=== PATIENT | male | born 1990 | race Caucasian/White ===

== ENCOUNTER 2020-05-31 04:55 | Emergency (ER) | payer MEDICAID, SELFPAY ==
[2020-05-31 04:57] VITALS: BP 171/95; PULSE 75; RESP 14; TEMP 36.2; O2SAT 98; BMI 30.5
--- NOTE | 2020-05-31 05:14 | RAD_ITS ---
STUDY: X-RAY - ABDOMEN/PELVIS REASON FOR EXAM: Male, 29 years old. PT STATES CONSTIPATION WITH ABD PAIN. HAS HAD TO USE LAXATIVES FOR ONE MONTH. LAST BM 3 DAYS AGO TECHNIQUE: Two AP supine views of the abdomen and pelvis. COMPARISON: None. FINDINGS: Normal visualized lung bases. There is mild amount of stool within the colon. There is no demonstrated free abdominal air. The visualized liver, spleen and kidneys are grossly normal in size and morphology. Normal soft tissue structures. Normal visualized osseous structures. RAD/Abdomen Single View IMPRESSION: Mild to moderate constipation. Electronically Signed: Felicia Burgess MD at 5:53 EDT Tel , Service support ,
--- NOTE | 2020-05-31 05:16 | ED.DCSUM_ITS ---
- ER Visit Summary Date of Service: 05/31/20 Chief Complaint: Constipation History of Present Illness: The patient is a 29 M presenting with constipation. Patient states this has been ongoing for the past month. He states he has not been able to have a bowel movement for the past 3 days. He states he has needed to take Dulcolax prior to having a bowel movement. He has not tried this in the past 2 days. He started having abdominal cramping last night. He denies nausea or vomiting. Denies blood in his stool. Denies fever or other complaints. History of previous appendectomy. Physical Examination: Vitals are stable. Patient is afebrile. Alert no acute distress. HEENT exam is unremarkable. Neck is supple. Lungs are clear and equal bilaterally. Heart is regular rate and rhythm. Abdomen is soft nontender nondistended. No guarding or rebound Rectal: Normal tone, no stool impaction Extremities are unremarkable. Skin is warm and dry. Remainder of exam is unremarkable. Emergency Department Course and Treatment: KUB shows mild to moderate constipation. He was given magnesium citrate for home. Advised to follow-up with his primary care physician. Advised return to ED for worsening complaints. Disposition: Discharge home Impression: Constipation This note was generated with [employer] dictation software. It may contain incorrect words, spelling, and punctuation that were not noted in review of the chart prior to signing ED Disposition - Plan for ED Patient: Instructions: ED Constipation Referrals: Easton Kang MD [Primary Care Provider] -
--- NOTE | 2020-05-31 06:16 | ED.DEP ---
ED Disposition - Plan for ED Patient: Instructions: ED Constipation Referrals: Easton Kang MD [Primary Care Provider] -
[2020-05-31] MEDS: Magnesium Citrate 300 ML PO (06:20)
[2020-05-31 06:25] VITALS: BP 164/78; PULSE 74; RESP 16
== END 2020-05-31 06:26 | disposition home or self-care (01) ==
LOC: ED 05:20
PROVIDERS: Emergency Provider Emergency Medicine; PCP Family Medicine
DX: K59.00 Constipation, unspecified (principal)
CPT/HCPCS: 74018; 99283

== ENCOUNTER → 2020-07-10 10:08 | Outpatient (CLI) | payer MEDICAID, SELFPAY | PROVIDERS: PCP Family Medicine; Referring Provider Family Medicine; Visit Provider Family Medicine | DX: Z20.828 Contact with and (suspected) exposure to other viral communicable diseases (principal) | CPT/HCPCS: 87635; C9803; U0003 ==

== ENCOUNTER 2020-12-18 16:56 | Emergency (ER) | payer MEDICAID, SELFPAY ==
[2020-12-18 16:57] VITALS: BP 145/86; PULSE 76; RESP 16; TEMP 35.8; O2SAT 97; BMI 30.1
--- NOTE | 2020-12-18 17:07 | ED.DCSUM_ITS ---
History of Present Illness Chief Complaint: Allergic Reaction Detail of Chief Complaint: Hives Informant: Patient Onset: Yesterday Context: Sudden Onset Timing: Continuous Quality: Hives Location: Generalized Current Severity: Moderate Maximum Severity: Moderate Worsened by: Unknown Relieved by: Took 75 mg of Benadryl today Associated Symptoms: States he feels his tongue is swollen Narrative: Is a 30-year-old male with no significant past medical history. He denies environmental allergies. Does have allergy to amoxicillin cefaclor. He denies lightheadedness. He denies chest pain. He denies shortness of breath. He denies wheezing. He denies nausea or vomiting. He denies abdominal pain. He states his tongue feels swollen. He is able to swallow without drooling. He had no change in voice. He has no other complaints. He did not have any berries, nuts or shellfish food yesterday. Prior similar symptoms: No Recent Illness/Hospitalization: No - Past Medical History (1) No significant past medical history Status: Acute Past Medical History - Allergies and Home Meds Allergies/Adverse Reactions: Allergies amoxicillin Adverse Reaction (Verified 05/31/20 04:56) PT UNSURE OF REACTION cefaclor [From Ceclor] Adverse Reaction (Verified 05/31/20 04:56) PT UNSURE OF REACTION Primary Care Physician: Easton Kang MD [Primary Care Provider] - 3-5 Days Prior records reviewed: Yes Past Medical History: None Surgical History: no surgical history Lives: With Family Smoking Status: Never smoker Alcohol: None Drugs: None Review of Systems General: Denies: Chills, Fever, Subjective Eyes: Denies: Visual changes - bilaterally, Blurred Vision - bilaterally ENT: Reports: - - Tongue feels swollen. Denies: Bilateral ear pain, Rhinorrhea, Sore throat Cardiovascular: Denies: Chest pain, Palpitations Respiratory: Denies: Dyspnea, Cough, Dyspnea on exertion Gastrointestinal: Denies: Abdominal pain, Nausea, Vomiting, Diarrhea, Melena, Hematochezia Genitourinary: Denies: Dysuria, Hematuria, Frequency Musculoskeletal: Denies: Myalgias, Arthralgias, Neck pain, Back pain, Swelling, Extremity Pain, -, - Skin: Reports: Rash. Denies: Wounds Neurological: Denies: Weakness, Parasthesia Psych: Denies: Anxiety Hematologic: Denies: Easy bruising, Easy bleeding Physical Exam Vital Signs/Narrative: Vital Signs Temp Pulse Resp BP Pulse Ox 12/18/20 16:57 96.4 F L 76 16 145/86 H 97 Inital Vital Signs reviewed: Yes General: Well nourished, Well developed, No Acute Distress Head: Normocephalic, Atraumatic Eyes: Perrl, EOMI. Negative for: Pale conjunctiva, Scleral icterus ENT: Moist mucous membranes, No rhinorrhea, - - He is midline. There is no inspiratory expiratory stridor. There is no obvious angioedema noted. Neck: Supple, Nontender Cardiovascular: Regular rate, Regular rhythm, No murmurs, Normal S1, Normal S2 Respiratory: No distress, CTA bilaterally, Chest nontender Abdomen: Soft, Nontender, Nondistended, Normal bowel sounds Back: Nontender, Normal Inspection Extremities: Nontender, No edema Skin: Normal color, No Trauma, Rash - Urticaria that is generalized. Negative for: Cyanosis, Diaphoresis, Jaundice Neurological: Alert, Oriented x3, Cranial nerves II-XII grossly intact, Normal Strength, Normal Sensation Psychological: Normal affect, Normal Mood Diagnostic/Tx/Re-eval - Medical Decision Making Patient with generalized allergic reaction with hives. He was treated with H1 and H2 bree and Solu-Medrol. Since he is not hemodynamically unstable and there is no objective findings other than the rash epinephrine was not given. Patient was reassessed at 10/04/2004. His hives have resolved. All of his symptoms have resolved. I do not appreciate any difference in his tongue. He subjectively feels his tongue is no longer swollen. Patient was discharged with a prescription for H1 bree, H2 bree and predni sone. He was instructed follow-up with his doctor for allergy testing. ED Disposition - Plan for ED Patient: Disposition: Home or Assisted Living Diagnosis: Urticaria Instructions: ED Hives (Adult) Prescriptions: Prednisone [Deltasone] 40 mg PO DAILY #10 tablet Prescription Printed Famotidine [Pepcid] 20 mg PO BID #10 tab Prescription Printed Referrals: Easton Kang MD [Primary Care Provider] - 3-5 Days
[2020-12-18] MEDS: MethylPREDNISolone 125 MG/2 ML Vial IV (17:45)
[2020-12-18] MEDS: DiphenhydrAMINE 50 MG/ML Syringe IV (17:45)
[2020-12-18] MEDS: Famotidine 200 MG/20 ML MDV 20 MG in 0.9% Normal Saline (Pres. free 8 ML 300 MG IV (17:46)
[2020-12-18 17:53] VITALS: BP 124/59; PULSE 70; RESP 16; O2SAT 100
[2020-12-18 18:43] VITALS: BP 149/70; PULSE 65; RESP 18; O2SAT 100
== END 2020-12-18 18:46 | disposition home or self-care (01) ==
PROVIDERS: Emergency Provider Emergency Medicine; PCP Family Medicine
DX: L50.0 Allergic urticaria (principal); Z88.1 Allergy status to other antibiotic agents; Z88.0 Allergy status to penicillin
CPT/HCPCS: 96365; 96375; 99282; A4216; J3490

== ENCOUNTER 2020-12-20 21:38 | Emergency (ER) | payer MEDICAID, SELFPAY ==
[2020-12-20 21:39] VITALS: BP 146/93; PULSE 84; RESP 16; TEMP 37.2; O2SAT 99; BMI 30.7
--- NOTE | 2020-12-20 22:03 | ED.DCSUM_ITS ---
- ER Visit Summary Date of Service: 12/20/20 Chief Complaint: [Hives] History of Present Illness: The patient is a 30 M [ presents to the emergency department with complaint of an allergic reaction. Patient states that he was seen in the emergency department 2 days ago for hives and was given IV with steroids as well as Benadryl and Pepcid and eventually symptoms resolved. Patient states that he could not tolerate the prednisone so he stopped taking it and that it made him very emotional and spacey and felt out of it. Patient states that this evening he started itching on his calf and developing a hive on his calf as well as his abdomen. Patient did take some Benadryl and some Pepcid this evening. Patient denies any new soaps or detergents or perfumes. He denies eating any unusual foods. He denies any new medications. Patient is using some sort of a fuel supplement for bodybuilding as well as creatine. Patient's been using the creatine for 2 weeks and he was told to discontinue his fuel supplement which she stopped taking yesterday. She denies lip or tongue swelling. He denies shortness of breath.] Physical Examination: [HEENT-PERRLA, EOMI. Cranial nerves II through XII grossly intact. TMs clear. Mucous membranes moist. No adenopathy. No angioedema. No stridor Cardiovascular-regular rate and rhythm without murmur or ectopy Lungs-clear to auscultation, chest wall stable without crepitus or subcu emphysema Abdomen-normoactive bowel sounds, soft, nontender, no rebound or rigidity, no peritoneal signs. Skin exam-patient does have urticaria involving the abdomen and right calf. The urticaria on the abdomen appears almost linear where he has been scratching. Extremities-intact ?4, normal range of motion, normal pulses, atraumatic] Test Results: [None indicated] Emergency Department Course and Treatment: [I offered to give patient IV steroids as well as Benadryl which she refused. Patient states that he has prednisone at home and he would prefer to go home and take that. Patient also understands that he may take Benadryl and Pepcid.] Treatment Plan: [We discussed discontinuing the creatine and the other supplement that he is currently taking. Patient advised to return if lip or tongue swelling or difficulty breathing or condition should worsen anyway.] Disposition: [Discharged home in stable condition] Impression: [Urticaria-etiology uncertain] This note was generated with [employer] dictation software. It may contain incorrect words, spelling, and punctuation that were not noted in review of the chart prior to signing ED Disposition - Plan for ED Patient: Referrals: Easton Kang MD [Primary Care Provider] -
--- NOTE | 2020-12-20 22:07 | ED.DEP ---
ED Disposition - Plan for ED Patient: Instructions: ED Hives (Adult) Referrals: Easton Kang MD [Primary Care Provider] - 3-5 Days
[2020-12-20 22:29] VITALS: RESP 18
== END 2020-12-20 22:32 | disposition home or self-care (01) ==
LOC: ED 22:22
PROVIDERS: Emergency Provider Emergency Medicine; PCP Family Medicine
DX: L50.9 Urticaria, unspecified (principal)
CPT/HCPCS: 99282

== ENCOUNTER → 2020-12-24 12:51 | Outpatient (CLI) | payer MEDICAID, SELFPAY ==
[2020-12-20 21:39] VITALS: BMI 30.7
[2020-12-27 16:08] LABS: Almond <0.10 kU/L (Class 0); Banana <0.10 kU/L (Class 0); Beef <0.10 kU/L (Class 0); Cashew <0.10 kU/L (Class 0); Chicken <0.10 kU/L (Class 0); Clam <0.10 kU/L (Class 0); Codfish <0.10 kU/L (Class 0); Corn <0.10 kU/L (Class 0); Crab <0.10 kU/L (Class 0); Egg, White <0.10 kU/L (Class 0); Egg, Whole <0.10 kU/L (Class 0); Egg, Yolk <0.10 kU/L (Class 0); Garlic <0.10 kU/L (Class 0); Gluten <0.10 kU/L (Class 0); Lobster <0.10 kU/L (Class 0); Milk (Cow) <0.10 kU/L (Class 0); Oat <0.10 kU/L (Class 0); Onion <0.10 kU/L (Class 0); Peanut <0.10 kU/L (Class 0); Potato, White <0.10 kU/L (Class 0); SCALLOP <0.10 kU/L (Class 0); SESAME SEED <0.10 kU/L (Class 0); Salmon <0.10 kU/L (Class 0); Shrimp <0.10 kU/L (Class 0); Soybean <0.10 kU/L (Class 0); Tomato <0.10 kU/L (Class 0); Tuna <0.10 kU/L (Class 0); Walnut, (Food) <0.10 kU/L (Class 0); Wheat <0.10 kU/L (Class 0); Yeast <0.10 kU/L (Class 0)
[2020-12-27 16:17] LABS: Turkey <0.10 kU/L (Class 0)
== END ==
PROVIDERS: PCP Family Medicine; Referring Provider Otolaryngology Otolaryngology/Facial Plastic Surgery; Visit Provider Otolaryngology Otolaryngology/Facial Plastic Surgery
DX: T78.40XA Allergy, unspecified, initial encounter (principal)
CPT/HCPCS: 36415; 86003

== ENCOUNTER 2023-03-27 20:38 | Emergency (ER) | payer MEDICAID, SELFPAY ==
[2023-03-27 20:41] VITALS: BP 151/84; PULSE 95; RESP 18; TEMP 36.4; O2SAT 99; BMI 29.5
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
[2023-03-27] MEDS: Ondansetron ODT 4 MG Tablet PO (21:10)
[2023-03-27] MEDS: Naproxen 500 MG Tablet PO (21:10)
--- NOTE | 2023-03-27 21:23 | RAD_ITS ---
INDICATION: rib injury EXAMINATION/TECHNIQUE: X-RAY - XR Ribs Unilateral W/ PA Chest Min 3 Views COMPARISON: None. FINDINGS: SOFT TISSUES: No soft tissue swelling or gas. BONES: No displaced fracture. No sclerotic or destructive changes observed. VISUALIZED LUNGS: Clear. No pneumothorax. RAD/Ribs Uni Min 3V w/PA Chest IMPRESSION: No visualized fracture. No evidence of acute cardiopulmonary process. Electronically Signed: Hector Acosta MD at 22:21 EDT ,
== END 2023-03-27 22:42 | disposition home or self-care (01) ==
PROVIDERS: Emergency Provider Emergency Medicine; PCP Family Medicine; Visit Provider Emergency Medicine
DX: S06.0X0A Concussion without loss of consciousness, initial encounter (principal); S20.219A Contusion of unspecified front wall of thorax, initial encounter; Y04.8XXA Assault by other bodily force, initial encounter; S09.8XXA Other specified injuries of head, initial encounter
CPT/HCPCS: 70450; 71101; 99282

== ENCOUNTER 2024-01-15 02:10 | Emergency (ER) | payer MEDICAID, SELFPAY ==
[2024-01-15 02:11] VITALS: BP 164/93; PULSE 85; RESP 20; TEMP 36.8; O2SAT 98; BMI 32.8
--- NOTE | 2024-01-15 02:23 | EX.ED.DYSGE1 ---
HPI History of Present Illness Chief Complaint: Sore Throat Informant: patient and spouse/S.O. Narrative Narrative: 4 to 5 days sore throat pain with swallowing. No fevers or cough. No sick contacts. No myalgias. Tonsillectomy and adenectomy in the past. Reports feels a lump in his neck on the right side. [facility] Medical History Bipolar disorder Tourette's Home Medications fluphenazine HCl 2.5 mg tablet 5 mg PO DAILY 05/31/20 [History Last Taken Unknown] fluoxetine 40 mg capsule 40 mg PO DAILY 01/15/24 [History Last Taken Unknown] Allergy/AdvReac Type Severity Reaction Status Date / Time amoxicillin AdvReac PT UNSURE Verified 03/27/23 20:41 OF REACTION cefaclor [From Ceclor] AdvReac PT UNSURE Verified 03/27/23 20:41 OF REACTION prednisone AdvReac Other Verified 03/27/23 20:41 Surgical History History of tonsillectomy and adenoidectomy Hx of appendectomy S/P hernia surgery Social History Smoking Status: Never smoker ROS ROS ED Constitutional Constitutional ED: Denies chills, fever(s) or sweats Eyes Eyes: Denies change in vision ENT ENT ED: Reports sore throat; Denies dysphagia Cardiovascular Cardiovascular: Denies chest pain, leg edema, palpitations or racing heartbeat Respiratory/Chest Respiratory/Chest: Denies cough, dyspnea or dyspnea on exertion Gastrointestinal Gastrointestinal: Denies abdominal pain, diarrhea, nausea or vomiting Genitourinary Genitourinary ED: Denies dysuria, hematuria or urinary frequency Musculoskeletal Musculoskeletal: Denies back pain, extremity pain or neck pain Integumentary Denies rash or wounds Neurologic Neurologic: Denies headache(s), paresthesias or weakness Hematologic/Lymphatic Hematologic/Lymphatic: Reports lymphadenopathy EXAM Physical Exam Const Vital Signs: 01/15/24 02:11 01/15/24 03:11 Temperature 98.2 F 98.0 F Temperature Source Oral Pulse Rate 85 80 Respiratory Rate 20 H 16 Blood Pressure 164/93 H 140/90 H Blood Pressure Mean 116 106 Pulse Ox 98 96 Oxygen Delivery Method Room Air Positive well nourished and well developed General Appearance ED: well developed and NAD HEENT Reports moist mucous membranes HEENT Narrative: Tonsils absent mild posterior pharyngeal erythema on the right side. No trismus. Airway patent. normocephalic and atraumatic Eyes PERRL, EOMs intact bilaterally and conjunctivae normal General Eye ED: Yes normal appearance of both eyes Neck supple Neck Narrative: Tender right anterior cervical lymphadenopathy. General: tenderness Chest Wall Chest: Negative for tenderness Resp normal respiratory effort and normal air movement Effort and Inspection: symmetric chest movement; Negative for respiratory distress Cardio regular rate, regular rhythm and no murmurs Peripheral Pulses: pulses 2+ throughout GI normal to inspection, nondistended, normoactive bowel sounds and non-tender Palpation: Negative for guarding or rebound tenderness present Back/Spine no CVA tenderness and no thoracic nor lumbar tenderness Extremity normal to inspection General Extremety ED: Negative for edema or tenderness General Extremity: Negative for edema Neuro oriented x3 and no sensory deficits noted Sensorium / Orientation: awake and alert Skin no rashes or lesions noted and no wounds MDM MDM MDM Narrative Medical decision making narrative: Interventions / MDM: Differential diagnosis: Pharyngitis, cervical lymphadenitis Diagnosis considered but do not suspect: No clinical retropharyngeal abscess. My EKG interpretation: N/A Imaging independently reviewed and interpreted by myself: N/A External documents reviewed: N/A Test considered but not ordered:N/A ED course: Pharyngitis symptoms. No clinical retropharyngeal abscess. Tonsils are absent. Rapid strep ordered. Noted allergy to prednisone causing likely psychosis. He would like to try different steroid. Order for dexamethasone p.o. Strep PCR negative. Reassured on findings. He will use Tylenol or Motrin as needed. Discussed reactive cervical adenitis. Outpatient follow-up. Re-evaluation: stable Disposition discussed with patient/family/significant other: Patient and significant other Case discussed with consulting clinician: N/A This note was generated with [employer] dictation software. It may contain incorrect words, spelling, and punctuation that were not noted in checking the note before signing. Discharge Plan Triage Chief Complaint: Sore Throat ED Provider: Morris Staples Dx/Rx/DC Orders Clinical Impression: Acute cervical lymphadenitis, Pharyngitis Instructions: ED Adenitis Cervical No Abx Tx, ED Pharyngitis, Viral Prescriptions: No Action fluphenazine HCl 2.5 MG tablet 5 mg PO DAILY fluoxetine 40 mg capsule 40 mg PO DAILY Primary Care Provider: Easton Kang Referrals: Easton Kang MD [Primary Care Provider] - 1 Week Activity Restrictions/Additional Instructions: Strep PCR negative. Reactive cervical lymphadenitis due to likely viral pharyngitis. Continue oral fluids Tylenol Motrin as needed. Status post dexamethasone. Follow-up with your doctor. Disposition Disposition: Home, Self Care Discharge Date/Time: 01/15/24 03:19
[2024-01-15] MEDS: dexAMETHasone 4 MG Tablet 12 MG PO (02:29)
[2024-01-15 03:11] VITALS: BP 140/90; PULSE 80; RESP 16; TEMP 36.7; O2SAT 96
== END 2024-01-15 03:19 | disposition home or self-care (01) ==
PROVIDERS: Emergency Provider Emergency Medicine; PCP Family Medicine; Visit Provider Emergency Medicine
DX: J02.9 Acute pharyngitis, unspecified (principal); F31.9 Bipolar disorder, unspecified; L04.0 Acute lymphadenitis of face, head and neck; Z79.899 Other long term (current) drug therapy
CPT/HCPCS: 87651; 99282

== ENCOUNTER 2024-05-07 01:38 | Emergency (ER) | payer MEDICAID, SELFPAY ==
[2024-05-07 01:38] VITALS: PULSE 87; RESP 20; TEMP 36.6; O2SAT 99; BMI 35.6
--- NOTE | 2024-05-07 01:47 | EDS_ITS ---
HPI History of Present Illness Chief Complaint: Abd Pain [facility] Medical History (Updated 05/07/24 @ 05:[address] Sincere Flores DO) Anxiety Bipolar disorder Tourette's Home Medications ?Medication ?Instructions ?Recorded ?Last Taken ?Type fluphenazine HCl 2.5 mg tablet 5 mg PO DAILY 05/31/20 Unknown History fluoxetine 40 mg capsule 60 mg PO DAILY 01/15/24 Unknown History lisinopril 5 mg tablet 5 mg PO DAILY 05/07/24 Unknown History omeprazole 40 mg capsule,delayed 40 mg PO DAILY #30 caps 05/07/24 Unknown Rx release Allergy/AdvReac Type Severity Reaction Status Date / Time amoxicillin AdvReac PT UNSURE Verified 05/07/24 01:41 OF REACTION cefaclor (From Ceclor) AdvReac PT UNSURE Verified 05/07/24 01:41 OF REACTION prednisone AdvReac Other Verified 05/07/24 01:41 Surgical History S/P hernia surgery Hx of appendectomy History of tonsillectomy and adenoidectomy Social History Smoking Status: Never smoker EXAM Physical Exam Const Vital Signs: 05/07/24 01:38 05/07/24 01:55 05/07/24 02:55 Temperature 98 F Temperature Source Oral Pulse Rate 87 89 84 Respiratory Rate 20 H 16 18 Blood Pressure 123/53 H 139/69 H Blood Pressure Mean 76 92 Pulse Ox 99 98 98 Oxygen Delivery Method Room Air Room Air Room Air MDM MDM MDM Narrative Medical decision making narrative: HISTORY OF PRESENT ILLNESS: 33-year-old male presents abdominal pain. Notes history of GERD. States been having this for 2017. Notes epigastric abdominal pain that is not worsened by food. Denies vomiting but notes general stomach discomfort. The pain does not radiate. Denies any recent alcohol abuse. Denies hematemesis melena or hematochezia. Endorses history of appendectomy. Last bowel movement was yesterday with no diarrhea noted. He also notes chest pain associate with abdominal pain today which prompted his visit. The patient denies recent surgery in the last 4 weeks or immobilization in the last 3 days, denies previous diagnosis of DVT or PE, hemoptysis, unilateral leg swelling or malignancy with treatment the last 6 months or palliative. No estrogen use not ed. Patient denies sudden onset of pain, no tearing sensation, no migratory symptoms, no new numbness, weakness or loss of sensation. Patient denies family history or personal history of Connective tissue disorders (Marfan's Syndrome, Brunilda Danlos etc) REVIEW OF SYSTEMS: Pertinent positives: Chest pain, abdominal pain Pertinent negatives: Fever, vomiting, leg swelling PHYSICAL EXAM: Nursing triage notes reviewed, Vital signs reviewed Constitutional: please see mdm HENT: MMM Eyes: Pupils equal round and reactive to light, Extraocular muscles intact Neck: No stridor, no JVD, full neck ROM Lungs: Clear to auscultation, No wheezing or rales. No increased work of breathing, no conversational dyspnea, no accessory muscle use, no nasal flaring. No respiratory distress noted Heart: Regular rate and rhythm, No murmurs, No rubs and No gallops, 2+ distal pulses (radial, femoral, posterior tibial) in all extremities Abdomen: Soft, there is no tenderness, rigidity, rebound or guarding, no obvious peritoneal signs, no palpable pulsatile abdominal masses, no auscultated abdominal bruit : No CVAT Extremities: No edema Neuro: No focal neurological deficits, cranial nerves II through XII intact, 5/5 strength in all extremities. Intact sensation to light touch in all extremities, 2+ reflexes bilateral patella tendons. Normal gait. No ataxia. Skin: No rash or lesions noted MEDICAL DECISION MAKING: Chief Complaint: Abdominal pain External records reviewed: Imaging reviewed: No recent advanced imaging of the abdomen Factors affecting care: Bipolar disorder, Tourette's syndrome, hypertension Social determinants of health: History of behavioral health disorder History obtained from others: the patient's fianc? Consults: none [facility] Narrative: Patient was initially hemodynamically stable, afebrile and nontoxic-appearing. Exam with a benign abdomen. No stigmata of aortic pathology including pulse deficits, focal neurologic deficits or severe vital sign abnormalities or clinical presentation to suggest aortic dissection. While considered aortic dissection I do not think a CT scan of chest abdomen pelvis indicated at this time. Also considered pulm embolism as a potential etiology of patient's chest pain. Patient lowers well score and as such have a low suspicion for PE at this time. I considered the following differential diagnosis: ACS, arrhythmia, anemia, PE, GERD, esophagitis, AAA, small bowel obstruction, abdominal perforation, appendicitis, pancreatitis, hepatobiliary pathology (acute cholecystitis), mesenteric ischemia, pathology (ie nephrolithiasis, pyelonephritis). I obtained a broad lab and imaging workup to further elucidate etiology of patient complaint. I treat the patient IV fluids, 15 mg of IV Toradol and 4 mg IV Zofran, 20 mg IV Pepcid for symptomatic control ALL IMAGES (IF OBTAINED) HAVE BEEN PERSONALLY REVIEWED AND INTERPRETED BY MYSELF. CBC without leukocytosis, severe anemia, no thrombocytopenia. BMP with mild hypokalemia otherwise unremarkable LFTs show no evidence of hepatobiliary pathology. High-sensitivity troponin is negative, no evidence of myocardial ischemia x 2 Lipase is wnl indicating no pancreatic inflammation. CT scan abdomen pelvis shows no evidence of acute surgical pathology I have personally reviewed the patient's chest x-ray. Chest x-ray is unremarkable for pulmonary edema, pneumothorax, pneumonia or focal cardiopulmonary abnormality. The synthesis of the patient's history, physical exam, labs images suggest no acute life rheumatoid etiology specifically no signs of ACS or surgical p athology of the abdomen. I recommended close GI follow-up for EGD. Prescribed omeprazole. The patient and/or family, caregivers express understanding. The patient and/or family, caregivers agrees with the plan. Shared decision making: I will have a discussion with the patient and or visitors regarding risk/benefits of further testing or admission. They will be made aware of of the risk/benefits inherent in this decision they will be given the opportunity to voice understanding. Total critical care time today provided was at least 0 minutes. This excludes separately billable procedures. Critical care time (if documented) is secondary to the patient having high probability of clinically significant/life threatening deterioration in the patient's condition which required my urgent intervention. Impression: 1. Chronic abdominal pain 2. History of GERD Dispo: Discharge home This note was generated with Zadego dictation software. It may contain incorrect words, spelling, and punctuation that were not noted in review of the chart prior to signing. Lab Data Labs: Laboratory Results - last 24 hr 05/07/24 05/07/24 01:49 03:50 WBC 8.7 RBC 5.10 Hgb 14.5 Hct 41.9 MCV 82.2 MCH 28.4 MCHC 34.6 RDW Std Deviation 36.7 RDW Coeff of Faiza 12.2 Plt Count 228 MPV 10.6 Immature Gran % (Auto) 0.100 Neut % (Auto) 56.1 Lymph % (Auto) 34.6 Chase % (Auto) 5.4 Eos % (Auto) 3.0 Baso % (Auto) 0.8 Absolute Neuts (auto) 4.9 Absolute Lymphs (auto) 3.00 Nucleated RBC % 0 Sodium 139 Potassium 3.4 L Chloride 106 Carbon Dioxide 27.0 Anion Gap 6 BUN 17 Creatinine 1.12 Estim Creat Clear Calc 123.79 Est GFR (MDRD) Af Amer 98 Est GFR (MDRD) Non-Af 81 BUN/Creatinine Ratio 15.2 Glucose 101 Calcium 9.0 Total Bilirubin 0.20 Direct Bilirubin 0.07 AST 21 ALT 38 Alkaline Phosphatase 106 Troponin I High Sens < 3 L 3 Total Protein 7.4 Albumin 3.9 Globulin 3.5 Lipase 39 Radiography Diagnostic Testing: Clinical Impression(s) from Imaging Studies Abdomen/Pelvis CT 05/07/24 02:07 IMPRESSION: Relative gastric distention. No other acute findings. Electronically Signed: Luna Garcia MD at 2:58 EDT , Chest X-Ray 05/07/24 02:38 IMPRESSION: No evidence of active intrathoracic disease. Electronically Signed: Luna Garcia MD at 3:03 EDT , Discharge Plan Triage Chief Complaint: Abd Pain ED Provider: Sincere Flores Dx/Rx/DC Orders Clinical Impression: Abdominal pain, acute, epigastric Instructions: ED Epigastric Pain Uncertain Cause Prescriptions: New omeprazole 40 mg capsule,delayed release(DR/EC) 40 mg PO DAILY Qty: 30 3RF No Action fluphenazine HCl 2.5 MG tablet 5 mg PO DAILY fluoxetine 40 mg capsule 60 mg PO DAILY lisinopril 5 mg tablet 5 mg PO DAILY Primary Care Provider: Easton Kang Referrals: Easton Kang MD [Primary Care Provider] - FriendLeland DO [Med Staff - Active Staff] - Activity Restrictions/Additional Instructions: Thank you for trusting us with your care today! Your labs and images did not suggest any life or limb threatening etiology of the chest or abdomen. Please take Tylenol (2 pills, 650 mg) every 6 hours as needed for pain and fever control. Please take omeprazole as been prescribed. Please return to the emergency department if your symptoms change or worsen. Please follow with your primary care physician and Gastroenterology (Dr. Mccall) for further outpatient evaluation and management. Print Language: Zambian Disposition Disposition: Home, Self Care
[2024-05-07] MEDS: 0.9% Normal Saline (1000mL) 1,000 ML 999 ML IV (01:53)
[2024-05-07] MEDS: Ketorolac 15 MG/ML Vial IV (01:53)
[2024-05-07 01:54] LABS: Absolute Neutrophil Count 4.9 X10^3/uL (2.0-7.7); Basophil# 0.07 X10^3/uL; Basophil% 0.8 % (0-1); Eosinophil# 0.26 X10^3/uL; Hematocrit 41.9 % (40-54); Hemoglobin 14.5 g/dL (13.0-16.5); Lymphocyte % 34.6 % (19-41); Mean Corp Hgb Conc 34.6 g/dL (32-36); Mean Corpuscular Hgb 28.4 pg (27.0-32.0); Mean Corpuscular Volume 82.2 fL (80-94); Mean Platelet Vol. 10.6 fl (6.2-12.0); Monocyte# 0.47 X10^3/uL; Monocyte% 5.4 % (0-10); NRBC Flagged by Analyzer 0 % (0-5); Neutrophil # 4.87 X10^3/uL (2.7-7.7); Neutrophil % 56.1 % (47-70); Platelet Count 228 K/mm3 (150-450); RBC Distribution Width CV 12.2 % (11.6-14.6); RBC Distribution Width SD 36.7 fl (35.1-43.9); White Blood Count 8.7 K/mm3 (4.4-11.0)
[2024-05-07] MEDS: Ondansetron 4 MG/2 ML Vial IV (01:54)
[2024-05-07 01:55] VITALS: BP 123/53; PULSE 89; RESP 16; O2SAT 98
[2024-05-07] MEDS: Famotidine 200 MG/20 ML MDV 20 MG in 0.9% Normal Saline (Pres. free 8 ML 300 MG IV (01:57)
--- NOTE | 2024-05-07 02:07 | CT_ITS ---
EXAM: CT Abdomen And Pelvis W/ Contrast Injection HISTORY: epigastric abdominal pain TECHNIQUE: Routine protocol CT abdomen pelvis. IV Contrast: IV 100mL Isovue-300 . Oral Contrast: without. Sagittal and coronal images were reconstructed. RADIATION DOSAGE (If Supplied By Facility): CTDIvol = ( 14.49 ) mGy, DLP = ( 1263.43 ) mGycm Individualized dose optimization techniques were used for this CT. COMPARISON: None. LIMITATIONS: None. FINDINGS: LOWER CHEST: Lung bases are clear. LIVER: Unremarkable. GALLBLADDER/BILE DUCTS: Unremarkable. PANCREAS: Unremarkable. SPLEEN: Unremarkable. ADRENAL GLANDS: Unremarkable. KIDNEYS / URETERS: Unremarkable. BOWEL / MESENTERY: The stomach is moderately distended with large amount of fluid and material. No bowel obstruction. APPENDIX: Surgically absent. PERITONEUM: No free air. No free fluid. VESSELS: Abdominal aorta is normal caliber. RETROPERITONEUM: Unremarkable. REPRODUCTIVE ORGANS: Unremarkable. BLADDER: Unremarkable. ABDOMINAL WALL: Unremarkable. BONES: No acute abnormality. OTHER: None. CT/Abdomen/Pelvis W IV Cont ONLY IMPRESSION: Relative gastric distention. No other acute findings. Electronically Signed: Luna Garcia MD at 2:58 EDT ,
--- NOTE | 2024-05-07 02:07 | EKG12_ITS ---
Test Reason : ABD PAIN Blood Pressure : / mmHG Vent. Rate : 072 BPM Atrial Rate : 072 BPM P-R Int : 178 ms QRS Dur : 104 ms QT Int : 398 ms P-R-T Axes : 052 048 036 degrees QTc Int : 435 ms Normal sinus rhythm Normal ECG Confirmed by SEAN LAWSON MD ([id number]), associate editor MICHAELA DUCKWORTH ([id number]) on 05/08/2024 9:45:34 AM Referred By: Confirmed By:SEAN LAWSON MD
[2024-05-07 02:11] LABS: AST(SGOT) 21 U/L (15-37); Alanine Aminotransfer ALT/SGPT 38 U/L (16-61); Albumin, Serum 3.9 g/dL (3.2-5.0); Alkaline Phosphatase 106 U/L (45-117); Anion Gap 6 (5-15); BUN 17 mg/dL (7-18); BUN/Creat Ratio 15.2 RATIO (10-20); Bilirubin, Direct 0.07 mg/dL (0.00-0.30); Chloride 106 mmol/L (98-107); Creatinine, Serum 1.12 mg/dL (0.70-1.30); EST Glomerular Filtration Rate 81 mL/min (>60); Est Glom Filt Rate - Afr Amer 98 mL/min (>60); Estimated Creatinine Clearance 123.79 ml/min; Globulin 3.5 g/dL (2.2-4.2); Glucose 101 mg/dL (74-106); Lipase 39 U/L (13-75); Potassium 3.4 mmol/L (3.5-5.1); Protein, Total 7.4 g/dL (6.4-8.2); Sodium Level 139 mmol/L (136-145)
[2024-05-07 02:27] LABS: Troponin-I HS < 3 pg/mL (3.0-78.0)
--- NOTE | 2024-05-07 02:38 | RAD_ITS ---
INDICATION: chest pain EXAMINATION/TECHNIQUE: X-RAY - XR Chest 1 View AP portable. 2:26 AM COMPARISON: 03/27/2023 FINDINGS: LINES/DEVICES: None. LUNGS: No consolidation. No pneumothorax. MEDIASTINUM: Unremarkable. CARDIAC SILHOUETTE: Not enlarged. BONES AND SOFT TISSUES: No acute abnormalities. RAD/Chest 1 View (Portable) IMPRESSION: No evidence of active intrathoracic disease. Electronically Signed: Luna Garcia MD at 3:03 EDT ,
[2024-05-07 02:55] VITALS: BP 139/69; PULSE 84; RESP 18; O2SAT 98
[2024-05-07 04:00] VITALS: BP 138/62; PULSE 80; RESP 18; O2SAT 100
[2024-05-07 04:20] LABS: Troponin-I HS 3 pg/mL (3.0-78.0)
[2024-05-07 05:22] VITALS: BP 143/76; PULSE 85; RESP 16; TEMP 36.8; O2SAT 97
== END 2024-05-07 05:24 | disposition home or self-care (01) ==
PROVIDERS: Emergency Provider Emergency Medicine; PCP Family Medicine; Visit Provider Emergency Medicine
DX: R10.13 Epigastric pain (principal); F31.9 Bipolar disorder, unspecified; F95.2 Tourette's disorder; I10 Essential (primary) hypertension; E87.6 Hypokalemia; G89.29 Other chronic pain; K21.9 Gastro-esophageal reflux disease without esophagitis; Z79.899 Other long term (current) drug therapy; R07.9 Chest pain, unspecified
CPT/HCPCS: 71045; 74177; 80048; 80076; 83690; 84484; 85025; 93005; 96361; 96374; 96375; 99283; J7030; Q9967; A4216; J2405; J3490

== ENCOUNTER 2024-07-18 22:55 | Emergency (ER) | payer MEDICAID, SELFPAY ==
[2024-07-18 22:58] VITALS: BP 147/99; PULSE 82; RESP 16; TEMP 37.1; O2SAT 98; BMI 34.5
--- OUTSIDE RECORDS SUMMARY | 2024-07-18 23:11 | XMS RPT_ITS | CCD ---
Author Organization [facility] Care Team Providers Care Neck Cutter Name Role Phone Brendan Haywood MD Primary Care Provider [phone] KIA COLLINS Referring Unavailable BRENDAN HAYWOOD Primary Care Unavailable KIA COLLINS Attending Unavailable BRENDAN HAYWOOD Primary Care Unavailable RACHEL HIGGINS Attending Unavailable BRENDAN HAYWOOD Primary Care Unavailable JEANETTE MONGE Referring Unavailable AUBREY MURPHY Attending Unavailable BRENDAN HAYWOOD Primary Care Unavailable JEANETTE MONGE Attending Unavailable BRENDAN HAYWOOD Primary Care Unavailable BRENDAN HAYWOOD Attending Unavailable BRENDAN HAYWOOD Primary Care Unavailable BRENDAN HAYWOOD Attending Unavailable BRENDAN HAYWOOD Primary Care Unavailable BRENDAN HAYWOOD Primary Care Unavailable BRENDAN HAYWOOD Attending Unavailable BRENDAN HAYWOOD Primary Care Unavailable BRENDAN HAYWOOD Primary Care Unavailable BRENDAN HAYWOOD Primary Care Unavailable Allergies Allergy Classification Reported Allergen(s) Allergy Type Date of Onset Reaction(s) Facility Cephalosporins (antibiotic) (1 source) Cefaclor Drug Allergy 11-12-2005 [facility] Penicillins (antibiotic) (1 source) Amoxicillin Drug Allergy 11-12-2005 [facility] (20 sources) Amoxicillin; Translations: [AMOXICILLIN] Drug Allergy 11-12-2005 [facility] (20 sources) Cefaclor; Translations: [CEFACLOR] Drug Allergy 11-12-2005 [facility] Medications Current Medications Medication Drug Class(es) Dates Sig (Normalized) Sig (Original) [id number] 200 actuat albuterol 0.09 mg/actuat metered dose inhaler (20 sources) beta2-Adrenergic Agonist Start: 11-11-2022 End: 12-11-2022 take 2 puff(s) by inhalation every four hours as needed for wheezing albuterol HFA (VENTOLIN HFA) 90 mcg/actuation inhaler Indications: Bronchitis Inhale 2 Puffs as instructed every 4 hours as needed for wheezing/shortness of breath. 1 Each 11/11/2022 Active Comment on above: Inhale 2 Puffs as in structed every 4 hours as needed for wheezing/shortness of breath. azithromycin 250 mg oral tablet (2 sources) Macrolide Antimicrobial Start: 01-28-2024 End: 02-02-2024 azithromycin (ZITHROMAX Z-ELVIE) 250 mg tablet Indications: Bronchitis Take 2 tablets day one, then, 1 tablet daily until gone. 6 tablet 0 01/28/2024 02/02/2024 Active Start: 11-11-2022 End: 11-16-2022 azithromycin (ZITHROMAX Z-PA K) 250 mg tablet Indications: Bronchitis Take 2 tablets day one, then, 1 tablet daily until gone. 6 tablet 0 11/11/2022 11/16/2022 Active Comment on above: Take 2 tablets day o ne, then, 1 tablet daily until gone. benzonatate 100 mg oral capsule (6 sources) Non-narcotic Antitussive Start: 4 take 1 capsule by mouth every eight hours as needed benzonatate (TESSALON PERLE) 100 mg capsule Take 1 capsule by mouth three times a day as needed. 21 capsule 06/26/2024 Active Start: 08-11-2023 take 1 capsule by mo uth every eight hours as needed benzonatate (TESSALON PERLES) 100 mg capsule Take 1 capsule by mouth three times a day as needed for cough. 14 capsule 0 08/11/2023 Active Start: 11-11-2022 End: 12-11-2022 take 1 capsule by mouth three times daily as needed benzonatate (TESSALON PERLES) 100 mg capsule Indications: Bronchitis Take 1 capsule by mouth three times daily as needed. 30 capsule 0 11/11/2022 12/11/2022 Active Comment on above: Take 1 capsule by mo uth three times daily as needed. Take 1 capsule by mo uth three times a day as needed for cough. busPIRone hydrochloride 10 mg oral tablet (3 sources) Start: 4 busPIRone (BUSPAR) 10 mg tablet Indications: [place] Tourette syndrome , Anxiety Take 1/2 tablet 3 times daily x 3 days, then inc as instructed to take 1 tablet 3 times daily 90 tablet 5 02/14/2024 Active clotrimazole 10 mg/ml topical cream (1 source) Azole Antifungal Start: End: clotrimazole (LOTRIMIN) 1 % cream Apply to affected area two times a day for 7 days. 12 g 07/12/2024 07/19/2024 Active doxycycline hyclate 100 mg oral tablet (2 sources) Tetracycline-class Drug Start: End: take 1 tablet by mouth twice daily doxycycline (VIBRA-TABS) 100 mg tablet Take 1 tablet by mouth two times a day for 7 days. 14 tablet 06/26/2024 07/03/2024 Active Start: 08-11-2023 End: 08-18-2023 take 1 tablet by mouth twice daily doxycycline monohydrate 100 mg tablet Take 1 tablet by mouth two times a day for 7 days. 14 tablet 0 08/11/2023 08/18/2023 Active Comment on above: [facility]. FLUoxetine 40 mg oral capsule (20 sources) Serotonin Reuptake Inhibitor Start: 02-07-2024 take 1 capsule by mouth once daily FLUoxetine (PROZAC) 20 mg capsule Indications: Generalized anxiety disorder Take 1 capsule by mouth once daily. Take along with 40 mg capsule 30 capsule 11 02/07/2024 Active Start: 02-25-2023 End: 02-13-2025 take 1 capsule by mouth once daily FLUoxetine (PROZAC) 40 mg capsule Indications: [place] Tourette syndrome , Anxiety Take 1 capsule by mouth once daily. 90 capsule 3 02/14/2024 02/13/2025 Active Start: 11-27-2022 take 1 capsule by mo [facility] once daily FLUoxetine (PROZAC) 40 mg capsule Take 1 capsule by mouth once daily. 30 capsule 2 11/27/2022 Active Start: 04-30-2022 End: 11-19-2022 take 1 capsule by mouth once daily FLUoxetine (PROZAC) 40 mg capsule Take 1 capsule by mouth once daily. 30 capsule 2 10/07/2022 11/19/2022 Discontinued Start: 09-15-2021 End: 11-19-2022 take 1 capsule by mouth once daily FLUoxetine (PROZAC) 20 mg capsule Indications: Generalized anxiety disorder , Bipolar affective disorder, remission status unspecified (HCC) Take 1 capsule by mouth once daily. Take along with 40 mg pill 30 capsule 5 09/02/2022 11/19/2022 Discontinued Comment on above: Take 1 capsule by mo uth once daily. Take 1 capsule by mo uth once daily. Take along with 40 mg pill fluPHENAZine hydrochloride 5 mg oral tablet (20 sources) Phenothiazine Start: 02-21-20 End: 02-14-20 take 1 tablet by mouth once daily fluPHENAZine (PROLIXIN) 5 mg tablet Indications: [place] Tourette syndrome Take 1 tablet by mouth once daily. 90 tablet 3 02/14/2024 02/13/2025 Active Start: 01-01-2022 End: 04-01-2022 take 1 tablet by mouth twice daily fluPHENAZine (PROLIXIN) 5 mg tablet Take 1 tablet by mouth twice daily. 180 tablet 0 01/01/2022 02/20/2022 Discontinued Comment on above: Take 1 tablet by tomeka th twice daily. Take 1 tablet by tomeka th once daily. hydrOXYzine pamoate 25 mg oral capsule (11 sources) Antihistamine Start : 03-01 End: 03-02 take 1 capsule by mouth every eight hours as needed hydrOXYzine pamoate (VISTARIL) 25 mg capsule Take 1 capsule by mouth three times a day as needed for anxiety. 90 capsule 2 03/02/2024 Active lisinopril 5 mg oral tablet (5 sources) Angiotensin Converting Enzyme Inhibitor Start : 05-02 End: 10-29 take 1 tablet by mouth once daily lisinopril (ZESTRIL) 5 mg tablet Indications: Hypertension, essential Take 1 tablet by mouth once daily. 30 tablet 5 05/02/2024 10/29/2024 Active meloxicam 15 mg oral tablet (1 source) Nonsteroidal Anti-inflammatory Drug Start : 04-21 End: 05-21 take 1 tablet by mouth once daily at mealtime meloxicam (MOBIC) 15 mg tablet Indications: Rib pain on right side , Contusion of rib on right side, subsequent encounter Take 1 tablet by mouth once daily. With food. 30 tablet 0 04/21/2023 05/21/2023 Active Comment on above: Take 1 tablet by tomeka th once daily. With food. methylPREDNISolone (1 source) Corticosteroid Start : 11-11 End: 11-17 methylPREDNISolone (MEDROL, ELVIE,) 4 mg Dose-Pack Indications: Bronchitis Follow dosing instructions, take with food. 21 tablet 0 11/11/2022 11/17/2022 Active Comment on above: Follow dosing instru ctions, take with food. Completed/Discontinued Medications Medication Drug Class(es) Dates Sig (Normalized) Sig (Original) ARIPiprazole 2 mg oral tablet (1 source) Atypical Antipsychotic Start: 04-06-2024 End: 04-11-2024 ARIPiprazole (ABILIFY) 2 mg tablet Indications: Anxiety Please take 0.5 tablet in the morning and 0.5 tablets in the evening. 30 tablet 2 04/06/2024 04/11/2024 Discontinued (Side Effects) brompheniramine maleate 0.4 mg/ml / dextromethorphan hydrobromide 2 mg/ml / pseudoephedrine hydrochloride 6 mg/ml oral solution (3 sources) alpha-Adrenergic Agonist, Uncompetitive D-asgbev-O-aspartat e Receptor Antagonist, Sigma-1 Agonist Start: 05-05-2021 End: 02-20-2022 take 5-10 mL by mouth every six hours as needed Brompheniramine-Pse udoeph-DM (BROMFED DM) 2-30-10 mg/5 mL syrup Take 5-10 ml po q6h prn 120 mL 0 05/05/2021 02/20/2022 Discontinued Comment on above: Take 5-10 ml po q6h prn 24 hr buPROPion hydrochloride 150 mg extended release oral tablet (1 source) Aminoketone Start: 12-23-2023 End: 01-04-2024 take 1 tablet by mouth once daily buPROPion XL (WELLBUTRIN XL) 150 mg 24 hr tablet Take 1 tablet by mouth once daily. 30 tablet 5 12/23/2023 01/04/2024 Discontinued Comment on above: Take 1 tablet by tomeka th once daily. cyclobenzaprine hydrochloride 10 mg oral tablet (5 sources) Muscle Relaxant Start: 06-28-2023 End: 12-23-2023 take 1 tablet by mouth twice daily as needed for pain cyclobenzaprine (FLEXERIL) 10 mg tablet Indications: Strain of neck muscle, initial encounter , Upper back pain Take 1 tablet by mouth two times a day as needed for muscle spasm or pain. 30 tablet 06/28/2023 12/23/2023 Discontinued Comment on above: Take 1 tablet by tomeka th two times a day as needed for muscle spasm or pain. DULoxetine 60 mg delayed release oral capsule (2 sources) Serotonin and Norepinephrine Reuptake Inhibitor Start: 11-19-2022 End: 11-27-2022 take 1 capsule by mouth once daily DULoxetine (CYMBALTA) 60 mg capsule Take 1 capsule by mouth once daily. 30 capsule 5 11/19/2022 11/27/2022 Discontinued Comment on above: Take 1 capsule by mo uth once daily. naproxen 500 mg oral tablet (4 sources) Nonsteroidal Anti-inflammatory Drug Start: 06-28-2023 End: 07-28-2023 take 1 tablet by mouth twice daily as needed naproxen (NAPROSYN) 500 mg tablet Indications: Strain of neck muscle, initial encounter , Upper back pain Take 1 tablet by mouth two times a day as needed. Take with food. 60 tablet 06/28/2023 07/28/2023 Comment on above: Take 1 tablet by tomeka th two times a day as needed. Take with food. omeprazole 20 mg delayed release oral capsule (13 sources) Proton Pump Inhibitor Start: 02-25-2023 End: 12-23-2023 take 1 capsule by mouth once daily before breakfast omeprazole (PRILOSEC) 20 mg capsule Take 1 capsule by mouth daily before breakfast. 1/2 hr before meal. 30 capsule 5 02/25/2023 12/23/2023 Discontinued Start: 09-02-2022 take 1 capsule by mo uth once daily before breakfast omeprazole (PRILOSEC) 20 mg capsule Take 1 capsule by mouth daily before breakfast. 1/2 hr before meal. 30 capsule 2 09/02/2022 Active Comment on above: Take 1 capsule by mo uth daily before breakfast. 1/2 hr before meal. QUEtiapine 25 mg oral tablet (2 sources) Atypical Antipsychotic Start: 04-11-20 End: 05-11-20 take 0.5 tablet by mouth twice daily QUEtiapine (SEROQUEL) 25 mg tablet Take 0.5 tablets by mouth two times a day. 30 tablet 0 04/11/2024 05/02/2024 Discontinued tadalafil 10 mg oral tablet (15 sources) Phosphodiesterase 5 Inhibitor Start: 07-19-20 End: 05-02-20 take 1 tablet by mouth once daily as needed Tadalafil (CIALIS) 10 mg tablet Indications: Decreased sexual desire , ED (erectile dysfunction) of organic origin Take 1 tablet by mouth once daily as needed (Take 30-60 minutes prior to sexual activity). Take 1-2 hours before sexual activity. 12 tablet 5 07/19/2023 05/02/2024 Discontinued Comment on above: Take 1 tablet by tomeka once daily as needed (Take 30-60 minutes prior to sexual activity). Take 1-2 hours before sexual activity. 24 hr venlafaxine 75 mg extended release oral capsule (2 sources) Serotonin and Norepinephrine Reuptake Inhibitor Start: 07-19-20 End: 07-26-20 take 1 capsule by mouth once daily venlafaxine ER (EFFEXOR XR) 75 mg 24 hr capsule Indications: Generalized anxiety disorder , Bipolar affective disorder, remission status unspecified (HCC) Take 1 capsule by mouth once daily. 30 capsule 5 07/19/2023 07/26/2023 Discontinued (Side Effects) Comment on above: Take 1 capsule by mo [facility] once daily. Problems Active Problems Problem Classification Problem Date Documented Da te Episodic/Chronic Abdominal pain (1 source) Epigastric pain; Translations: [Epigastric pain] Episodic Anxiety disorders (20 sources) Generalized anxiety disorder; Translations: [Generalized anxiety disorder] Onset: 11-12-2005 11-12-2005 Chronic Chronic obstructive pulmonary disease and bronchiectasis (2 sources) Bronchitis; Translations: [Bronchitis, not specified as acute or chronic] Episodic Disorders usually diagnosed in infancy, childhood, or adolescence (20 sources) [place] Tourette's syndrome; Translations: [Tourette's disorder] Onset: 11-12-2005 11-12-2020 Chronic Essential hypertension (2 sources) Essential hypertension; Translations: [Essential (primary) hypertension] Onset: 05-02-2024 05-02-2024 Chronic Malaise and fatigue (3 sources) Fatigue; Translations: [Other fatigue] Onset: 05-02-2024 05-01-2024 Episodic Miscellaneous mental health disorders (1 source) Lack or loss of sexual desire; Translations: [Hypoactive sexual desire disorder] 07-19-2023 Chronic Mood disorders (20 sources) Bipolar disorder; Translations: [Bipolar disorder, unspecified] 09-16-2021 Chronic Mycoses (1 source) Tinea cruris; Translations: [Tinea cruris] 07-12-2024 Episodic Other lower respiratory disease (1 source) Rib pain; Translations: [Pleurodynia] 04-21-2023 Episodic Other male genital disorders (1 source) Secondary erectile dysfunction; Translations: [Male erectile dysfunction, unspecified] 07-19-2023 Chronic Other upper respiratory infections (1 source) Chronic sinusitis; Translations: [Chronic sinusitis, unspecified] 06-26-2024 Chronic Otitis media and related conditions (1 source) Acute left otitis media; Translations: [Otitis media, unspecified, left ear] 08-11-2023 Episodic Residual codes; unclassified (2 sources) Difficulty sleeping ; Translations: [Sleep disorder, unspecified] 02-14-2024 Episodic Spondylosis; intervertebral disc disorders; other back problems (1 source) Backache; Translations: [Dorsalgia, unspecified] 06-28-2023 Episodic Sprains and strains (1 source) Strain of neck muscle; Translations: [Strain of muscle, fascia and tendon at neck level, initial encounter] 06-28-2023 Episodic Superficial injury; contusion (1 source) Contusion of right front wall of thorax, subsequent encounter; Translations: [Other specified aftercare] 04-21-2023 Episodic Unclassified (1 source) APPOINTMENT CANCELLED 04-06-2024 Past or Other Problems Problem Classification Problem Date Documented Da te Episodic/Chronic Other upper respiratory infections (20 sources) Acute upper respiratory infection; Translations: [Acute upper respiratory infection, unspecified] Onset: 07-09-2020 07-09-2020 Episodic Residual codes; unclassified (1 source) Sleep disorder, unspecified; Translations: [Sleep difficulties] Onset: 02-17-2024 Episodic Results Test Name Value Interpretation Reference Range Facility [facility] 07-12-2024 CNOV Office Visit (UCWSTR ) LEXUS HANDY ([id number]) 1990 M Date Time Provider Department 07/12/24 11:45 AM JENN [facility] During your visit today, we recorded the following information about you: Temperature Pulse Respiration Blood pressure 97 degrees 79/minute 16/minute 128/84 Weight 109.5 kg Jenn Clemens PA 07/12/2024 11:49 AM Signed This note was created using The [employer]. Subjective Lexus Handy is a 33 year old male. HPI 32-year-old male presents for rash on upper leg. Rash started about 2 weeks ago. Patient states that this happens every year with the weather change. The rash is very itchy. It is not painful. No drainage. No new lotions, detergents, body washes, medications. He has not put anything on it [id number]. No fevers. No other complaint. PAST MEDICAL HISTORY Diagnosis Date Bipolar disorder (HCC) Current moderate episode of major depressive disorder without prior episode (HCC) Generalized anxiety disorder Tourette syndrome PAST SURGICAL HISTORY Procedure Laterality Date APPENDECTOMY REPAIR ING HERNIA,5+Y/O,REDUCIBL TONSILLECTOMY AND ADENOIDECTOMY ALLERGIES Amoxil [Amoxicillin] and Ceclor [Cefaclor] MEDICATIONS lisinopril (ZESTRIL) 5 mg tablet Take 1 tablet by mouth once daily. FLUoxetine (PROZAC) 40 mg capsule Take 1 capsule by mouth once daily. fluPHENAZine (PROLIXIN) 5 mg tablet Take 1 tablet by mouth once daily. FLUoxetine (PROZAC) 20 mg capsule Take 1 capsule by mouth once daily. Take along with 40 mg capsule clotrimazole (LOTRIMIN) 1 % cream Apply to affected area two times a day for 7 days. benzonatate (TESSALON PERLE) 100 mg capsule Take 1 capsule by mouth three times a day as needed. (Patient not taking: Reported on 07/12/2024) hydrOXYzine pamoate (VISTARIL) 25 mg capsule Take 1 capsule by mouth three times a day as needed for anxiety. albuterol HFA (VENTOLIN HFA) 90 mcg/actuation inhaler Inhale 2 Puffs as instructed every 4 hours as needed for wheezing/shortness of breath. FAMILY HISTORY Problem Relation Age of Onset Tourette syndrome Brother Social History Tobacco Use Smoking status: Never Smokeless tobacco: Never Vaping Use Vaping status: Never Used Substance Use Topics Alcohol use: Not Currently Drug use: Never Review of Systems Constitutional: Negative for chills and fever. HENT: Negative for congestion and sore throat. Respiratory: Negative for cough and shortness of breath. Gastrointestinal: Negative for diarrhea and vomiting. Skin: Positive for rash. Objective BP 128/84 Pulse 79 Temp 36.1 ?C (97 ?F) (Tympanic) Resp 16 Wt 109.5 kg (241 lb 6.5 oz) SpO2 98% BMI 33.67 kg/m? Physical Exam Vitals and nursing note reviewed. Constitutional: General: He is not in acute distress. Appearance: Normal appearance. He is not toxic-appearing. Skin: General: Skin is warm and dry. Findings: Rash present. Comments: Rash noted to right inner thigh. Central clearing with erythematous border. Appears consistent with tinea cruris Neurological: Mental Status: He is alert. Assessment and Plan ASSESSMENT/PLAN: 1. Tinea cruris - ICD9: 110.3, ICD10: B35.6 - Treat with clotrimazole twice a day until rash resolves and then another week - Keep area of concern very dry. - Follow up with PCP if symptoms persist or do not improved after 4-6 weeks of treatment. Diagnosis and treatment plan were discussed and questions were answered to the patient's satisfaction. Pt acknowledged understanding of concepts and follow up plan. Specific signs and symptoms that would indicate the need for higher level of care were discussed in detail warranting prompt ER evaluation. [facility] Cross Allergies As of Date: 07/12/2024 Noted Allergy Reaction AMOXIL (AMOXICILLIN) 11/12/2005 2 - Rash CECLOR (CEFACLOR) 11/12/2005 4 - Hives Date Reviewed: 07/12/2024 Reviewed by: Delmy Rodriguez LPN - Fully Assessed Reason for Visit: Rash [1087] Cmt: Rash on upper right leg and stomach x 2 weeks Primary Visit Diagnosis:Tinea cruris [B35.6] Order(s):clotrimazole (LOTRIMIN) 1 % creamApply to affected area two times a day for 7 days.Disp: 12 gRfl: 0 Prescriptions as of 07/12/2024 - clotrimazole (LOTRIMIN) 1 % cream Apply to affected area two times a day for 7 days. - benzonatate (TESSALON PERLE) 100 mg capsule Take 1 capsule by mouth three times a day as needed. - lisinopril (ZESTRIL) 5 mg tablet Take 1 tablet by mouth once daily. - hydrOXYzine pamoate (VISTARIL) 25 mg capsule Take 1 capsule by mouth three times a day as needed for anxiety. - FLUoxetine (PROZAC) 40 mg capsule Take 1 capsule by mouth once daily. - fluPHENAZine (PROLIXIN) 5 mg tablet Take 1 tablet by mouth once daily. - FLUoxetine (PROZAC) 20 mg capsule Take 1 capsule by mouth once daily. Take along with 40 mg capsule - albuterol H (more content not included)... Normal [facility] CNOVon 06-26-2024 CNOV Office Visit (UCWSTR ) LEXUS HANDY ([id number]) 1990 M Date Time Provider Department 06/26/24 2:15 PM [facility] During your visit today, we recorded the following information about you: Temperature Pulse Respiration Blood pressure 98.1 degrees 90/minute 16/minute 128/78 Weight 109.1 kg Jenn Clemens PA 06/26/2024 2:14 PM Signed This note was created using The [employer]. Subjective Lexus Handy is a 33 year old male. HPI 33-year-old male presents for sinus congestion, cough. Patient states he has had sinus congestion for about a week and a half. He now has a cough. He is coughing up some phlegm. He has not had any fevers. He initially had sore throat, but that resolved. No sick contacts. He has been taking Mucinex, DayQuil, NyQuil without improvement. No other complaint. PAST MEDICAL HISTORY Diagnosis Date Bipolar disorder (HCC) Current moderate episode of major depressive disorder without prior episode (HCC) Generalized anxiety disorder Tourette syndrome PAST SURGICAL HISTORY Procedure Laterality Date APPENDECTOMY REPAIR ING HERNIA,5+Y/O,REDUCIBL TONSILLECTOMY AND ADENOIDECTOMY ALLERGIES Amoxil [Amoxicillin] and Ceclor [Cefaclor] MEDICATIONS lisinopril (ZESTRIL) 5 mg tablet Take 1 tablet by mouth once daily. FLUoxetine (PROZAC) 40 mg capsule Take 1 capsule by mouth once daily. fluPHENAZine (PROLIXIN) 5 mg tablet Take 1 tablet by mouth once daily. FLUoxetine (PROZAC) 20 mg capsule Take 1 capsule by mouth once daily. Take along with 40 mg capsule hydrOXYzine pamoate (VISTARIL) 25 mg capsule Take 1 capsule by mouth three times a day as needed for anxiety. albuterol HFA (VENTOLIN HFA) 90 mcg/actuation inhaler Inhale 2 Puffs as instructed every 4 hours as needed for wheezing/shortness of breath. FAMILY HISTORY Problem Relation Age of Onset Tourette syndrome Brother Social History Tobacco Use Smoking status: Never Smokeless tobacco: Never Vaping Use Vaping status: Never Used Substance Use Topics Alcohol use: Not Currently Drug use: Never Review of Systems Constitutional: Negative for chills and fever. HENT: Positive for congestion, sinus pressure and sinus pain. Negative for sore throat. Respiratory: Positive for cough. Negative for shortness of breath. Gastrointestinal: Negative for diarrhea and vomiting. Objective BP 128/78 Pulse 90 Temp 36.7 ?C (98.1 ?F) (Tympanic) Resp 16 Wt 109.1 kg (240 lb 8.4 oz) SpO2 97% BMI 33.55 kg/m? Physical Exam Vitals and nursing note reviewed. Constitutional: General: He is not in acute distress. Appearance: Normal appearance. He is not toxic-appearing. HENT: Right Ear: Tympanic membrane and ear canal normal. Left Ear: Tympanic membrane and ear canal normal. Nose: Mucosal edema and congestion present. Right Sinus: Maxillary sinus tenderness present. Left Sinus: Maxillary sinus tenderness present. Mouth/Throat: Mouth: Mucous membranes are moist. Eyes: Conjunctiva/sclera: Conjunctivae normal. Cardiovascular: Rate and Rhythm: Normal rate and regular rhythm. Pulmonary: Effort: Pulmonary effort is normal. Breath sounds: Normal breath sounds. Skin: General: Skin is warm and dry. Neurological: Mental Status: He is alert. Assessment and Plan ASSESSMENT/PLAN: 1. Sinobronchitis - ICD9: 473.9, 490, ICD10: J32.9, J40 - Will begin treatment with Doxycycline - The patient should also be given OTC decongestants prn for the first 5-7 days of treatment. - Supportive care with plenty of fluids, rest, and analgesia prn. Diagnosis and treatment plan were discussed and questions were answered to the patient's satisfaction. Pt acknowledged understanding of concepts and follow up plan. Specific signs and symptoms that would indicate the need for higher level of care were discussed in detail warranting prompt ER evaluation. [facility] Cross Allergies As of Date: 06/26/2024 Noted Allergy Reaction AMOXIL (AMOXICILLIN) 11/12/2005 2 - Rash CECLOR (CEFACLOR) 11/12/2005 4 - Hives Date Reviewed: 06/26/2024 Reviewed by: Delmy Rodriguez LPN - Fully Assessed Reason for Visit: Cough [28] Cmt: Cough, congestion and sinus x 1.5 weeks Primary Visit Diagnosis:Sinobronchit is [J32.9, J40] Order(s):doxycycline (VIBRA-TABS) 100 mg tabletTake 1 tablet by mouth two times a day for 7 days.Disp: 14 tabletRfl: 0 benzonatate (TESSALON PERLE) 100 mg capsuleTake 1 capsule by mouth three times a day as needed.Disp: 21 capsuleRfl: 0 Prescriptions as of 06/26/2024 - doxycycline (VIBRA-TABS) 100 mg tablet Take 1 tablet by mouth two times a day for 7 days. - benzonatate (TESSALON PERLE) 100 mg capsule Take 1 capsule by mouth three times a day as needed. - lisinopril (ZESTRIL) 5 mg tablet Take 1 tablet by mouth once daily. - hydrOXYzine pamoate (VISTARIL) 25 mg capsule Take 1 capsule (more content not included)... [facility] LEX[facility] HAND[facility] ([id number]) 1990 M Date Time Provider Department 05/03/24 [facility] CO[facility]INS [facility] During your visit today, we recorded the following information about you: Kia Collins APRN.CNP 05/03/2024 6:45 AM Signed Can you please call the patient and let him know that his labs were all normal. I would recommend considering a sleep study to further evaluate causes of his fatigue. If he is agreeable please let me know and I will place the order. Thank you. KAIS[facility] Morgan Laurie Lynn, LPN 05/03/2024 8:33 AM Signed Left a message for pt to call the office and ask to speak to a nurse. JUAQUIN Christianson Jillian, LPN 05/03/2024 1:30 PM Signed Patient notified and is agreeable to the sleep study. Please call patient to schedule once order is placed. Kia Collins APRN.CNP 05/03/2024 3:07 PM Signed Order has been placed for at home sleep study. He can call in to have device mailed to him. Office will be in touch with him once I review test results. Thank you. KAISER Morgan Laurie Lynn, LPN 05/03/2024 3:13 PM Signed Spoke with pt and information listed below given. Pt verbalizes understanding. 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 Fidencio Abraham LPN Allergies As of Date: 05/03/2024 Noted Allergy Reaction AMOXIL (AMOXICILLIN) 11/12/2005 2 - Rash CECLOR (CEFACLOR) 11/12/2005 4 - Hives Date Reviewed: 05/02/2024 Reviewed by: Stacy Moncada LPN - Fully Assessed Reason for Visit: Results [95] Cmt: Labs Orders [681] Primary Visit Diagnosis:Fatigue, unspecified type [R53.83] Order(s):HOME SLEEP APNEA TEST (HSAT) [0415536] Order #: [id number] FUTURE Prescriptions as of 05/03/2024 - lisinopril (ZESTRIL) 5 mg tablet Take 1 tablet by mouth once daily. - hydrOXYzine pamoate (VISTARIL) 25 mg capsule Take 1 capsule by mouth three times a day as needed for anxiety. - FLUoxetine (PROZAC) 40 mg capsule Take 1 capsule by mouth once daily. - fluPHENAZine (PROLIXIN) 5 mg tablet Take 1 tablet by mouth once daily. - FLUoxetine (PROZAC) 20 mg capsule Take 1 capsule by mouth once daily. Take along with 40 mg capsule - albuterol HFA (VENTOLIN HFA) 90 mcg/actuation inhaler Inhale 2 Puffs as instructed every 4 hours as needed for wheezing/shortness of breath. Problem List As Of Date 05/03/2024 Noted Resolved GENERALIZED ANXIETY DIS [F41.1] 11/12/2005 [place] Tourette syndrome [F95.2] 11/12/2005 URI, acute [J06.9] 07/09/2020 Bipolar disorder (HCC) [F31.9] Encounter Status:Closed by FIDENCIO ABRAHAM on 05/03/24 Normal [facility] 25(OH)D3 [facility] 2023 25-hydroxyvitamin D3 [Mass/Vol] 49.9 ng/mL Normal 31.0-80.0 [facility] Comment on above: Order Comment: Speci men Type: BLOOD SPECIMENOrdering Facility: [facility] Address: [facility] [place] [address] Result Comment: Clas sification of 25 [place] Vitamin D status: Deficiency/Insufficiency: < or = 30 ng/ml. Sufficiency/Optimal Levels: 31-80 ng/mL Toxicity: > 100 ng/mL. Test performed by chemiluminescent immunoassay. Performed By: #### 1 989-3 ####[facility] LABCLIA [id number] [place] [address] [place] CBC W Auto Differential pane l (Bld)on 05-02-2024 Basophils (Bld) [#/Vol] 0.07 10*3/uL [facility] Basophils/100 WBC (Bld) 1.2 % [facility] Differential cell count method Nom (Bld) Auto [facility] Eosinophils (Bld) [#/Vol] 0.13 10*3/uL [facility] Eosinophils/100 WBC (Bld) 2.2 % [facility] Erythrocyte distribution width (RBC) [Ratio] 12.3 % 11.5 - 15.0 % [facility] Hematocrit (Bld) [Volume fraction] 45.9 % 39.0 - 51.0 % [facility] Hemoglobin (Bld) [Mass/Vol] 15.7 g/dL 13.0 - 17.0 g/dL [facility] Immature granulocytes (Bld) [#/Vol] [facility] Immature granulocytes/100 WBC (Bld) 0.2 % [facility] Lymphocytes (Bld) [#/Vol] 2.06 10*3/uL [facility] Lymphocytes/100 WBC (Bld) 35.2 % [facility] MCH (RBC) [Entitic mass] 29.1 pg 26.0 - 34.0 pg [facility] MCHC (RBC) [Mass/Vol] 34.2 g/dL 30.5 - 36.0 g/dL [facility] MCV (RBC) [Entitic vol] 85.2 fL 80.0 - 100.0 fL [facility] Monocytes (Bld) [#/Vol] 0.31 10*3/uL [facility] Monocytes/100 WBC (Bld) 5.3 % [facility] Neutrophils (Bld) [#/Vol] 3.27 10*3/uL [facility] Neutrophils/100 WBC (Bld) 55.9 % [facility] Nucleated RBC (Bld) [#/Vol] [facility] Nucleated RBC/100 WBC (Bld) [Ratio] 0.0 % /100 WBC [facility] Platelet mean volume (Bld) [Entitic vol] 11.2 fL 9.0 - 12.7 fL [facility] Platelets (Bld) [#/Vol] 206 10*3/uL [facility] RBC (Bld) [#/Vol] 5.39 10*6/uL 4.20 - 6.0 0 m/uL [facility] WBC (Bld) [#/Vol] 5.85 10*3/uL [facility] Basophils (Bld) [#/Vol] 0.07 10*3/uL Normal <0.11 [facility] Comment on above: Order Comment: Speci men Type: BLOOD SPECIMENOrdering Facility: [facility] Address: [address] [place] [address] Performed By: #### 5 7021-8 ####[facility] LABCLIA [id number] [place] [address] [place] Basophils/100 WBC (Bld) 1.2 % Normal [facility] Comment on above: Order Comment: Speci men Type: BLOOD SPECIMENOrdering Facility: [facility] Address: [address] [place] [address] Performed By: #### 5 7021-8 ####[facility] LABCLIA [id number] [place] [address] [place] Differential cell count method Nom (Bld) Auto Normal [facility] Comment on above: Order Comment: Speci men Type: BLOOD SPECIMENOrdering Facility: [facility] Address: [address] [place] [address] Performed By: #### 5 7021-8 ####[facility] LABCLIA [id number] [place] [address] [place] Eosinophils (Bld) [#/Vol] 0.13 10*3/uL Normal <0.46 [facility] Comment on above: Order Comment: Speci men Type: BLOOD SPECIMENOrdering Facility: [facility] Address: [address] [place] [address] Performed By: #### 5 7021-8 ####[facility] LABCLIA [id number] [place] [address] [place] Eosinophils/100 WBC (Bld) 2.2 % Normal [facility] Comment on above: Order Comment: Speci men Type: BLOOD SPECIMENOrdering Facility: [facility] Address: [address] [place] [address] Performed By: #### 5 7021-8 ####[facility] LABCLIA [id number] [place] [address] [place] Erythrocyte distribution width (RBC) [Ratio] 12.3 % Normal 11.5-15.0 [facility] Comment on above: Order Comment: Speci men Type: BLOOD SPECIMENOrdering Facility: [facility] Address: [address] [place] [address] Performed By: #### 5 7021-8 ####[facility] LABCLIA [id number] [place] [address] [place] Hematocrit (Bld) [Volume fraction] 45.9 % Normal 39.0-51.0 [facility] Comment on above: Order Comment: Speci men Type: BLOOD SPECIMENOrdering Facility: [facility] Address: [address] [place] [address] Performed By: #### 5 7021-8 ####[facility] LABCLIA [id number] [place] [address] [place] Hemoglobin (Bld) [Mass/Vol] 15.7 g/dL Normal 13.0-17.0 [facility] Comment on above: Order Comment: Speci men Type: BLOOD SPECIMENOrdering Facility: [facility] Address: [address] [place] [address] Performed By: #### 5 7021-8 ####[facility] LABCLIA [id number] [place] [address] [place] Immature granulocytes (Bld) [#/Vol] 10*3/uL Normal <0.10 [facility] Comment on above: Order Comment: Speci men Type: BLOOD SPECIMENOrdering Facility: [facility] Address: [address] [place] [address] Performed By: #### 5 7021-8 ####[facility] LABCLIA [id number] [place] [address] [place] Immature granulocytes/100 WBC (Bld) 0.2 % Normal [facility] Comment on above: Order Comment: Speci men Type: BLOOD SPECIMENOrdering Facility: [facility] Address: [address] [place] [address] Performed By: #### 5 7021-8 ####[facility] LABCLIA [id number] [place] [address] [place] Lymphocytes (Bld) [#/Vol] 2.06 10*3/uL Normal 1.00-4.00 [facility] Comment on above: Order Comment: Speci men Type: BLOOD SPECIMENOrdering Facility: [facility] Address: [address] [place] [address] Performed By: #### 5 7021-8 ####[facility] LABCLIA [id number] [place] [address] [place] Lymphocytes/100 WBC (Bld) 35.2 % Normal [facility] Comment on above: Order Comment: Speci men Type: BLOOD SPECIMENOrdering Facility: [facility] Address: [address] [place] [address] Performed By: #### 5 7021-8 ####[facility] LABCLIA [id number] [place] [address] [place] MCH (RBC) [Entitic mass] 29.1 pg Normal 26.0-34.0 [facility] Comment on above: Order Comment: Speci men Type: BLOOD SPECIMENOrdering Facility: [facility] Address: [address] [place] [address] Performed By: #### 5 7021-8 ####[facility] LABCLIA [id number] [place] [address] [place] MCHC (RBC) [Mass/Vol] 34.2 g/dL Normal 30.5-36.0 [facility] Comment on above: Order Comment: Speci men Type: BLOOD SPECIMENOrdering Facility: [facility] Address: [address] [place] [address] Performed By: #### 5 7021-8 ####[facility] LABCLIA [id number] [place] [address] [place] MCV (RBC) [Entitic vol] 85.2 fL Normal 80.0-100.0 [facility] Comment on above: Order Comment: Speci men Type: BLOOD SPECIMENOrdering Facility: [facility] Address: [address] [place] [address] Performed By: #### 5 7021-8 ####[facility] LABCLIA [id number] [place] [address] [place] Monocytes (Bld) [#/Vol] 0.31 10*3/uL Normal <0.87 [facility] Comment on above: Order Comment: Speci men Type: BLOOD SPECIMENOrdering Facility: [facility] Address: [address] [place] [address] Performed By: #### 5 7021-8 ####[facility] LABCLIA [id number] [place] [address] [place] Monocytes/100 WBC (Bld) 5.3 % Normal [facility] Comment on above: Order Comment: Speci men Type: BLOOD SPECIMENOrdering Facility: [facility] Address: [address] [place] [address] Performed By: #### 5 7021-8 ####[facility] LABCLIA [id number] [place] [address] [place] Neutrophils (Bld) [#/Vol] 3.27 10*3/uL Normal 1.45-7.50 [facility] Comment on above: Order Comment: Speci men Type: BLOOD SPECIMENOrdering Facility: [facility] Address: [address] [place] [address] Performed By: #### 5 7021-8 ####[facility] LABCLIA [id number] [place] [address] [place] Neutrophils/100 WBC (Bld) 55.9 % Normal [facility] Comment on above: Order Comment: Speci men Type: BLOOD SPECIMENOrdering Facility: [facility] Address: [address] [place] [address] Performed By: #### 5 7021-8 ####[facility] LABCLIA [id number] [place] [address] [place] Nucleated RBC (Bld) [#/Vol] 10*3/uL Normal <0.01 [facility] Comment on above: Order Comment: Speci men Type: BLOOD SPECIMENOrdering Facility: [facility] Address: [address] [place] [address] Performed By: #### 5 7021-8 ####[facility] LABCLIA [id number] [place] [address] [place] Nucleated RBC/100 WBC (Bld) [Ratio] 0.0 /100 WBC Normal [facility] Comment on above: Order Comment: Speci men Type: BLOOD SPECIMENOrdering Facility: [facility] Address: [address] [place] [address] Performed By: #### 5 7021-8 ####[facility] LABCLIA [id number] [place] [address] [place] Platelet mean volume (Bld) [Entitic vol] 11.2 fL Normal 9.0-12.7 [facility] Comment on above: Order Comment: Speci men Type: BLOOD SPECIMENOrdering Facility: [facility] Address: [address] [place] [address] Performed By: #### 5 7021-8 ####[facility] LABCLIA [id number] [place] [address] [place] Platelets (Bld) [#/Vol] 206 10*3/uL Normal 150-400 [facility] Comment on above: Order Comment: Speci men Type: BLOOD SPECIMENOrdering Facility: [facility] Address: [address] [place] [address] Performed By: #### 5 7021-8 ####[facility] [id number] [place] [address] [place] RBC (Bld) [#/Vol] 5.39 10*6/uL Normal 4.20-6.00 [facility] Comment on above: Order Comment: Speci men Type: BLOOD SPECIMENOrdering Facility: [facility] Address: [address] [place] [address] Performed By: #### 5 7021-8 ####[facility] [id number] [place] [address] [place] WBC (Bld) [#/Vol] 5.85 10*3/uL Normal 3.70-11.00 [facility] Comment on above: Order Comment: Speci men Type: BLOOD SPECIMENOrdering Facility: [facility] Address: [address] [place] [address] Performed By: #### 5 7021-8 ####[facility] [id number] [place] [address] [place] CNOVon 05-02-2024 CNOV Office Visit (FAMPWS ) LEXUS HANDY ([id number]) 1990 Date Time Provider Department 05/02/24 1:20 PM KIA COLLINS During your visit today, we recorded the following information about you: Pulse Respiration Blood pressure Weight 82/minute 16/minute 130/100 107 kg Kia Collins APRN.CNP 05/02/2024 1:16 PM Signed Get labs completed Start Lisinopril 5 mg daily Monitor blood pressure at home, goal 130/80 or less Watch processed foods and salt in the diet. Get some form of exercise. Follow up in 1 month or sooner pending test results Kia Collins APRN.CNP 05/02/2024 1:23 PM Signed This is a 33 year old male who presents today with: Patient presents with: Acute Visit: fatigues x 1 month HISTORY OF PRESENT ILLNESS: Lexus Handy is a 33 year old male. Patient presents with: Acute Visit: fatigues x 1 month Here in the office for fatigue. Has been on going for the past month. Waking up feeling tired. No snoring that he is aware of. Refes that he feels like he has no energy. Difficulty going to work. No changes with diet, eating a well balanced diet. Denies difficulty swallowing, palpitations, or cold/heat intolerances. History of anxiety and bipolar disorder, Lanettebhargav Menon Tourette syndrome. Following with psychiatry.Stopped Seroquel about a month ago. Increased anger but denies increased sadness. Elevated blood pressure today, refers that it seems be getter higher at each visit. Increase in headaches. Blurry vision at times. Denies chest pain, dizziness, or edema. PAST MEDICAL HISTORY: PAST MEDICAL HISTORY No date: Bipolar disorder (HCC) No date: Current moderate episode of major depressive disorder without prior episode (HCC) No date: Generalized anxiety disorder No date: Tourette syndrome PAST SURGICAL HISTORY No date: APPENDECTOMY No date: REPAIR ING HERNIA,5+Y/O,REDUCIBL No date: TONSILLECTOMY AND ADENOIDECTOMY ALLERGIES Amoxil [Amoxicillin] and Ceclor [Cefaclor] MEDICATIONS Current Outpatient Medications Medication Sig QUEtiapine (SEROQUEL) 25 mg tablet Take 0.5 tablets by mouth two times a day. hydrOXYzine pamoate (VISTARIL) 25 mg capsule Take 1 capsule by mouth three times a day as needed for anxiety. FLUoxetine (PROZAC) 40 mg capsule Take 1 capsule by mouth once daily. fluPHENAZine (PROLIXIN) 5 mg tablet Take 1 tablet by mouth once daily. FLUoxetine (PROZAC) 20 mg capsule Take 1 capsule by mouth once daily. Take along with 40 mg capsule Tadalafil (CIALIS) 10 mg tablet Take 1 tablet by mouth once daily as needed (Take 30-60 minutes prior to sexual activity). Take 1-2 hours before sexual activity. albuterol HFA (VENTOLIN HFA) 90 mcg/actuation inhaler Inhale 2 Puffs as instructed every 4 hours as needed for wheezing/shortness of breath. No current facility-administered medications for this visit. FAMILY HISTORY Problem Relation Age of Onset Tourette syndrome Brother Social History Tobacco Use Smoking status: Never Smokeless tobacco: Never Vaping Use Vaping Use: Never used Substance Use Topics Alcohol use: Not Currently Drug use: Never REVIEW OF SYSTEMS GENERAL: No weight loss, malaise or fevers/chills HEENT: Negative for frequent or significant headaches, No changes in hearing or vision. NECK: Negative for lumps, goiter, pain and significant neck swelling RESPIRATORY: Negative for cough, hemoptysis, wheezing, dyspnea or shortness of breath CARDIOVASCULAR: Negative for chest pain, leg swelling, orthopnea, or palpitations GI: No nausea, vomiting, or diarrhea/constipation. No hematochezia/melena. No heartburn or reflux symptoms. : No history of dysuria, frequency or incontinence MUSCULOSKELETAL: Negative for joint pain or swelling. SKIN: Negative for lesions, rash, and itching ENDOCRINE: Negative for cold or heat intolerance, polyuria, polydipsia and goiter NEURO: No history of headaches, syncope, paralysis, seizures or tremors MOOD: Negative for depression, anxiety, or suicidal ideation. EXAM: BP 130/100 Pulse 82 Resp 16 Wt 107 kg (235 lb 14.3 oz) SpO2 98% BMI 32.90 kg/m? PHYSICAL EXAM: General Appearance: Well appearing, alert, in no acute distress, well-hydrated, well nourished. Skin: Skin color, texture, turgor normal, no suspicious rashes or lesions. Head: Normocephalic, no masses, lesions, tenderness or abnormalities. Eyes: Anicteric sclera. Pupils are equally round and reactive to light. Extraocular movements are intact. Neck: Supple, no adenopathy; thyroid symmetric, normal size, no bruits. Lungs: Lungs clear to auscultation. No wheezing, rhonchi, rales. Heart: RRR without murmur, gallop, or rubs. No ectopy. Extremities: No deformities, edema, skin discoloration, clubbing or cyanosis. Good capillary refill. Peripheral Pulses: Normal, Capillary refill <2secs, strong peripheral pulses, Pulses (more content not included)... Normal [facility] Comprehensive metabolic 2000 panelon 05-02-2024 Albumin [Mass/Vol] 4.7 g/dL Normal 3.9-4.9 [facility] Comment on above: Order Comment: Speci men Type: BLOOD SPECIMENOrdering Facility: [facility] Address: [address] [place] [address] Performed By: #### 2 132-9, 31493-7, 3016-3, 3024-7 ####[facility] LABCLIA [id number] [place] [address] [place] ALP [Catalytic activity/Vol] 78 U/L Normal 38-113 [facility] Comment on above: Order Comment: Speci men Type: BLOOD SPECIMENOrdering Facility: [facility] Address: [address] [place] [address] Performed By: #### 2 132-9, 91352-3, 3016-3, 3024-7 ####[facility] LABCLIA [id number] [place] [address] [place] ALT [Catalytic activity/Vol] 34 U/L Normal 10-54 [facility] Comment on above: Order Comment: Speci men Type: BLOOD SPECIMENOrdering Facility: [facility] Address: [address] [place] [address] Performed By: #### 2 132-9, 38918-8, 3016-3, 3024-7 ####[facility] LABCLIA [id number] [address] [address] [place] Anion gap [Moles/Vol] 14 mmol/L Normal 8-15 [facility] Comment on above: Order Comment: Speci men Type: BLOOD SPECIMENOrdering Facility: [facility] Address: [address] [place] [address] Performed By: #### 2 132-9, 40336-1, 6-3, 3023-7 ####[facility] LABCLIA [id number] [place] [id number] [place] AST [Catalytic activity/Vol] 26 U/L Normal 14-40 [facility] Comment on above: Order Comment: Speci men Type: BLOOD SPECIMENOrdering Facility: [facility] Address: [address] [place] [address] Performed By: #### 2 132-9, 70229-6, 3015-3, 7 ####[facility] LABCLIA [id number] [place] [address] [place] Bilirubin [Mass/Vol] 0.4 mg/dL Normal 0.2-1.3 [facility] Comment on above: Order Comment: Speci men Type: BLOOD SPECIMENOrdering Facility: [facility] Address: [address] [place] [address] Performed By: #### 2 132-9, 34871-8, 3015-3, 7 ####[facility] LABCLIA [id number] [place] [id number] [place] Calcium [Mass/Vol] 9.8 mg/dL Normal 8.5-10.2 [facility] Comment on above: Order Comment: Speci men Type: BLOOD SPECIMENOrdering Facility: [facility] Address: [address] [place] [address] Performed By: #### 2 132-9, 16215-9, 3015-3, 3023-7 ####[facility] LABCLIA [id number] [place] [id number] [place] Chloride [Moles/Vol] 103 mmol/L Normal 98-107 [facility] Comment on above: Order Comment: Speci men Type: BLOOD SPECIMENOrdering Facility: [facility] Address: [address] [place], [place] [address] Performed By: #### 2 132-9, 67065-3, 3016-3, 3024-7 ####[facility] LABCLIA [id number] [address] [address] [place] CO2 [Moles/Vol] 22 mmol/L Normal 22-30 [facility] Comment on above: Order Comment: Speci men Type: BLOOD SPECIMENOrdering Facility: [facility] Address: [address] [place], [place] [address] Performed By: #### 2 132-9, 22742-2, 6-3, 3024-7 ####[facility] LABCLIA [id number] [place] [id number] [place] Creatinine [Mass/Vol] 1.01 mg/dL Normal 0.73-1.22 [facility] Comment on above: Order Comment: Speci men Type: BLOOD SPECIMENOrdering Facility: [facility] Address: [address] [place] [address] Performed By: #### 2 132-9, 74224-8, 6-3, 3024-7 ####[facility] LABIA [id number] [place] [id number] [place] Creatinine and Glomerular filtration rate.predicted panel (S/P/Bld) 102 mL/min/1.73m??? Normal >=60 [facility] Comment on above: Order Comment: Speci men Type: BLOOD SPECIMENOrdering Facility: [facility] Address: [address] [place] [address] Result Comment: Shelley mated Glomerular Filtration Rate (eGFR) is calculated using the 2020 CKD-EPI creatinine equation. This equation utilizes serum creatinine, sex, and age as parameters. The creatinine assay has traceable calibration to isotope dilution-mass spectrometry. Refer to KDIGO guidelines for clinical interpretation. In patients with unstable renal function, e.g. those with acute kidney injury, the eGFR may not accurately reflect actual GFR. Performed By: #### 2 132-9, 41153-7, 6-3, 7 ####[facility] LABCLIA [id number] [address] [address] [place] Glucose [Mass/Vol] 104 mg/dL High 74-99 [facility] Comment on above: Order Comment: Suzanne bautista Type: BLOOD SPECIMENOrdering Facility: [facility] Address: [address] [place] [address] Result Comment: The [place] [employer] (ADA) provides guidance for cutoff values for fasting glucose and random glucose. The ADA defines fasting as no caloric intake for at least 8 hours. Fasting plasma glucose results between 100 to 125 mg/dL indicate increased risk for diabetes (prediabetes). Fasting plasma glucose results greater than or equal to 126 mg/dL meet the criteria for diagnosis of diabetes. In the absence of unequivocal hyperglycemia, results should be confirmed by repeat testing. In a patient with classic symptoms of hyperglycemia or hyperglycemic crisis, random plasma glucose results greater than or equal to 200 mg/dL meet the criteria for diagnosis of diabetes. Reference: Standards of Medical Care in Diabetes 2016, [place] [employer]. Diabetes Care. 2016.39(Suppl 1). Performed By: #### 2 132-9, 84724-0, 3015-3, 3024-03 ####[facility] LABCLIA [id number] [address] [address] [place] Potassium [Moles/Vol] 4.4 mmol/L Normal 3.7-5.1 [facility] Comment on above: Order Comment: Suzanne bautista Type: BLOOD SPECIMENOrdering Facility: [facility] Address: [address] [place] [address] Performed By: #### 2 132-9, 43637-2, 3015-3, 3024-03 ####[facility] LABCLIA [id number] [address] [address] [place] Protein [Mass/Vol] 7.6 g/dL Normal 6.3-8.0 [facility] Comment on above: Order Comment: Speci men Type: BLOOD SPECIMENOrdering Facility: [facility] Address: [address] [place], [place] [id number] Performed By: #### 2 132-9, 75169-1, 3015-3, 7 ####[facility] LABCLIA [id number] [place] [id number] [place] Sodium [Moles/Vol] 139 mmol/L Normal 136-144 [facility] Comment on above: Order Comment: Speci men Type: BLOOD SPECIMENOrdering Facility: [facility] Address: [address] [place] [address] Performed By: #### 2 132-9, 86246-9, 3, 3024-03 ####[facility] LABCLIA [id number] [place] [address] [place] Urea nitrogen [Mass/Vol] 14 mg/dL Normal 9-24 [facility] Comment on above: Order Comment: Speci men Type: BLOOD SPECIMENOrdering Facility: [facility] Address: [address] [place] [address] Performed By: #### 2 132-9, 17397-0, 3, 3024-03 ####[facility] LABCLIA [id number] [place] [id number] [place] T4 Free SerPl-mCncon 024 Free T4 [Mass/Vol] 1.2 ng/dL Normal 0.9-1.7 [facility] Comment on above: Order Comment: Speci men Type: BLOOD SPECIMENOrdering Facility: [facility] Address: [address] [place] [address] Performed By: #### 2 132-9, 20116-2, 3, 3024-03 ####[facility] LABCLIA [id number] [place] [id number] [place] TSH SerPl-aCncon 05-02-2024 TSH Qn 1.530 m[IU]/L Normal 0.270-4.200 [facility] Comment on above: Order Comment: Speci men Type: BLOOD SPECIMENOrdering Facility: [facility] Address: [address] [place] [address] Performed By: #### 2 132-9, 56337-4, 3016-3, 3024-7 ####[facility] LABCLIA [id number] [place] [address] [place] Vit B12 SerPl-mCncon 024 Cobalamin (Vitamin B12) [Mass/Vol] 648 pg/mL Normal 232-1245 [facility] Comment on above: Order Comment: Speci men Type: BLOOD SPECIMENOrdering Facility: [facility] Address: [address] [place] [address] Performed By: #### 2 132-9, 32068-9, 3016-3, 3024-7 ####[facility] LABCLIA [id number] [place] [address] [place] CNCOon 04-28-2024 CNCO Letter Text Normal [facility] CNOVon 01-28-2024 CNOV Office Visit (FAMPWS ) OLELEXUS ([id number]) 1990 M Date Time Provider Department 01/28/24 10:20 AM BRENDAN HAYWOOD FAMPWS During your visit today, we recorded the following information about you: Temperature Pulse Respiration Blood pressure 96.8 degrees 94/minute 16/minute 130/82 Weight 104.5 kg Brendan Haywood MD 01/28/2024 10:29 AM Signed Chief Complaint Patient presents with: Sinus Problem HPI Lexus Handy is a 33 year old male who presents here today for sinus infection. Pt c/o sinus infection; sx of head congestion, chest congestions, coughing,wheezing, headache. No ear pain, fever, sore throat. He was seen in ER a few weeks ago for Pharyngitis, sinus sx started shortly after ER visit. Was treated with oral medication while in ER but not sent home with any tx. The Pharyngitis is better. He has been using dayquil and nyquil for his sx and ibuprofen prn. He feels he is getting worse. Has not been treated with any antibiotics for this recently. Has had sinus infections in the past and states this feels like a typical sinus infection to him. Depression/COOPER/bipolar : He feels he is doing ok on the Prozac 40 mg daily. No side effects or problems with it. Did not do well on the Wellbutrin, seemed to cause agitation and make his moods worse. Past medical history, appointments, medications, allergies reviewed. Previous Medical History PAST MEDICAL HISTORY Diagnosis Date Bipolar disorder (HCC) Current moderate episode of major depressive disorder without prior episode (HCC) Generalized anxiety disorder Tourette syndrome Previous Surgical History PAST SURGICAL HISTORY Procedure Laterality Date APPENDECTOMY REPAIR ING HERNIA,5+Y/O,REDUCIBL TONSILLECTOMY AND ADENOIDECTOMY Family History FAMILY HISTORY Problem Relation Age of Onset Tourette syndrome Brother Patient Allergies ALLERGIES Allergen Reactions Amoxil [Amoxicillin] Rash Ceclor [Cefaclor] Hives Current Medications Current Outpatient Medications on File Prior to Visit Medication Sig FLUoxetine (PROZAC) 40 mg capsule Take 1 capsule by mouth once daily. Tadalafil (CIALIS) 10 mg tablet Take 1 tablet by mouth once daily as needed (Take 30-60 minutes prior to sexual activity). Take 1-2 hours before sexual activity. fluPHENAZine (PROLIXIN) 5 mg tablet Take 1 tablet by mouth once daily. albuterol HFA (VENTOLIN HFA) 90 mcg/actuation inhaler Inhale 2 Puffs as instructed every 4 hours as needed for wheezing/shortness of breath. No current facility-administered medications on file prior to visit. Social History Social History Tobacco Use Smoking status: Never Smokeless tobacco: Never Vaping Use Vaping Use: Never used Substance Use Topics Alcohol use: Not Currently Drug use: Never EXAM: BP 130/82 Pulse 94 Temp 36 ?C (96.8 ?F) (Tympanic) Resp 16 Wt 104.5 kg (230 lb 6.4 oz) BMI 32.13 kg/m? General Appearance: Well appearing, alert, in no acute distress, well-hydrated, well nourished.. Head: Normocephalic, no masses, lesions, tenderness or abnormalities. Ears: External ears normal, canals clear. Oropharynx: Lips, mucosa, and tongue normal, teeth and gums normal, oropharynx normal. Neck: Supple, no adenopathy; thyroid symmetric, normal size, no bruits. Lungs: Lungs clear to auscultation. No wheezing, rhonchi, rales.. Heart: RRR without murmur, gallop, or rubs. No ectopy. Health Maintenance List Hepatitis C Screening Never done HIV Screening Never done Hepatitis B Vaccine(1 of 3 - 19+ 3-dose series) Never done DTaP,Tdap,Td Vaccine(2 - Td or Tdap) due on 04/21/2023 Covid-19 Vaccine( - 2022- season) due on 05/28/2023 Influenza Vaccine(Season Ended) due on 05/28/2024 Behavioral Health Screening Completed HPV Vaccine Aged Out Data reviewed None ASSESSMENT/PLAN: 1. Acute non-recurrent sinusitis, unspecified location - ICD9: 461.9, ICD10: J01.90 (primary diagnosis) - Will begin treatment with Zithromax pack as directed - Supportive care with plenty of fluids, rest, and analgesia prn. - Follow up if symptoms persist or worsen. 2. Generalized anxiety disorder - ICD9: 300.02, ICD10: F41.1 Stable Continue current medications. 3. Bipolar affective disorder, remission status unspecified (HCC) - ICD9: 296.80, ICD10: F31.9 Stable Continue current medications. Follow up in 3 months. I agree with the Chief Complaint, ROS, and Past Histories independently gathered by the clinical forestry support specialist and the remaining scribed note accurately describes my personal service to the patient. Medical Decision Making: Problems: Low: Acute, uncomplicated illness or injury and Stable chronic illness Risk: Moderate: Drug management Medical Decision Making Level: 3 - Low Brendan Haywood MD The documentation for this note was completed by Fina Casanova MA acting as (more content not included)... [facility] LEXUS HANDY ([id number]) 1990 M Date Time Provider Department 01/04/24 [facility] During your visit today, we recorded the following information about you: Yolanda Jhaveri RN 01/04/2024 12:50 PM Signed Patient calls and states that he would like to go back on Prozac. Patient reports that he has been on Wellbutrin and it is causing him to rage and be suicidal. Please review and advise, JENY Mulligan Mark D, MD 01/04/2024 2:18 PM Signed Done in Gimado message Brendan Haywood MD Allergies As of Date: 01/04/2024 Noted Allergy Reaction AMOXIL (AMOXICILLIN) 11/12/2005 2 - Rash CECLOR (CEFACLOR) 11/12/2005 4 - Hives Date Reviewed: 12/23/2023 Reviewed by: Fina Casanova MA - Fully Assessed Reason for Visit: Patient Update [1234] Prescriptions as of 01/04/2024 - FLUoxetine (PROZAC) 40 mg capsule Take 1 capsule by mouth once daily. - Tadalafil (CIALIS) 10 mg tablet Take 1 tablet by mouth once daily as needed (Take 30-60 minutes prior to sexual activity). Take 1-2 hours before sexual activity. - fluPHENAZine (PROLIXIN) 5 mg tablet Take 1 tablet by mouth once daily. - albuterol HFA (VENTOLIN HFA) 90 mcg/actuation inhaler Inhale 2 Puffs as instructed every 4 hours as needed for wheezing/shortness of breath. Problem List As Of Date 01/04/2024 Noted Resolved GENERALIZED ANXIETY DIS [F41.1] 11/12/2005 [place] Tourette syndrome [F95.2] 11/12/2005 URI, acute [J06.9] 07/09/2020 Bipolar disorder (HCC) [F31.9] Encounter Status:Closed by BRENDAN HAWYOOD on 01/04/[address] [facility] CNOVon 12-23-2023 CNOV Office Visit (FAMPWS ) LEXUS HANDY ([id number]) 1990 M Date Time Provider Department 12/23/23 3:00 PM [facility] During your visit today, we recorded the following information about you: Pulse Respiration Blood pressure Weight 74/minute 16/minute 124/74 104.4 kg Brendan Haywood MD 12/23/2023 3:18 PM Signed Chief Complaint Patient presents with: Follow Up: Depression and anxiety HPI Lexus Handy is a 33 year old male who presents here today for a follow up. Pt scheduled today to discuss anxiety and depression. Pt on current regimen of Prozac 40 mg once daily but it is not helping. At previous visit in June, pt was changed to Effexor but due to Prozac causing issues with ED. Pt then wrote into the office with issues with Effexor making mood swing worse, feeling agitated and wanted to go onto the Prozac. Pt was restarted on Prozac 40 mg once daily. He is going to [facility] for counseling, Will be seeing Psychiatrist Dr. Fiore at [facility]. He is interested in trying Wellbutrin, has done some research with this. He states that he has little motivation and with weight loss. He has been having issues with sleeping due to racing thoughts. Pt advised to monitor his Tourette's sx with the addition of Wellbutrin. He would like to try Adipex again but pt and I both agree to try the Wellbutrin first and see he does. Want to get the Anxiety and Depression under better control first. Past medical history, appointments, medications, allergies reviewed. Previous Medical History PAST MEDICAL HISTORY Diagnosis Date Bipolar disorder (HCC) Current moderate episode of major depressive disorder without prior episode (HCC) Generalized anxiety disorder Tourette syndrome Previous Surgical History PAST SURGICAL HISTORY Procedure Laterality Date APPENDECTOMY REPAIR ING HERNIA,5+Y/O,REDUCIBL TONSILLECTOMY AND ADENOIDECTOMY Family History FAMILY HISTORY Problem Relation Age of Onset Tourette syndrome Brother Patient Allergies ALLERGIES Allergen Reactions Amoxil [Amoxicillin] Rash Ceclor [Cefaclor] Hives Current Medications Current Outpatient Medications on File Prior to Visit Medication Sig benzonatate (TESSALON PERLES) 100 mg capsule Take 1 capsule by mouth three times a day as needed for cough. FLUoxetine (PROZAC) 40 mg capsule Take 1 capsule by mouth once daily. Tadalafil (CIALIS) 10 mg tablet Take 1 tablet by mouth once daily as needed (Take 30-60 minutes prior to sexual activity). Take 1-2 hours before sexual activity. cyclobenzaprine (FLEXERIL) 10 mg tablet Take 1 tablet by mouth two times a day as needed for muscle spasm or pain. fluPHENAZine (PROLIXIN) 5 mg tablet Take 1 tablet by mouth once daily. omeprazole (PRILOSEC) 20 mg capsule Take 1 capsule by mouth daily before breakfast. 1/2 hr before meal. albuterol HFA (VENTOLIN HFA) 90 mcg/actuation inhaler Inhale 2 Puffs as instructed every 4 hours as needed for wheezing/shortness of breath. No current facility-administered medications on file prior to visit. Social History Social History Tobacco Use Smoking status: Never Smokeless tobacco: Never Vaping Use Vaping Use: Never used Substance Use Topics Alcohol use: Not Currently Drug use: Never EXAM: BP 124/74 Pulse 74 Resp 16 Wt 104.4 kg (230 lb 3.2 oz) BMI 32.11 kg/m? General Appearance: Well appearing, alert, in no acute distress, well-hydrated, well nourished.. Lungs: Lungs clear to auscultation. No wheezing, rhonchi, rales.. Heart: RRR without murmur, gallop, or rubs. No ectopy. Health Maintenance List Hepatitis C Screening Never done HIV Screening Never done Hepatitis B Vaccine(1 of 3 - 19+ 3-dose series) Never done DTaP,Tdap,Td Vaccine(2 - Td or Tdap) due on 04/21/2023 Influenza Vaccine(1) due on 05/28/2023 Covid-19 Vaccine(2 - 2022- season) due on 05/28/2023 Depression Assessment due on 09/27/2023 HPV Vaccine Aged Out Data reviewed None ASSESSMENT/PLAN: 1. Generalized anxiety disorder - ICD9: 300.02, ICD10: F41.1 (primary diagnosis) Start taper of Prozac 40 mg every other day for a week then every 3rd day for a week, then stop. Start Wellbutrin 150 mg daily Continue with counseling/Psychiatry 2. [place] Tourette syndrome - ICD9: 307.23, ICD10: F95.2 Continue current medications. Monitor sx while weaning off the Prozac and while on the Wellbutrin 3. Bipolar affective disorder, remission status unspecified (HCC) - ICD9: 296.80, ICD10: F31.9 Start taper of Prozac 40 mg every other day for a week then every 3rd day for a week, then stop. Start Wellbutrin 150 mg daily Continue with counseling/Psychiatry Follow up in 1 month. I agree with the Chief Complaint, ROS, and Past Histories independently gathered by the clinical forestry support specialist and the remaining scribed note accurately describes (more content not included)... Normal [facility] CNOVon 08-11-2023 CNOV Office Visit (WSTR ) LEXUS HANDY ([id number]) 1990 M Date Time Provider Department 08/11/23 1:15 PM JENN CLEMENS [facility] During your visit today, we recorded the following information about you: Temperature Pulse Respiration Blood pressure 98.6 degrees 108/minute 16/minute 122/70 Weight 99.5 kg Jenn Clemens PA 08/11/2023 1:09 PM Signed This note was created using The [employer]. Subjective Lexus Handy is a 32 year old male. HPI 32-year-old male presents for congestion, cough. Patient states he has had nasal congestion since yesterday. He has had a cough for about 3 days. States he had a temperature of 99.6 this morning. He denies any sick contacts. No sore throat. He does report that his ears feel full and clogged. He has history of ear infections. No vomiting or diarrhea. No other complaint. PAST MEDICAL HISTORY Diagnosis Date Bipolar disorder (HCC) Current moderate episode of major depressive disorder without prior episode (HCC) Generalized anxiety disorder Tourette syndrome PAST SURGICAL HISTORY Procedure Laterality Date APPENDECTOMY REPAIR ING HERNIA,5+Y/O,REDUCIBL TONSILLECTOMY AND ADENOIDECTOMY ALLERGIES Amoxil [Amoxicillin] and Ceclor [Cefaclor] MEDICATIONS FLUoxetine (PROZAC) 40 mg capsule Take 1 capsule by mouth once daily. Tadalafil (CIALIS) 10 mg tablet Take 1 tablet by mouth once daily as needed (Take 30-60 minutes prior to sexual activity). Take 1-2 hours before sexual activity. cyclobenzaprine (FLEXERIL) 10 mg tablet Take 1 tablet by mouth two times a day as needed for muscle spasm or pain. fluPHENAZine (PROLIXIN) 5 mg tablet Take 1 tablet by mouth once daily. omeprazole (PRILOSEC) 20 mg capsule Take 1 capsule by mouth daily before breakfast. 1/2 hr before meal. albuterol HFA (VENTOLIN HFA) 90 mcg/actuation inhaler Inhale 2 Puffs as instructed every 4 hours as needed for wheezing/shortness of breath. FAMILY HISTORY Problem Relation Age of Onset Tourette syndrome Brother Social History Tobacco Use Smoking status: Never Smokeless tobacco: Never Vaping Use Vaping Use: Never used Substance Use Topics Alcohol use: Not Currently Drug use: Never Review of Systems Constitutional: Positive for fever. Negative for chills. HENT: Positive for congestion and ear pain. Negative for sore throat. Respiratory: Positive for cough. Negative for shortness of breath. Gastrointestinal: Negative for diarrhea and vomiting. Objective BP 122/70 Pulse 108 Temp 37 ?C (98.6 ?F) Resp 16 Wt 99.5 kg (219 lb 6.4 oz) SpO2 98% BMI 30.60 kg/m? Physical Exam Vitals and nursing note reviewed. Constitutional: General: He is not in acute distress. Appearance: Normal appearance. He is not toxic-appearing. HENT: Right Ear: Tympanic membrane and ear canal normal. Left Ear: A middle ear effusion is present. Tympanic membrane is erythematous. Nose: Congestion present. Mouth/Throat: Mouth: Mucous membranes are moist. Eyes: Conjunctiva/sclera: Conjunctivae normal. Cardiovascular: Rate and Rhythm: Normal rate and regular rhythm. Pulmonary: Effort: Pulmonary effort is normal. Breath sounds: Normal breath sounds. Skin: General: Skin is warm and dry. Neurological: Mental Status: He is alert. Assessment and Plan ASSESSMENT/PLAN: 1. URI, acute - ICD9: 465.9, ICD10: J06.9 (primary diagnosis) - Discussed viral etiology and rationale for treatment. - Symptomatic treatment with prn analgesia - Supportive care with fluids and rest -Declines COVID/flu/RSV swab 2. Acute otitis media, left - ICD9: 382.9, ICD10: H66.92 - Will begin treatment with Doxycycline. Allergy to cephalosporins and amoxicillin. - Supportive care with plenty of fluids, rest, and analgesia prn. Diagnosis and treatment plan were discussed and questions were answered to the patient's satisfaction. Pt acknowledged understanding of concepts and follow up plan. Specific signs and symptoms that would indicate the need for higher level of care were discussed in detail warranting prompt ER evaluation. [place] Cross Allergies As of Date: 08/11/2023 Noted Allergy Reaction AMOXIL (AMOXICILLIN) 11/12/2005 2 - Rash CECLOR (CEFACLOR) 11/12/2005 4 - Hives Date Reviewed: 08/11/2023 Reviewed by: Aracelis Gaviria - Fully Assessed Reason for Visit: Cough [28] Cmt: Congestion x3 days. Primary Visit Diagnosis:URI, acute [J06.9] Other Visit Diagnosis:Acute otitis media, left [H66.92] Order(s):doxycycline monohydrate 100 mg tabletTake 1 tablet by mouth two times a day for 7 days.Disp: 14 tabletRfl: 0 benzonatate (TESSALON PERLES) 100 mg capsuleTake 1 capsule by mouth three times a day as needed for cough.Disp: 14 capsuleRfl: 0 Prescriptions as of 08/11/2023 - doxycycline monohydrate 100 mg tablet Take 1 tablet by mouth two times a day for 7 days. - benzonatate (more content not included)... Normal [facility] CNOVon 07-19-2023 CNOV Office Visit (FAMPWS ) LEXUS HANDY ([id number]) 1990 M Date Time Provider Department 07/19/23 6:00 PM [facility] During your visit today, we recorded the following information about you: Pulse Respiration Blood pressure Weight 74/minute 16/minute 120/74 99.8 kg Brendan Haywood MD 07/19/2023 6:21 PM Signed Chief Complaint Patient presents with: Medication Problem: Prozac side effects HPI Lexus Handy is a 32 year old male who presents here today for medication side effects. Planning on getting Jul 07, 2024. Pt here today to discuss sexual side effects of Prozac. He does feel that the Prozac 40 mg daily is helping with the anxiety and depression but it is causing issues with ED. He has decreased desire to have sex, trouble getting and keeping an erection. Pt states that he has been having issues for the past 6 months. Pt state she is ok with stopping the Prozac and going onto something else. He used Wellbutrin in the past but it caused anger and agitation. Pt has been on Buspar, Cymbalta, Zoloft in the past as well. HM: depression screening: denies feeling depressed or hopeless. Is on medication currently to treat these issues. Past medical history, appointments, medications, allergies reviewed. Previous Medical History PAST MEDICAL HISTORY Diagnosis Date Bipolar disorder (HCC) Current moderate episode of major depressive disorder without prior episode (HCC) Generalized anxiety disorder Tourette syndrome Previous Surgical History PAST SURGICAL HISTORY Procedure Laterality Date APPENDECTOMY REPAIR ING HERNIA,5+Y/O,REDUCIBL TONSILLECTOMY AND ADENOIDECTOMY Family History FAMILY HISTORY Problem Relation Age of Onset Tourette syndrome Brother Patient Allergies ALLERGIES Allergen Reactions Amoxil [Amoxicillin] Rash Ceclor [Cefaclor] Hives Current Medications Current Outpatient Medications on File Prior to Visit Medication Sig naproxen (NAPROSYN) 500 mg tablet Take 1 tablet by mouth two times a day as needed. Take with food. cyclobenzaprine (FLEXERIL) 10 mg tablet Take 1 tablet by mouth two times a day as needed for muscle spasm or pain. fluPHENAZine (PROLIXIN) 5 mg tablet Take 1 tablet by mouth once daily. FLUoxetine (PROZAC) 40 mg capsule Take 1 capsule by mouth once daily. omeprazole (PRILOSEC) 20 mg capsule Take 1 capsule by mouth daily before breakfast. 1/2 hr before meal. albuterol HFA (VENTOLIN HFA) 90 mcg/actuation inhaler Inhale 2 Puffs as instructed every 4 hours as needed for wheezing/shortness of breath. No current facility-administered medications on file prior to visit. Social History Social History Tobacco Use Smoking status: Never Smokeless tobacco: Never Vaping Use Vaping Use: Never used Substance Use Topics Alcohol use: Not Currently Drug use: Never EXAM: BP 120/74 Pulse 74 Resp 16 Wt 99.8 kg (220 lb) BMI 30.68 kg/m? General Appearance: Well appearing, alert, in no acute distress, well-hydrated, well nourished.. Lungs: Lungs clear to auscultation. No wheezing, rhonchi, rales.. Heart: RRR without murmur, gallop, or rubs. No ectopy. Health Maintenance List Hepatitis B Vaccine(1 of 3 - 3-dose series) Never done Hepatitis C Screening Never done HIV Screening Never done Depression Assessment due on 09/27/2022 DTaP,Tdap,Td Vaccine(2 - Td or Tdap) due on 04/21/2023 Influenza Vaccine(1) due on 05/28/2023 Covid-19 Vaccine(2 - 2022-24 season) due on 05/28/2023 HPV Vaccine Aged Out Data reviewed None ASSESSMENT/PLAN: 1. Generalized anxiety disorder - ICD9: 300.02, ICD10: F41.1 (primary diagnosis) Stop Prozac Start Effexor xr 75 mg daily 2. Bipolar affective disorder, remission status unspecified (HCC) - ICD9: 296.80, ICD10: F31.9 Stop Prozac Start Effexor xr 75 mg daily 3. Decreased sexual desire - ICD9: 799.81, ICD10: F52.0 Stop Prozac, see if issues resolve Rx for Cialis 10 mg given 4. ED (erectile dysfunction) of organic origin - ICD9: 607.84, ICD10: N52.9 Stop Prozac, see if issue resolves Rx for Cialis 10 mg given Follow up in 3 months. I agree with the Chief Complaint, ROS, and Past Histories independently gathered by the clinical forestry support specialist and the remaining scribed note accurately describes my personal service to the patient. Medical Decision Making: Problems: Moderate: 1+ chronic illnesses with change Risk: Moderate: Drug management Medical Decision Making Level: 4 - Moderate Brendan Hayowod MD The documentation for this note was completed by Fina Casanova Ma acting as scribe for Brendan Haywood MD. July 19, 2023 5:39 PM. Fina Casanova Ma Allergies As of Date: 07/19/2023 Noted Allergy Reaction AMOXIL (AMOXICILLIN) 11/12/2005 2 - Rash CECLOR (CEFACLOR) 11/12/2005 4 - Hives Date Reviewed: 07/19/2023 Reviewed by: Li Casanova Ma (more content not included)... Normal [facility] XR Cervical spine AP and Lat eral and obliqueon 06-28-2023 IMPRESSION: Negative cervical spine X-ray. Deputy Sheriff K9 Handler: P[facility] Transcribe Date/Time: Jun 28 2023 5:36P Dictated by : SARAH CROUCH MD This examination was interpreted and the report reviewed and electronically signed by: SARAH CROUCH MD on Jun 28 2023 5:37PM [facility] DIVISION OF RADIOLOGY * * *Final Report* * * DATE OF EXAM: Jun 28 2023 4:37PM WOX [id number] - XR CERVICAL 4V AP/LAT/OBL / PROCEDURE REASON: multiple diagnoses * * * * Physician Interpretation * * * * EXAM TITLE: XR CERVICAL 4V AP/LAT/OBL EXAM DATE/TIME: 06/28/2023 4:37 PM COMPARISON: None. CLINICAL INDICATION/HISTORY: Strain. TECHNIQUE: AP, lateral and oblique views of the cervical spine are presented. FINDINGS: No fractures or subluxations are noted. The disc spaces are well preserved. There is no significant osteophyte formation. The neural foramina are patent. The prevertebral soft tissues are normal. DIVISION OF RADIOLOGY Provider, Tanika Tammie alvarez [place] - 06/28/2023 * * *Final Report* * * DATE OF EXAM: Jun 28 2023 4:37PM WOX [id number] - XR CERVICAL 4V AP/LAT/OBL / PROCEDURE REASON: multiple diagnoses * * * * Physician Interpretation * * * * EXAM TITLE: XR CERVICAL 4V AP/LAT/OBL EXAM DATE/TIME: 06/28/2023 4:37 PM COMPARISON: None. CLINICAL INDICATION/HISTORY: Strain. TECHNIQUE: AP, lateral and oblique views of the cervical spine are presented. FINDINGS: No fractures or subluxations are noted. The disc spaces are well preserved. There is no significant osteophyte formation. The neural foramina are patent. The prevertebral soft tissues are normal. IMPRESSION IMPRESSION: Negative cervical spine X-ray. Deputy Sheriff K9 Handler: [facility] Transcribe Date/Time: Jun 28 2023 5:36P Dictated by : SARAH CROUCH MD This examination was interpreted and the report reviewed and electronically signed by: SARAH CROUCH MD on Jun 28 2023 5:37PM [facility] Radiology Study observation (narrative) [facility] XR Cervical spine AP and Lat eral and obliqueOrdered By: [facility]cf Provider on 06-28-2023 [facility] XR Ribs - right Views and est PAon 04-21-2023 IMPRESSION: No evidence of acute right rib fracture. Deputy Sheriff K9 Handler: [facility] Transcribe Date/Time: Apr 21 2023 5:20P Dictated by : SARAH CROUCH MD This examination was interpreted and the report reviewed and electronically signed by: SARAH CROUCH MD on Apr 21 2023 5:22PM [facility] DIVISION OF RADIOLOGY * * *Final Report* * * DATE OF EXAM: Apr 21 2023 5:15PM WOX [id number] - XR RIB/CHST 3V AP RIB/OBL/CHST R / PROCEDURE REASON: multiple diagnoses * * * * Physician Interpretation * * * * XR RIB/CHST 3V AP RIB/OBL/CHST R EXAM DATE/TIME: 04/21/2023 5:15 PM COMPARISON: None. CLINICAL INDICATION/HISTORY: Rib pain TECHNIQUE: AP views centered high and low and oblique view of right ribs are presented for interpretation. PA view of the chest is also present. FINDINGS: There is no evidence of acute right rib fracture. There is no pneumothorax or pleural effusion. The underlying visualized lungs appear normal. DIVISION OF RADIOLOGY Provider, Cyn Cho [facility] - 04/21/2023 * * *Final Report* * * DATE OF EXAM: Apr 21 2023 5:15PM WOX [id number] - XR RIB/CHST 3V AP RIB/OBL/CHST R / PROCEDURE REASON: multiple diagnoses * * * * Physician Interpretation * * * * XR RIB/CHST 3V AP RIB/OBL/CHST R EXAM DATE/TIME: 04/21/2023 5:15 PM COMPARISON: None. CLINICAL INDICATION/HISTORY: Rib pain TECHNIQUE: AP views centered high and low and oblique view of right ribs are presented for interpretation. PA view of the chest is also present. FINDINGS: There is no evidence of acute right rib fracture. There is no pneumothorax or pleural effusion. The underlying visualized lungs appear normal. IMPRESSION IMPRESSION: No evidence of acute right rib fracture. Deputy Sheriff K9 Handler: [facility] Transcribe Date/Time: Apr 21 2023 5:20P Dictated by : SARAH CROUCH MD This examination was interpreted and the report reviewed and electronically signed by: SARAH CROUCH MD on Apr 21 2023 5:22PM EST [facility] Radiology Study observation (narrative) [facility] XR Ribs - right Views and Ch est PAOrdered By: [facility] Provider on 04-21-2023 [facility] Vital Signs Date Time Vital Sign Value Performing Clinician Nancy goodman 07-12-2024 11:39-0400 Body mass index (BMI) [Ratio] 33.67 kg/m2 Jenn Clemens PA Work Phone: [facility] 07-12-2024 11:39-0400 Body temperature 97 [degF] Jenn Clemens PA Work Phone: [facility] 07-12-2024 11:39-0400 Body weight 109.5 kg Jenn Clemens PA Work Phone: [facility] 07-12-2024 11:39-0400 Diastolic blood pressure 84 mm[Hg] Krislyn Aberegg PA Work Phone: [facility] 07-12-2024 11:39-0400 Heart rate 79 /min Krislyn Aberegg PA Work Phone: [facility] 07-12-2024 11:39-0400 Respiratory rate 16 /min Krislyn Aberegg PA Work Phone: [facility] 07-12-2024 11:39-0400 SaO2% (BldA) [Mass fraction] 98 % Krislyn Aberegg PA Work Phone: [facility] 07-12-2024 11:39-0400 Systolic blood pressure 128 mm[Hg] Krislyn Aberegg PA Work Phone: [facility] 06-26-2024 14:07-0400 Body mass index (BMI) [Ratio] 33.55 kg/m2 Krislyn Aberegg PA Work Phone: [facility] 06-26-2024 14:07-0400 Body temperature 98.1 [degF] Krislyn Aberegg PA Work Phone: [facility] 06-26-2024 14:07-0400 Body weight 109.1 kg Krislyn Aberegg PA Work Phone: [facility] 06-26-2024 14:07-0400 Diastolic blood pressure 78 mm[Hg] Krislyn Aberegg PA Work Phone: [facility] 06-26-2024 14:07-0400 Heart rate 90 /min Krislyn Aberegg PA Work Phone: [facility] 06-26-2024 14:07-0400 Respiratory rate 16 /min Krislyn Aberegg PA Work Phone: [facility] 06-26-2024 14:07-0400 SaO2% (BldA) [Mass fraction] 97 % Krislyn Aberegg PA Work Phone: [facility] 06-26-2024 14:07-0400 Systolic blood pressure 128 mm[Hg] Jenn SANTOYO Work Phone: [facility] 05-02-2024 13:04-0400 Body mass index (BMI) [Ratio] 32.9 kg/m2 Kia Salcedohofrankie GANG MOWER OPERATOR.MOBILITY DEVELOPER Work Phone: [facility] 05-02-2024 13:04-0400 Body weight 107 kg Kia Salcedohof GANG MOWER OPERATOR.MOBILITY DEVELOPER Work Phone: [facility] 05-02-2024 13:04-0400 Diastolic blood pressure 100 mm[Hg] Kia Salcedohof GANG MOWER OPERATOR.MOBILITY DEVELOPER Work Phone: [facility] 05-02-2024 13:04-0400 Heart rate 82 /min Kia Salcedohof GANG MOWER OPERATOR.MOBILITY DEVELOPER Work Phone: [facility] 05-02-2024 13:04-0400 Respiratory rate 16 /min Kia Salcedohof GANG MOWER OPERATOR.MOBILITY DEVELOPER Work Phone: [facility] 05-02-2024 13:04-0400 SaO2% (BldA) [Mass fraction] 98 % Kia Salcedohof GANG MOWER OPERATOR.MOBILITY DEVELOPER Work Phone: [facility] 05-02-2024 13:04-0400 Systolic blood pressure 130 mm[Hg] Kia Salcedohof GANG MOWER OPERATOR.MOBILITY DEVELOPER Work Phone: [facility] 01-28-2024 10:12-0400 Body mass index (BMI) [Ratio] 32.13 kg/m2 Brendan Haywood MD Work Phone: [facility] 01-28-2024 10:12-0400 Body temperature 96.8 [degF] Brendan Haywood MD Work Phone: [facility] 01-28-2024 10:12-0400 Body weight 104.51 kg Brendan Haywood MD Work Phone: [facility] 01-28-2024 10:12-0400 Diastolic blood pressure 82 mm[Hg] Brendan Haywood MD Work Phone: [facility] 01-28-2024 10:12-0400 Heart rate 94 /min Brendan Haywood MD Work Phone: [facility] 01-28-2024 10:12-0400 Respiratory rate 16 /min Brendan Haywood MD Work Phone: [facility] 01-28-2024 10:12-0400 Systolic blood pressure 130 mm[Hg] Brendan Haywood MD Work Phone: [facility] 08-11-2023 13:00-0500 Body temperature 98.6 [degF] Krislyn Aberegg PA Work Phone: [facility] 08-11-2023 13:00-0500 Body weight 99.52 kg Krislyn Aberegg PA Work Phone: [facility] 08-11-2023 13:00-0500 Diastolic blood pressure 70 mm[Hg] Krislyn Aberegg PA Work Phone: [facility] 08-11-2023 13:00-0500 Heart rate 108 /min Krislyn Aberegg PA Work Phone: [facility] 08-11-2023 13:00-0500 Respiratory rate 16 /min Krislyn Aberegg PA Work Phone: [facility] 08-11-2023 13:00-0500 SaO2% (BldA) [Mass fraction] 98 % Krislyn Aberegg PA Work Phone: [facility] 08-11-2023 13:00-0500 Systolic blood pressure 122 mm[Hg] Krislyn Aberegg PA Work Phone: [facility] 07-19-2023 17:49-0400 Body weight 99.79 kg Brendan Haywood MD Work Phone: [facility] 07-19-2023 17:49-0400 Diastolic blood pressure 74 mm[Hg] Brendan Haywood MD Work Phone: [facility] 07-19-2023 17:49-0400 Heart rate 74 /min Brendan Haywood MD Work Phone: [facility] 07-19-2023 17:49-0400 Respiratory rate 16 /min Brendan Haywood MD Work Phone: [facility] 07-19-2023 17:49-0400 Systolic blood pressure 120 mm[Hg] Brendan Haywood MD Work Phone: [facility] 11-11-2022 18:54-0500 Body temperature 99.81 [degF] Juliet Oliva GANG MOWER OPERATOR.MOBILITY DEVELOPER Work Phone: [facility] 11-11-2022 18:54-0500 Body weight 92.08 kg Juliet Oliva GANG MOWER OPERATOR.MOBILITY DEVELOPER Work Phone: [facility] 11-11-2022 18:54-0500 Diastolic blood pressure 80 mm[Hg] Juliet Oliva GANG MOWER OPERATOR.MOBILITY DEVELOPER Work Phone: [facility] 11-11-2022 18:54-0500 Heart rate 83 /min Juliet Oliva GANG MOWER OPERATOR.MOBILITY DEVELOPER Work Phone: [facility] 11-11-2022 18:54-0500 SaO2% (BldA) [Mass fraction] 99 % Juliet Oliva GANG MOWER OPERATOR.MOBILITY DEVELOPER Work Phone: [facility] 11-11-2022 18:54-0500 Systolic blood pressure 115 mm[Hg] Juliet Oliva GANG MOWER OPERATOR.MOBILITY DEVELOPER Work Phone: [facility] 09-02-2022 19:04-0500 Body weight 92.44 kg Brendan Haywood MD Work Phone: [facility] 09-02-2022 19:04-0500 Diastolic blood pressure 88 mm[Hg] Brendan Haywood MD Work Phone: [facility] 09-02-2022 19:04-0500 Heart rate 80 /min Brendan Haywood MD Work Phone: [facility] 09-02-2022 19:04-0500 Respiratory rate 16 /min Brendan Haywood MD Work Phone: [facility] 09-02-2022 19:04-0500 Systolic blood pressure 140 mm[Hg] Brendan Haywood MD Work Phone: [facility] Encounters Encounter Date Encounter Type Care Provider Facility Start: 07-12-2024 End: 07-12-2024 ambulatory [facility] Facility:[facility] Start: 07-12-2024 End: 07-12-2024 Patient encounter procedure Jenn SANTOYO Work Phone: [facility] Comment on above: Tinea cruris (Primar y Dx) Start: 06-26-2024 End: 06-26-2024 ambulatory [facility] Facility:[facility] Start: 06-26-2024 End: 06-26-2024 Patient encounter procedure Jenn SANTOYO Work Phone: [facility] Comment on above: Sinobronchitis (Prim jessica Dx) Start: 06-05-2024 End: 06-05-2024 ambulatory No Pcp GANG MOWER OPERATOR Appointment Center Start: 06-05-2024 End: 06-05-2024 Patient encounter procedure No Pcp GANG MOWER OPERATOR Appointment Center Start: 05-03-2024 Telephone encounter Kia whitaker GANG MOWER OPERATOR.MOBILITY DEVELOPER Work Phone: [facility] Comment on above: Results (Labs ); Ord ers Start: 05-02-2024 End: 05-02-2024 Patient encounter procedure Kia Collins GANG MOWER OPERATOR.MOBILITY DEVELOPER Work Phone: [facility] Comment on above: Fatigue, unspecified type (Primary Dx); Hypertension, essential Start: 05-02-2024 End: 05-02-2024 ambulatory KIA COLLINS Facility:[facility] Start: 04-09-2024 ambulatory [facility] Comment on above: Medication problems Start: 04-06-2024 End: 04-06-2024 ambulatory Rachel Higgins PA-C Work Phone: [facility] Comment on above: Anxiety (Primary Dx) ; [place] Tourette syndrome Start: 04-06-2024 End: 04-06-2024 Patient encounter procedure Aubrey Murphy MD Work Phone: [facility] Comment on above: APPOINTMENT CANCELLE D (Primary Dx) Start: 04-06-2024 End: 04-06-2024 Telemedicine consultation with patient Rachel Zayda JUSTICE Work Phone: [facility] Start: 03-02-2024 ambulatory [facility] Comment on above: Medication still isn t in Start: 02-26-2024 ambulatory [facility] Comment on above: Medication question Start: 02-17-2024 End: 02-17-2024 ambulatory Aubrey Murphy MD Work Phone: [facility] Comment on above: [place] Tourett e syndrome; Anxiety; Sleep difficulties Start: 02-17-2024 End: 02-17-2024 Telemedicine consultation with patient Aubrey Murphy MD Work Phone: [facility] Start: 02-14-2024 End: 02-14-2024 ambulatory Jeanette Monge PA-C Work Phone: [facility] Comment on above: Sleep difficulties ( Primary Dx); [place] Tourette syndrome; Anxiety Start: 02-14-2024 End: 02-14-2024 Telemedicine consultation with patient Jeanette Monge PA-C Work Phone: [facility] Start: 02-06-2024 ambulatory Brendan ellsworth MD Work Phone: [facility] Comment on above: Upping the Prozac Start: 01-28-2024 End: 01-28-2024 ambulatory BRENDAN HAYWOOD Facility:[facility] Start: 01-28-2024 End: 01-28-2024 Patient encounter procedure Brendan Haywood MD Work Phone: [facility] Comment on above: Acute non-recurrent sinusitis, unspecified location (Primary Dx); Generalized anxiety disorder; Bipolar affective disorder, remission status unspecified (HCC); Bronchitis Start: 01-04-2024 Telephone encounter Brendan buck MD Work Phone: [facility] Comment on above: Patient Update Start: 01-03-2024 ambulatory Brendan ellsworth MD Work Phone: [facility] Comment on above: Wellbutrin problems Start: 12-23-2023 End: 12-23-2023 ambulatory [facility] Facility:[facility] Start: 08-11-2023 End: 08-11-2023 Patient encounter procedure Jenn SANTOYO Work Phone: [facility] Comment on above: URI, acute (Primary Dx); Acute otitis media, left Start: 08-11-2023 End: 08-11-2023 ambulatory [facility] Facility:[facility] Start: 07-25-2023 ambulatory Brendan ellsworth MD Work Phone: [facility] Comment on above: Effexor issues Start: 07-19-2023 End: 07-19-2023 ambulatory [facility] Facility:[facility] Start: 07-19-2023 End: 07-19-2023 Patient encounter procedure Brendan Haywood MD Work Phone: [facility] Comment on above: Generalized anxiety disorder (Primary Dx); Bipolar affective disorder, remission status unspecified (HCC); Decreased sexual desire; ED (erectile dysfunction) of organic origin Start: 07-04-2023 ambulatory Brendan ellsworth MD Work Phone: [facility] Comment on above: Weight gain again. Start: 06-28-2023 End: 06-28-2023 Subsequent hospital visit by physician Ariana [facility] Work Phone: Radiology Comment on above: Strain of neck muscl e, initial encounter [S16.1XXA] Start: 04-22-2023 Telephone encounter Carlito Jasmine MD Work Phone: [facility] Comment on above: Results Start: 04-21-2023 End: 04-21-2023 Subsequent hospital visit by physician Ariana [facility] Work Phone: Radiology Comment on above: Rib pain on right si de [R07.81] Start: 02-26-2023 End: 02-26-2023 Office outpatient visit 10 minutes Lacy Woodard GANG MOWER OPERATOR.MOBILITY DEVELOPER Work Phone: [facility] Comment on above: [place] Tourett e syndrome (Primary Dx); Anxiety Start: 02-25-2023 Refill Radha felix MD Work Phone: Neurology Comment on above: Refill Request Start: 11-27-2022 ambulatory Brendan ellsworth MD Work Phone: [facility] Comment on above: Medication question Start: 11-17-2022 ambulatory Brendan ellsworth MD Work Phone: [facility] Comment on above: Prozac Start: 11-11-2022 End: 11-11-2022 Patient encounter procedure Juliet Oliva GANG MOWER OPERATOR.MOBILITY DEVELOPER Work Phone: [facility] Comment on above: Bronchitis (Primary Dx) Start: 10-06-2022 Refill Delvin LOPEZ RN.MOBILITY DEVELOPER Work Phone: [facility] Comment on above: Refill Request Start: 09-02-2022 End: 09-02-2022 Patient encounter procedure Brendan Haywood MD Work Phone: [facility] Comment on above: Epigastric pain (Yas michael Dx); Generalized anxiety disorder; Bipolar affective disorder, remission status unspecified (HCC) Start: 06-29-2022 Refill Brendan ellsworth MD Work Phone: [facility] Comment on above: Refill Request Start: 04-29-2022 ambulatory Brendan ellsworth MD Work Phone: [facility] Comment on above: Prozac Start: 02-20-2022 End: 02-20-2022 [facility] Radha Mace MD Work Phone: Neurology Comment on above: [place] Tourett e syndrome (Primary Dx); Anxiety; Obsessive-compulsive disorder, unspecified type Start: 02-07-2022 ambulatory Brendan ellsworth MD Work Phone: [facility] Comment on above: SANDRA Start: 12-31-2021 [facility] Get Medical Advice Brendan lopez MD Work Phone: [facility] Comment on above: Medication refill Procedures Date Procedure Procedure Detail Performing Clinician Start: 06-28-2023 Radex spine cervical 4 or 5 views Beck Jasmine MD Work Phone: Start: 04-21-2023 Radex ribs uni w/posteroant ch minimum 3 views Beck Jasmine MD Work Phone: Start: 02-18-2022 Adult depression screening assessment Radha Mace MD Work Phone: Start: 04-22-2021 Adult depression screening assessment Brendan Haywood MD Work Phone: Plan of Treatment Date Care Activity Detail Author Start: 03-08-2034 Urine microalbumin profile DTaP,Tdap,Td Vaccine (3 - Td or Tdap) [facility] Start: 09-13-2024 End: 09-13-2024 ambulatory 09/13/2024 3:30 PM EST [facility] [address] [place] [address] Aubrey Murphy MD [address] [place], [place] [id number] med check [facility] Comment on above: med check Start: 06-02-2024 End: 06-02-2024 Patient encounter procedure 06/02/2024 1:40 PM EDT Office Visit [facility] [address] [place], [place] [id number] Kia Collins, KATHERINE.MOBILITY DEVELOPER [address] [place] [address] 1 month BP check [facility] Comment on above: 1 month BP check Start: 05-28-2024 Covid-19 Vaccine () Covid-19 Vaccine ( season) [facility] Start: 05-28-2024 Covid-19 Vaccine () Covid-19 Vaccine ( season) [facility] Start: 05-28-2024 Influenza vaccination C [facility] Start: 05-18-2024 End: 05-18-2024 Patient encounter procedure 05/18/2024 10:00 AM EDT Office Visit Neurology [address] [place] [address] Fatigue, unspecified type [R53.83] Neurology Comment on above: Fatigue, unspecified type [R53.83] Start: 05-02-2024 End: 08-01-2024 25-hydroxyvitamin D3 [Mass/volume] in Serum or Plasma [facility] Comment on above: Expected: 05/02/2024 , Expires: 08/01/2024 Start: 05-02-2024 End: 08-01-2024 Cobalamin (Vitamin B12) [Mass/volume] in Serum or Plasma [facility] Comment on above: Expected: 05/02/2024 , Expires: 08/01/2024 Start: 05-02-2024 End: 08-01-2024 Comprehensive metabolic 2000 panel - Serum or Plasma [facility] Work Phone: Comment on above: Expected: 05/02/2024 , Expires: 08/01/2024 Start: 05-02-2024 End: 08-01-2024 Thyrotropin [Units/volume] in Serum or Plasma [facility] Comment on above: Expected: 05/02/2024 , Expires: 08/01/2024 Start: 05-02-2024 End: 08-01-2024 Thyroxine (T4) free [Mass/volume] in Serum or Plasma [facility] Comment on above: Expected: 05/02/2024 , Expires: 08/01/2024 Start: 04-28-2024 End: 04-28-2024 Patient encounter procedure 04/28/2024 4:40 PM EDT Office Visit [facility] [address] [place] [place] [address] Brendan Haywood MD [address] [place] [id number] 3 month follow up [facility]/Bipolar [facility] Comment on above: 3 month follow up GA D/Bipolar Start: 04-06-2024 End: 04-06-2024 ambulatory 04/06/2024 10:00 AM EDT [facility] [address] [place] [address] Aubrey Murphy MD [address] [place] [address] [facility] Start: 02-17-2024 End: 02-17-2024 ambulatory 02/17/2024 11:00 AM EDT [facility] [address] [place] [address] Aubrey Murphy MD [address] [place] [address] [facility] Start: 05-28-2023 Covid-19 Vaccine ( season) Covid-19 Vaccine () [facility] Start: 05-28-2023 Influenza vaccination C [facility] Start: 04-21-2023 Urine microalbumin profile DTaP,Tdap,Td Vaccine (2 - Td or Tdap) [facility] Start: 02-18-2023 Adult depression screening assessment DEPRESSION SCREENING [facility] Start: 09-27-2022 [facility] Start: 05-28-2022 Influenza vaccination C [facility] Start: 04-22-2022 Adult depression screening assessment DEPRESSION SCREENING [facility] Start: 03-16-2022 COVID-19 VACCINE (2 - Booster for Moderna series) COVID-19 VACCINE (2 - Booster for Moderna series) [facility] Start: 03-16-2022 COVID-19 VACCINE (2 - Moderna series) COVID-19 VACCINE (2 - Moderna series) [facility] Start: 02-16-2022 COVID-19 VACCINE (2 - Moderna series) COVID-19 VACCINE (2 - Moderna series) [facility] Start: 09-27-2021 DEPRESSION ASSESSMENT DEPRESSION ASS ESSMENT [facility] Start: 2011 Hepatitis B Vaccine (1 of 3 - 19+ 3-dose series) Hepatitis B Vaccine (1 of 3 - 19+ 3-dose series) [facility] Start: 2011 Urine microalbumin profile [facility] Start: 2010 Depression Screening Depression Scre ening [facility] Start: 2010 HEPATITIS C SCREENING HEPATITIS C [facility] Start: 2010 Hepatitis C screening Hepatitis C [facility] Start: 2010 HIV SCREENING HIV SCREENING [facility] Start: 2010 HIV screening HIV Screening [facility] Start: 1997 COVID-19 VACCINE (#1) COVID-19 VACCI NE (#1) [facility] Start: 1997 COVID-19 VACCINE (1) COVID-19 VACCIN E (1) [facility] Start: 1992 HEPATITIS B (1 of 3 - 3-dose series) HEPATITIS B (1 of 3 - 3-dose series) [facility] Start: 1992 Hepatitis B Vaccine (1 of 3 - 3-dose series) Hepatitis B Vaccine (1 of 3 - 3-dose series) [facility] End: 05-03-2025 HOME SLEEP APNEA TEST (HSAT) HOME SLEEP APNEA TEST (HSAT) Procedures Routine Fatigue, unspecified type 1 Occurrences starting 05/03/2024 until 05/03/2025 [facility] Work Phone: Comment on above: 1 Occurrences starti ng 05/03/2024 until 05/03/2025 [facility] Immunizations Immunization Date Immunization Notes Care Provider Jerry blackwell 05-09-2018 influenza virus vaccine, unspecified formulation Brendan Haywood MD Work Phone: [facility] Payers Date Payer Category Payer Medicaid [id number] 2019 Medicaid [facility] MEDICAID [facility] COMM[employer] MEDICAID [id number] 2019-Present [phone] [address] [place] [address] Medicaid [id number] 2019 Medicaid [id number] Social History Date Type Detail Facility Start: 05-05-2011 End: 09-02-2022 Tobacco smoking status NHIS Never smoked tobacco [facility] Start: 05-05-2011 End: 09-02-2022 Tobacco use and exposure Smokeless tobacco non-user [facility] Start: 05-05-2021 End: 07-12-2024 Alcohol intake Ex-drinker (finding) [facility] Start: 07-09-2020 End: 11-11-2022 History SDOH Alcohol Frequency 2 [facility] Start: 07-09-2020 End: 11-11-2022 History SDOH Alcohol Std Drinks 1 [facility] Start: 07-09-2020 End: 11-11-2022 History SDOH Social Connections Adventism 3 [facility] Start: 07-09-2020 End: 11-11-2022 History SDOH Social Connections Living 7 [facility] Start: 07-09-2020 End: 11-11-2022 History SDOH Physical Activity MPS 4 [facility] Start: 07-09-2020 End: 11-11-2022 History SDOH Financial 5 [facility] Start: 07-09-2020 Education 12 [facility] Start: 1990 Sex Assigned At Not on file [facility] Start: 02-10-2022 End: 11-11-2022 History SDOH Physical Activity MPS 6 [facility] Start: 11-11-2022 End: 02-17-2024 History of Social function [facility] Start: 11-11-2022 End: 02-17-2024 Social connection and isolation panel [facility] Do you belong to any clubs or organizations such as jain groups, unions, fraternal or athletic groups, or school groups? No [facility] Are you now , , , , never or living with a partner? Never [facility] How often to you hav e a drink containing alcohol? 2-4 times a month [facility] How many standard dr inks containing alcohol do you have on a typical day? 1 or 2 [facility] How often do you hav e 6 or more drinks on 1 occasion? Never [facility] How hard is it for y ou to pay for the very basics like food, housing, medical care, and heating Not hard at all [facility] Do you feel stress - tense, restless, nervous, or anxious, or unable to sleep at night because your mind is troubled all the time - these days [OSQ] Only a little [facility] (I/We) worried wheandrea er (my/our) food would run out before (I/we) got money to buy more. Never true [facility] Are you now , , , , never or living with a partner? Living with partner [facility] How often to you hav e a drink containing alcohol? Monthly or less [facility] Do you feel stress - tense, restless, nervous, or anxious, or unable to sleep at night because your mind is troubled all the time - these days [OSQ] Very much [facility] Clinical Notes 01-01-2022 to 07-12-2024 Jenn Clemens PA - 07/12/2024 11:46 AM Jenn Munoz PA - 06/26/2024 2:13 PM EDMarie Chamberlain - 06/05/2024 3:05 PM Kia Rutherford APRN.VAHID - 05/02/2024 1:20 PM EDT Note Date & Type Note Facility 07-12-2024 Note HNO ID: [id number] Author: JENN CLEMENS PA Service: ? Author Type: Physician Nurses' Registry Director Type: Progress Notes Filed: 07/12/2024 11:49 Note Text: This note was created using [employer]. Subjective Lexus Handy is a 33 year old male. HPI 32-year-old male presents for rash on upper leg. Rash started about 2 weeks ago. Patient states that this happens every year with the weather change. The rash is very itchy. It is not painful. No drainage. No new lotions, detergents, body washes, medications. He has not put anything on it [id number]. No fevers. No other complaint. PAST MEDICAL HISTORY Diagnosis Date Bipolar disorder (HCC) Current moderate episode of major depressive disorder without prior episode (HCC) Generalized anxiety disorder Tourette syndrome PAST SURGICAL HISTORY Procedure Laterality Date APPENDECTOMY REPAIR ING HERNIA,5+Y/O,REDUCIBL TONSILLECTOMY AND ADENOIDECTOMY ALLERGIES Amoxil [Amoxicillin] and Ceclor [Cefaclor] MEDICATIONS lisinopril (ZESTRIL) 5 mg tablet Take 1 tablet by mouth once daily. FLUoxetine (PROZAC) 40 mg capsule Take 1 capsule by mouth once daily. fluPHENAZine (PROLIXIN) 5 mg tablet Take 1 tablet by mouth once daily. FLUoxetine (PROZAC) 20 mg capsule Take 1 capsule by mouth once daily. Take along with 40 mg capsule clotrimazole (LOTRIMIN) 1 % cream Apply to affected area two times a day for 7 days. benzonatate (TESSALON PERLE) 100 mg capsule Take 1 capsule by mouth three times a day as needed. (Patient not taking: Reported on 07/12/2024) hydrOXYzine pamoate (VISTARIL) 25 mg capsule Take 1 capsule by mouth three times a day as needed for anxiety. albuterol HFA (VENTOLIN HFA) 90 mcg/actuation inhaler Inhale 2 Puffs as instructed every 4 hours as needed for wheezing/shortness of breath. FAMILY HISTORY Problem Relation Age of Onset Tourette syndrome Brother Social History Tobacco Use Smoking status: Never Smokeless tobacco: Never Vaping Use Vaping status: Never Used Substance Use Topics Alcohol use: Not Currently Drug use: Never Review of Systems Constitutional: Negative for chills and fever. HENT: Negative for congestion and sore throat. Respiratory: Negative for cough and shortness of breath. Gastrointestinal: Negative for diarrhea and vomiting. Skin: Positive for rash. Objective BP 128/84 Pulse 79 Temp 36.1 ?C (97 ?F) (Tympanic) Resp 16 Wt 109.5 kg (241 lb 6.5 oz) SpO2 98% BMI 33.67 kg/m? Physical Exam Vitals and nursing note reviewed. Constitutional: General: He is not in acute distress. Appearance: Normal appearance. He is not toxic-appearing. Skin: General: Skin is warm and dry. Findings: Rash present. Comments: Rash noted to right inner thigh. Central clearing with erythematous border. Appears consistent with tinea cruris Neurological: Mental Status: He is alert. Assessment and Plan ASSESSMENT/PLAN: 1. Tinea cruris - ICD9: 110.3, ICD10: B35.6 - Treat with clotrimazole twice a day until rash resolves and then another week - Keep area of concern very dry. - Follow up with PCP if symptoms persist or do not improved after 4-6 weeks of treatment. Diagnosis and treatment plan were discussed and questions were answered to the patient's satisfaction. Pt acknowledged understanding of concepts and follow up plan. Specific signs and symptoms that would indicate the need for higher level of care were discussed in detail warranting prompt ER evaluation. NATANAEL Cross [facility] 07-12-2024 History of Present illness Narrative Images from the original note were not included. This note was created using [employer] acquired by [employer]. Subjective Lexus Handy is a 33 year old male. HPI 32-year-old male presents for rash on upper leg. Rash started about 2 weeks ago. Patient states that this happens every year with the weather change. The rash is very itchy. It is not painful. No drainage. No new lotions, detergents, body washes, medications. He has not put anything on it [id number]. No fevers. No other complaint. PAST MEDICAL HISTORY Diagnosis Date Bipolar disorder (HCC) Current moderate episode of major depressive disorder without prior episode (HCC) Generalized anxiety disorder Tourette syndrome PAST SURGICAL HISTORY Procedure Laterality Date APPENDECTOMY REPAIR ING HERNIA,5+Y/O,REDUCIBL TONSILLECTOMY & ADENOIDECTOMY <AGE 12 ALLERGIES Amoxil [Amoxicillin] and Ceclor [Cefaclor] MEDICATIONS lisinopril (ZESTRIL) 5 mg tablet Take 1 tablet by mouth once daily. FLUoxetine (PROZAC) 40 mg capsule Take 1 capsule by mouth once daily. fluPHENAZine (PROLIXIN) 5 mg tablet Take 1 tablet by mouth once daily. FLUoxetine (PROZAC) 20 mg capsule Take 1 capsule by mouth once daily. Take along with 40 mg capsule clotrimazole (LOTRIMIN) 1 % cream Apply to affected area two times a day for 7 days. benzonatate (TESSALON PERLE) 100 mg capsule Take 1 capsule by mouth three times a day as needed. (Patient not taking: Reported on 07/12/2024) hydrOXYzine pamoate (VISTARIL) 25 mg capsule Take 1 capsule by mouth three times a day as needed for anxiety. albuterol HFA (VENTOLIN HFA) 90 mcg/actuation inhaler Inhale 2 Puffs as instructed every 4 hours as needed for wheezing/shortness of breath. FAMILY HISTORY Problem Relation Age of Onset Tourette syndrome Brother Social History Tobacco Use Smoking status: Never Smokeless tobacco: Never Vaping Use Vaping status: Never Used Substance Use Topics Alcohol use: Not Currently Drug use: Never Review of Systems Constitutional: Negative for chills and fever. HENT: Negative for congestion and sore throat. Respiratory: Negative for cough and shortness of breath. Gastrointestinal: Negative for diarrhea and vomiting. Skin: Positive for rash. Objective BP 128/84 Pulse 79 Temp 36.1 C (97 F) (Tympanic) Resp 16 Wt 109.5 kg (241 lb 6.5 oz) SpO2 98% BMI 33.67 kg/m Physical Exam Vitals and nursing note reviewed. Constitutional: General: He is not in acute distress. Appearance: Normal appearance. He is not toxic-appearing. Skin: General: Skin is warm and dry. Findings: Rash present. Comments: Rash noted to right inner thigh. Central clearing with erythematous border. Appears consistent with tinea cruris Neurological: Mental Status: He is alert. Assessment and Plan ASSESSMENT/PLAN: 1. Tinea cruris - ICD9: 110.3, ICD10: B35.6 - Treat with clotrimazole twice a day until rash resolves and then another week - Keep area of concern very dry. - Follow up with PCP if symptoms persist or do not improved after 4-6 weeks of treatment. Diagnosis and treatment plan were discussed and questions were answered to the patient's satisfaction. Pt acknowledged understanding of concepts and follow up plan. Specific signs and symptoms that would indicate the need for higher level of care were discussed in detail warranting prompt ER evaluation. NATANAEL Cross documented in this encounter [facility] 06-26-2024 Note HNO ID: [id number] Author: JENN CLEMENS PA Service: ? Author Type: Physician Nurses' Registry Director Type: Progress Notes Filed: 06/26/2024 14:14 Note Text: This note was created using [employer]. Brant Handy is a 33 year old male. HPI 33-year-old male presents for sinus congestion, cough. Patient states he has had sinus congestion for about a week and a half. He now has a cough. He is coughing up some phlegm. He has not had any fevers. He initially had sore throat, but that resolved. No sick contacts. He has been taking Mucinex, DayQuil, NyQuil without improvement. No other complaint. PAST MEDICAL HISTORY Diagnosis Date Bipolar disorder (HCC) Current moderate episode of major depressive disorder without prior episode (HCC) Generalized anxiety disorder Tourette syndrome PAST SURGICAL HISTORY Procedure Laterality Date APPENDECTOMY REPAIR ING HERNIA,5+Y/O,REDUCIBL TONSILLECTOMY AND ADENOIDECTOMY ALLERGIES Amoxil [Amoxicillin] and Ceclor [Cefaclor] MEDICATIONS lisinopril (ZESTRIL) 5 mg tablet Take 1 tablet by mouth once daily. FLUoxetine (PROZAC) 40 mg capsule Take 1 capsule by mouth once daily. fluPHENAZine (PROLIXIN) 5 mg tablet Take 1 tablet by mouth once daily. FLUoxetine (PROZAC) 20 mg capsule Take 1 capsule by mouth once daily. Take along with 40 mg capsule hydrOXYzine pamoate (VISTARIL) 25 mg capsule Take 1 capsule by mouth three times a day as needed for anxiety. albuterol HFA (VENTOLIN HFA) 90 mcg/actuation inhaler Inhale 2 Puffs as instructed every 4 hours as needed for wheezing/shortness of breath. FAMILY HISTORY Problem Relation Age of Onset Tourette syndrome Brother Social History Tobacco Use Smoking status: Never Smokeless tobacco: Never Vaping Use Vaping status: Never Used Substance Use Topics Alcohol use: Not Currently Drug use: Never Review of Systems Constitutional: Negative for chills and fever. HENT: Positive for congestion, sinus pressure and sinus pain. Negative for sore throat. Respiratory: Positive for cough. Negative for shortness of breath. Gastrointestinal: Negative for diarrhea and vomiting. Objective BP 128/78 Pulse 90 Temp 36.7 ?C (98.1 ?F) (Tympanic) Resp 16 Wt 109.1 kg (240 lb 8.4 oz) SpO2 97% BMI 33.55 kg/m? Physical Exam Vitals and nursing note reviewed. Constitutional: General: He is not in acute distress. Appearance: Normal appearance. He is not toxic-appearing. HENT: Right Ear: Tympanic membrane and ear canal normal. Left Ear: Tympanic membrane and ear canal normal. Nose: Mucosal edema and congestion present. Right Sinus: Maxillary sinus tenderness present. Left Sinus: Maxillary sinus tenderness present. Mouth/Throat: Mouth: Mucous membranes are moist. Eyes: Conjunctiva/sclera: Conjunctivae normal. Cardiovascular: Rate and Rhythm: Normal rate and regular rhythm. Pulmonary: Effort: Pulmonary effort is normal. Breath sounds: Normal breath sounds. Skin: General: Skin is warm and dry. Neurological: Mental Status: He is alert. Assessment and Plan ASSESSMENT/PLAN: 1. Sinobronchitis - ICD9: 473.9, 490, ICD10: J32.9, J40 - Will begin treatment with Doxycycline - The patient should also be given OTC decongestants prn for the first 5-7 days of treatment. - Supportive care with plenty of fluids, rest, and analgesia prn. Diagnosis and treatment plan were discussed and questions were answered to the patient's satisfaction. Pt acknowledged understanding of concepts and follow up plan. Specific signs and symptoms that would indicate the need for higher level of care were discussed in detail warranting prompt ER evaluation. NATANAEL Cross [facility] 06-26-2024 History of Present illness Narrative This note was created using [employer] acquired by [employer]. Subjective Lexus Handy is a 33 year old male. HPI 33-year-old male presents for sinus congestion, cough. Patient states he has had sinus congestion for about a week and a half. He now has a cough. He is coughing up some phlegm. He has not had any fevers. He initially had sore throat, but that resolved. No sick contacts. He has been taking Mucinex, DayQuil, NyQuil without improvement. No other complaint. PAST MEDICAL HISTORY Diagnosis Date Bipolar disorder (HCC) Current moderate episode of major depressive disorder without prior episode (HCC) Generalized anxiety disorder Tourette syndrome PAST SURGICAL HISTORY Procedure Laterality Date APPENDECTOMY REPAIR ING HERNIA,5+Y/O,REDUCIBL TONSILLECTOMY & ADENOIDECTOMY <AGE 12 ALLERGIES Amoxil [Amoxicillin] and Ceclor [Cefaclor] MEDICATIONS lisinopril (ZESTRIL) 5 mg tablet Take 1 tablet by mouth once daily. FLUoxetine (PROZAC) 40 mg capsule Take 1 capsule by mouth once daily. fluPHENAZine (PROLIXIN) 5 mg tablet Take 1 tablet by mouth once daily. FLUoxetine (PROZAC) 20 mg capsule Take 1 capsule by mouth once daily. Take along with 40 mg capsule hydrOXYzine pamoate (VISTARIL) 25 mg capsule Take 1 capsule by mouth three times a day as needed for anxiety. albuterol HFA (VENTOLIN HFA) 90 mcg/actuation inhaler Inhale 2 Puffs as instructed every 4 hours as needed for wheezing/shortness of breath. FAMILY HISTORY Problem Relation Age of Onset Tourette syndrome Brother Social History Tobacco Use Smoking status: Never Smokeless tobacco: Never Vaping Use Vaping status: Never Used Substance Use Topics Alcohol use: Not Currently Drug use: Never Review of Systems Constitutional: Negative for chills and fever. HENT: Positive for congestion, sinus pressure and sinus pain. Negative for sore throat. Respiratory: Positive for cough. Negative for shortness of breath. Gastrointestinal: Negative for diarrhea and vomiting. Objective BP 128/78 Pulse 90 Temp 36.7 C (98.1 F) (Tympanic) Resp 16 Wt 109.1 kg (240 lb 8.4 oz) SpO2 97% BMI 33.55 kg/m Physical Exam Vitals and nursing note reviewed. Constitutional: General: He is not in acute distress. Appearance: Normal appearance. He is not toxic-appearing. HENT: Right Ear: Tympanic membrane and ear canal normal. Left Ear: Tympanic membrane and ear canal normal. Nose: Mucosal edema and congestion present. Right Sinus: Maxillary sinus tenderness present. Left Sinus: Maxillary sinus tenderness present. Mouth/Throat: Mouth: Mucous membranes are moist. Eyes: Conjunctiva/sclera: Conjunctivae normal. Cardiovascular: Rate and Rhythm: Normal rate and regular rhythm. Pulmonary: Effort: Pulmonary effort is normal. Breath sounds: Normal breath sounds. Skin: General: Skin is warm and dry. Neurological: Mental Status: He is alert. Assessment and Plan ASSESSMENT/PLAN: 1. Sinobronchitis - ICD9: 473.9, 490, ICD10: J32.9, J40 - Will begin treatment with Doxycycline - The patient should also be given OTC decongestants prn for the first 5-7 days of treatment. - Supportive care with plenty of fluids, rest, and analgesia prn. Diagnosis and treatment plan were discussed and questions were answered to the patient's satisfaction. Pt acknowledged understanding of concepts and follow up plan. Specific signs and symptoms that would indicate the need for higher level of care were discussed in detail warranting prompt ER evaluation. NATANAEL Cross documented in this encounter [facility] 06-05-2024 Note HNO ID: [id number] Author: ?, ?, ? Service: ? Author Type: ? Type: Progress Notes Filed: 06/05/2024 15:05 Note Text: POPULATION HEALTH NAVIGATION OUTREACH Action/FYI RP Patient Outreach - Left voicemail for patient to call back to schedule Provider ordered Follow up in Behavioral Health. (Please see [employer] order dated for (02/17/2024). Any agent can assist with scheduling. Reason for Outreach Care Gap/HCC or Scheduling Wellness Visits Care Gaps due: Follow-up Appointment Patient Contacted: Unable or unnecessary to reach patient: Left message Navigation Signature: Marie Piedra [facility] June 05, 2024 3:05 PM [facility] 06-05-2024 History of Present illness Narrative POPULATION HEALTH NAVIGATION OUTREACH Action/FYI RP Patient Outreach - Left voicemail for patient to call back to schedule Provider ordered Follow up in Behavioral Health. (Please see [employer] order dated for (02/17/2024). Any agent can assist with scheduling. Reason for Outreach Care Gap/HCC or Scheduling Wellness Visits Care Gaps due: Follow-up Appointment Patient Contacted: Unable or unnecessary to reach patient: Left message Navigation Signature: Marie Piedra [facility] June 05, 2024 3:05 PM documented in this encounter [facility] 06-05-2024 Note Patient Outreach (AC CC) LEXUS HANDY ([id number]) 1990 M Date Time Provider Department 06/05/24 NO PCP [facility] During your visit today, we recorded the following information about you: Marie Cheng 06/05/2024 3:05 PM Signed POPULATION HEALTH NAVIGATION OUTREACH Action/FYI RP Patient Outreach - Left voicemail for patient to call back to schedule Provider ordered Follow up in Behavioral Health. (Please see [employer] order dated for (02/17/2024). Any agent can assist with scheduling. Reason for Outreach Care Gap/HCC or Scheduling Wellness Visits Care Gaps due: Follow-up Appointment Patient Contacted: Unable or unnecessary to reach patient: Left message Navigation Signature: Marie Piedra [place] June 05, 2024 3:05 PM Allergies As of Date: 06/05/2024 Noted Allergy Reaction AMOXIL (AMOXICILLIN) 11/12/2005 2 - Rash CECLOR (CEFACLOR) 11/12/2005 4 - Hives Date Reviewed: 05/02/2024 Reviewed by: Stacy Moncada LPN - Fully Assessed Prescriptions as of 06/05/2024 - lisinopril (ZESTRIL) 5 mg tablet Take 1 tablet by mouth once daily. - hydrOXYzine pamoate (VISTARIL) 25 mg capsule Take 1 capsule by mouth three times a day as needed for anxiety. - FLUoxetine (PROZAC) 40 mg capsule Take 1 capsule by mouth once daily. - fluPHENAZine (PROLIXIN) 5 mg tablet Take 1 tablet by mouth once daily. - FLUoxetine (PROZAC) 20 mg capsule Take 1 capsule by mouth once daily. Take along with 40 mg capsule - albuterol HFA (VENTOLIN HFA) 90 mcg/actuation inhaler Inhale 2 Puffs as instructed every 4 hours as needed for wheezing/shortness of breath. Problem List As Of Date 06/05/2024 Noted Resolved GENERALIZED ANXIETY DIS [F41.1] 11/12/2005 [place] Tourette syndrome [F95.2] 11/12/2005 URI, acute [J06.9] 07/09/2020 Bipolar disorder (HCC) [F31.9] Encounter Status:Closed by MARIE CHENG on 06/05/24 [facility] 05-03-2024 Telephone encounter Note Spoke with pt and information listed below given. Pt verbalizes understanding. 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 Fidencio Abraham LPN [facility] 05-03-2024 Miscellaneous Notes Spoke with pt and information listed below given. Pt verbalizes understanding. 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 Fidencio Abraham LPN Order has been placed for at home sleep study. He can call in to have device mailed to him. Office will be in touch with him once I review test results. Thank you. Kia Collins APRN.VAHID Patient notified and is agreeable to the sleep study. Please call patient to schedule once order is placed. Left a message for pt to call the office and ask to speak to a nurse. Fidencio Abraham LPN Can you please call the patient and let him know that his labs were all normal. I would recommend considering a sleep study to further evaluate causes of his fatigue. If he is agreeable please let me know and I will place the order. Thank you. Kia Collins APRN.MOBILITY DEVELOPER documented in this encounter [facility] 05-03-2024 Telephone encounter Note Order has been placed for at home sleep study. He can call in to have device mailed to him. Office will be in touch with him once I review test results. Thank you. Kia Collins APRN.VAHID [facility] 05-03-2024 Telephone encounter Note Patient notified and is agreeable to the sleep study. Please call patient to schedule once order is placed. [facility] 05-03-2024 Telephone encounter Note Left a message for pt to call the office and ask to speak to a nurse. Fidencio Abraham LPN [facility] 05-03-2024 Telephone encounter Note Can you please call the patient and let him know that his labs were all normal. I would recommend considering a sleep study to further evaluate causes of his fatigue. If he is agreeable please let me know and I will place the order. Thank you. Kia Collins APRN.MOBILITY DEVELOPER [facility] 05-02-2024 History of Present illness Narrative This is a 33 year old male who presents today with: Patient presents with: Acute Visit: fatigues x 1 month HISTORY OF PRESENT ILLNESS: Lexus Handy is a 33 year old male. Patient presents with: Acute Visit: fatigues x 1 month Here in the office for fatigue. Has been on going for the past month. Waking up feeling tired. No snoring that he is aware of. Refes that he feels like he has no energy. Difficulty going to work. No changes with diet, eating a well balanced diet. Denies difficulty swallowing, palpitations, or cold/heat intolerances. History of anxiety and bipolar disorder, Lanette Dula Tourette syndrome. Following with psychiatry.Stopped Seroquel about a month ago. Increased anger but denies increased sadness. Elevated blood pressure today, refers that it seems be getter higher at each visit. Increase in headaches. Blurry vision at times. Denies chest pain, dizziness, or edema. PAST MEDICAL HISTORY: PAST MEDICAL HISTORY No date: Bipolar disorder (HCC) No date: Current moderate episode of major depressive disorder without prior episode (HCC) No date: Generalized anxiety disorder No date: Tourette syndrome PAST SURGICAL HISTORY No date: APPENDECTOMY No date: REPAIR ING HERNIA,5+Y/O,REDUCIBL No date: TONSILLECTOMY & ADENOIDECTOMY <AGE 12 ALLERGIES Amoxil [Amoxicillin] and Ceclor [Cefaclor] MEDICATIONS Current Outpatient Medications Medication Sig QUEtiapine (SEROQUEL) 25 mg tablet Take 0.5 tablets by mouth two times a day. hydrOXYzine pamoate (VISTARIL) 25 mg capsule Take 1 capsule by mouth three times a day as needed for anxiety. FLUoxetine (PROZAC) 40 mg capsule Take 1 capsule by mouth once daily. fluPHENAZine (PROLIXIN) 5 mg tablet Take 1 tablet by mouth once daily. FLUoxetine (PROZAC) 20 mg capsule Take 1 capsule by mouth once daily. Take along with 40 mg capsule Tadalafil (CIALIS) 10 mg tablet Take 1 tablet by mouth once daily as needed (Take 30-60 minutes prior to sexual activity). Take 1-2 hours before sexual activity. albuterol HFA (VENTOLIN HFA) 90 mcg/actuation inhaler Inhale 2 Puffs as instructed every 4 hours as needed for wheezing/shortness of breath. No current facility-administered medications for this visit. FAMILY HISTORY Problem Relation Age of Onset Tourette syndrome Brother Social History Tobacco Use Smoking status: Never Smokeless tobacco: Never Vaping Use Vaping Use: Never used Substance Use Topics Alcohol use: Not Currently Drug use: Never REVIEW OF SYSTEMS GENERAL: No weight loss, malaise or fevers/chills HEENT: Negative for frequent or significant headaches, No changes in hearing or vision. NECK: Negative for lumps, goiter, pain and significant neck swelling RESPIRATORY: Negative for cough, hemoptysis, wheezing, dyspnea or shortness of breath CARDIOVASCULAR: Negative for chest pain, leg swelling, orthopnea, or palpitations GI: No nausea, vomiting, or diarrhea/constipation. No hematochezia/melena. No heartburn or reflux symptoms. : No history of dysuria, frequency or incontinence MUSCULOSKELETAL: Negative for joint pain or swelling. SKIN: Negative for lesions, rash, and itching ENDOCRINE: Negative for cold or heat intolerance, polyuria, polydipsia and goiter NEURO: No history of headaches, syncope, paralysis, seizures or tremors MOOD: Negative for depression, anxiety, or suicidal ideation. EXAM: BP 130/100 Pulse 82 Resp 16 Wt 107 kg (235 lb 14.3 oz) SpO2 98% BMI 32.90 kg/m PHYSICAL EXAM: General Appearance: Well appearing, alert, in no acute distress, well-hydrated, well nourished. Skin: Skin color, texture, turgor normal, no suspicious rashes or lesions. Head: Normocephalic, no masses, lesions, tenderness or abnormalities. Eyes: Anicteric sclera. Pupils are equally round and reactive to light. Extraocular movements are intact. Neck: Supple, no adenopathy; thyroid symmetric, normal size, no bruits. Lungs: Lungs clear to auscultation. No wheezing, rhonchi, rales. Heart: RRR without murmur, gallop, or rubs. No ectopy. Extremities: No deformities, edema, skin discoloration, clubbing or cyanosis. Good capillary refill. Peripheral Pulses: Normal, Capillary refill <2secs, strong peripheral pulses, Pulses palpable. Neurologic: Gait normal. Sensation grossly intact. ASSESSMENT/PLAN: 1. Fatigue, unspecified type - ICD9: 780.79, ICD10: R53.83 (primary diagnosis) - Get labs completed - Pending lab results, discussed completing sleep study in the future if needed. - COMPLETE BLOOD COUNT AND DIFFERENTIAL - COMPREHENSIVE METABOLIC PANEL - VITAMIN D 25 HYDROXY - VITAMIN B12 - THYROID STIMULATING HORMONE - T4 FREE/FREE THYROXINE 2. Hypertension, essential - ICD9: 401.9, ICD10: I10 - New diagnosis - Start lisinopril - Recommend home blood pressure monitoring, to bring results to next visit - Encouraged sodium restriction, DASH or Mediterranean diet - Recommend regular aerobic exercise - Follow up in 1 month. - LISINOPRIL 5 MG TABLET Follow up in 1 month or sooner pending test results. Discussed treatment plan and patient voices understanding. Patient's questions answered appropriately. Medications and potential side effects were discussed and patient voices understanding. Kia Collins APRN.MOBILITY DEVELOPER This note was partially generated using Percello voice recognition system. Note was reviewed for accuracy. There may be minor misspellings or grammar miscues with [employer]ello voice recognition. documented in this encounter [facility] 05-02-2024 Note HNO ID: [id number] Author: KIA COLLINS APRN.CNP Service: ? Author Type: Nurse Practitioner Type: Progress Notes Filed: 05/02/2024 13:23 Note Text: This is a 33 year old male who presents today with: Patient presents with: Acute Visit: fatigues x 1 month HISTORY OF PRESENT ILLNESS: Lexus Handy is a 33 year old male. Patient presents with: Acute Visit: fatigues x 1 month Here in the office for fatigue. Has been on going for the past month. Waking up feeling tired. No snoring that he is aware of. Refes that he feels like he has no energy. Difficulty going to work. No changes with diet, eating a well balanced diet. Denies difficulty swallowing, palpitations, or cold/heat intolerances. History of anxiety and bipolar disorder, Lanette Sinan Tourette syndrome. Following with psychiatry.Stopped Seroquel about a month ago. Increased anger but denies increased sadness. Elevated blood pressure today, refers that it seems be getter higher at each visit. Increase in headaches. Blurry vision at times. Denies chest pain, dizziness, or edema. PAST MEDICAL HISTORY: PAST MEDICAL HISTORY No date: Bipolar disorder (HCC) No date: Current moderate episode of major depressive disorder without prior episode (HCC) No date: Generalized anxiety disorder No date: Tourette syndrome PAST SURGICAL HISTORY No date: APPENDECTOMY No date: REPAIR ING HERNIA,5+Y/O,REDUCIBL No date: TONSILLECTOMY AND ADENOIDECTOMY ALLERGIES Amoxil [Amoxicillin] and Ceclor [Cefaclor] MEDICATIONS Current Outpatient Medications Medication Sig QUEtiapine (SEROQUEL) 25 mg tablet Take 0.5 tablets by mouth two times a day. hydrOXYzine pamoate (VISTARIL) 25 mg capsule Take 1 capsule by mouth three times a day as needed for anxiety. FLUoxetine (PROZAC) 40 mg capsule Take 1 capsule by mouth once daily. fluPHENAZine (PROLIXIN) 5 mg tablet Take 1 tablet by mouth once daily. FLUoxetine (PROZAC) 20 mg capsule Take 1 capsule by mouth once daily. Take along with 40 mg capsule Tadalafil (CIALIS) 10 mg tablet Take 1 tablet by mouth once daily as needed (Take 30-60 minutes prior to sexual activity). Take 1-2 hours before sexual activity. albuterol HFA (VENTOLIN HFA) 90 mcg/actuation inhaler Inhale 2 Puffs as instructed every 4 hours as needed for wheezing/shortness of breath. No current facility-administered medications for this visit. FAMILY HISTORY Problem Relation Age of Onset Tourette syndrome Brother Social History Tobacco Use Smoking status: Never Smokeless tobacco: Never Vaping Use Vaping Use: Never used Substance Use Topics Alcohol use: Not Currently Drug use: Never REVIEW OF SYSTEMS GENERAL: No weight loss, malaise or fevers/chills HEENT: Negative for frequent or significant headaches, No changes in hearing or vision. NECK: Negative for lumps, goiter, pain and significant neck swelling RESPIRATORY: Negative for cough, hemoptysis, wheezing, dyspnea or shortness of breath CARDIOVASCULAR: Negative for chest pain, leg swelling, orthopnea, or palpitations GI: No nausea, vomiting, or diarrhea/constipation. No hematochezia/melena. No heartburn or reflux symptoms. : No history of dysuria, frequency or incontinence MUSCULOSKELETAL: Negative for joint pain or swelling. SKIN: Negative for lesions, rash, and itching ENDOCRINE: Negative for cold or heat intolerance, polyuria, polydipsia and goiter NEURO: No history of headaches, syncope, paralysis, seizures or tremors MOOD: Negative for depression, anxiety, or suicidal ideation. EXAM: BP 130/100 Pulse 82 Resp 16 Wt 107 kg (235 lb 14.3 oz) SpO2 98% BMI 32.90 kg/m? PHYSICAL EXAM: General Appearance: Well appearing, alert, in no acute distress, well-hydrated, well nourished. Skin: Skin color, texture, turgor normal, no suspicious rashes or lesions. Head: Normocephalic, no masses, lesions, tenderness or abnormalities. Eyes: Anicteric sclera. Pupils are equally round and reactive to light. Extraocular movements are intact. Neck: Supple, no adenopathy; thyroid symmetric, normal size, no bruits. Lungs: Lungs clear to auscultation. No wheezing, rhonchi, rales. Heart: RRR without murmur, gallop, or rubs. No ectopy. Extremities: No deformities, edema, skin discoloration, clubbing or cyanosis. Good capillary refill. Peripheral Pulses: Normal, Capillary refill <2secs, strong peripheral pulses, Pulses palpable. Neurologic: Gait normal. Sensation grossly intact. ASSESSMENT/PLAN: 1. Fatigue, unspecified type - ICD9: 780.79, ICD10: R53.83 (primary diagnosis) - Get labs completed - Pending lab results, discussed completing sleep study in the future if needed. - COMPLETE BLOOD COUNT AND DIFFERENTIAL - COMPREHENSIVE METABOLIC PANEL - VITAMIN D 25 HYDROXY - VITAMIN B12 - THYROID STIMULATING HORMONE - T4 FREE/FREE THYROXINE 2. Hypertension, essential - ICD9: 401.9, ICD10: I10 - New diagnosis - Start lisinopril (more content not included)... [facility] 05-02-2024 Instructions Kia Collins APRN.CNP - 05/02/2024 1:16 PM EDT Get labs completed Start Lisinopril 5 mg daily Monitor blood pressure at home, goal 130/80 or less Watch processed foods and salt in the diet. Get some form of exercise. Follow up in 1 month or sooner pending test results documented in this encounter [facility] 04-11-2024 Telephone encounter Note Patient did not tolerate Abilify. Spoke with Dr. Murphy, agreed to trial Seroquel 12.5mg BID. Requested Prescriptions Pending Prescriptions Disp Refills QUEtiapine (SEROQUEL) 25 mg tablet 30 tablet 0 Sig: Take 0.5 tablets by mouth two times a day. Rachel Rodríguez PA-C [facility], Psychiatry [facility] 04-11-2024 Miscellaneous Notes Patient did not tolerate Abilify. Spoke with Dr. Murphy, agreed to trial Seroquel 12.5mg BID. Requested Prescriptions Pending Prescriptions Disp Refills QUEtiapine (SEROQUEL) 25 mg tablet 30 tablet 0 Sig: Take 0.5 tablets by mouth two times a day. Rachel Rodríguez PA-C [facility], Psychiatry documented in this encounter [facility] 04-06-2024 History of Present illness Narrative FOLLOW UP - PSYCHIATRIC PROGRESS NOTE Visit Type:Virtual Visit utilizing two-way audio and video for at least a portion of the visit. Consent for virtual visit obtained verbally. Confidentiality limitations with virtual visits reviewed with the patient and guardian, if present, who have accepted the risk verbally prior to proceeding with encounter. I have communicated my name and active licensure. The patient's identity and physical location were verified at the time of this visit. Either the patient or their legal service representative has been informed of the risks and benefits of -- and alternatives to -- treatment through a remote evaluation and consents to proceed with the evaluation remotely. Reason for Visit: Outpatient follow-up and safety monitoring of previously prescribed psychiatric medication, psychotherapy or other treatment CC: Follow up, worsened depression HPI: Follow up from Dr. Murphy, last seen 02/17/2024 at which time Buspar 5mg 3x daily was started for COOPER. This was switched to Vistaril 25mg TID PRN. German states that the Vistaril is making him extremely tired, now sleeping all day long, and he feels that his depression has worsened. We will stop this medication. He also notes he has stopped his melatonin as he is sleeping all the time and feels this knocks him out. He states he is more depressed, noting little interest in doing things, feels very down. Feels he cannot get with it. States anxiety hasn't gotten better but hasn't gotten worse, had a breakdown the other night, no identifiable trigger, feels that it came out of nowhere. Patient denies active SI, but when worked up has PDWs. He continues to see his counselor weekly, encouraged patient to reach out to them during this difficult time. Per Dr. Murphy's last note, we will begin a low dose of an antipsychotic to augment his prozac. Patient agreeable to new medication. Risks and benefits of the medication, including any black box warnings, were discussed with the patient. Interval Progress: Slightly worse PATIENT DATA: Generalized Anxiety Disorder Scale (COOPER-7) 02/16/2024 04/05/2024 04/05/2024 COOPER - 7 SCORES Score 18 21 21 (0-4) minimal anxiety, (5-9) mild anxiety, (10-14) moderate anxiety, (15-21) severe anxiety Patient Health Questionnaire (PHQ-9) 02/16/2024 04/05/2024 04/05/2024 PHQ-9 Score 14 20 23 (0-4) minimal depression, (5-9) mild depression, (10-14) moderate depression, (15-19) moderately severe depression, (20-27) severe depression PROMIS Global Health 06/06/2023 12/06/2023 04/05/2024 PROMIS Global Health - (T-Scores - the mean of general population = 50. Five points is a clinically meaningful difference.) Physical T-Score 37.4 37.4 39.8 Mental T-Score 48.3 36.3 28.4 PAST MEDICAL HISTORY Diagnosis Date Bipolar disorder (HCC) Current moderate episode of major depressive disorder without prior episode (HCC) Generalized anxiety disorder Tourette syndrome PAST SURGICAL HISTORY Procedure Laterality Date APPENDECTOMY REPAIR ING HERNIA,5+Y/O,REDUCIBL TONSILLECTOMY & ADENOIDECTOMY <AGE 12 Current Outpatient Medications Medication Sig Dispense Refill hydrOXYzine pamoate (VISTARIL) 25 mg capsule Take 1 capsule by mouth three times a day as needed for anxiety. 90 capsule 2 FLUoxetine (PROZAC) 40 mg capsule Take 1 capsule by mouth once daily. 90 capsule 3 fluPHENAZine (PROLIXIN) 5 mg tablet Take 1 tablet by mouth once daily. 90 tablet 3 FLUoxetine (PROZAC) 20 mg capsule Take 1 capsule by mouth once daily. Take along with 40 mg capsule 30 capsule 11 Tadalafil (CIALIS) 10 mg tablet Take 1 tablet by mouth once daily as needed (Take 30-60 minutes prior to sexual activity). Take 1-2 hours before sexual activity. 12 tablet 5 albuterol HFA (VENTOLIN HFA) 90 mcg/actuation inhaler Inhale 2 Puffs as instructed every 4 hours as needed for wheezing/shortness of breath. 1 Each 0 No current facility-administered medications for this visit. ROS: GENERAL: Negative for malaise, significant weight loss and fever. HEENT: No changes in hearing or vision, no nose bleeds or other nasal problems. RESPIRATORY: Negative for cough, wheezing and shortness of breath. CARDIOVASCULAR: Negative for chest pain, leg swelling and palpitations. GI: Negative for abdominal discomfort, blood in stools or black stools. : Negative for dysuria, frequency and incontinence. MUSCULOSKELETAL: Negative for joint pain or swelling, back pain, and muscle pain. SKIN: Negative for lesions, rash, and itching. HEMATOLOGY/LYMPHOLOGY Negative for prolonged bleeding, bruising easily, and swollen nodes. ENDOCRINE: Negative for cold or heat intolerance, polyuria, polydipsia and goiter. NEURO: Negative for headaches, syncope, seizures and paralysis. PFSH: unchanged, see Dr. Murphy's note from 02/17/2024. VITAL SIGNS: There were no vitals filed for this visit. MENTAL STATUS EXAM: CONSTITUTIONAL: Well groomed, Appropriately dressed ORIENTATION: Person, Place, Time and Situation MEMORY: Recent intact, Remote intact CONCENTRATION: Normal MOOD: euthymic AFFECT: Full and appropriate to topic SPEECH : Clear & distinct LANGUAGE : Normal ASSOCIATIONS: Intact THOUGHT PROCESS : Logical, Coherent, and Rational PROGRESSION : There was no evidence of disturbance in thought perception or progression. FUND OF KNOWLEDGE : Appropriate and Adequate SUICIDE: See HPI; Passive wish to be HOMICIDE: None DATA REVIEWED: Electronic medical record DIAGNOSIS: PRIMARY: Anxiety Disorder Generalized Anxiety Disorder Secondary : Mood Disorder Bipolar II Disorder Other : Tourettes GAF: 60-51 Moderate symptoms or moderate difficulty in social, occupational or school functioning. TREATMENT PLAN: 1. Will start seroquel vs. Abilify at low dose after discussion with Dr. Murphy 2. Follow up with Dr. Murphy in 1-2 months. If you have issues doing so on MyChart, please call [phone]. 3. Continue seeing counselor, suggest increase in visits during this difficult time. MEDICATION CHANGES: Will send MyCXTRMt message after discussion with Dr. Murphy Follow Up: 1-2 months I spent a total of 45 minutes on the date of the service which included preparing to see the patient, [id number] patient care, completing clinical documentation, obtaining and/or reviewing separately obtained history, and ordering medications, tests, or procedures. ADD ON PSYCHOTHERAPY CODE : No SIGNATURE: Rachel Higgins PA-C PATIENT NAME: Lexus Handy DATE: April 06, 2024 TIME: 8:25 AM documented in this encounter [facility] 04-06-2024 Note HNO ID: [id number] Author: RACHEL HIGGINS PA-C Service: ? Author Type: Physician Nurses' Registry Director Type: Progress Notes Filed: 04/18/2024 16:16 Note Text: FOLLOW UP - PSYCHIATRIC PROGRESS NOTE Visit Type:Virtual Visit utilizing two-way audio and video for at least a portion of the visit. Consent for virtual visit obtained verbally. Confidentiality limitations with virtual visits reviewed with the patient and guardian, if present, who have accepted the risk verbally prior to proceeding with encounter. I have communicated my name and active licensure. The patient's identity and physical location were verified at the time of this visit. Either the patient or their legal service representative has been informed of the risks and benefits of -- and alternatives to -- treatment through a remote evaluation and consents to proceed with the evaluation remotely. Reason for Visit: Outpatient follow-up and safety monitoring of previously prescribed psychiatric medication, psychotherapy or other treatment CC: Follow up, worsened depression HPI: Follow up from Dr. Murphy, last seen 02/17/2024 at which time Buspar 5mg 3x daily was started for COOPER. This was switched to Vistaril 25mg TID PRN. German states that the Vistaril is making him extremely tired, now sleeping all day long, and he feels that his depression has worsened. We will stop this medication. He also notes he has stopped his melatonin as he is sleeping all the time and feels this knocks him out. He states he is more depressed, noting little interest in doing things, feels very down. Feels he cannot get with it. States anxiety hasn't gotten better but hasn't gotten worse, had a breakdown the other night, no identifiable trigger, feels that it came out of nowhere. Patient denies active SI, but when worked up has PDWs. He continues to see his counselor weekly, encouraged patient to reach out to them during this difficult time. Per Dr. Murphy's last note, we will begin a low dose of an antipsychotic to augment his prozac. Patient agreeable to new medication. Risks and benefits of the medication, including any black box warnings, were discussed with the patient. Interval Progress: Slightly worse PATIENT DATA: Generalized Anxiety Disorder Scale (COOPER-7) 02/16/2024 04/05/2024 04/05/2024 COOPER - 7 SCORES Score 18 21 21 (0-4) minimal anxiety, (5-9) mild anxiety, (10-14) moderate anxiety, (15-21) severe anxiety Patient Health Questionnaire (PHQ-9) 02/16/2024 04/05/2024 04/05/2024 PHQ-9 Score 14 20 23 (0-4) minimal depression, (5-9) mild depression, (10-14) moderate depression, (15-19) moderately severe depression, (20-27) severe depression PROMIS Global Health 06/06/2023 12/06/2023 04/05/2024 PROMIS Global Health - (T-Scores - the mean of general population = 50. Five points is a clinically meaningful difference.) Physical T-Score 37.4 37.4 39.8 Mental T-Score 48.3 36.3 28.4 PAST MEDICAL HISTORY Diagnosis Date Bipolar disorder (HCC) Current moderate episode of major depressive disorder without prior episode (HCC) Generalized anxiety disorder Tourette syndrome PAST SURGICAL HISTORY Procedure Laterality Date APPENDECTOMY REPAIR ING HERNIA,5+Y/O,REDUCIBL TONSILLECTOMY AND ADENOIDECTOMY Current Outpatient Medications Medication Sig Dispense Refill hydrOXYzine pamoate (VISTARIL) 25 mg capsule Take 1 capsule by mouth three times a day as needed for anxiety. 90 capsule 2 FLUoxetine (PROZAC) 40 mg capsule Take 1 capsule by mouth once daily. 90 capsule 3 fluPHENAZine (PROLIXIN) 5 mg tablet Take 1 tablet by mouth once daily. 90 tablet 3 FLUoxetine (PROZAC) 20 mg capsule Take 1 capsule by mouth once daily. Take along with 40 mg capsule 30 capsule 11 Tadalafil (CIALIS) 10 mg tablet Take 1 tablet by mouth once daily as needed (Take 30-60 minutes prior to sexual activity). Take 1-2 hours before sexual activity. 12 tablet 5 albuterol HFA (VENTOLIN HFA) 90 mcg/actuation inhaler Inhale 2 Puffs as instructed every 4 hours as needed for wheezing/shortness of breath. 1 Each 0 No current facility-administered medications for this visit. ROS: GENERAL: Negative for malaise, significant weight loss and fever. HEENT: No changes in hearing or vision, no nose bleeds or other nasal problems. RESPIRATORY: Negative for cough, wheezing and shortness of breath. CARDIOVASCULAR: Negative for chest pain, leg swelling and palpitations. GI: Negative for abdominal discomfort, blood in stools or black stools. : Negative for dysuria, frequency and incontinence. MUSCULOSKELETAL: Negative for joint pain or swelling, back pain, and muscle pain. SKIN: Negative for lesions, rash, and itching. HEMATOLOGY/LYMPHOLOGY Negative for prolonged bleeding, bruising easily, and swollen nodes. ENDOCRINE: Negative for cold or heat intolerance, polyuria, polydipsia and goiter. NEURO: Negative for headaches, syncope, seizures and paralysis. PFSH: (more content not included)... [facility] 02-17-2024 History of Present illness Narrative Images from the original note were not included. PSYC NEW - PSYCHIATRIC ASSESSMENT Patient was seen for an initial evaluation. I have communicated my name and active licensure. The patient's identity and physical location were verified at the time of this visit. Either the patient or their legal service representative has been informed of the risks and benefits of -- and alternatives to -- treatment through a remote evaluation and consents to proceed with the evaluation remotely. All information is from Patient report except when noted. This evaluation is NOT intended for forensic, disability or child custody purposes. AGE: [age] year old RACE: White MARITAL STATUS: Single (never ) OCCUPATION: Unemployed REFERRAL SOURCE: [facility] Physician - Maksim Monge CHIEF COMPLAINT: Anxiety . HPI: 33M with Tourette, COOPER, bipolar d/o. Has been dealing with anxiety and has bipolar d/o. Feels his bipolar is under control. Has a hx of jasmeet. Never admitted to the hospital for it. Would be in a very good mood for 4 d - 2 weeks and then would dip into MDD. Woke up 52h straight, slept for 36h straight when he came down. German lives with kevin, is unemployed currently 2/2 anxiety. Anxiety is chronic since he was in school. 6 year ago is when he was diagnosed with it. Overthinks, worries about things. Sometimes gets sick, hyperventilating, almost like a panic attack. Tries to breathe through it but that doesn't always help. Significant heart pounding, tries to take depp breath but its hard to breath. Mood has been pretty stable. One mo ago, it was rollercoaster ride and was down/irritable. And this is affecting his relationship with his kevin. Meds were being managed by PCP. Has seen psych in past deni first dx with bipolar disorder. Sleep is good, no complaints. Fluoxetine was recently increased to 60mg. Anxiety is there throughout the day. When it comes its really bad. That's been happening everyday. No clear triggers. Rated as 6-7/10 wirh 10 being worst. Tourette was really bad that he has to be homeschooled because he couldn't sit straight. Freshman-senior went back to school. Sleep: is described as normal Interest: good Guilt: none Energy: stable Concentration: fair Appetite: good Psychomotor Activity: psychomotor activity was WNL. Suicide: None Phobias: no irrational fears Memory: Good Anxiety: high Obsessions: none Compulsions: none Jasmeet: by history PTSD: The patient denies being expose to or witnessing traumatic events. denies Self Mutilation: Denies PAST MEDICAL HISTORY Diagnosis Date Bipolar disorder (HCC) Current moderate episode of major depressive disorder without prior episode (HCC) Generalized anxiety disorder Tourette syndrome PAST SURGICAL HISTORY Procedure Laterality Date APPENDECTOMY REPAIR ING HERNIA,5+Y/O,REDUCIBL TONSILLECTOMY & ADENOIDECTOMY <AGE 14 Current Outpatient Medications Medication Sig Dispense Refill FLUoxetine (PROZAC) 40 mg capsule Take 1 capsule by mouth once daily. 90 capsule 3 fluPHENAZine (PROLIXIN) 5 mg tablet Take 1 tablet by mouth once daily. 90 tablet 3 busPIRone (BUSPAR) 10 mg tablet Take 1/2 tablet 3 times daily x 3 days, then inc as instructed to take 1 tablet 3 times daily 90 tablet 5 FLUoxetine (PROZAC) 20 mg capsule Take 1 capsule by mouth once daily. Take along with 40 mg capsule 30 capsule 11 Tadalafil (CIALIS) 10 mg tablet Take 1 tablet by mouth once daily as needed (Take 30-60 minutes prior to sexual activity). Take 1-2 hours before sexual activity. 12 tablet 5 albuterol HFA (VENTOLIN HFA) 90 mcg/actuation inhaler Inhale 2 Puffs as instructed every 4 hours as needed for wheezing/shortness of breath. 1 Each 0 No current facility-administered medications for this visit. VITAL SIGNS: There were no vitals filed for this visit. ROS: All other systems negative. PSYCHIATRIC HISTORY: Prior Diagnosis: Bipolar Affective Disorder, Generalized Anxiety Disorder, and Tourette's Prior Provider: Yes, but cannot recall Therapist: No prior therapist Current Workers Compensation Specialist: no Last Hospitalization: Denies hospitalization. ECT: no Previous Discontinued Psychiatric Med Trials: Clonazepam All tried while a child: risperidone, clonidine (decreased BP), Adderall (increased tics), Seroquel, Orap, Abilify, Geodon (behavior changes) Duloxetine, Zoloft, Fluovoxamine, Wellbutrin (made anxiety/agitation worse) SUBSTANCE USE HISTORY: Nicotine: None Caffeine: Coffee, 1 cups/day up to 2 cups/day Alcohol: Rarely Marijuana: No history of use or dependence Cocaine: No history of use or dependence Opiods: No history of use or dependence SPIRITUALITY: NA PFSH: Lexus Handy is the has twin brother and oldest sister. The patient was born and raised in [place]. He completed High school. He described his childhood as wnl. [facility] Service: None Legal: Pt. denied any past legal history FAMILY PSYCHIATRIC HISTORY: Anxiety is common on mom's side of family. No family psychiatric or substance abuse history PATIENT DATA: Generalized Anxiety Disorder Scale (COOPER-7) 06/06/2023 12/06/2023 02/14/2024 COOPER - 7 SCORES Score 15 19 18 (0-4) minimal anxiety, (5-9) mild anxiety, (10-14) moderate anxiety, (15-21) severe anxiety Patient Health Questionnaire (PHQ-9) 06/06/2023 12/06/2023 02/14/2024 PHQ-9 Score 18 21 13 (0-4) minimal depression, (5-9) mild depression, (10-14) moderate depression, (15-19) moderately severe depression, (20-27) severe depression PROMIS Global Health 02/25/2023 06/06/2023 12/06/2023 PROMIS Global Health - (T-Scores - the mean of general population = 50. Five points is a clinically meaningful difference.) Physical T-Score 44.9 37.4 37.4 Mental T-Score 56 48.3 36.3 MENTAL STATUS EXAMINATION: Appearance: Well dressed, well groomed Behavior: Behaves appropriately during the encounter Social relatedness: Euthymic Speech/Language: The patient demonstrates appropriate tone, prosody, isak, phonetics, and syntax Mood: euthymic Affect: Full and appropriate to topic Orientation: Person, Place, Time and Situation Associations: Intact and linear Hallucinations: None Delusions: None Suicidal Ideation: No suicidal ideation, intent or plan. Homicidal Ideation: No homicidal ideation, intent or plan. Insight: Appropriate Judgment: Appropriate IMPRESSION: 33M with Tourette, bipolar do, and COOPER presenting with anxiety sx. Mood is well controlled on current med regimen. DIAGNOSIS: PRIMARY: Anxiety Disorder Generalized Anxiety Disorder SECONDARY: Mood Disorder Bipolar II Disorder Other : none GAF: 60-51 Moderate symptoms or moderate difficulty in social, occupational or school functioning. PLAN: 1. Buspar as recommended by Maksim Monge 2. If no response in 10 days, consider Vistaril or Seroquel. 3. RTC 2 mo Medication Current medication regimen unchanged. DISPOSITION: Home I spent a total of 60 minutes on the date of the service which included preparing to see the patient, [id number] patient care, completing clinical documentation, performing a medically appropriate examination, counseling and educating the patient/family/caregiver, and ordering medications, tests, or procedures. ADD ON PSYCHOTHERAPY CODE : No SIGNATURE: Aubrey Murphy MD PATIENT NAME: Lexus Handy DATE: February 16, 2024 TIME: 11:10 AM PAGER : directory documented in this encounter [facility] 02-17-2024 Note HNO ID: [id number] Author: AUBREY MURPHY MD Service: ? Author Type: Physician Type: Progress Notes Filed: 02/18/2024 09:39 Note Text: PSYC NEW - PSYCHIATRIC ASSESSMENT Patient was seen for an initial evaluation. I have communicated my name and active licensure. The patient's identity and physical location were verified at the time of this visit. Either the patient or their legal service representative has been informed of the risks and benefits of -- and alternatives to -- treatment through a remote evaluation and consents to proceed with the evaluation remotely. All information is from Patient report except when noted. This evaluation is NOT intended for forensic, disability or child custody purposes. AGE: [age] year old RACE: White MARITAL STATUS: Single (never ) OCCUPATION: Unemployed REFERRAL SOURCE: [facility] Physician - Maksim Monge CHIEF COMPLAINT: Anxiety . HPI: 33M with Tourette, COOPER, bipolar d/o. Has been dealing with anxiety and has bipolar d/o. Feels his bipolar is under control. Has a hx of jasmeet. Never admitted to the hospital for it. Would be in a very good mood for 4 d - 2 weeks and then would dip into MDD. Woke up 52h straight, slept for 36h straight when he came down. German lives with kevin, is unemployed currently 2/2 anxiety. Anxiety is chronic since he was in school. 6 year ago is when he was diagnosed with it. Overthinks, worries about things. Sometimes gets sick, hyperventilating, almost like a panic attack. Tries to breathe through it but that doesn't always help. Significant heart pounding, tries to take depp breath but its hard to breath. Mood has been pretty stable. One mo ago, it was rollercoaster ride and was down/irritable. And this is affecting his relationship with his kevin. Meds were being managed by PCP. Has seen psych in past whjen first dx with bipolar disorder. Sleep is good, no complaints. Fluoxetine was recently increased to 60mg. Anxiety is there throughout the day. When it comes its really bad. That's been happening everyday. No clear triggers. Rated as 6-7/10 wirh 10 being worst. Tourette was really bad that he has to be homeschooled because he couldn't sit straight. Freshman-senior went back to school. Sleep: is described as normal Interest: good Guilt: none Energy: stable Concentration: fair Appetite: good Psychomotor Activity: psychomotor activity was WNL. Suicide: None Phobias: no irrational fears Memory: Good Anxiety: high Obsessions: none Compulsions: none Jasmeet: by history PTSD: The patient denies being expose to or witnessing traumatic events. denies Self Mutilation: Denies PAST MEDICAL HISTORY Diagnosis Date Bipolar disorder (HCC) Current moderate episode of major depressive disorder without prior episode (HCC) Generalized anxiety disorder Tourette syndrome PAST SURGICAL HISTORY Procedure Laterality Date APPENDECTOMY REPAIR ING HERNIA,5+Y/O,REDUCIBL TONSILLECTOMY AND ADENOIDECTOMY Current Outpatient Medications Medication Sig Dispense Refill FLUoxetine (PROZAC) 40 mg capsule Take 1 capsule by mouth once daily. 90 capsule 3 fluPHENAZine (PROLIXIN) 5 mg tablet Take 1 tablet by mouth once daily. 90 tablet 3 busPIRone (BUSPAR) 10 mg tablet Take 1/2 tablet 3 times daily x 3 days, then inc as instructed to take 1 tablet 3 times daily 90 tablet 5 FLUoxetine (PROZAC) 20 mg capsule Take 1 capsule by mouth once daily. Take along with 40 mg capsule 30 capsule 11 Tadalafil (CIALIS) 10 mg tablet Take 1 tablet by mouth once daily as needed (Take 30-60 minutes prior to sexual activity). Take 1-2 hours before sexual activity. 12 tablet 5 albuterol HFA (VENTOLIN HFA) 90 mcg/actuation inhaler Inhale 2 Puffs as instructed every 4 hours as needed for wheezing/shortness of breath. 1 Each 0 No current facility-administered medications for this visit. VITAL SIGNS: There were no vitals filed for this visit. ROS: All other systems negative. PSYCHIATRIC HISTORY: Prior Diagnosis: Bipolar Affective Disorder, Generalized Anxiety Disorder, and Tourette's Prior Provider: Yes, but cannot recall Therapist: No prior therapist Current Workers Compensation Specialist: no Last Hospitalization: Denies hospitalization. ECT: no Previous Discontinued Psychiatric Med Trials: Clonazepam All tried while a child: risperidone, clonidine (decreased BP), Adderall (increased tics), Seroquel, Orap, Abilify, Geodon (behavior changes) Duloxetine, Zoloft, Fluovoxamine, Wellbutrin (made anxiety/agitation worse) SUBSTANCE USE HISTORY: Nicotine: None Caffeine: Coffee, 1 cups/day up to 2 cups/day Alcohol: Rarely Marijuana: No history of use or dependence Cocaine: No history of use or dependence Opiods: No history of use or dependence SPIRITUALITY: NA PFSH: Lexus Handy is the has twin brother and oldest sister. The patient was born and raised in [place]. He completed High school. He described his (more content not included)... [facility] 02-14-2024 Note HNO ID: [id number] Author: JEANETTE MONGE PA-C Service: ? Author Type: Physician Nurses' Registry Director Type: Progress Notes Filed: 02/16/2024 07:51 Note Text: [facility] - FOLLOW UP EVALUATION - VIRTUAL VISIT Brendan Haywood MD [id number] [facility] [id number] Dear Brendan Haywood MD: I had the pleasure of seeing Mr. Handy for follow-up today. As you know he is a 33 year old male with a history of Tourette syndrome since 1997. We had a visit using: simplifyMD I have communicated my name and active licensure. The patient's identity and physical location were verified at the time of this visit. Either the patient or their legal service representative has been informed of the risks and benefits of -- and alternatives to -- treatment through a remote evaluation and consents to proceed with the evaluation remotely. Subjective During his previous visit the following plan was made: Previous plan-02/26/2023 Visit: Refilled medications today Follow up as needed in 6 months to 1 year. Interval History German is seen alone this evening. States tics are mainly eye blinking and side to side mouth movements. States tic symptoms have remained stable over the past year. [facility] general medical health has remained stable over the past year. [facility] PCP recently increased Prozac to 60 mg/day and states has helped his bipolar disorder but states anxiety has worsened. States it negtively impacts his sleep thus making him sleepy during the daytime. He states PCP has referred him to a local psychiatrist but he has been waiting for a prolonged time for a call from the office to schedule an appointment. Sleep: Rough d/t anxiety; states eventually he does fall asleep despite taking 5 mg melatonin/night. States mind won't shut off; will develop shakiness/heart palpitations. Movement Disorders Medications Schedule - as of the start of the visit: Medications bedtime fluphenazine 5 mg 1 fluoxetine 40 mg 1 fluoxetine 20 mg 1 Other Movement Disorder Prior Therapies Clonazepam All tried while a child: risperidone, clonidine (decreased BP), Adderall (increased tics), Seroquel, Orap, Abilify, Geodon (behavior changes) ALLERGIES Allergen Reactions Amoxil [Amoxicillin] Rash Ceclor [Cefaclor] Hives Current Outpatient Medications Medication Sig FLUoxetine (PROZAC) 40 mg capsule Take 1 capsule by mouth once daily. fluPHENAZine (PROLIXIN) 5 mg tablet Take 1 tablet by mouth once daily. busPIRone (BUSPAR) 10 mg tablet Take 1/2 tablet 3 times daily x 3 days, then inc as instructed to take 1 tablet 3 times daily FLUoxetine (PROZAC) 20 mg capsule Take 1 capsule by mouth once daily. Take along with 40 mg capsule Tadalafil (CIALIS) 10 mg tablet Take 1 tablet by mouth once daily as needed (Take 30-60 minutes prior to sexual activity). Take 1-2 hours before sexual activity. albuterol HFA (VENTOLIN HFA) 90 mcg/actuation inhaler Inhale 2 Puffs as instructed every 4 hours as needed for wheezing/shortness of breath. No current facility-administered medications for this visit. Questionnaires: In addition, the following symptoms that may be associated with Tourette?s syndrome or tic disorder were evaluated on how much they bothered the patent in the past week: Irritable: (P) No Motor tics: (P) Yes, a little Being argumentative: (P) Yes, moderately Sudden mood changes: (P) Yes, moderately Demanding attention: (P) o Being hot tempered: (P) Yes moderately Vocal tics: (P) No Obsessiveness: (P) No Inattentiveness: (P) Yes (extremely) Being talkative: (P) No Feeling restless: (P) Yes (extremely) Compulsions: (P) Yes a little Tense, anxious, nervous: (P) Yes (extremely) Depressed, uninterested: (P) Yes, moderately Impulsive: (P) Yes (extremely) Number of falls in the Last Month: 0 Mood/Behavior Depression: PHQ-9 Score: 13 usually representing moderate (10-14) depression. Anxiety: COOPER-7 Total Score: 18 usually representing severe (>15) anxiety. Finally, the following table shows the patient's overall global physical and mental health using the PROMIS scale: PROMIS-10 Flowsheet Row Appointment from 12/07/2023 in [facility] Appointment from 06/08/2023 in Neurology Global Physical Health T Score 37.4 37.4 Global Mental Health T Score 36.3 48.3 0-10 Standard Pain Scale 3 3 *PROMIS-10 scoring scale: mean = 50, over 50 is above average, under 50 is below average Objective General: Awake, alert, interactive, no acute distress, good nutritional status, normal development, well-kept. Excessive eye blinking movements during encounter. Assessment and Plan: Assessment Mr. Handy is a 33 year old male with Tourrettes Syndome, anxiety/depression. The following are the current problems noted and addressed during this visit: [place] tourette syndrome Anxiety Sleep difficulties (primary encounter diagnosis) Plan 02/14/2024 Visit: Tourette's/tics: Stable o (more content not included)... [facility] 02-14-2024 History of Present illness Narrative [facility] - FOLLOW UP EVALUATION - VIRTUAL VISIT Brendan Haywood MD [address] [facility] [id number] Dear Brendan Haywood MD: I had the pleasure of seeing Mr. Handy for follow-up today. As you know he is a 33 year old male with a history of Tourette syndrome since 1997. We had a visit using: simplifyMD I have communicated my name and active licensure. The patient's identity and physical location were verified at the time of this visit. Either the patient or their legal service representative has been informed of the risks and benefits of -- and alternatives to -- treatment through a remote evaluation and consents to proceed with the evaluation remotely. Subjective During his previous visit the following plan was made: Previous plan-02/26/2023 Visit: Refilled medications today Follow up as needed in 6 months to 1 year. Interval History German is seen alone this evening. States tics are mainly eye blinking and side to side mouth movements. States tic symptoms have remained stable over the past year. States general medical health has remained stable over the past year. States PCP recently increased Prozac to 60 mg/day and states has helped his bipolar disorder but states anxiety has worsened. States it negtively impacts his sleep thus making him sleepy during the daytime. He states PCP has referred him to a local psychiatrist but he has been waiting for a prolonged time for a call from the office to schedule an appointment. Sleep: Rough d/t anxiety; states eventually he does fall asleep despite taking 5 mg melatonin/night. States mind won't shut off; will develop shakiness/heart palpitations. Movement Disorders Medications Schedule - as of the start of the visit: Medications bedtime fluphenazine 5 mg 1 fluoxetine 40 mg 1 fluoxetine 20 mg 1 Other Movement Disorder Prior Therapies Clonazepam All tried while a child: risperidone, clonidine (decreased BP), Adderall (increased tics), Seroquel, Orap, Abilify, Geodon (behavior changes) ALLERGIES Allergen Reactions Amoxil [Amoxicillin] Rash Ceclor [Cefaclor] Hives Current Outpatient Medications Medication Sig FLUoxetine (PROZAC) 40 mg capsule Take 1 capsule by mouth once daily. fluPHENAZine (PROLIXIN) 5 mg tablet Take 1 tablet by mouth once daily. busPIRone (BUSPAR) 10 mg tablet Take 1/2 tablet 3 times daily x 3 days, then inc as instructed to take 1 tablet 3 times daily FLUoxetine (PROZAC) 20 mg capsule Take 1 capsule by mouth once daily. Take along with 40 mg capsule Tadalafil (CIALIS) 10 mg tablet Take 1 tablet by mouth once daily as needed (Take 30-60 minutes prior to sexual activity). Take 1-2 hours before sexual activity. albuterol HFA (VENTOLIN HFA) 90 mcg/actuation inhaler Inhale 2 Puffs as instructed every 4 hours as needed for wheezing/shortness of breath. No current facility-administered medications for this visit. Questionnaires: In addition, the following symptoms that may be associated with Tourette s syndrome or tic disorder were evaluated on how much they bothered the patent in the past week: Irritable: (P) No Motor tics: (P) Yes, a little Being argumentative: (P) Yes, moderately Sudden mood changes: (P) Yes, moderately Demanding attention: (P) o Being hot tempered: (P) Yes moderately Vocal tics: (P) No Obsessiveness: (P) No Inattentiveness: (P) Yes (extremely) Being talkative: (P) No Feeling restless: (P) Yes (extremely) Compulsions: (P) Yes a little Tense, anxious, nervous: (P) Yes (extremely) Depressed, uninterested: (P) Yes, moderately Impulsive: (P) Yes (extremely) Number of falls in the Last Month: 0 Mood/Behavior Depression: PHQ-9 Score: 13 usually representing moderate (10-14) depression. Anxiety: COOPER-7 Total Score: 18 usually representing severe (>15) anxiety. Finally, the following table shows the patient's overall global physical and mental health using the PROMIS scale: PROMIS-10 Flowsheet Row Appointment from 12/07/2023 in [facility] Appointment from 06/08/2023 in Neurology Global Physical Health T Score 37.4 37.4 Global Mental Health T Score 36.3 48.3 0-10 Standard Pain Scale 3 3 *PROMIS-10 scoring scale: mean = 50, over 50 is above average, under 50 is below average Objective General: Awake, alert, interactive, no acute distress, good nutritional status, normal development, well-kept. Excessive eye blinking movements during encounter. Assessment and Plan: Assessment Mr. Handy is a 33 year old male with Tourrettes Syndome, anxiety/depression. The following are the current problems noted and addressed during this visit: [place] tourette syndrome Anxiety Sleep difficulties (primary encounter diagnosis) Plan 02/14/2024 Visit: Tourette's/tics: Stable on current regimen - continue same dose of fluphenazine Mood: German states with recent Prozac dose increase per Dr. Haywood - Bipolar/depression symptoms have improved but he is now more anxious/agitated. Could consider dose reduction in Prozac but general mood is improved. Plan: Will script Buspar in attempt to improve his anxiety levels a bit. He is awaiting call from local psychiatry office to establish care but states he has not yet received a call. Will place consult for Dr. Murphy in [facility] psychiatry to establish care (UPDATE: Found appt with Dr. Murphy for 02/16; advised German to hold off in picking up the buspirone for now and see what plan Dr. Murphy has for him). Sleep: He is taking melatonin 5 mg with still fragmented sleep. Advised that after starting the Buspar - he can increase melatonin to 10 mg/night. Interested in clinical research? Not currently Updated Movement Disorder Medication Schedule: Medications bedtime fluphenazine 5 mg 1 fluoxetine 40 mg Level of service: 12144 (30-39 min). Time spent 30 min on the day of service, which included [id number] patient care, completing clinical documentation, obtaining and/or reviewing separately obtained history, performing a medically appropriate examination, counseling and educating the patient/family/caregiver, and ordering medications, tests, or procedures. Thank you for allowing me to be part of the clinical care of this patient! I look forward to continued participation in the patient s care with you. Please do not hesitate to call with any questions. Sincerely, Jeanette Monge PA-C Physician Nurses' Registry Director [facility] documented in this encounter [facility] 02-07-2024 Telephone encounter Note See Overdogt message. Fina Casanova MA [facility] 02-07-2024 Miscellaneous Notes See [email or web address] message. Fina Casanova MA documented in this encounter [facility] 01-28-2024 History of Present illness Narrative Chief Complaint Patient presents with: Sinus Problem HPI Lexus Handy is a 33 year old male who presents here today for sinus infection. Pt c/o sinus infection; sx of head congestion, chest congestions, coughing,wheezing, headache. No ear pain, fever, sore throat. He was seen in ER a few weeks ago for Pharyngitis, sinus sx started shortly after ER visit. Was treated with oral medication while in ER but not sent home with any tx. The Pharyngitis is better. He has been using dayquil and nyquil for his sx and ibuprofen prn. He feels he is getting worse. Has not been treated with any antibiotics for this recently. Has had sinus infections in the past and states this feels like a typical sinus infection to him. Depression/COOPER/bipolar: He feels he is doing ok on the Prozac 40 mg daily. No side effects or problems with it. Did not do well on the Wellbutrin, seemed to cause agitation and make his moods worse. Past medical history, appointments, medications, allergies reviewed. Previous Medical History PAST MEDICAL HISTORY Diagnosis Date Bipolar disorder (HCC) Current moderate episode of major depressive disorder without prior episode (HCC) Generalized anxiety disorder Tourette syndrome Previous Surgical History PAST SURGICAL HISTORY Procedure Laterality Date APPENDECTOMY REPAIR ING HERNIA,5+Y/O,REDUCIBL TONSILLECTOMY & ADENOIDECTOMY <AGE 12 Family History FAMILY HISTORY Problem Relation Age of Onset Tourette syndrome Brother Patient Allergies ALLERGIES Allergen Reactions Amoxil [Amoxicillin] Rash Ceclor [Cefaclor] Hives Current Medications Current Outpatient Medications on File Prior to Visit Medication Sig FLUoxetine (PROZAC) 40 mg capsule Take 1 capsule by mouth once daily. Tadalafil (CIALIS) 10 mg tablet Take 1 tablet by mouth once daily as needed (Take 30-60 minutes prior to sexual activity). Take 1-2 hours before sexual activity. fluPHENAZine (PROLIXIN) 5 mg tablet Take 1 tablet by mouth once daily. albuterol HFA (VENTOLIN HFA) 90 mcg/actuation inhaler Inhale 2 Puffs as instructed every 4 hours as needed for wheezing/shortness of breath. No current facility-administered medications on file prior to visit. Social History Social History Tobacco Use Smoking status: Never Smokeless tobacco: Never Vaping Use Vaping Use: Never used Substance Use Topics Alcohol use: Not Currently Drug use: Never EXAM: BP 130/82 Pulse 94 Temp 36 C (96.8 F) (Tympanic) Resp 16 Wt 104.5 kg (230 lb 6.4 oz) BMI 32.13 kg/m General Appearance: Well appearing, alert, in no acute distress, well-hydrated, well nourished.. Head: Normocephalic, no masses, lesions, tenderness or abnormalities. Ears: External ears normal, canals clear. Oropharynx: Lips, mucosa, and tongue normal, teeth and gums normal, oropharynx normal. Neck: Supple, no adenopathy; thyroid symmetric, normal size, no bruits. Lungs: Lungs clear to auscultation. No wheezing, rhonchi, rales.. Heart: RRR without murmur, gallop, or rubs. No ectopy. Health Maintenance List Hepatitis C Screening Never done HIV Screening Never done Hepatitis B Vaccine(1 of 3 - 19+ 3-dose series) Never done DTaP,Tdap,Td Vaccine(2 - Td or Tdap) due on 04/21/2023 Covid-19 Vaccine(2 - 2022- season) due on 05/28/2023 Influenza Vaccine(Season Ended) due on 05/28/2024 Behavioral Health Screening Completed HPV Vaccine Aged Out Data reviewed None ASSESSMENT/PLAN: 1. Acute non-recurrent sinusitis, unspecified location - ICD9: 461.9, ICD10: J01.90 (primary diagnosis) - Will begin treatment with Zithromax pack as directed - Supportive care with plenty of fluids, rest, and analgesia prn. - Follow up if symptoms persist or worsen. 2. Generalized anxiety disorder - ICD9: 300.02, ICD10: F41.1 Stable Continue current medications. 3. Bipolar affective disorder, remission status unspecified (HCC) - ICD9: 296.80, ICD10: F31.9 Stable Continue current medications. Follow up in 3 months. I agree with the Chief Complaint, ROS, and Past Histories independently gathered by the clinical forestry support specialist and the remaining scribed note accurately describes my personal service to the patient. Medical Decision Making: Problems: Low: Acute, uncomplicated illness or injury and Stable chronic illness Risk: Moderate: Drug management Medical Decision Making Level: 3 - Low Brendan Haywood MD The documentation for this note was completed by Fina Casanova MA acting as scribe for Brendan Haywood MD. January 28, 2024 10:07 AM. Fina Casanova MA documented in this encounter [facility] 01-28-2024 Note HNO ID: [id number] Author: BRENDAN HAYWOOD MD Service: ? Author Type: Physician Type: Progress Notes Filed: 01/28/2024 10:29 Note Text: Chief Complaint Patient presents with: Sinus Problem SAMINA Handy is a 33 year old male who presents here today for sinus infection. Pt c/o sinus infection; sx of head congestion, chest congestions, coughing,wheezing, headache. No ear pain, fever, sore throat. He was seen in ER a few weeks ago for Pharyngitis, sinus sx started shortly after ER visit. Was treated with oral medication while in ER but not sent home with any tx. The Pharyngitis is better. He has been using dayquil and nyquil for his sx and ibuprofen prn. He feels he is getting worse. Has not been treated with any antibiotics for this recently. Has had sinus infections in the past and states this feels like a typical sinus infection to him. Depression/COOPER/bipolar: He feels he is doing ok on the Prozac 40 mg daily. No side effects or problems with it. Did not do well on the Wellbutrin, seemed to cause agitation and make his moods worse. Past medical history, appointments, medications, allergies reviewed. Previous Medical History PAST MEDICAL HISTORY Diagnosis Date Bipolar disorder (HCC) Current moderate episode of major depressive disorder without prior episode (HCC) Generalized anxiety disorder Tourette syndrome Previous Surgical History PAST SURGICAL HISTORY Procedure Laterality Date APPENDECTOMY REPAIR ING HERNIA,5+Y/O,REDUCIBL TONSILLECTOMY AND ADENOIDECTOMY Family History FAMILY HISTORY Problem Relation Age of Onset Tourette syndrome Brother Patient Allergies ALLERGIES Allergen Reactions Amoxil [Amoxicillin] Rash Ceclor [Cefaclor] Hives Current Medications Current Outpatient Medications on File Prior to Visit Medication Sig FLUoxetine (PROZAC) 40 mg capsule Take 1 capsule by mouth once daily. Tadalafil (CIALIS) 10 mg tablet Take 1 tablet by mouth once daily as needed (Take 30-60 minutes prior to sexual activity). Take 1-2 hours before sexual activity. fluPHENAZine (PROLIXIN) 5 mg tablet Take 1 tablet by mouth once daily. albuterol HFA (VENTOLIN HFA) 90 mcg/actuation inhaler Inhale 2 Puffs as instructed every 4 hours as needed for wheezing/shortness of breath. No current facility-administered medications on file prior to visit. Social History Social History Tobacco Use Smoking status: Never Smokeless tobacco: Never Vaping Use Vaping Use: Never used Substance Use Topics Alcohol use: Not Currently Drug use: Never EXAM: BP 130/82 Pulse 94 Temp 36 ?C (96.8 ?F) (Tympanic) Resp 16 Wt 104.5 kg (230 lb 6.4 oz) BMI 32.13 kg/m? General Appearance: Well appearing, alert, in no acute distress, well-hydrated, well nourished.. Head: Normocephalic, no masses, lesions, tenderness or abnormalities. Ears: External ears normal, canals clear. Oropharynx: Lips, mucosa, and tongue normal, teeth and gums normal, oropharynx normal. Neck: Supple, no adenopathy; thyroid symmetric, normal size, no bruits. Lungs: Lungs clear to auscultation. No wheezing, rhonchi, rales.. Heart: RRR without murmur, gallop, or rubs. No ectopy. Health Maintenance List Hepatitis C Screening Never done HIV Screening Never done Hepatitis B Vaccine(1 of 3 - 19+ 3-dose series) Never done DTaP,Tdap,Td Vaccine(2 - Td or Tdap) due on 04/21/2023 Covid-19 Vaccine( - 2022- season) due on 05/28/2023 Influenza Vaccine(Season Ended) due on 05/28/2024 Behavioral Health Screening Completed HPV Vaccine Aged Out Data reviewed None ASSESSMENT/PLAN: 1. Acute non-recurrent sinusitis, unspecified location - ICD9: 461.9, ICD10: J01.90 (primary diagnosis) - Will begin treatment with Zithromax pack as directed - Supportive care with plenty of fluids, rest, and analgesia prn. - Follow up if symptoms persist or worsen. 2. Generalized anxiety disorder - ICD9: 300.02, ICD10: F41.1 Stable Continue current medications. 3. Bipolar affective disorder, remission status unspecified (HCC) - ICD9: 296.80, ICD10: F31.9 Stable Continue current medications. Follow up in 3 months. I agree with the Chief Complaint, ROS, and Past Histories independently gathered by the clinical forestry support specialist and the remaining scribed note accurately describes my personal service to the patient. Medical Decision Making: Problems: Low: Acute, uncomplicated illness or injury and Stable chronic illness Risk: Moderate: Drug management Medical Decision Making Level: 3 - Low Brendan Haywood MD The documentation for this note was completed by Fina Casanova MA acting as scribe for Brendan Haywood MD. January 28, 2024 10:07 AM. Fina Casanova MA [facility] 01-04-2024 Miscellaneous Notes Done in MyChart message Brendan Haywood MD Patient calls and states that he would like to go back on Prozac. Patient reports that he has been on Wellbutrin and it is causing him to rage and be suicidal. Please review and advise, Yolanda Jhaveri RN documented in this encounter [facility] 01-04-2024 Miscellaneous Notes See pt message. Pt wrote two messages. Val Mobley MA documented in this encounter [facility] 12-23-2023 Note HNO ID: [id number] Author: BRENDAN HAYWOOD MD Service: ? Author Type: Physician Type: Progress Notes Filed: 12/23/2023 15:18 Note Text: Chief Complaint Patient presents with: Follow Up: Depression and anxiety HPI Lexus Handy is a 33 year old male who presents here today for a follow up. Pt scheduled today to discuss anxiety and depression. Pt on current regimen of Prozac 40 mg once daily but it is not helping. At previous visit in June, pt was changed to Effexor but due to Prozac causing issues with ED. Pt then wrote into the office with issues with Effexor making mood swing worse, feeling agitated and wanted to go onto the Prozac. Pt was restarted on Prozac 40 mg once daily. He is going to [facility] for counseling, Will be seeing Psychiatrist Dr. Fiore at [facility]. He is interested in trying Wellbutrin, has done some research with this. He states that he has little motivation and with weight loss. He has been having issues with sleeping due to racing thoughts. Pt advised to monitor his Tourette's sx with the addition of Wellbutrin. He would like to try Adipex again but pt and I both agree to try the Wellbutrin first and see he does. Want to get the Anxiety and Depression under better control first. Past medical history, appointments, medications, allergies reviewed. Previous Medical History PAST MEDICAL HISTORY Diagnosis Date Bipolar disorder (HCC) Current moderate episode of major depressive disorder without prior episode (HCC) Generalized anxiety disorder Tourette syndrome Previous Surgical History PAST SURGICAL HISTORY Procedure Laterality Date APPENDECTOMY REPAIR ING HERNIA,5+Y/O,REDUCIBL TONSILLECTOMY AND ADENOIDECTOMY Family History FAMILY HISTORY Problem Relation Age of Onset Tourette syndrome Brother Patient Allergies ALLERGIES Allergen Reactions Amoxil [Amoxicillin] Rash Ceclor [Cefaclor] Hives Current Medications Current Outpatient Medications on File Prior to Visit Medication Sig benzonatate (TESSALON PERLES) 100 mg capsule Take 1 capsule by mouth three times a day as needed for cough. FLUoxetine (PROZAC) 40 mg capsule Take 1 capsule by mouth once daily. Tadalafil (CIALIS) 10 mg tablet Take 1 tablet by mouth once daily as needed (Take 30-60 minutes prior to sexual activity). Take 1-2 hours before sexual activity. cyclobenzaprine (FLEXERIL) 10 mg tablet Take 1 tablet by mouth two times a day as needed for muscle spasm or pain. fluPHENAZine (PROLIXIN) 5 mg tablet Take 1 tablet by mouth once daily. omeprazole (PRILOSEC) 20 mg capsule Take 1 capsule by mouth daily before breakfast. 1/2 hr before meal. albuterol HFA (VENTOLIN HFA) 90 mcg/actuation inhaler Inhale 2 Puffs as instructed every 4 hours as needed for wheezing/shortness of breath. No current facility-administered medications on file prior to visit. Social History Social History Tobacco Use Smoking status: Never Smokeless tobacco: Never Vaping Use Vaping Use: Never used Substance Use Topics Alcohol use: Not Currently Drug use: Never EXAM: BP 124/74 Pulse 74 Resp 16 Wt 104.4 kg (230 lb 3.2 oz) BMI 32.11 kg/m? General Appearance: Well appearing, alert, in no acute distress, well-hydrated, well nourished.. Lungs: Lungs clear to auscultation. No wheezing, rhonchi, rales.. Heart: RRR without murmur, gallop, or rubs. No ectopy. Health Maintenance List Hepatitis C Screening Never done HIV Screening Never done Hepatitis B Vaccine(1 of 3 - 19+ 3-dose series) Never done DTaP,Tdap,Td Vaccine(2 - Td or Tdap) due on 04/21/2023 Influenza Vaccine(1) due on 05/28/2023 Covid-19 Vaccine(2 - 2022- season) due on 05/28/2023 Depression Assessment due on 09/27/2023 HPV Vaccine Aged Out Data reviewed None ASSESSMENT/PLAN: 1. Generalized anxiety disorder - ICD9: 300.02, ICD10: F41.1 (primary diagnosis) Start taper of Prozac 40 mg every other day for a week then every 3rd day for a week, then stop. Start Wellbutrin 150 mg daily Continue with counseling/Psychiatry 2. [place] Tourette syndrome - ICD9: 307.23, ICD10: F95.2 Continue current medications. Monitor sx while weaning off the Prozac and while on the Wellbutrin 3. Bipolar affective disorder, remission status unspecified (HCC) - ICD9: 296.80, ICD10: F31.9 Start taper of Prozac 40 mg every other day for a week then every 3rd day for a week, then stop. Start Wellbutrin 150 mg daily Continue with counseling/Psychiatry Follow up in 1 month. I agree with the Chief Complaint, ROS, and Past Histories independently gathered by the clinical forestry support specialist and the remaining scribed note accurately describes my personal service to the patient. Medical Decision Making: Problems: Moderate: 1+ chronic illnesses with change Risk: Moderate: Drug management Medical Decision Making Level: 4 - Moderate Brendan Haywood MD The documentation for this note was completed by (more content not included)... [facility] 08-11-2023 Note HNO ID: [id number] Author: Jenn Clemens PA Service: ? Author Type: Physician Nurses' Registry Director Type: Progress Notes Filed: 08/11/2023 1:09 PM Note Text: This note was created using [employer]. Subjective Lexus Handy is a 32 year old male. HPI 32-year-old male presents for congestion, cough. Patient states he has had nasal congestion since yesterday. He has had a cough for about 3 days. States he had a temperature of 99.6 this morning. He denies any sick contacts. No sore throat. He does report that his ears feel full and clogged. He has history of ear infections. No vomiting or diarrhea. No other complaint. PAST MEDICAL HISTORY Diagnosis Date Bipolar disorder (HCC) Current moderate episode of major depressive disorder without prior episode (HCC) Generalized anxiety disorder Tourette syndrome PAST SURGICAL HISTORY Procedure Laterality Date APPENDECTOMY REPAIR ING HERNIA,5+Y/O,REDUCIBL TONSILLECTOMY AND ADENOIDECTOMY ALLERGIES Amoxil [Amoxicillin] and Ceclor [Cefaclor] MEDICATIONS FLUoxetine (PROZAC) 40 mg capsule Take 1 capsule by mouth once daily. Tadalafil (CIALIS) 10 mg tablet Take 1 tablet by mouth once daily as needed (Take 30-60 minutes prior to sexual activity). Take 1-2 hours before sexual activity. cyclobenzaprine (FLEXERIL) 10 mg tablet Take 1 tablet by mouth two times a day as needed for muscle spasm or pain. fluPHENAZine (PROLIXIN) 5 mg tablet Take 1 tablet by mouth once daily. omeprazole (PRILOSEC) 20 mg capsule Take 1 capsule by mouth daily before breakfast. 1/2 hr before meal. albuterol HFA (VENTOLIN HFA) 90 mcg/actuation inhaler Inhale 2 Puffs as instructed every 4 hours as needed for wheezing/shortness of breath. FAMILY HISTORY Problem Relation Age of Onset Tourette syndrome Brother Social History Tobacco Use Smoking status: Never Smokeless tobacco: Never Vaping Use Vaping Use: Never used Substance Use Topics Alcohol use: Not Currently Drug use: Never Review of Systems Constitutional: Positive for fever. Negative for chills. HENT: Positive for congestion and ear pain. Negative for sore throat. Respiratory: Positive for cough. Negative for shortness of breath. Gastrointestinal: Negative for diarrhea and vomiting. Objective BP 122/70 Pulse 108 Temp 37 ?C (98.6 ?F) Resp 16 Wt 99.5 kg (219 lb 6.4 oz) SpO2 98% BMI 30.60 kg/m? Physical Exam Vitals and nursing note reviewed. Constitutional: General: He is not in acute distress. Appearance: Normal appearance. He is not toxic-appearing. HENT: Right Ear: Tympanic membrane and ear canal normal. Left Ear: A middle ear effusion is present. Tympanic membrane is erythematous. Nose: Congestion present. Mouth/Throat: Mouth: Mucous membranes are moist. Eyes: Conjunctiva/sclera: Conjunctivae normal. Cardiovascular: Rate and Rhythm: Normal rate and regular rhythm. Pulmonary: Effort: Pulmonary effort is normal. Breath sounds: Normal breath sounds. Skin: General: Skin is warm and dry. Neurological: Mental Status: He is alert. Assessment and Plan ASSESSMENT/PLAN: 1. URI, acute - ICD9: 465.9, ICD10: J06.9 (primary diagnosis) - Discussed viral etiology and rationale for treatment. - Symptomatic treatment with prn analgesia - Supportive care with fluids and rest -Declines COVID/flu/RSV swab 2. Acute otitis media, left - ICD9: 382.9, ICD10: H66.92 - Will begin treatment with Doxycycline. Allergy to cephalosporins and amoxicillin. - Supportive care with plenty of fluids, rest, and analgesia prn. Diagnosis and treatment plan were discussed and questions were answered to the patient's satisfaction. Pt acknowledged understanding of concepts and follow up plan. Specific signs and symptoms that would indicate the need for higher level of care were discussed in detail warranting prompt ER evaluation. NATANAEL Cross [facility] 08-11-2023 History of Present illness Narrative This note was created using [employer] acquired by [employer]. Subjective Lexus Handy is a 32 year old male. HPI 32-year-old male presents for congestion, cough. Patient states he has had nasal congestion since yesterday. He has had a cough for about 3 days. States he had a temperature of 99.6 this morning. He denies any sick contacts. No sore throat. He does report that his ears feel full and clogged. He has history of ear infections. No vomiting or diarrhea. No other complaint. PAST MEDICAL HISTORY Diagnosis Date Bipolar disorder (HCC) Current moderate episode of major depressive disorder without prior episode (HCC) Generalized anxiety disorder Tourette syndrome PAST SURGICAL HISTORY Procedure Laterality Date APPENDECTOMY REPAIR ING HERNIA,5+Y/O,REDUCIBL TONSILLECTOMY & ADENOIDECTOMY <AGE 12 ALLERGIES Amoxil [Amoxicillin] and Ceclor [Cefaclor] MEDICATIONS FLUoxetine (PROZAC) 40 mg capsule Take 1 capsule by mouth once daily. Tadalafil (CIALIS) 10 mg tablet Take 1 tablet by mouth once daily as needed (Take 30-60 minutes prior to sexual activity). Take 1-2 hours before sexual activity. cyclobenzaprine (FLEXERIL) 10 mg tablet Take 1 tablet by mouth two times a day as needed for muscle spasm or pain. fluPHENAZine (PROLIXIN) 5 mg tablet Take 1 tablet by mouth once daily. omeprazole (PRILOSEC) 20 mg capsule Take 1 capsule by mouth daily before breakfast. 1/2 hr before meal. albuterol HFA (VENTOLIN HFA) 90 mcg/actuation inhaler Inhale 2 Puffs as instructed every 4 hours as needed for wheezing/shortness of breath. FAMILY HISTORY Problem Relation Age of Onset Tourette syndrome Brother Social History Tobacco Use Smoking status: Never Smokeless tobacco: Never Vaping Use Vaping Use: Never used Substance Use Topics Alcohol use: Not Currently Drug use: Never Review of Systems Constitutional: Positive for fever. Negative for chills. HENT: Positive for congestion and ear pain. Negative for sore throat. Respiratory: Positive for cough. Negative for shortness of breath. Gastrointestinal: Negative for diarrhea and vomiting. Objective BP 122/70 Pulse 108 Temp 37 C (98.6 F) Resp 16 Wt 99.5 kg (219 lb 6.4 oz) SpO2 98% BMI 30.60 kg/m Physical Exam Vitals and nursing note reviewed. Constitutional: General: He is not in acute distress. Appearance: Normal appearance. He is not toxic-appearing. HENT: Right Ear: Tympanic membrane and ear canal normal. Left Ear: A middle ear effusion is present. Tympanic membrane is erythematous. Nose: Congestion present. Mouth/Throat: Mouth: Mucous membranes are moist. Eyes: Conjunctiva/sclera: Conjunctivae normal. Cardiovascular: Rate and Rhythm: Normal rate and regular rhythm. Pulmonary: Effort: Pulmonary effort is normal. Breath sounds: Normal breath sounds. Skin: General: Skin is warm and dry. Neurological: Mental Status: He is alert. Assessment and Plan ASSESSMENT/PLAN: 1. URI, acute - ICD9: 465.9, ICD10: J06.9 (primary diagnosis) - Discussed viral etiology and rationale for treatment. - Symptomatic treatment with prn analgesia - Supportive care with fluids and rest -Declines COVID/flu/RSV swab 2. Acute otitis media, left - ICD9: 382.9, ICD10: H66.92 - Will begin treatment with Doxycycline. Allergy to cephalosporins and amoxicillin. - Supportive care with plenty of fluids, rest, and analgesia prn. Diagnosis and treatment plan were discussed and questions were answered to the patient's satisfaction. Pt acknowledged understanding of concepts and follow up plan. Specific signs and symptoms that would indicate the need for higher level of care were discussed in detail warranting prompt ER evaluation. NATANAEL Cross documented in this encounter [facility] 07-26-2023 Miscellaneous Notes The following approved medication requests have been transmitted electronically. Requested Prescriptions Signed Prescriptions Disp Refills FLUoxetine (PROZAC) 40 mg capsule 90 capsule 3 Sig: Take 1 capsule by mouth once daily. Delvin Hickman APRN.VAHID See pt message and advise. Pt just seen in office on 07/19/23. Update pt via [employer]. PCP out of office until 07/29/23. Val Mobley Ma documented in this encounter [facility] 07-19-2023 History of Present illness Narrative Chief Complaint Patient presents with: Medication Problem: Prozac side effects SAMINA Handy is a 32 year old male who presents here today for medication side effects. Planning on getting Jul 07, 2024. Pt here today to discuss sexual side effects of Prozac. He does feel that the Prozac 40 mg daily is helping with the anxiety and depression but it is causing issues with ED. He has decreased desire to have sex, trouble getting and keeping an erection. Pt states that he has been having issues for the past 6 months. Pt state she is ok with stopping the Prozac and going onto something else. He used Wellbutrin in the past but it caused anger and agitation. Pt has been on Buspar, Cymbalta, Zoloft in the past as well. HM: depression screening: denies feeling depressed or hopeless. Is on medication currently to treat these issues. Past medical history, appointments, medications, allergies reviewed. Previous Medical History PAST MEDICAL HISTORY Diagnosis Date Bipolar disorder (HCC) Current moderate episode of major depressive disorder without prior episode (HCC) Generalized anxiety disorder Tourette syndrome Previous Surgical History PAST SURGICAL HISTORY Procedure Laterality Date APPENDECTOMY REPAIR ING HERNIA,5+Y/O,REDUCIBL TONSILLECTOMY & ADENOIDECTOMY <AGE 12 Family History FAMILY HISTORY Problem Relation Age of Onset Tourette syndrome Brother Patient Allergies ALLERGIES Allergen Reactions Amoxil [Amoxicillin] Rash Ceclor [Cefaclor] Hives Current Medications Current Outpatient Medications on File Prior to Visit Medication Sig naproxen (NAPROSYN) 500 mg tablet Take 1 tablet by mouth two times a day as needed. Take with food. cyclobenzaprine (FLEXERIL) 10 mg tablet Take 1 tablet by mouth two times a day as needed for muscle spasm or pain. fluPHENAZine (PROLIXIN) 5 mg tablet Take 1 tablet by mouth once daily. FLUoxetine (PROZAC) 40 mg capsule Take 1 capsule by mouth once daily. omeprazole (PRILOSEC) 20 mg capsule Take 1 capsule by mouth daily before breakfast. 1/2 hr before meal. albuterol HFA (VENTOLIN HFA) 90 mcg/actuation inhaler Inhale 2 Puffs as instructed every 4 hours as needed for wheezing/shortness of breath. No current facility-administered medications on file prior to visit. Social History Social History Tobacco Use Smoking status: Never Smokeless tobacco: Never Vaping Use Vaping Use: Never used Substance Use Topics Alcohol use: Not Currently Drug use: Never EXAM: BP 120/74 Pulse 74 Resp 16 Wt 99.8 kg (220 lb) BMI 30.68 kg/m General Appearance: Well appearing, alert, in no acute distress, well-hydrated, well nourished.. Lungs: Lungs clear to auscultation. No wheezing, rhonchi, rales.. Heart: RRR without murmur, gallop, or rubs. No ectopy. Health Maintenance List Hepatitis B Vaccine(1 of 3 - 3-dose series) Never done Hepatitis C Screening Never done HIV Screening Never done Depression Assessment due on 09/27/2022 DTaP,Tdap,Td Vaccine(2 - Td or Tdap) due on 04/21/2023 Influenza Vaccine(1) due on 05/28/2023 Covid-19 Vaccine( season) due on 05/28/2023 HPV Vaccine Aged Out Data reviewed None ASSESSMENT/PLAN: 1. Generalized anxiety disorder - ICD9: 300.02, ICD10: F41.1 (primary diagnosis) Stop Prozac Start Effexor xr 75 mg daily 2. Bipolar affective disorder, remission status unspecified (HCC) - ICD9: 296.80, ICD10: F31.9 Stop Prozac Start Effexor xr 75 mg daily 3. Decreased sexual desire - ICD9: 799.81, ICD10: F52.0 Stop Prozac, see if issues resolve Rx for Cialis 10 mg given 4. ED (erectile dysfunction) of organic origin - ICD9: 607.84, ICD10: N52.9 Stop Prozac, see if issue resolves Rx for Cialis 10 mg given Follow up in 3 months. I agree with the Chief Complaint, ROS, and Past Histories independently gathered by the clinical forestry support specialist and the remaining scribed note accurately describes my personal service to the patient. Medical Decision Making: Problems: Moderate: 1+ chronic illnesses with change Risk: Moderate: Drug management Medical Decision Making Level: 4 - Moderate Brendan Haywood MD The documentation for this note was completed by Fina Casanova Ma acting as scribe for Brendan Haywood MD. July 19, 2023 5:39 PM. Fina Casanova Ma documented in this encounter [facility] 07-19-2023 Note HNO ID: [id number] Author: Brendan Haywood MD Service: ? Author Type: Physician Type: Progress Notes Filed: 07/19/2023 6:21 PM Note Text: Chief Complaint Patient presents with: Medication Problem: Prozac side effects HPI Lexus Handy is a 32 year old male who presents here today for medication side effects. Planning on getting Jul 07, 2024. Pt here today to discuss sexual side effects of Prozac. He does feel that the Prozac 40 mg daily is helping with the anxiety and depression but it is causing issues with ED. He has decreased desire to have sex, trouble getting and keeping an erection. Pt states that he has been having issues for the past 6 months. Pt state she is ok with stopping the Prozac and going onto something else. He used Wellbutrin in the past but it caused anger and agitation. Pt has been on Buspar, Cymbalta, Zoloft in the past as well. HM: depression screening: denies feeling depressed or hopeless. Is on medication currently to treat these issues. Past medical history, appointments, medications, allergies reviewed. Previous Medical History PAST MEDICAL HISTORY Diagnosis Date Bipolar disorder (HCC) Current moderate episode of major depressive disorder without prior episode (HCC) Generalized anxiety disorder Tourette syndrome Previous Surgical History PAST SURGICAL HISTORY Procedure Laterality Date APPENDECTOMY REPAIR ING HERNIA,5+Y/O,REDUCIBL TONSILLECTOMY AND ADENOIDECTOMY Family History FAMILY HISTORY Problem Relation Age of Onset Tourette syndrome Brother Patient Allergies ALLERGIES Allergen Reactions Amoxil [Amoxicillin] Rash Ceclor [Cefaclor] Hives Current Medications Current Outpatient Medications on File Prior to Visit Medication Sig naproxen (NAPROSYN) 500 mg tablet Take 1 tablet by mouth two times a day as needed. Take with food. cyclobenzaprine (FLEXERIL) 10 mg tablet Take 1 tablet by mouth two times a day as needed for muscle spasm or pain. fluPHENAZine (PROLIXIN) 5 mg tablet Take 1 tablet by mouth once daily. FLUoxetine (PROZAC) 40 mg capsule Take 1 capsule by mouth once daily. omeprazole (PRILOSEC) 20 mg capsule Take 1 capsule by mouth daily before breakfast. 1/2 hr before meal. albuterol HFA (VENTOLIN HFA) 90 mcg/actuation inhaler Inhale 2 Puffs as instructed every 4 hours as needed for wheezing/shortness of breath. No current facility-administered medications on file prior to visit. Social History Social History Tobacco Use Smoking status: Never Smokeless tobacco: Never Vaping Use Vaping Use: Never used Substance Use Topics Alcohol use: Not Currently Drug use: Never EXAM: BP 120/74 Pulse 74 Resp 16 Wt 99.8 kg (220 lb) BMI 30.68 kg/m? General Appearance: Well appearing, alert, in no acute distress, well-hydrated, well nourished.. Lungs: Lungs clear to auscultation. No wheezing, rhonchi, rales.. Heart: RRR without murmur, gallop, or rubs. No ectopy. Health Maintenance List Hepatitis B Vaccine(1 of 3 - 3-dose series) Never done Hepatitis C Screening Never done HIV Screening Never done Depression Assessment due on 09/27/2022 DTaP,Tdap,Td Vaccine(2 - Td or Tdap) due on 04/21/2023 Influenza Vaccine(1) due on 05/28/2023 Covid-19 Vaccine(2 - season) due on 05/28/2023 HPV Vaccine Aged Out Data reviewed None ASSESSMENT/PLAN: 1. Generalized anxiety disorder - ICD9: 300.02, ICD10: F41.1 (primary diagnosis) Stop Prozac Start Effexor xr 75 mg daily 2. Bipolar affective disorder, remission status unspecified (HCC) - ICD9: 296.80, ICD10: F31.9 Stop Prozac Start Effexor xr 75 mg daily 3. Decreased sexual desire - ICD9: 799.81, ICD10: F52.0 Stop Prozac, see if issues resolve Rx for Cialis 10 mg given 4. ED (erectile dysfunction) of organic origin - ICD9: 607.84, ICD10: N52.9 Stop Prozac, see if issue resolves Rx for Cialis 10 mg given Follow up in 3 months. I agree with the Chief Complaint, ROS, and Past Histories independently gathered by the clinical forestry support specialist and the remaining scribed note accurately describes my personal service to the patient. Medical Decision Making: Problems: Moderate: 1+ chronic illnesses with change Risk: Moderate: Drug management Medical Decision Making Level: 4 - Moderate Brendan Haywood MD The documentation for this note was completed by Fina Casanova Ma acting as scribe for Brendan Haywood MD. July 19, 2023 5:39 PM. Fina Casanova Ma [facility] 07-05-2023 Miscellaneous Notes Notified pt that appt time could not longer be held. Made aware he would have to make an appt to discuss. Val Mobley Ma Offered pt appt at 3:40 pm for weight loss. Wait pt response. Spot held. Wait pt response. Val Mobley Ma documented in this encounter [facility] 06-28-2023 History of Present illness Narrative Radiology Service Progress Note PATIENT NAME: Lexus Handy DATE OF SERVICE: June 28, 2023 TIME: 4:29 PM PATIENT IDENTITY VERIFICATION COMPLETED USING TWO (2) IDENTIFIERS: Name and Date of confirmed by patient verbally. FALL SCREENING: Has the patient had 2 falls in the last year or 1 fall with injury or currently using an Ambulatory Assistive Device (Walker, Cane, Wheelchair, Crutches, etc.)? No PATIENT GENDER DATA: Male PATIENT RELEVANT IMPLANT DATA REVIEWED: Not Applicable RADIOLOGY DEPARTMENT: General X-ray: Exam(s) Completed: Spine X-Ray(s): Cervical AP / LAT / OBL PERIPHERAL IV DATA: Not applicable SIGNED BY: RT Luis E(R) June 28, 2023 4:29 PM documented in this encounter [facility] 04-22-2023 Miscellaneous Notes [place] message sent to pt notifying him of results and recommendation below from Provider. Val Mobley Ma ----- Message from Beck Jasmine MD sent at 04/22/2023 8:00 AM EDT ----- Rib xray negative for fractures or dislocation. No punctured lung. Continue treatment as discussed in office. documented in this encounter [facility] 02-26-2023 History of Present illness Narrative [facility] - FOLLOW UP EVALUATION - VIRTUAL VISIT Brendan Haywood MD [address] [facility] [id number] Dear Brendan Haywood MD: I had the pleasure of seeing Mr. Handy for follow-up today. As you know he is a 32 year old male with a history of Tourette syndrome since 1997. He is seen alone. We had a visit using: [employer] simplifyMD I have communicated my name and active licensure. The patient's identity and physical location were verified at the time of this visit. Either the patient or their legal service representative has been informed of the risks and benefits of -- and alternatives to -- treatment through a remote evaluation and consents to proceed with the evaluation remotely. Subjective During his previous visit the following plan was made: Previous plan-02/20/2022 Visit: Continue fluphenazine for tics - Psychiatry consult for anxiety - Interval History He is very happy with his tic control. Very few issues. His mood is much more stable on Prozac at 40 mg. Movement Disorders Medications Schedule - as of the start of the visit: Medications bedtime fluphenazine 5 mg 1 fluoxetine 20 mg Other Movement Disorder Prior Therapies Clonazepam All tried while a child: risperidone, clonidine (decreased BP), Adderall (increased tics), Seroquel, Orap, Abilify, Geodon (behavior changes) ALLERGIES Allergen Reactions Amoxil [Amoxicillin] Rash Ceclor [Cefaclor] Hives Current Outpatient Medications Medication Sig fluPHENAZine (PROLIXIN) 5 mg tablet Take 1 tablet by mouth once daily. FLUoxetine (PROZAC) 40 mg capsule Take 1 capsule by mouth once daily. omeprazole (PRILOSEC) 20 mg capsule Take 1 capsule by mouth daily before breakfast. 1/2 hr before meal. albuterol HFA (VENTOLIN HFA) 90 mcg/actuation inhaler Inhale 2 Puffs as instructed every 4 hours as needed for wheezing/shortness of breath. No current facility-administered medications for this visit. Questionnaires: In addition, the following symptoms that may be associated with Tourette s syndrome or tic disorder were evaluated on how much they bothered the patent in the past week: Irritable: (P) Yes (a little) Motor tics: (P) No Being argumentative: (P) No Sudden mood changes: (P) o Demanding attention: (P) o Being hot tempered: (P) No Vocal tics: (P) No Obsessiveness: (P) No Inattentiveness: (P) No Being talkative: (P) No Feeling restless: (P) No Compulsions: (P) No Tense, anxious, nervous: (P) Yes, a little Depressed, uninterested: (P) No Impulsive: (P) No Number of falls in the Last Month: 0 Mood/Behavior Depression: PHQ-9 Score: 6 usually representing mild (5-9) depression. Anxiety: COOPER-7 Total Score: 0 usually representing no significant (0-4) anxiety. Finally, the following table shows the patient's overall global physical and mental health using the PROMIS scale: PROMIS-10 Flowsheet Row Distance Health from 02/26/2023 in [facility] Visit from 11/11/2022 in [facility] Global Physical Health T Score 44.9 47.7 Global Mental Health T Score 56 48.3 0-10 Standard Pain Scale 4 4 *PROMIS-10 scoring scale: mean = 50, over 50 is above average, under 50 is below average Objective He is alone. General: Awake, alert, interactive, no acute distress, good nutritional status, normal development, well-kept Some intermittent excessive blinking noted. Assessment and Plan: Assessment Mr. Handy is a 32 year old male with Tourrettes Syndome, anxiety/depression. He is very happy with the control of his Tourette's at this time. The only tics he notices are excessive blinking at times. He was also increased on his Prozac which has helped a lot with his anxiety. He has no issues with current treatment and requires a refill today. He will continue on the same medication regimen and will follow-up in 6 months to 1 year. The following are the current problems noted and addressed during this visit: [place] tourette syndrome (primary encounter diagnosis) Anxiety Plan 02/26/2023 Visit: Refilled medications today Follow up as needed in 6 months to 1 year. Patient's perception of importance for healthcare provider to let them know of research trials for which they may be eligible? Very Important Interested in clinical research? Not currently Updated Movement Disorder Medication Schedule: Medications bedtime fluphenazine 5 mg 1 fluoxetine 40 mg Thank you for allowing me to be part of the clinical care of this patient! I look forward to continued participation in the patient s care with you. Please do not hesitate to call with any questions. Sincerely, Lacy Woodard APRN.MOBILITY DEVELOPER documented in this encounter [facility] 02-25-2023 Miscellaneous Notes The following approved medication requests have been transmitted electronically. Requested Prescriptions Signed Prescriptions Disp Refills fluPHENAZine (PROLIXIN) 5 mg tablet 30 tablet 0 Sig: Take 1 tablet by mouth once daily. Authorizing Provider: RADHA MACE MD Last FUV January 2022 with [facility]. No FUV scheduled - pt informed this will be needed for further refills. 30-day pending with no refills. documented in this encounter [facility] 11-27-2022 Miscellaneous Notes Patient calls to make sure provider received [facility] message in regards to Cymbalta. Patient is drowsy during the day and feels his depression is worsening. Denies any suicidal ideation or plans. Patient felt the best when he was taking Prozac 40 mg and is asking to go back on that dose and discontinue the cymbalta. Pended medication. Please review and advise, Mirian Renee RN documented in this encounter [facility] 11-11-2022 History of Present illness Narrative Chief Complaint Patient presents with: Cough: For past 3 and a half weeks. Had runny nose first two days . Worse at night and in morning. Wakes in coughing fits and wheezing and chest tighness HPI Lexus Handy is a 32 year old male who presents here today for Above Complaints.. Lexus is an established patient of Dr. Pearl MD. He is a new patient to me today. Concerns today... Cough --- Non-productive, ddry cough x 3.5 weeks. Coughing attacks in the middle of the night. Cough and nasal congestion worse at night and in the morning. Also reports sinus pressure, congestion, and intermittent audible wheezing. Hx of sports induced asthma. Taking inhaler slightly more these past few weeks. Needs refill. Low grade fever today. Has not taken temperature at home. Has tried OTC mucinex with some relief -- caused nausea and vomiting so stopped taking this. No other concerns or complaints. Past medical history, appointments, medications, allergies reviewed. Previous Medical History PAST MEDICAL HISTORY Diagnosis Date Bipolar disorder (HCC) Current moderate episode of major depressive disorder without prior episode (HCC) Generalized anxiety disorder Tourette syndrome Previous Surgical History PAST SURGICAL HISTORY Procedure Laterality Date APPENDECTOMY REPAIR ING HERNIA,5+Y/O,REDUCIBL TONSILLECTOMY & ADENOIDECTOMY <AGE 12 Family History FAMILY HISTORY Problem Relation Age of Onset Tourette syndrome Brother Patient Allergies ALLERGIES Allergen Reactions Amoxil [Amoxicillin] Rash Ceclor [Cefaclor] Hives Current Medications Current Outpatient Medications on File Prior to Visit Medication Sig FLUoxetine (PROZAC) 40 mg capsule Take 1 capsule by mouth once daily. FLUoxetine (PROZAC) 20 mg capsule Take 1 capsule by mouth once daily. Take along with 40 mg pill omeprazole (PRILOSEC) 20 mg capsule Take 1 capsule by mouth daily before breakfast. 1/2 hr before meal. fluPHENAZine (PROLIXIN) 5 mg tablet Take 1 tablet by mouth once daily. No current facility-administered medications on file prior to visit. Social History Social History Tobacco Use Smoking status: Never Smokeless tobacco: Never Vaping Use Vaping Use: Never used Substance Use Topics Alcohol use: Not Currently Drug use: Never REVIEW OF SYSTEMS: as above Reviewed relevant PMHx, PSHx, Social Hx, current medications and allergies. Review of Symptoms REVIEW OF SYSTEMS See HPI. EXAM: BP 115/80 (BP Site: Left Arm, BP Position: Sitting, BP Cuff Size: Large Adult) Pulse 83 Temp 37.7 C (99.8 F) Wt 92.1 kg (203 lb) SpO2 99% BMI 28.31 kg/m General Appearance: Well appearing, alert, in no acute distress, well-hydrated, well nourished.. Skin: Skin color, texture, turgor normal, no suspicious rashes or lesions. Head: Normocephalic, no masses, lesions, tenderness or abnormalities. Eyes: Anicteric sclera. Pupils are equally round and reactive to light. Extraocular movements are intact. . Ears: External ears normal, canals clear. Nose/Sinuses: Nares normal, septum midline, mucosa normal, no drainage or sinus tenderness. Oropharynx: Lips, mucosa, and tongue normal, teeth and gums normal, oropharynx normal. Neck: Supple, no adenopathy; thyroid symmetric, normal size, no bruits. Back:no pain to palpation of vertebrae, good flexion and extension, good range of motion, no muscle tenderness, reflexes are 2+ and symmetric, motor and sensory appear to be normal, negative SLR test, no evidence of scoliosis Lungs: Lungs clear to auscultation. No wheezing, rhonchi, rales.. Heart: RRR without murmur, gallop, or rubs. No ectopy. Health Maintenance List HEPATITIS B(1 of 3 - 3-dose series) Never done HEPATITIS C SCREENING Never done HIV SCREENING Never done DTAP,TDAP,TD(1 - Tdap) Never done COVID-19 VACCINE(2 - Moderna series) due on 02/16/2022 INFLUENZA(1) due on 05/28/2022 DEPRESSION ASSESSMENT due on 09/27/2022 ASSESSMENT/PLAN: 1. Bronchitis - ICD9: 490, ICD10: J40 Z-elvie and medrol dose elvie as ordered. Tessalone perles TID as needed for cough -- especially before bed. Refilled albuterol inhaler. If no improvement in 5 days, RTO. - AZITHROMYCIN 250 MG TABLET - METHYLPREDNISOLONE 4 MG TABLETS IN A DOSE PACK - BENZONATATE 100 MG CAPSULE - ALBUTEROL SULFATE HFA 90 MCG/ACTUATION AEROSOL INHALER RTO as needed. Prescription instructions reviewed with patient as applicable. Potential red flag symptoms discussed with the patient. Reviewed appropriate action plan to take if red flag symptoms occur. Patient agreeable to treatment plan. Juliet John APRN.VAHID [address] [place] [address] documented in this encounter [facility] 10-07-2022 Miscellaneous Notes The following approved medication requests have been transmitted electronically. Requested Prescriptions Pending Prescriptions Disp Refills FLUoxetine (PROZAC) 40 mg capsule 30 capsule 2 Sig: Take 1 capsule by mouth once daily. Delvin Hickman APRN.VAHID Patient phones requesting refills as follows: Requested Prescriptions Pending Prescriptions Disp Refills FLUoxetine (PROZAC) 40 mg capsule 30 capsule 2 Sig: Take 1 capsule by mouth once daily. RANI-09/02/22 Labs-09/10/20 NOV-10/12/22 med filled 06/30/22 Please review and advise. Stacy Moncada LPN documented in this encounter [facility] 09-02-2022 History of Present illness Narrative Chief Complaint Patient presents with: Abdominal Pain: Off and on HPI Lexus Handy is a 32 year old male who presents here today for abdominal pain. Pt c/o abdominal pain off and on, states it has been occurring 1-2 x per month, occurs randomly. Unsure of what triggers the pain to start. He denies eating anything different, no medications changes, no activities trigger it. . He denies any pain at this time, but when he has pain it is a burning pain that will go up and down the chest, gets some chest pains. No pain or burning in the throat. He states this has been on going since 2017 and when he has an episode it lasts up to 6-8 hours at a time. He stated when this originally started in 2017 he was doing a lot of weight lifting, taking anything and everything for weight lifting, he states has not been taking supplements for the last 2 years. He states it seems to come on at night wakes up at night due to pain. He will get it occ during the day but not as severe. Appetite is ok. He tried taking Tums and Pepto Bismol but that would make pain instantly worse. He did some home remedies to treat indigestion, apple cider vinegar and water. Only uses that mixture about 4 hours into having pain and it does seem to make the pain tolerable, is able to go back to sleep. States if he drinks it before 4 hours of having pain it will make the pain worse. The pain will be completely resolved by morning. He went to ER, had testing done, was told he did not have any ulcers or bowel obstructions. Did say he had some stool build up in the upper intestines, was given laxatives and it didn't help. No bowel issues, no diarrhea, no constipations, no bloating or gas. Denies any n/v. Hospital gave him Pepcid to take for a week but didn't help. He has tried taking it again later with no relief. COOPER: Taking Prozac 40 mg daily. He states that the last year he has been waking up in the middle of the night gasping for air, he thought it was night terrors. He states this happening up to 3 x per week. Denies having one for the past week. He states when this happens he wakes up feeling panicked, gasping for air, heart racing. He states normally it only last a few minutes and is able to go back to sleep but most recent episodes lasted up to 30 minutes, caused him to be really scared, had a hard time calming down. He was shaking really bad this most episode, denies ever having that before. Does not recall being afraid of scared of anything. His grandmother about 1-2 weeks ago. He states that he doesn't feel depressed but the anxiety is not controlled. He does not do any counseling. He feels very uptight, feels his life has been going down hill since his grandma passed, he feels like his BP has been running high. He feels his anxiety is just through the roof. He denies feeling suicidal. Mother and father both have hypertension. Past medical history, appointments, medications, allergies reviewed. Previous Medical History PAST MEDICAL HISTORY Diagnosis Date Bipolar disorder (HCC) Current moderate episode of major depressive disorder without prior episode (HCC) Generalized anxiety disorder Tourette syndrome Previous Surgical History PAST SURGICAL HISTORY Procedure Laterality Date APPENDECTOMY REPAIR ING HERNIA,5+Y/O,REDUCIBL TONSILLECTOMY & ADENOIDECTOMY <AGE 12 Family History FAMILY HISTORY Problem Relation Age of Onset Tourette syndrome Brother Patient Allergies ALLERGIES Allergen Reactions Amoxil [Amoxicillin] Rash Ceclor [Cefaclor] Hives Current Medications Current Outpatient Medications on File Prior to Visit Medication Sig FLUoxetine (PROZAC) 40 mg capsule Take 1 capsule by mouth once daily. fluPHENAZine (PROLIXIN) 5 mg tablet Take 1 tablet by mouth once daily. FLUoxetine (PROZAC) 20 mg capsule Take 1 capsule by mouth once daily. No current facility-administered medications on file prior to visit. Social History Social History Tobacco Use Smoking status: Never Smokeless tobacco: Never Vaping Use Vaping Use: Never used Substance Use Topics Alcohol use: Not Currently Drug use: Never EXAM: BP 140/88 Pulse 80 Resp 16 Wt 92.4 kg (203 lb 12.8 oz) BMI 28.42 kg/m General Appearance: Well appearing, alert, in no acute distress, well-hydrated, well nourished.. Lungs: Lungs clear to auscultation. No wheezing, rhonchi, rales.. Heart: RRR without murmur, gallop, or rubs. No ectopy. Abdomen: Normal abdominal exam, Abdomen soft, non-tender. Bowel sounds normal. No masses, organomegaly. Health Maintenance List HEPATITIS B(1 of 3 - 3-dose series) Never done HEPATITIS C SCREENING Never done HIV SCREENING Never done DTAP,TDAP,TD(1 - Tdap) Never done DEPRESSION ASSESSMENT Never done COVID-19 VACCINE(2 - Moderna series) due on 02/16/2022 INFLUENZA(1) due on 05/28/2022 Data reviewed none ASSESSMENT/PLAN: 1. Epigastric pain - ICD9: 789.06, ICD10: R10.13 (primary diagnosis) Sounds like increased acid causing midepigastric and lower esophageal pain Prilosec for 4 weeks 2. Generalized anxiety disorder - ICD9: 300.02, ICD10: F41.1 Increase prozac to 60 mg daily - FLUOXETINE 20 MG CAPSULE 3. Bipolar affective disorder, remission status unspecified (HCC) - ICD9: 296.80, ICD10: F31.9 - FLUOXETINE 20 MG CAPSULE Follow up in 1 month I agree with the Chief Complaint, ROS, and Past Histories independently gathered by the clinical forestry support specialist and the remaining scribed note accurately describes my personal service to the patient. Medical Decision Making: Problems: Moderate: New problem with uncertain prognosis and 1+ chronic illnesses with change Risk: Moderate: Drug management Medical Decision Making Level: 4 - Moderate Brendan Haywood MD The documentation for this note was completed by Fina Casanova Ma acting as scribe for Brendan Haywood MD. September 02, 2022 7:06 PM. Fina Casanova Ma documented in this encounter [facility] 06-30-2022 Miscellaneous Notes The following approved medication requests have been transmitted electronically. Requested Prescriptions Pending Prescriptions Disp Refills FLUoxetine (PROZAC) 40 mg capsule 30 capsule 2 Sig: Take 1 capsule by mouth once daily. Delvin Hickman APRN.CNP Last office visit: 09/15/21 F/u scheduled: none Fina Casanova Ma documented in this encounter [facility] 05-01-2022 Miscellaneous Notes Med adjustment made, pt to schedule 1-2 month follow up. Val Mobley Ma Pt has appt tomorrow. Ok to wait till appt to discuss med change? Fina Casanova Ma documented in this encounter [facility] 02-20-2022 History of Present illness Narrative [facility] - FOLLOW UP EVALUATION Brendan Haywood MD [address] [facility] [id number] I had the pleasure of seeing Mr. Handy for follow up today. He is a 31 year old male with a history of Tourette syndrome since 1997. He is seen alone. We had a visit using: simplifyMD I received consent from the patient to perform the visit using this platform. Subjective Previous Plan-11/12/2020 Visit: TS - continue fluphenazine and fluoxetine at current doses Interval History Anxiety. PCP reduced Prozac from 40 to 20 mg every other day. Was perhaps making him tired. Hasn't been able to work due to anxiety and fatigue. Hard to get up in the morning. Wants to go back bed soon after getting up. Tics have been controlled. In addition, the following symptoms that may be associated with Tourette s syndrome or tic disorder were evaluated on how much they bothered the patent in the past week: Motor tics: (P) No Being argumentative: (P) No Sudden mood changes: (P) o Demanding attention: (P) o Being hot tempered: (P) Yes, moderately Vocal tics: (P) No Obsessiveness: (P) No Inattentiveness: (P) No Being talkative: (P) Yes, markedly Depression: PQH-9 = 12 usually representing moderate (10-14) depression. Anxiety: COOPER-7 = 9 usually representing mild (5-9) anxiety. Finally, the following table shows the patient's overall global physical and mental health using the PROMIS scale: PROMIS-10 Appointment from 02/11/2022 in [facility] Office Visit from 04/25/2021 in [facility] Global Physical Health T Score 42.3 44.9 Global Mental Health T Score 33.8 31.3 0-10 Standard Pain Scale 4 4 *PROMIS-10 scoring scale: mean = 50, over 50 is above average, under 50 is below average Movement Disorders Medications Schedule - as of the start of the visit: bedtime fluphenazine 5 mg 1 fluoxetine 20 mg Other Movement Disorder Prior Therapies Clonazepam All tried while a child: risperidone, clonidine (decreased BP), Adderall (increased tics), Seroquel, Orap, Abilify, Geodon (behavior changes) ALLERGIES Allergen Reactions Amoxil [Amoxicillin] Rash Ceclor [Cefaclor] Hives Current Outpatient Medications Medication Sig fluPHENAZine (PROLIXIN) 5 mg tablet Take 1 tablet by mouth once daily. FLUoxetine (PROZAC) 20 mg capsule Take 1 capsule by mouth once daily. Pkvqevjvqxawnpj-Lcxbdxhuo-ZP (BROMFED DM) 2-30-10 mg/5 mL syrup Take 5-10 ml po q6h prn No current facility-administered medications for this visit. Objective Vital Signs: There were no vitals taken for this visit. General Physical Examination: General: Awake, alert, interactive, no acute distress, good nutritional status, normal development, well-kept General Neurological Examination: Neurological Exam Mental Status Awake and alert. Speech is normal. Language is fluent with no aphasia. Fund of knowledge is appropriate for level of education. Motor Frequent tics: eyes blinking, forehead, mouth movement.. Assessment and Plan: Assessment Mr. Handy is a 31 year old male with Tourette syndrome. He is currently happy with management of his tics. Main complaint today is anxiety. He has not wanted to see psychiatry to avoid overmedication but is willing to have a consult now to work on the anxiety. The following are the current problems noted and addressed during this visit: [place]o de [place] tourette syndrome (primary encounter diagnosis) Anxiety Obsessive-compulsive disorder, unspecified type Plan 02/20/2022 Visit: Continue fluphenazine for tics - Psychiatry consult for anxiety - Updated Movement Disorders Medication Schedule: bedtime fluphenazine 5 mg 1 fluoxetine 20 mg Return at or around: 02/20/23 Medical Decision Making: Problems: Low: Stable chronic illness Moderate: 1+ chronic illnesses with change Risk: Moderate: Drug management Medical Decision Making Level: 4 - Moderate Thank you for allowing me to be part of the clinical care of this patient! I look forward to continued participation in the patient s care with you. Please do not hesitate to call with any questions. Sincerely, Radha Mace MD documented in this encounter [facility] 02-09-2022 Miscellaneous Notes Pt notified in other [employer] message that an appt should be setup to discuss. This is message part 2. Val Mobley Ma documented in this encounter [facility] 01-01-2022 Miscellaneous Notes Pt advised to contact Dr. Mace's office for refill. Fina Casanova Ma documented in this encounter [facility] Evaluation note Diagnosis [place] Tourette syndrome- Primary Tourette's disorder Anxiety Anxiety state, unspecified Obsessive-compulsive disorder, unspecified type [facility] Diagnosis Epigastric pain- Primary Abdominal pain, epigastric Generalized anxiety disorder Bipolar affective disorder, remission status unspecified ([facility]) [facility] Diagnosis Bronchitis- Primary Bronchitis, not specified as acute or chronic [facility] Diagnosis [place] Tourette syndrome- Primary Tourette's disorder Anxiety Anxiety state, unspecified [facility] Diagnosis Generalized anxiety disorder- Primary Bipolar affective disorder, remission status unspecified (HCC) Decreased sexual desire Decreased libido ED (erectile dysfunction) of organic origin Impotence of organic origin [facility] Diagnosis [place] Tourette syndrome Tourette's disorder Anxiety Anxiety state, unspecified [facility] Diagnosis URI, acute- Primary Acute upper respiratory infections of unspecified site Acute otitis media, left Unspecified otitis media [facility] Diagnosis [place] Tourette syndrome Tourette's disorder Anxiety Anxiety state, unspecified [facility] Diagnosis Acute non-recurrent sinusitis, unspecified location- Primary Generalized anxiety disorder Bipolar affective disorder, remission status unspecified ([facility]) Bronchitis Bronchitis, not specified as acute or chronic [facility] Diagnosis Generalized anxiety disorder- Primary [facility] Diagnosis Sleep difficulties- Primary Sleep disturbance, unspecified [place] Tourette syndrome Tourette's disorder Anxiety Anxiety state, unspecified [facility] Diagnosis [place] Tourette syndrome Tourette's disorder Anxiety Anxiety state, unspecified Sleep difficulties Sleep disturbance, unspecified [facility] Diagnosis Anxiety- Primary Anxiety state, unspecified [place] Tourette syndrome Tourette's disorder [facility] Diagnosis APPOINTMENT CANCELLED- Primary [facility] Diagnosis Fatigue, unspecified type- Primary Hypertension, essential Unspecified essential hypertension [facility]* Diagnosis Fatigue, unspecified type- Primary documented in this encounter [facility] note* Diagnosis Strain of neck muscle, initial encounter Upper back pain documented in this encounter [facility] note* Diagnosis Rib pain on right side Chest pain, unspecified Contusion of rib on right side, subsequent encounter documented in this encounter [facility] note* Diagnosis Sinobronchitis- Primary Unspecified sinusitis (chronic) documented in this encounter [facility] note* Diagnosis Tinea cruris- Primary Dermatophytosis of groin and perianal area documented in this encounter [facility] for referral (narrative)* Diagnostic Procedure Only (Routine) - Authorized Specialty Diagnoses / Procedures Referred By Cady campuzano Referred To Contact [facility] Diagnoses Fatigue, unspecified type Procedures HOME SLEEP APNEA TEST (HSAT) SLEEP STD AIRFLOW HRT RATE&O2 SAT EFFORT UNATT Kia Collins APRN.CNP [address] [place] [address] [facility] [place] [address] [place] [address] Referral ID Status Reason Start Date Expiration Date Visits Requested Visits Authorized [id number] Authorized Auto-Generat ed Referral 05/03/2024 05/03/2025 1 1 [facility] for referral (narrative)* Diagnostic Procedure Only (Routine) - Closed Specialty Diagnoses / Procedures Referred By aCdy campuzano Referred To Contact XR IMAGING Diagnoses Strain of neck muscle, initial encounter Upper back pain Procedures XR CERV OTHER 4V AP/LAT/OBL RADEX SPINE CERVICAL 4 OR 5 VIEWS Beck Jasmine MD [address] [place] [address] Xr Imaging [facility] Referral ID Status Reason Start Date Expiration Date V isits Requested Visits Authorized [id number] Closed Auto-Generate d Referral 06/28/2023 07/27/2024 1 1 [facility] for referral (narrative)* Diagnostic Procedure Only (Routine) - Closed Specialty Diagnoses / Procedures Referred By Contac t Referred To Contact XR IMAGING Diagnoses Rib pain on right side Contusion of rib on right side, subsequent encounter Procedures XR RIBS/CHEST 3V AP RIB/OBLS/CXR RIGHT RADEX RIBS UNI W/POSTEROANT CH MINIMUM 3 VIEWS Beck Jasmine MD [facility] [place] [address] [place] [address] Referral ID Status Reason Start Date Expiration Date V isits Requested Visits Authorized [id number] Closed Auto-Generate d Referral 04/21/2023 05/20/2024 1 1 [facility] for visit Narrative* Diagnostic Procedure Only (Routine) - Closed Specialty Diagnoses / Procedures Referred By Contac t Referred To Contact XR IMAGING Diagnoses Strain of neck muscle, initial encounter Upper back pain Procedures XR CERV OTHER 4V AP/LAT/OBL RADEX SPINE CERVICAL 4 OR 5 VIEWS Beck Jasmine MD [address] [place] [address] [place] [address] Referral ID Status Reason Start Date Expiration Date V isits Requested Visits Authorized [id number] Closed Auto-Generate d Referral 06/28/2023 07/27/2024 1 1 [facility] for visit Narrative* Diagnostic Procedure Only (Routine) - Closed Specialty Diagnoses / Procedures Referred By Contac t Referred To Contact XR IMAGING Diagnoses Rib pain on right side Contusion of rib on right side, subsequent encounter Procedures XR RIBS/CHEST 3V AP RIB/OBLS/CXR RIGHT RADEX RIBS UNI W/POSTEROANT CH MINIMUM 3 VIEWS Beck Jasmine MD [facility] [place] [address] [place] [address] Referral ID Status Reason Start Date Expiration Date V isits Requested Visits Authorized [id number] Closed Auto-Generate d Referral 04/21/2023 05/20/2024 1 1 [facility] Reason for Referral Specialty Diagnoses / Procedures Referred By Contac t Referred To Contact Diagnoses [place] Tourette syndrome Procedures PROVIDER ORDERED FOLLOW UP OFFICE/OUTPATIENT NEW [facility] 60-74 MINUTES Radha Mace MD [address] [address] Referral ID Status Reason Start Date Expiration Date Visits Requested Visits Authorized [id number] Authorized PCP Requested Referral 02/20/2022 05/21/2022 1 1 Specialty Diagnoses / Procedures Referred By Contac t Referred To Contact Diagnoses [place] Tourette syndrome Anxiety Obsessive-compulsive disorder, unspecified type Procedures CONSULT TO PSYCHIATRY OFFICE/OUTPATIENT NEW [facility] MDM 60-74 MINUTES Radha Mace MD [address] [address] Referral ID Status Reason Start Date Expiration Date Visits Requested Visits Authorized [id number] Pending Review PCP Requested Referral 02/20/2022 02/20/2023 1 1 Specialty Diagnoses / Procedures Referred By Contac t Referred To Contact [facility] Diagnoses [place] Tourette syndrome Anxiety Sleep difficulties Procedures CONSULT TO PSYCHIATRY OFFICE/OUTPATIENT NEW [facility] MDM 60 MINUTES Jeanette Monge PA-C [address] [place] [address] [facility] [address] [place] [address] Referral ID Status Reason Start Date Expiration Date Visits Requested Visits Authorized [id number] Authorized PCP Requested Referral Patient Cleared - INN Insurance Found 02/14/2024 02/13/2025 1 1 Specialty Diagnoses / Procedures Referred By Contac t Referred To Contact Diagnoses Anxiety Procedures PROVIDER ORDERED FOLLOW UP OFFICE/OUTPATIENT [facility] MDM 60 MINUTES Aubrey Murphy MD [address] [place] [id number] Referral ID Status Reason Start Date Expiration Date Visits Requested Visits Authorized [id number] Authorized PCP Requested Referral 05/19/2024 02/16/2025 1 1 Specialty Diagnoses / Procedures Referred By Contac t Referred To Contact Diagnoses Anxiety [place] Tourette syndrome Procedures PROVIDER ORDERED FOLLOW UP Rachel Higgins PA-C [address] [place] [phone] Aubrey Murphy MD [address] [place] [phone] Referral ID Status Reason Start Date Expiration Date Visits Requested Visits Authorized [id number] Ref Not Required PCP Requested Referral 05/07/2024 04/06/2025 1 1 Summary Purpose Family History No Family History Records Found Advance Directives No Advanced Directives Records Found Additional Source Comments Source Comments (unrecognize d section and content) In the event this informatio n is protected by the Federal Confidentiality of Alcohol and Drug Abuse Patient Records regulations: The Federal rules restrict any use of the information to criminally investigate or prosecute any alcohol or drug abuse patient.[facility] the event this information is protected by the Federal Confidentiality of Alcohol and Drug Abuse Patient Records regulations: The Federal rules restrict any use of the information to criminally investigate or prosecute any alcohol or drug abuse patient.[facility] System[facility] the event this information is protected by the Federal Confidentiality of Alcohol and Drug Abuse Patient Records regulations: The Federal rules restrict any use of the information to criminally investigate or prosecute any alcohol or drug abuse patient.[facility] the event this information is protected by the Federal Confidentiality of Alcohol and Drug Abuse Patient Records regulations: The Federal rules restrict any use of the information to criminally investigate or prosecute any alcohol or drug abuse patient.[facility] the event this information is protected by the Federal Confidentiality of Alcohol and Drug Abuse Patient Records regulations: The Federal rules restrict any use of the information to criminally investigate or prosecute any alcohol or drug abuse patient.[facility] the event this information is protected by the Federal Confidentiality of Alcohol and Drug Abuse Patient Records regulations: The Federal rules restrict any use of the information to criminally investigate or prosecute any alcohol or drug abuse patient.[facility] System[facility] the event this information is protected by the Federal Confidentiality of Alcohol and Drug Abuse Patient Records regulations: The Federal rules restrict any use of the information to criminally investigate or prosecute any alcohol or drug abuse patient.[facility] System[facility] the event this information is protected by the Federal Confidentiality of Alcohol and Drug Abuse Patient Records regulations: The Federal rules restrict any use of the information to criminally investigate or prosecute any alcohol or drug abuse patient.[facility] the event this information is protected by the Federal Confidentiality of Alcohol and Drug Abuse Patient Records regulations: The Federal rules restrict any use of the information to criminally investigate or prosecute any alcohol or drug abuse patient.[facility] the event this information is protected by the Federal Confidentiality of Alcohol and Drug Abuse Patient Records regulations: The Federal rules restrict any use of the information to criminally investigate or prosecute any alcohol or drug abuse patient.[facility] System[facility] the event this information is protected by the Federal Confidentiality of Alcohol and Drug Abuse Patient Records regulations: The Federal rules restrict any use of the information to criminally investigate or prosecute any alcohol or drug abuse patient.[facility] System[facility] the event this information is protected by the Federal Confidentiality of Alcohol and Drug Abuse Patient Records regulations: The Federal rules restrict any use of the information to criminally investigate or prosecute any alcohol or drug abuse patient.[facility] System[facility] the event this information is protected by the Federal Confidentiality of Alcohol and Drug Abuse Patient Records regulations: The Federal rules restrict any use of the information to criminally investigate or prosecute any alcohol or drug abuse patient.[facility] System[facility] the event this information is protected by the Federal Confidentiality of Alcohol and Drug Abuse Patient Records regulations: The Federal rules restrict any use of the information to criminally investigate or prosecute any alcohol or drug abuse patient.[facility] System[facility] the event this information is protected by the Federal Confidentiality of Alcohol and Drug Abuse Patient Records regulations: The Federal rules restrict any use of the information to criminally investigate or prosecute any alcohol or drug abuse patient.[facility] System[facility] the event this information is protected by the Federal Confidentiality of Alcohol and Drug Abuse Patient Records regulations: The Federal rules restrict any use of the information to criminally investigate or prosecute any alcohol or drug abuse patient.[facility] System[facility] the event this information is protected by the Federal Confidentiality of Alcohol and Drug Abuse Patient Records regulations: The Federal rules restrict any use of the information to criminally investigate or prosecute any alcohol or drug abuse patient.[facility] System[facility] the event this information is protected by the Federal Confidentiality of Alcohol and Drug Abuse Patient Records regulations: The Federal rules restrict any use of the information to criminally investigate or prosecute any alcohol or drug abuse patient.[facility] System[facility] the event this information is protected by the Federal Confidentiality of Alcohol and Drug Abuse Patient Records regulations: The Federal rules restrict any use of the information to criminally investigate or prosecute any alcohol or drug abuse patient.[facility] System[facility] the event this information is protected by the Federal Confidentiality of Alcohol and Drug Abuse Patient Records regulations: The Federal rules restrict any use of the information to criminally investigate or prosecute any alcohol or drug abuse patient.[facility] System[facility] the event this information is protected by the Federal Confidentiality of Alcohol and Drug Abuse Patient Records regulations: The Federal rules restrict any use of the information to criminally investigate or prosecute any alcohol or drug abuse patient.[facility] System[facility] the event this information is protected by the Federal Confidentiality of Alcohol and Drug Abuse Patient Records regulations: The Federal rules restrict any use of the information to criminally investigate or prosecute any alcohol or drug abuse patient.[facility] System[facility] the event this information is protected by the Federal Confidentiality of Alcohol and Drug Abuse Patient Records regulations: The Federal rules restrict any use of the information to criminally investigate or prosecute any alcohol or drug abuse patient.[facility] System[facility] the event this information is protected by the Federal Confidentiality of Alcohol and Drug Abuse Patient Records regulations: The Federal rules restrict any use of the information to criminally investigate or prosecute any alcohol or drug abuse patient.[facility] System[facility] the event this information is protected by the Federal Confidentiality of Alcohol and Drug Abuse Patient Records regulations: The Federal rules restrict any use of the information to criminally investigate or prosecute any alcohol or drug abuse patient.[facility] System[facility] the event this information is protected by the Federal Confidentiality of Alcohol and Drug Abuse Patient Records regulations: The Federal rules restrict any use of the information to criminally investigate or prosecute any alcohol or drug abuse patient.[facility] System[facility] the event this information is protected by the Federal Confidentiality of Alcohol and Drug Abuse Patient Records regulations: The Federal rules restrict any use of the information to criminally investigate or prosecute any alcohol or drug abuse patient.[facility] System[facility] the event this information is protected by the Federal Confidentiality of Alcohol and Drug Abuse Patient Records regulations: The Federal rules restrict any use of the information to criminally investigate or prosecute any alcohol or drug abuse patient.[facility] SystemIn the event this information is protected by the Federal Confidentiality of Alcohol and Drug Abuse Patient Records regulations: The Federal rules restrict any use of the information to criminally investigate or prosecute any alcohol or drug abuse patient.[facility] SystemIn the event this information is protected by the Federal Confidentiality of Alcohol and Drug Abuse Patient Records regulations: The Federal rules restrict any use of the information to criminally investigate or prosecute any alcohol or drug abuse patient.[facility] SystemIn the event this information is protected by the Federal Confidentiality of Alcohol and Drug Abuse Patient Records regulations: The Federal rules restrict any use of the information to criminally investigate or prosecute any alcohol or drug abuse patient.[facility] SystemIn the event this information is protected by the Federal Confidentiality of Alcohol and Drug Abuse Patient Records regulations: The Federal rules restrict any use of the information to criminally investigate or prosecute any alcohol or drug abuse patient.[facility] SystemIn the event this information is protected by the Federal Confidentiality of Alcohol and Drug Abuse Patient Records regulations: The Federal rules restrict any use of the information to criminally investigate or prosecute any alcohol or drug abuse patient.[facility] SystemIn the event this information is protected by the Federal Confidentiality of Alcohol and Drug Abuse Patient Records regulations: The Federal rules restrict any use of the information to criminally investigate or prosecute any alcohol or drug abuse patient.[facility] SystemIn the event this information is protected by the Federal Confidentiality of Alcohol and Drug Abuse Patient Records regulations: The Federal rules restrict any use of the information to criminally investigate or prosecute any alcohol or drug abuse patient.[facility] Care Teams (unrecognized sec tion and content) Neck Cutter Relationship Specialty Start Date End Date Brendan Haywood MD [address] [place] [address] PCP - General Family Practice 11/12/20 Neck Cutter Relationship Specialty Start Date End Date Brendan Haywood MD [address] [place] [address] PCP - General Family Practice 11/12/20 Neck Cutter Relationship Specialty Start Date End Date Brendan Haywood MD [address] [place] [address] PCP - General Family Practice 11/12/20 Neck Cutter Relationship Specialty Start Date End Date Brendan Haywood MD [address] [place] [address] PCP - General Family Medicine 11/12/20 Neck Cutter Relationship Specialty Start Date End Date Brendan Haywood MD [address] [place] [address] PCP - General Family Medicine 11/12/20 Neck Cutter Relationship Specialty Start Date End Date Brendan Haywood MD [address] [place] [address] PCP - General Family Medicine 11/12/20 Neck Cutter Relationship Specialty Start Date End Date Brendan Haywood MD [address] [place] [address] PCP - General Family Medicine 11/12/20 Neck Cutter Relationship Specialty Start Date End Date Brendan Haywood MD [address] [place] [address] PCP - General Family Medicine 11/12/20 Neck Cutter Relationship Specialty Start Date End Date Brendan Haywood MD [address] [place] [address] PCP - General Family Medicine 11/12/20 Neck Cutter Relationship Specialty Start Date End Date Brendan Haywood MD [address] [place] [address] PCP - General Family Medicine 11/12/20 Neck Cutter Relationship Specialty Start Date End Date Brendan Haywood MD [address] [place] [address] PCP - General Family Medicine 11/12/20 Neck Cutter Relationship Specialty Start Date End Date Brendan Haywood MD [address] [place] [address] PCP - General Family Medicine 11/12/20 Neck Cutter Relationship Specialty Start Date End Date Brendan Haywood MD [address] [place] [address] PCP - General Family Medicine 11/12/20 Neck Cutter Relationship Specialty Start Date End Date Brendan Haywood MD [address] [place] [address] PCP - General Family Medicine 11/12/20 Neck Cutter Relationship Specialty Start Date End Date Brendan Haywood MD [address] [place] [address] PCP - General Family Medicine 11/12/20 Neck Cutter Relationship Specialty Start Date End Date Brendan Haywood MD [address] [place] [address] PCP - General Family Medicine 11/12/20 Neck Cutter Relationship Specialty Start Date End Date Brendan Haywood MD [address] [place] [address] PCP - General Family Medicine 11/12/20 Neck Cutter Relationship Specialty Start Date End Date Brendan Haywood MD [address] [place] [address] PCP - General Family Medicine 11/12/20 Neck Cutter Relationship Specialty Start Date End Date Brendan Haywood MD [address] [place] [address] PCP - General Family Medicine 11/12/20 Neck Cutter Relationship Specialty Start Date End Date Brendan Haywood MD [address] [place] [address] PCP - General Family Medicine 11/12/20 Neck Cutter Relationship Specialty Start Date End Date Brendan Haywood MD [address] [place] [address] PCP - General Family Medicine 11/12/20 Neck Cutter Relationship Specialty Start Date End Date Brendan Haywood MD [address] [place] [address] PCP - General Family Medicine 11/12/20 Neck Cutter Relationship Specialty Start Date End Date Brendan Haywood MD [address] [place] [address] PCP - General Family Medicine 11/12/20 Neck Cutter Relationship Specialty Start Date End Date Brendan Haywood MD [address] [place], [place] [id number] PCP - General Family Medicine 11/12/20 Neck Cutter Relationship Specialty Start Date End Date Brendan Haywood MD [address] [place], [place] [id number] PCP - General Family Medicine 11/12/20 Reason for Visit (unrecogniz ed section and content) Reason Comments Telemedicine Follow Up Reason Onset Date Comments Refill Request 06/29/2022 Reason Comments Abdominal Pain Off and on Reason Onset Date Comments Refill Request 10/06/2022 Reason Comments Cough For past 3 and a wilberto f weeks. Had runny nose first two days . Worse at night and in morning. Wakes in coughing fits and wheezing and chest tighness Reason Onset Date Comments Refill Request 02/25/2023 Reason Comments Follow Up Reason Comments Results Reason Comments Medication Problem Prozac side effects Reason Comments Cough Congestion x3 days. Reason Comments Patient Update Reason Comments Sinus Problem Reason Comments Established Patient Reason Comments Anxiety Specialty Diagnoses / Procedures Referred By Cady t Referred To Contact [facility] Diagnoses [place] Tourette syndrome Anxiety Sleep difficulties Procedures CONSULT TO PSYCHIATRY OFFICE/OUTPATIENT [facility] 60 MINUTES Jeanette Monge PA-C [address] [facility] [place] [address] [address] [place] [id number] Referral ID Status Reason Start Date Expiration Date V isits Requested Visits Authorized [id number] Closed PCP Requested Referral Patient Cleared - INN Insurance Found 02/14/2024 02/13/2025 1 1 Reason Comments Anxiety Follow Up Reason Comments Appointment Rescheduled Specialty Diagnoses / Procedures Referred By Cady campuzano Referred To Contact Diagnoses Anxiety Procedures PROVIDER ORDERED FOLLOW UP OFFICE/OUTPATIENT NEW HIGH MDM 60 MINUTES Aubrey Murphy MD [address] [place] [address] Referral ID Status Reason Start Date Expiration Date Visits Requested Visits Authorized [id number] Authorized PCP Requested Referral 05/19/2024 02/16/2025 1 1 Reason Comments Acute Visit fatigues x 1 month Reason Comments Results Labs Orders Reason Comments Cough Cough, congestion an d sinus x 1.5 weeks Reason Comments Rash Rash on upper right leg and stomach x 2 weeks (unrecognized sect ion and content) No Status Records Found INFORMATION SOURCE (unrecogn ized section and content) DATE CREATED AUTHOR 07/14/2024 [facility] FOR RECORDS PERTAINING TO PATIENTS WHO ARE OR HAVE BEEN ENROLLED IN A CHEMICAL DEPENDENCY/SUBSTANCEABUSE PROGRAM, SOME INFORMATION MAY BE OMITTED. This clinical summary was aggregated from multiple sources. Caution should be exercised in using it in the provision of clinical care. This summary normalizes information from multiple sources, and as a consequence, information in this document may materially change the coding, format and clinical context of patient data. In addition, data may be omitted in some cases. CLINICAL DECISIONS SHOULD BE BASED ON THE PRIMARY CLINICAL RECORDS. [facility]. provides no warranty or guarantee of the accuracy or completeness of information in this document.
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
--- NOTE | 2024-07-19 00:20 | RAD_ITS ---
EXAM: XR Ribs Unilateral W/ PA Chest Min 3 Views INDICATION: Male, 33 years old. Left chest wall pain TECHNIQUE: AP and lateral views COMPARISON: None FINDINGS: BONES: No cortical defect to suggest acute rib fracture. No lytic or blastic lesion. LUNGS: No confluent airspace opacity. No pleural effusion or pneumothorax. Cardiac and mediastinal silhouettes are within normal limits.: Joints are in normal alignment. No periarticular degenerative or inflammatory change. SOFT TISSUES: No soft tissue abnormality. RAD/Ribs Uni Min 3V w/PA Chest IMPRESSION: 1. No acute abnormality of the left ribs 2. No acute cardiac pulmonary disease Electronically Signed: Luis Valenzuela MD at 1:33 EDT ,
[2024-07-19] MEDS: Ondansetron ODT 4 MG Tablet PO (00:27)
[2024-07-19] MEDS: oxyCODONE 5 MG Tablet 10 MG PO (00:28)
[2024-07-19 00:55] VITALS: BP 132/80; PULSE 74; RESP 17; O2SAT 98
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
[2024-07-19 02:27] VITALS: BP 141/90; PULSE 75; RESP 18; TEMP 36.6; O2SAT 99
== END 2024-07-19 02:29 | disposition home or self-care (01) ==
PROVIDERS: Emergency Provider Emergency Medicine; PCP Family Medicine; Visit Provider Emergency Medicine
DX: S06.0X0A Concussion without loss of consciousness, initial encounter (principal); F41.9 Anxiety disorder, unspecified; S16.1XXA Strain of muscle, fascia and tendon at neck level, initial encounter; S20.219A Contusion of unspecified front wall of thorax, initial encounter; V40.5XXA Car driver injured in collision with pedestrian or animal in traffic accident, initial encounter; Z90.49 Acquired absence of other specified parts of digestive tract
CPT/HCPCS: 70450; 71101; 72072; 72110; 72125; 99285

== ENCOUNTER 2024-11-04 20:53 | Emergency (ER) | payer MEDICAID, SELFPAY ==
[2024-11-04 20:55] VITALS: BP 163/98; PULSE 95; RESP 16; TEMP 36.6; O2SAT 98; BMI 35.9
--- NOTE | 2024-11-04 21:00 | EKG12_ITS ---
Test Reason : DYSRHYTHMIA Blood Pressure : */* mmHG Vent. Rate : 94 BPM Atrial Rate : 94 BPM P-R Int : 158 ms QRS Dur : 82 ms QT Int : 344 ms P-R-T Axes : 38 49 34 degrees QTcB Int : 430 ms Normal sinus rhythm Normal ECG Confirmed by LULU VERDUGO, SEAN ([id number]), publishing editor ANÍBAL AGGARWAL ([id number]) on 11/06/2024 10:20:32 AM Referred By: Confirmed By: SEAN LAWSON MD
--- NOTE | 2024-11-04 21:14 | EX.ED.DYSGE1 ---
HPI History of Present Illness Chief Complaint: Chest Pain Detail of Chief Complaint: Left-sided chest pain with pleuritic component Informant: patient and spouse/S.O. Onset/Context/Timing Onset: Days (Illness started 2 days ago) Context: Sudden Onset Timing: Continuous and Waxes and wanes Quality: Upper respiratory tract infectious systems with cough and congestion Location: Upper respiratory Current Severity: Mild Maximum Severity: Moderate Worsened by: Hurts to breathe Relieved by: Not breathing Associated Symptoms Associated Symptoms: Upper respiratory symptoms Narrative Narrative: Patient 34-year-old male. Is a non-smoker. He does have a history of hypertension. He states his prescription for lisinopril . He has cough that is nonproductive. He endorses rhinorrhea, congestion postnasal drainage sore throat. He complains of left-sided chest pain. Was concerned as the pain now migrated to the central portion. It is worse with breathing. There is no history of VTE. He has no other complaints. Prior similar symptoms: No Recent Illness/Hospitalization: No PFSH PFSH Medical History Anxiety Bipolar disorder Tourette's Home Medications ?Medication ?Instructions ?Recorded ?Last Taken ?Type fluphenazine HCl 2.5 mg tablet 5 mg PO DAILY 05/31/20 Unknown History fluoxetine 40 mg capsule 60 mg PO DAILY 01/15/24 Unknown History lisinopril 5 mg tablet 5 mg PO DAILY 05/07/24 Unknown History omeprazole 40 mg capsule,delayed 40 mg PO DAILY #30 caps 05/07/24 Unknown Rx release lisinopril 5 mg tablet 5 mg PO DAILY #30 tabs 11/04/24 Unknown Rx Allergy/AdvReac Type Severity Reaction Status Date / Time amoxicillin AdvReac PT UNSURE Verified 11/04/24 20:54 OF REACTION cefaclor (From Ceclor) AdvReac PT UNSURE Verified 11/04/24 20:54 OF REACTION prednisone AdvReac Other Verified 11/04/24 20:54 Surgical History S/P hernia surgery Hx of appendectomy History of tonsillectomy and adenoidectomy Social History (Updated 11/04/24 @ 21:[address] Petr Venegas MD) household members: spouse Smoking Status: Never smoker ROS ROS ED Constitutional Constitutional ED: Reports chills and fever(s); Denies sweats or weight loss Eyes Eyes: Denies blurry vision or change in vision ENT ENT ED: Reports rhinorrhea and sore throat; Denies ear pain Cardiovascular Cardiovascular: Reports chest pain; Denies orthopnea, palpitations, paroxysmal nocturnal dyspnea or racing heartbeat Respiratory/Chest Respiratory/Chest: Reports cough; Denies dyspnea, dyspnea on exertion, orthopnea, paroxysmal nocturnal dyspnea or sputum Gastrointestinal Gastrointestinal: Denies abdominal pain, diarrhea, nausea or vomiting Musculoskeletal Musculoskeletal: Denies arthralgias or myalgias Integumentary Denies rash Neurologic Neurologic: Denies headache(s) Endocrine Endocrinology: Denies cold intolerance or heat intolerance Hematologic/Lymphatic Hematologic/Lymphatic: Reports systems reviewed and no addt'l complaints, except as documented EXAM Physical Exam Const Vital Signs: 11/04/24 20:55 11/04/24 21:01 Temperature 98 F Temperature Source Temporal Pulse Rate 95 Respiratory Rate 16 Respiratory Effort Normal Non-Labored Blood Pressure 163/98 H Blood Pressure Mean 119 Pulse Ox 98 Oxygen Delivery Method Room Air Positive well nourished and well developed Constitutional Narrative: BMI is 36.0. Vital signs are marked for an elevated blood pressure. General Appearance ED: well developed; Negative for pallor HEENT Reports moist mucous membranes HEENT Narrative: Head is atraumatic normocephalic. Ears normal. Nares patent. Eyes PERRL and EOMs intact bilaterally General Eye ED: Negative for pale conjunctiva or scleral icterus Neck no lymphadenopathy, supple and no JVD Chest Wall inspection of chest normal and palpation of chest normal Resp normal respiratory effort and clear to auscultation bilaterally Cardio regular rate, regular rhythm, S1 normal heart sound, S2 normal heart sound and no murmurs Extremity normal to inspection Extremity Narrative: There is no clubbing or cyanosis. Neuro oriented x3 and CN's II-XII intact bilaterally Sensorium / Orientation: alert Psych mental status grossly normal Skin no rashes or lesions noted, no wounds and skin turgor normal General Skin Exam: Negative for jaundice or pallor MDM MDM MDM Narrative Medical decision making narrative: Patient's symptoms consistent with upper respiratory infection with pleurisy. There is no concern for PE since he is PERC negative and Wells score history physical not consistent with pneumothorax or pneumonia either. Since patient has normal vital signs other than the elevated blood pressure with normal lung exam we will treat for upper respiratory infection. He also was given a prescription for lisinopril. History & Record Review Additional record(s) reviewed:: Prior outpatient record (Urgent care visit for physical and not on Department of Transportation drug screen.) and Prior ED visit (Seen for anxiety June 2024. Seen for epigastric pain April 2024 and cervical lymphadenopathy December 2023.) Discharge Plan Triage Chief Complaint: Chest Pain ED Provider: Petr Venegas Dx/Rx/DC Orders Clinical Impression: Acute upper respiratory infection, Pleurisy, Elevated blood pressure reading with diagnosis of hypertension Instructions: ED Pleurisy, ED URI, Viral, No Abx (Adult) Prescriptions: New lisinopril 5 mg tablet 5 mg PO DAILY Qty: 30 0RF No Action fluphenazine HCl 2.5 MG tablet 5 mg PO DAILY fluoxetine 40 mg capsule 60 mg PO DAILY lisinopril 5 mg tablet 5 mg PO DAILY omeprazole 40 mg capsule,delayed release(DR/EC) 40 mg PO DAILY Qty: 30 3RF Primary Care Provider: Easton Kang Referrals: Easton Kang MD [Primary Care Provider] - 1-2 Weeks Activity Restrictions/Additional Instructions: Take 4 ibuprofen tablets every 8 hours or 2 Aleve tablets every 12 hours for the next 5 days. Print Language: Beninese Disposition Disposition: Home, Self Care
[2024-11-04 21:16] VITALS: BP 165/90; PULSE 87; RESP 13; O2SAT 97
== END 2024-11-04 21:41 | disposition home or self-care (01) ==
LOC: ED 21:37
PROVIDERS: Emergency Provider Emergency Medicine; PCP Family Medicine; Visit Provider Emergency Medicine
DX: J06.9 Acute upper respiratory infection, unspecified (principal); F31.9 Bipolar disorder, unspecified; F41.9 Anxiety disorder, unspecified; R09.1 Pleurisy; R03.0 Elevated blood-pressure reading, without diagnosis of hypertension; F95.2 Tourette's disorder
CPT/HCPCS: 93005; 99282

== ENCOUNTER 2025-05-28 01:10 | Emergency (ER) | payer MEDICAID, SELFPAY ==
[2025-05-28 01:10] VITALS: BP 163/94; PULSE 81; RESP 19; TEMP 36.8; O2SAT 100; BMI 34.3
--- NOTE | 2025-05-28 01:47 | EDS_ITS ---
HPI History of Present Illness Chief Complaint: Rash Informant: patient Narrative Narrative: Patient is a 34-year-old male with history of anxiety, bipolar disorder, Tourette's and hypertension presenting with rash to his bilateral thighs. He states it started about a week ago on his left thigh. There is no erythema that grew to be at the size of about half of his anterior thigh. He states it is itchy but then after he scratches it it becomes burning. He tried putting some lotion on it with no relief. Then developed on the right thigh as well about a day later. He notes that he has been having some night sweats the past few nights and has been having a mild headache, myalgias and just feeling very tired. Denies any sores in his mouth. Denies any fevers. Denies any painful urination or defecation. Denies any recent medication changes. Came in for further evaluation. He denies any new close, exposures, travel. Is not aware of any known tick bites. [facility] Medical History Anxiety Bipolar disorder Tourette's Home Medications ?Medication ?Instructions ?Recorded ?Last Taken ?Type fluphenazine HCl 2.5 mg tablet 5 mg PO DAILY 05/31/20 Unknown History fluoxetine 40 mg capsule 40 mg PO DAILY 01/15/24 Unkn own History cetirizine 10 mg tablet (Zyrtec) 10 mg PO DAILY #14 ta bs 05/28/25 Unknown Rx hydrocortisone 2.5 % lotion 1 applic topical TID PRN s kin 05/28/25 Unknown Rx irritation #59 mL lisinopril 5 mg tablet 10 mg PO DAILY 05/28/25 Unkn own History Allergy/AdvReac Type Severity Reaction Status Date / Time amoxicillin AdvReac PT UNSURE Verified 05/28/25 01:10 OF REACTION cefaclor (From Ceclor) AdvReac PT UNSURE Verified 05/28/25 01:10 OF REACTION prednisone AdvReac Other Verified 05/28/25 01:10 Surgical History S/P hernia surgery Hx of appendectomy History of tonsillectomy and adenoidectomy Social History household members: spouse Smoking Status: Never smoker ROS ROS ED Constitutional Constitutional ED: Reports other Details: Fatigue ; Denies chills or fever(s) Eyes Eyes: Denies change in vision ENT ENT ED: Denies rhinorrhea or sore throat Cardiovascular Cardiovascular: Denies chest pain Respiratory/Chest Respiratory/Chest: Denies cough or dyspnea Gastrointestinal Gastrointestinal: Denies abdominal pain, nausea or vomiting Genitourinary Genitourinary ED: Denies dysuria Musculoskeletal Musculoskeletal: Reports arthralgias and myalgias Integumentary Reports rash Neurologic Neurologic: Reports headache(s) and weakness; Denies paresthesias Psychiatric Psychiatric: Denies anxiety or depression Hematologic/Lymphatic Hematologic/Lymphatic: Denies easy bleeding or easy bruising Allergic/Immunologic Allergic/Immunologic ED: Denies mouth swelling, tongue swelling or urticaria EXAM Physical Exam Const Vital Signs: 05/28/25 01:10 Temperature 98.2 F Temperature Source Oral Pulse Rate 81 Respiratory Rate 19 H Blood Pressure 163/94 H Blood Pressure Mean 117 Pulse Ox 100 Oxygen Delivery Method Room Air Positive well nourished and well developed General Appearance ED: well developed and NAD HEENT Reports moist mucous membranes HEENT Narrative: No sores noted in the mouth or oropharynx Negative for trauma Eyes PERRL and EOMs intact bilaterally Neck supple Neck Narrative: Normal range of motion of the neck, no meningeal signs Chest Wall inspection of chest normal and palpation of chest normal Resp normal respiratory effort and clear to auscultation bilaterally Cardio regular rate, regular rhythm and no murmurs GI normal to inspection, nondistended, normoactive bowel sounds and non-tender Extremity normal to inspection General Extremety ED: Negative for edema or tenderness General Extremity: Negative for edema Neuro oriented x3 Sensorium / Orientation: alert Motor Exam: Negative for general weakness Psych mental status grossly normal Skin Skin Narrative: Large area of raised, blanching erythema and warmth of the bilateral anterior thighs. In the central area on the left thigh there is some mild peeling of the skin and some central clearing but is not real demarcated. On the right anterior thigh there is some central excoriation but no central clearing. There is another small area of more regular erythema of the right groin. Negative Nikolsky sign. No petechial lesions. MDM MDM MDM Narrative Medical decision making narrative: Patient valuated for pruritic rash to bilateral thighs. Differential includes localized contact dermatitis/allergic reaction, erythema multiforme minor, erythema migrans/Lyme disease urticaria. Given has been in the same spot for a week lower suspicion for urticaria. He has no systemic signs of anaphylaxis or more severe allergic reaction. He does have some mild viral/infectious symptoms. He overall is well-appearing. Negative Nikolsky sign and no mucosal membrane involvement concerning for more severe process such as Arellano-Yomi syndrome/TENS. Lab work including CBC, CMP, CRP and Lyme titer sent. Workup negative however Lyme titer still pending. Will treat with antihistamine (Zyrtec) and topical steroids as patient has a history of what sounds like jasmeet with oral steroids. Counseled that if his Lyme titer comes up positive he will require antibiotics and we will contact him. He is agreeable this plan of care. Discharged home in stable condition. Lab Data Attestation: I reviewed the patient's lab results. Labs: Laboratory Results - last 24 hr 05/28/25 05/28/25 02:10 02:10 WBC 8.1 RBC 4.96 Hgb 14.3 Hct 41.0 MCV 82.7 MCH 28.8 MCHC 34.9 RDW Std Deviation 37.7 RDW Coeff of Faiza 12.7 Plt Count 202 MPV 11.0 Immature Gran % (Auto) 0.100 Neut % (Auto) 52.1 Lymph % (Auto) 35.6 Gilliam % (Auto) 6.5 Eos % (Auto) 5.0 Baso % (Auto) 0.7 Absolute Neuts (auto) 4.2 Absolute Lymphs (auto) 2.87 Nucleated RBC % 0 Sodium 138 Potassium 3.9 Chloride 105 Carbon Dioxide 21.3 Anion Gap 11 BUN 20 H Creatinine 0.98 Estim Creat Clear Calc 137.48 Est GFR (MDRD) Non-Af 105 BUN/Creatinine Ratio 20.5 H Glucose 96 Calcium 9.0 Total Bilirubin 0.28 AST 22 ALT 20 Alkaline Phosphatase 81 C-React Prot Ext Range Cancelled 1.87 Total Protein 6.6 Albumin 4.2 Globulin 2.4 Albumin/Globulin Ratio 1.8 Discharge Plan Triage Chief Complaint: Rash ED Provider: Freda Whitehead Dx/Rx/DC Orders Clinical Impression: Dermatitis Instructions: ED Erythema Prescriptions: New cetirizine [Zyrtec] 10 mg tablet 10 mg PO DAILY Qty: 14 0RF hydrocortisone 2.5 % lotion 1 applic topical TID PRN (Reason: skin irritation) Qty: 59 0RF No Action fluphenazine HCl 2.5 MG tablet 5 mg PO DAILY fluoxetine 40 mg capsule 40 mg PO DAILY lisinopril 5 mg tablet 10 mg PO DAILY Primary Care Provider: Easton Kang Referrals: Easton Kang MD [Primary Care Provider] - Activity Restrictions/Additional Instructions: Your lab work today was largely normal. The exact cause of the rash is not clear. Possible it could be skin irritants, localized allergic reaction, from a viral illness or possibly Lyme disease. You do have Lyme titers that are pending. Will contact you if they are positive and you require antibiotics. In the meantime you been given prescriptions for an antihistamine and topical steroids to help with the symptoms. Print Language: French Disposition Disposition: Home, Self Care
--- OUTSIDE RECORDS SUMMARY | 2025-05-28 02:16 | XMS RPT_ITS | CCD ---
Author Organization [facility] Care Team Providers Care Caddy Master Name Role Phone Brendan Kang MD Primary Care Provider Brendan Kang MD Primary Care Provider Tannhof [employer]IM[employer] MECHANIC.Kia REDDING Unavailable Vick EXPERIMENTAL ROCKET SLED MECHANIC.Delvin REDDING Unavailable Morris Staples Attending Unavailable Elderbrock, Brendan Primary Care Unavailable Sincere Flores Attending Unavailable Elderbrock, Brendan Primary Care Unavailable Elderbrock, Brendan Primary Care Unavailable Isiah Olivo Attending Unavailable Petr Venegsa Attending Unavailable EldercarlosckBrendan Primary Care Unavailable Tannhof EXPERIMENT[employer]OCK[employer]ED MECHANIC.Kia REDDING Unavailable Unavail able Tannhof EXPERIMENT[employer] ROCKET [employer]ED MECHANIC.Kia REDDING Unavailable BRENDAN KANG Primary Care Unavailable ELDERBRENDAN TRUJILLO Attending Unavailable BRENDAN KANG Primary Care Unavailable CHARMOIRA, RAGHID Referring Unavailable RACHEL HIGGINS Attending Unavailable ELDERBRENDAN TRUJILLO Primary Care Unavailable BOBO JASMINE Attending Unavailab BRENDAN Barajas Primary Care Unavailable CHARARA, RAGHID Referring Unavailable CHARARA, RAGHID Attending Unavailable ELDERCARLOSCK BRENDAN Birgit Primary Care Unavailable CHARARA, RAGHID Referring Unavailable CHARARA, RAGHID Attending Unavailable ELDERCARLOSCK BRENDAN Birgit Primary Care Unavailable ELDERCARLOSCKBRENDAN Primary Care Unavailable SELF Referring Unavailable CHARARA, RAGHID Attending Unavailable ELDERCARLOSCK BRENDAN Birgit Primary Care Unavailable SELF Referring Unavailable CHARARA, RAGHID Attending Unavailable PEARL BRENDAN Birgit Primary Care Unavailable KIA COLLINS Attending UnavailSAIMA Figueredo Attending Unavailable ELDERBRENDAN TRUJILLO Primary Care Unavailable ELDERCARLOSCK BRENDAN Birgit Primary Care Unavailable RONALDO, RACHEL Attending Unavailable BRENDAN KANG Primary Care Unavailable BRENDAN KANG Primary Care Unavailable KIA COLLINS Referring Unavailabl BRENDAN Anaya Primary Care Unavailable BRENDAN KANG Primary Care Unavailable BRENDAN KANG Attending Unavailable BRENDAN KANG Primary Care Unavailable BRENDAN KANG Referring Unavailable BRENDAN KANG Primary Care Unavailable BRENDAN KANG Attending Unavailable BRENDAN KANG Primary Care Unavailable SAIMA DYSON Referring Unavailable BRENDAN KANG Primary Care Unavailable BRENDAN KANG Attending Unavailable BRENDAN KANG Primary Care Unavailable BRENDAN KANG Referring Unavailable BRENDAN KANG Primary Care Unavailable Allergies Allergy Classification Reported Allergen(s) Allergy Type Date of Onset Reaction(s) Facility Cephalosporins (antibiotic) (1 source) Cefaclor Drug Allergy 11-12-2005 [facility] Penicillins (antibiotic) (1 source) Amoxicillin Drug Allergy 11-12-2005 [facility] (20 sources) Amoxicillin; Translations: [AMOXICILLIN] Drug Allergy 11-12-2005 [facility] (20 sources) Cefaclor; Translations: [CEFACLOR] Drug Allergy 11-12-2005 [facility] (2 sources) predniSONE Drug Allergy 03-27-2023 Other [facility] (1 source) Amoxicillin Drug Allergy 11-04-2024 [facility] (1 source) Cefaclor Drug Allergy 11-04-2024 [facility] (1 source) predniSONE Drug Allergy 11-04-2024 [facility] Medications Current Medications Medication Drug Class(es) Dates Sig (Normalized) Sig (Original) [id number] 200 actuat albuterol 0.09 mg/actuat metered dose inhaler (20 sources) beta2-Adrenergic Agonist Start: 09-21-2024 take 2 puff(s) by inhalation every four hours as needed for wheezing albuterol HFA (VENTOLIN HFA) 90 mcg/actuation inhaler Indications: URI with cough and congestion Inhale 2 Puffs as instructed every 4 hours as needed for wheezing/shortnes s of breath. 18 g 09/21/2024 Active Start: 11-11-2022 End: 09-21-2024 take 2 puff(s) by inhalation every four hours as needed for wheezing albuterol HFA (VENTOLIN HFA) 90 mcg/actuation inhaler Indications: Bronchitis Inhale 2 Puffs as instructed every 4 hours as needed for wheezing/shortness of breath. 1 Each 11/11/2022 09/21/2024 Discontinued (Course of therapy completed) Comment on above: Inhale 2 Puffs as [...] until gone. benzonatate 100 mg oral capsule (13 sources) Non-narcotic Antitussive Start: End: take 1 capsule by mouth three times daily as needed for cough benzonatate (TESSALON PERLE) 100 mg capsule Indications: Viral illness Take 1 capsule by mouth three times a day as needed for cough for up to 7 days. 21 capsule 01/08/2025 01/15/2025 Active Start: 09-21-2024 End: 11-08-2024 take 2 capsules by mouth three times daily as needed benzonatate (TESSALON PERLE) 100 mg capsule Indications: URI with cough and congestion Take 2 capsules by mouth three times a day as needed. 30 capsule 09/21/2024 11/08/2024 Discontinued Start: 06-26-2024 End: 07-27-2024 take 1 capsule by mouth every eight hours as needed benzonatate (TESSALON PERLE) 100 mg capsule Take 1 capsule by mouth three times a day as needed. 21 capsule 06/26/2024 07/27/2024 Discontinued (Course of therapy completed) Start: 08-11-2023 take 1 capsule by mo [...] 10 mg oral tablet (3 sources) Start: 02-14-20 busPIRone (BUSPAR) 10 mg tablet Indications: [place] Tourette syndrome , Anxiety Take 1/2 tablet 3 times daily x 3 days, then inc as instructed to take 1 tablet 3 times daily 90 tablet 5 02/14/2024 Active clonazePAM 0.5 mg oral tablet (6 sources) Benzodiazepine Start: 10-23-19 End: 12-09-19 take 0.25 mg by mouth every twelve hours as needed for anxiety and anxiety clonazePAM (KLONOPIN) 0.5 mg tablet Indications: Anxiety Take 0.5 tablets by mouth two times a day as needed for anxiety for up to 30 days. 15 tablet 1 11/08/2024 Active clotrimazole 10 mg/ml topical cream (1 source) Azole Antifungal Start: 07-12-20 End: 07-19-20 clotrimazole (LOTRIMIN) 1 % cream Apply to affected area two times a day for 7 days. 12 g 07/12/2024 07/19/2024 Active doxycycline hyclate 100 mg oral tablet (2 sources) Tetracycline-class Drug Start: 06-26-20 End: 07-03-20 take 1 tablet by mouth twice daily [...] on above: Take 1 tablet by tomeka two times a day for 7 days. FLUoxetine 40 mg oral capsule (20 sources) Serotonin Reuptake Inhibitor Start: 03-13-2025 take 1 capsule by mouth once daily FLUoxetine (PROZAC) 40 mg capsule Take 1 capsule by mouth once daily. 03/13/2025 Active Start: 02-05-2025 End: 08-04-2025 FLUoxetine (PROZAC) 20 mg ca psule Take 3 capsules by mouth once daily. Patient should start on February 05, 2025. 270 capsule 1 02/05/2025 03/13/2025 Discontinued Start: 02-01-2025 End: 03-13-2025 take 1 capsule by mouth once daily FLUoxetine (PROZAC) 10 mg capsule take 1 capsule by mouth once daily take with 2 OF THE 20 milligram capsules for 1 week UNTIL January) 7 capsule 02/01/2025 03/13/2025 Discontinued Start: 01-29-2025 take 1 capsule by [facility] once daily FLUoxetine (PROZAC) 10 mg capsule Take 1 capsule by mouth once daily. Take with two of the 20mg capsules for one week (until February 05) 7 capsule 01/29/2025 Active Start: 11-08-2024 End: 12-08-2024 take 1 capsule by mouth once daily, then take 2 capsules by mouth once daily FLUoxetine (PROZAC) 20 mg capsule Take 1 capsule by mouth once daily for 7 days, THEN 2 capsules once daily for 23 days. 53 capsule 1 11/08/2024 Active Start: 02-07-2024 take 1 capsule by mo [facility] once daily FLUoxetine (PROZAC) 20 mg capsule [...] Start: 11-27-2022 take 1 capsule by mo [facility] once daily FLUoxetine (PROZAC) [...] on above: Take 1 capsule by mo [facility] once daily. Take 1 capsule by mo [facility] once daily. Take along with 40 mg pill fluPHENAZine hydrochloride 5 mg oral tablet (20 sources) Phenothiazine Start: 09-25-20 take 0.5 tablet by mouth once daily in the morning, then take 0.5 tablet by mouth once, then take 1 tablet by mouth once daily at bedtime fluPHENAZine (PROLIXIN) 5 mg tablet Indications: [place] Tourette syndrome Take 0.5 tablets by mouth every morning AND 0.5 tablets every afternoon AND 1 tablet daily at bedtime. 60 tablet 1 09/25/2024 Active Start: 02-20-2022 End: 02-13-2025 take 1 tablet by mouth once daily at bedtime fluPHENAZine (PROLIXIN) 5 mg tablet Indications: [place] Tourette syndrome Take 1 tablet by mouth daily at bedtime. 90 tablet 1 01/29/2025 Active Start: 01-01-2022 End: 04-01-2022 take 1 tablet by mouth twice daily fluPHENAZine (PROLIXIN) 5 mg tablet Take 1 tablet by mouth twice daily. 180 tablet 0 01/01/2022 02/20/2022 Discontinued Start: 05-31-2020 take 5 mg by mouth once daily Fluphenazine Hcl Active 5 MG PO DAILY May 31, 2020 12:00am Start: 05-31-2020 take 2.5 mg by mouth twice daily Fluphenazine Hcl Active 2.5 MG PO TWICE A DAY May 31, 2020 12:00am Comment on above: Take 1 tablet by tomeka th twice daily. Take 1 tablet by tomeka th once daily. lisinopril 10 mg oral tablet (20 sources) Angiotensin Converting Enzyme Inhibitor Start: 11-16-2024 End: 05-15-2025 take 1 tablet by mouth once daily lisinopril (ZESTRIL) 10 mg tablet Indications: Hypertension, essential Take 1 tablet by mouth once daily. 30 tablet 5 11/16/2024 05/15/2025 Active Start: 05-02-2024 End: 11-16-2024 take 1 tablet by mouth once daily lisinopril (ZESTRIL) 5 mg tablet Indications: Hypertension, essential Take 1 tablet by mouth once daily. 30 tablet 5 05/02/2024 11/16/2024 Discontinued meloxicam 15 mg oral tablet (1 source) Nonsteroidal Anti-inflammatory Drug Start: 04-21-2023 End: 05-21-2023 take 1 tablet by mouth once daily at mealtime meloxicam (MOBIC) 15 mg tablet Indications: Rib pain on right side , Contusion of rib on right side, subsequent encounter Take 1 tablet by mouth once daily. With food. 30 tablet 0 04/21/2023 05/21/2023 Active Comment on above: Take 1 tablet by tomeka th once daily. With food. methylPREDNISolone (1 source) Corticosteroid Start: 11-11-2022 End: 11-17-2022 methylPREDNISolone (MEDROL, ELVIE,) 4 mg Dose-Pack Indications: Bronchitis Follow dosing instructions, take with food. 21 tablet 0 11/11/2022 11/17/2022 Active Comment on above: Follow dosing instru ctions, take with food. phentermine hydrochloride 37.5 mg oral tablet (4 sources) Sympathomimetic Amine Anorectic Start: 03-13-2025 End: 04-12-2025 take 33-33.9 tablets by mouth once daily Phentermine HCl (ADIPEX-P) 37.5 mg tablet Indications: Class 1 obesity with body mass index (BMI) of 33.0 to 33.9 in adult, unspecified obesity type, unspecified whether serious comorbidity present Take 1 tablet by mouth once daily for 30 days. 30 tablet 03/13/2025 04/12/2025 Active predniSONE 10 mg oral tablet (6 sources) Start: 03-20-2025 End: 04-01-2025 predniSONE (DELTASONE) 10 mg tablet Indications: Lumbar back pain Take 4 tabs daily x 3 days, then 3 tabs x 3 days, 2 tabs x 3 days, then 1 tab x3 days with food. 30 tablet 03/20/2025 04/01/2025 Active Start: 01-08-2025 End: 01-11-2025 take 1 tablet by mouth twice daily predniSONE (DELTASONE) 20 mg tablet Indications: Sore throat Take 1 tablet by mouth two times a day for 3 days. 6 tablet 01/08/2025 01/10/2025 Discontinued (Course of therapy completed) Start: 12-18-2020 End: 01-15-2024 take 40 mg by mouth once daily at mealtime Prednisone Discontinued 40 MG PO DAILY December 18, 2020 12:00am January 15, 2024 2:14am With food Completed/Discontinued Medications Medication Drug Class(es) Dates Sig [...] oral solution (3 sources) alpha-Adrenergic Agonist, Uncompetitive X-lcbbrn-R-aspartat e Receptor Antagonist, Sigma-1 Agonist Start: 05-05-2021 [...] above: Take 1 tablet by tomeka once daily. cyclobenzaprine hydrochloride 10 mg oral [...] on above: Take 1 tablet by tomeka two times a day as needed for muscle spasm or pain. DULoxetine 60 mg delayed release oral capsule (2 sources) Serotonin and Norepinephrine Reuptake Inhibitor Start: 11-19-2022 End: 11-27-2022 take 1 capsule by mouth once daily DULoxetine (CYMBALTA) 60 mg capsule Take 1 capsule by mouth once daily. 30 capsule 5 11/19/2022 11/27/2022 Discontinued Comment on above: Take 1 capsule by mo [facility] once daily. famotidine 20 mg oral tablet (2 sources) Histamine-2 Receptor Antagonist Start: 12-18-2020 End: 01-15-2024 take 20 mg by mouth twice daily Famotidine Discontinued 20 MG PO TWICE A DAY December 18, 2020 12:00am January 15, 2024 2:14am fluticasone propionate 0.05 mg/actuat metered dose nasal spray (4 sources) Corticosteroid Start: 01-10-2025 End: 03-13-2025 take 2 spray(s) by mouth once daily fluticasone (FLONASE) 50 mcg/actuation nasal spray Use 2 sprays in each nostril once daily. Rinse mouth after use. 1 each 1 01/10/2025 03/13/2025 Discontinued hydrOXYzine pamoate 25 mg oral capsule (12 sources) Antihistamine Start: 03-01-2024 End: 07-27-2024 take 1 capsule by mouth every eight hours as needed hydrOXYzine pamoate (VISTARIL) 25 mg capsule Take 1 capsule by mouth three times a day as needed for anxiety. 90 capsule 2 03/02/2024 07/27/2024 Discontinued (Course of therapy completed) naproxen 500 mg oral tablet (4 sources) [...] Comment on above: Take 1 tablet by [facility] two times a day as needed. Take with food. omeprazole 20 mg delayed release oral capsule (13 sources) Proton Pump Inhibitor Start: 02-25-2023 End: 12-23-2023 take 1 capsule by mouth once daily before breakfast omeprazole (PRILOSEC) 20 mg capsule Take 1 capsule by mouth daily before breakfast. 1/2 hr before meal. 30 capsule 5 02/25/2023 12/23/2023 Discontinued Start: 09-02-2022 take 1 capsule by [facility] once daily before breakfast omeprazole (PRILOSEC) 20 mg capsule Take 1 capsule by mouth daily before breakfast. 1/2 hr before meal. 30 capsule 2 09/02/2022 Active Comment on above: Take 1 capsule by [facility] daily before breakfast. 1/2 hr before meal. QUEtiapine 25 mg oral tablet (2 sources) Atypical Antipsychotic Start: 04-11-20 End: 05-11-20 24 take 0.5 tablet by mouth twice daily QUEtiapine (SEROQUEL) 25 mg tablet Take 0.5 tablets by mouth two times a day. 30 tablet 0 04/11/2024 05/02/2024 Discontinued sertraline 50 mg oral tablet (2 sources) Serotonin Reuptake Inhibitor Start: 11-06-19 End: 11-16-19 take 0.5 tablet by mouth once daily, then take 1 tablet by mouth once daily sertraline (ZOLOFT) 50 mg tablet TAKE 1/2 TABLET BY MOUTH ONCE DAILY FOR 4 DAYS, THEN 1 TABLET ONCE DAILY 32 tablet 11/06/2024 11/16/2024 Discontinued (Discontinued by another Health Care Provider) tadalafil 10 mg oral tablet (15 sources) Phosphodiesterase 5 Inhibitor Start: 07-19-20 23 End: 05-02-20 take 1 tablet by mouth [...] activity). Take 1-2 hours before sexual activity. terbinafine 250 mg oral tablet (4 sources) Allylamine Antifungal Start: 07-31-20 End: 09-21-20 take 1 tablet by mouth once daily terbinafine HCl (LAMISIL) 250 mg tablet Indications: Fungal skin infection Take 1 tablet by mouth once daily. 14 tablet 07/31/2024 09/21/2024 Discontinued (Course of therapy completed) divalproex sodium 250 mg delayed release oral tablet (6 sources) Mood Stabilizer, Anti-epileptic Agent Start: 09-22-20 End: 09-25-20 take 1 tablet by mouth once daily at bedtime divalproex DR (DEPAKOTE) 250 mg EC tablet Take 1 tablet by mouth daily at bedtime. 60 tablet 1 09/22/2024 09/25/2024 Discontinued Start: 09-13-2024 End: 10-20-2024 take 1 tablet by mouth once daily at bedtime, then take 2 tablets by mouth once daily at bedtime divalproex DR (DEPAKOTE) 125 mg EC tablet Take 1 tablet by mouth daily at bedtime for 7 days, THEN 2 tablets daily at bedtime. 7 tablet 09/13/2024 09/22/2024 Discontinued 24 hr venlafaxine 75 mg extended release oral capsule (2 sources) Serotonin and Norepinephrine Reuptake Inhibitor Start: 07-19-2023 End: 07-26-2023 take 1 capsule by mouth once daily venlafaxine ER (EFFEXOR XR) 75 mg 24 hr capsule Indications: Generalized anxiety disorder , Bipolar affective disorder, remission status unspecified (HCC) Take 1 capsule by mouth once daily. 30 capsule 5 07/19/2023 07/26/2023 Discontinued (Side Effects) Comment on above: Take 1 capsule by mo [facility] once daily. Problems Active Problems Problem Classification Problem Date Documented Date Episodic/Chronic Allergic reactions (2 sources) Urticaria; Translations: [Urticaria, unspecified] 12-19-2020 Episodic Anxiety disorders (20 sources) Generalized anxiety disorder; Translations: [Generalized anxiety disorder] Onset: 11-12-2005 11-12-2005 Chronic Anxiety disorders (1 source) Feeling irritable; Translations: [Irritability and anger] 09-13-2024 Episodic Chronic obstructive pulmonary disease and bronchiectasis (2 sources) Bronchitis; Translations: [Bronchitis, not specified as acute or chronic] Episodic Disorders usually diagnosed in infancy, childhood, or adolescence (20 sources) [place] Tourette's syndrome; Translations: [Tourette's disorder] Onset: 11-12-2005 11-12-2020 Chronic Essential hypertension (3 sources) Essential hypertension; Translations: [Essential (primary) hypertension] Onset: 05-02-2024 05-02-2024 Chronic Lymphadenitis (1 source) Acute lymphadenitis of face, head and neck; Translations: [Acute cervical lymphadenitis] 01-15-2024 Episodic Miscellaneous mental health disorders (1 source) Lack or loss of sexual desire; Translations: [Hypoactive sexual desire disorder] 07-19-2023 Chronic Mood disorders (20 sources) Bipolar disorder; Translations: [Bipolar disorder, unspecified] 09-16-2021 Chronic Mycoses (2 sources) Tinea cruris; Translations: [Tinea cruris] 07-12-2024 Episodic Other injuries and conditions due to external causes (2 sources) Closed injury of head; Translations: [Unspecified injury of head, initial encounter] 03-27-2023 Episodic Other lower respiratory disease (1 source) Rib pain; Translations: [Pleurodynia] 04-21-2023 Episodic Other lower respiratory disease (1 source) Pleurodynia; Translations: [Pleurodynia] Onset: 11-21-2024 Episodic Other lower respiratory disease (1 source) Cough; Translations: [Acute cough] 01-30-2025 Episodic Other male genital disorders (1 source) Secondary erectile dysfunction; Translations: [Male erectile dysfunction, unspecified] 07-19-2023 Chronic Other nutritional; endocrine; and metabolic disorders (1 source) Obesity; Translations: [Class 1 obesity with body mass index (BMI) of 33.0 to 33.9 in adult, unspecified obesity type, unspecified whether serious comorbidity present] 03-13-2025 Chronic Other nutritional; endocrine; and metabolic disorders (1 source) Body mass index (BMI) 33.0-33.9, adult; Translations: [Class 1 obesity with body mass index (BMI) of 33.0 to 33.9 in adult, unspecified obesity type, unspecified whether serious comorbidity present] Onset: 03-13-2025 Chronic Other upper respiratory infections (1 source) Chronic sinusitis; Translations: [Chronic sinusitis, unspecified] 06-26-2024 Chronic Otitis media and related conditions (1 source) Acute left otitis media; Translations: [Otitis media, unspecified, left ear] 08-11-2023 Episodic Residual codes; unclassified (2 sources) Difficulty sleeping ; Translations: [Sleep disorder, unspecified] 02-14-2024 Episodic Spondylosis; intervertebral disc disorders; other back problems (9 sources) Backache; Translations: [Dorsalgia, unspecified] 06-28-2023 Episodic Sprains and strains (1 source) Strain of neck muscle; Translations: [Strain of muscle, fascia and tendon at neck level, initial encounter] 06-28-2023 Episodic Superficial injury; contusion (3 sources) Contusion of rib; Translations: [Contusion of unspecified front wall of thorax, initial encounter] 03-27-2023 Episodic Unclassified (2 sources) No history of clinical finding in subject; Translations: [No significant past medical history] 12-18-2020 Unclassified (1 source) APPOINTMENT CANCELLED 04-06-2024 Unclassified (2 sources) NO SHOW 11-30-2024 Unclassified (1 source) Lumbar back pain; Translations: [Lumbar back pain] Onset: 03-13-2025 Unclassified (1 source) Class 1 obesity with body mass index (BMI) of 33.0 to 33.9 in adult, unspecified obesity type, unspecified whether serious comorbidity present; Translations: [Class 1 obesity with body mass index (BMI) of 33.0 to 33.9 in adult, unspecified obesity type, unspecified whether serious comorbidity present] Onset: 03-13-2025 Unclassified (1 source) Acute cough; Translations: [Acute cough] Onset: 01-30-2025 Viral infection (1 source) Viral disease; Translations: [Viral infection, unspecified] 01-08-2025 Episodic Past or Other Problems Problem Classification Problem Date Documented Da te Episodic/Chronic Abdominal pain (2 sources) Epigastric pain; Translations: [Epigastric pain] Onset: 05-18-2024 Episodic Intracranial injury (3 sources) Concussion injury of body structure; Translations: [Concussion] Onset: 08-09-2024 03-27-2023 Episodic Malaise and fatigue (3 sources) Fatigue; Translations: [Other fatigue] Onset: 05-02-2024 05-01-2024 Episodic Other upper respiratory infections (20 sources) Acute upper respiratory infection; Translations: [Acute upper respiratory infection, unspecified] Onset: 07-09-2020 07-09-2020 Episodic Results Test Name Value Interpretation Reference Range Facility [facility] 03-13-2025 CNOV Office Visit (FAMPWS ) LEXUS HANDY ([id number]) 1990 M Date Time Provider Department 03/13/25 3:40 PM [facility] During your visit today, we recorded the following information about you: Pulse Respiration Blood pressure Weight 77/minute 16/minute 124/70 109.3 kg Brendan Kang MD 03/13/2025 3:49 PM Signed Chief Complaint Back pain HPI Lexus Handy is a 34 year old male who presents here today for back issue. Pt c/o chronic lower and mid back pain, burning, ache, stabbing, throbbing pain for many years but worse the past 5 years. He has tried using heat and ice, and using OTC pain relievers. He was suppose to get some xrays done in Oct on the back and do PT but stated he wasn't able to get those completed due to work schedule. Would like to get the xrays reordered. Pt was seen in Oct for this pain. Hx of back injury in 2013 lifting weights. Working as a [employer]. From 11/21 note: Back pain - Reports he injured his back weight lifting ( lifting) in 2012. When he injured it he felt like something popped in the middle of his back; was unable to lift weight for several weeks. Pt reports that he's not had time to think about it more til now. Reports daily flare ups that can last all day long. Pain worse when working hard or when working strenuously. At times he feels he can't take a deep breath. He will try to lay down but this doesn't always help. Is using NSAID's for pain but this doesn't help. Pain rated a 6/10 and described as aching, dull, pressure, pulsating and sharp. Has seen chiropractor without help Past medical history, appointments, medications, allergies reviewed. Obesity: was on adipex in the past that was helpful, had some insomnia with it. He feels if he could lose weight his back would be better. Anxiety; Stable on prozac 40 mg daily. Previous Medical History PAST MEDICAL HISTORY Diagnosis [...] Prior to Visit Medication Sig FLUoxetine (PROZAC) 10 mg capsule take 1 capsule by mouth once daily take with 2 OF THE 20 milligram capsules for 1 week UNTIL January) fluPHENAZine (PROLIXIN) 5 mg tablet Take 1 tablet by mouth daily at bedtime. FLUoxetine (PROZAC) 20 mg capsule Take 3 capsules by mouth once daily. Patient should start on February 05, 2025. fluticasone (FLONASE) 50 mcg/actuation nasal spray Use 2 sprays in each nostril once daily. Rinse mouth after use. lisinopril (ZESTRIL) 10 mg tablet Take 1 tablet by [...] use: Not Currently Drug use: Never EXAM: There were no vitals taken for this visit. General Appearance: Well appearing, alert, in no acute distress, well-hydrated, well nourished.. Back:pain in mid lower lumbar area and along paraspinal muscles to mid back. Pain with movement in all directions; limited flexion. Health Maintenance List Depression Screening Never done Hepatitis C Screening Never done HIV Screening Never done Hepatitis B Vaccine(1 of - 19+ 3-dose series) Never done Covid-19 Vaccine( season) due on 01/10/2026 Influenza Vaccine(Season Ended) due on 05/28/2025 Annual PCP Team Chronic Disease Visit due on 01/10/2026 DTaP,Tdap,Td Vaccine(3 - Td or Tdap) due on 03/08/2034 Data reviewed none ASSESSMENT/PLAN: 1. Lumbar back pain - ICD9: 724.2, ICD10: M54.50 (primary diagnosis) - XR LUMBAR GENERAL 3V AP/LAT/L5-S1 - CONSULT TO PHYSICAL THERAPY 2. Class 1 obesity with body mass index (BMI) of 33.0 to 33.9 in adult, unspecified obesity type, unspecified whether serious comorbidity present - ICD9: 278.00, V85.33, ICD10: E66.811, Z68.33 Stable - Behavioral and pharmacological intervention - PHENTERMINE 37.5 MG TABLET 3. Generalized anxiety disorder - ICD9: 300.02, ICD10: F41.1 Stable on Prozac Follow up in 1 month to check weight I agree with the Chief Complaint, ROS, and Past Histories independently gathered by the clinical sales support advisor and the (more content not included)... Normal [facility] XR LUMBAR 3V AP/LAT/L5-S1on 03-13-2025 XR LUMBAR 3V AP/LAT/L5-S1 * * *Final Report* * * DATE OF EXAM: Mar 13 2025 4:05PM WOX [id number] - XR LUMBAR 3V AP/LAT/L5-S1 / PROCEDURE REASON: Lumbar back pain * * * * Physician Interpretation * * * * EXAM TITLE: XR LUMBAR 3V AP/LAT/L5-S1 EXAM DATE/TIME: 03/13/2025 4:05 PM COMPARISON: None. CLINICAL INDICATION/HISTORY: Low back pain TECHNIQUE: AP, lateral and cone down lateral views of the lumbar spine are presented. FINDINGS: There are five vjk-nal-rslqyny lumbar vertebrae. No fracture or subluxations are noted. The disc spaces are well preserved. There is mild osteophyte formation. IMPRESSION: Lumbar spine mild degenerative changes. Stock Patcher: PSCB Transcribe Date/Time: Mar 16 2025 2:06P Dictated by : SARAH CROUCH MD This examination was interpreted and the report reviewed and electronically signed by: SARAH CROUCH MD on Mar 16 2025 2:07PM EST [id number] Normal [facility] CNOVon 01-30-2025 CNOV Office Visit (UCWSTR ) LEXUS HANDY ([id number]) 1990 M Date Time Provider Department 01/30/25 12:15 PM SAIMA DYSON [facility] During your visit today, we recorded the following information about you: Temperature Pulse Respiration Blood pressure 97.9 degrees 88/minute 16/minute 118/82 Weight 109.9 kg Saima Dyson APRN.MIRROR MACHINE [employer]EDER 01/30/2025 4:27 PM Signed [facility] Subjective HPI HPI Lexus Handy is a 34 year old male who presents today for CC of cough, fever, wheezing. This started 3 days ago. Has tried otc medication for relief. Symptoms are worsened by nothing. Risk factors sick exposures. nonmsmoker. PAST MEDICAL HISTORY Diagnosis Date Bipolar disorder (HCC) Current moderate episode of major depressive disorder without prior episode (HCC) Generalized anxiety disorder Tourette syndrome PAST SURGICAL HISTORY Procedure Laterality Date APPENDECTOMY REPAIR ING HERNIA,5+Y/O,REDUCIBL TONSILLECTOMY AND ADENOIDECTOMY ALLERGIES Amoxil [Amoxicillin] and Ceclor [Cefaclor] MEDICATIONS fluPHENAZine (PROLIXIN) 5 mg tablet Take 1 tablet by mouth daily at bedtime. [START ON 02/05/2025] FLUoxetine (PROZAC) 20 mg capsule Take 3 capsules by mouth once daily. Patient should start on February 05, 2025. FLUoxetine (PROZAC) 10 mg capsule Take 1 capsule by mouth once daily. Take with two of the 20mg capsules for one week (until February 05) lisinopril (ZESTRIL) 10 mg tablet Take 1 tablet by mouth once daily. albuterol HFA (VENTOLIN HFA) 90 mcg/actuation inhaler Inhale 2 Puffs as instructed every 4 hours as needed for wheezing/shortness of breath. fluticasone (FLONASE) 50 mcg/actuation nasal spray Use 2 sprays in each nostril once daily. Rinse mouth after use. FAMILY HISTORY Problem Relation Age of Onset Tourette syndrome Brother Social History Tobacco Use Smoking status: Never Smokeless tobacco: Never Vaping Use Vaping status: Never Used Substance Use Topics Alcohol use: Not Currently Drug use: Never Review of Systems Constitutional: Positive for fever. Negative for chills and fatigue. HENT: Positive for rhinorrhea and sore throat. Negative for ear discharge, ear pain, sinus pressure and sinus pain. Eyes: Negative for discharge and redness. Respiratory: Positive for cough, shortness of breath and wheezing. Cardiovascular: Negative for chest pain. Skin: Negative for rash. Objective BP 118/82 Pulse 88 Temp 36.6 ?C (97.9 ?F) (Tympanic) Resp 16 Wt 109.9 kg (242 lb 4.6 oz) SpO2 97% BMI 33.79 kg/m? Physical Exam Constitutional: General: He is not in acute distress. Appearance: He is not ill-appearing, toxic-appearing or diaphoretic. HENT: Head: Normocephalic and atraumatic. Right Ear: Hearing, tympanic membrane, ear canal and external ear normal. Left Ear: Hearing, tympanic membrane, ear canal and external ear normal. Nose: Nose normal. Mouth/Throat: Pharynx: Uvula midline. Eyes: General: Lids are normal. No scleral icterus. Right eye: No discharge. Left eye: No discharge. Conjunctiva/sclera: Conjunctivae normal. Pupils: Pupils are equal, round, and reactive to light. Neck: Trachea: Trachea normal. Cardiovascular: Rate and Rhythm: Normal rate and regular rhythm. Heart sounds: Normal heart sounds. Pulmonary: Effort: Pulmonary effort is normal. Breath sounds: Normal breath sounds. Musculoskeletal: Cervical back: Normal range of motion and neck supple. Lymphadenopathy: Cervical: No cervical adenopathy. Skin: Findings: No rash. Neurological: Mental Status: He is alert and oriented to person, place, and time. {ASSESSMENT/PLAN: 1. URI, acute - ICD9: 465.9, ICD10: J06.9 (primary diagnosis) - Discussed viral etiology and rationale for treatment. - Symptomatic treatment with prn analgesia - Supportive care with fluids and rest - Follow up in 3-5 days if symptoms persist or sooner if worsening of symptoms -If you experience chest pain/shortness of breath go to ER 2. Acute cough - ICD9: 786.2, ICD10: R05.1 - XR CHEST 2V FRONTAL/LAT IMPRESSION: No acute radiographic abnormality. Dictated by : MD Saima RAUSCH APRN.VAHID History and Record Review External record(s) reviewed: prior outpatient record. Systemic symptoms present included: fever Disposition The patient was discharged. OTC Medications were advised: Saima Brandon APRN.CNP 01/30/2025 4:27 PM Signed {ASSESSMENT/PLAN: 1. URI, acute - ICD9: 465.9, ICD10: J06.9 (primary diagnosis) - Discussed viral etiology and rationale for treatment. - Symptomatic treatment with prn analgesia - Supportive care with fluids and rest - Follow up in 3-5 days if symptoms persist or sooner if worsening of symptoms -If you experience chest pain/shortness of breath go to ER Allergies As of Date: 01/30/2025 Noted Allergy Reaction AMOXIL (AMOXICILLIN) 10/28 (more content not included)... Normal [facility] XR CHEST 2V FRONTAL/LATon XR CHEST 2V FRONTAL/LAT * * *Final Report* * * DATE OF EXAM: Jan 30 2025 12:28PM WOX [id number] - XR CHEST 2V FRONTAL/LAT / PROCEDURE REASON: Acute cough * * * * Physician Interpretation * * * * EXAMINATION: CHEST RADIOGRAPH (2 VIEW FRONTAL and LATERAL) CLINICAL HISTORY: Acute cough MQ: XC2_6 EXAM DATE/TIME: 01/30/2025 12:28 PM COMPARISON: 04/21/2023 RESULT: Lines, tubes, and devices: None. Lungs and pleura: No consolidation. No lung mass. No pleural effusion. No pneumothorax. Cardiomediastinal silhouette: Normal cardiomediastinal silhouette. Bones and soft tissues: Unremarkable. IMPRESSION: No acute radiographic abnormality. Stock Patcher: PSCB Transcribe Date/Time: Jan 30 2025 12:30P Dictated by : JESE HAYES MD This examination was interpreted and the report reviewed and electronically signed by: JESE HAYES MD on Jan 30 2025 12:30PM EST [id number] Normal [facility] XR Chest PA and Lateralon IMPRESSION: No acute radiographic abnormality. Stock Patcher: PSCB Transcribe Date/Time: Jan 30 2025 12:30P Dictated by : JESE HAYES MD This examination was interpreted and the report reviewed and electronically signed by: JESE HAYES MD on Jan 30 2025 12:30PM EST DIVISION OF RADIOLOGY * * *Final Report* * * DATE OF EXAM: Jan 30 2025 12:28PM WOX [id number] - XR CHEST 2V FRONTAL/LAT / PROCEDURE REASON: Acute cough * * * * Physician Interpretation * * * * EXAMINATION: CHEST RADIOGRAPH (2 VIEW FRONTAL & LATERAL) CLINICAL HISTORY: Acute cough MQ: XC2_6 EXAM DATE/TIME: 01/30/2025 12:28 PM COMPARISON: 04/21/2023 RESULT: Lines, tubes, and devices: None. Lungs and pleura: No consolidation. No lung mass. No pleural effusion. No pneumothorax. Cardiomediastinal silhouette: Normal cardiomediastinal silhouette. Bones and soft tissues: Unremarkable. DIVISION OF RADIOLOGY Provider, [facility] Tammie [facility] - 01/30/2025 * * *Final Report* * * DATE OF EXAM: Jan 30 2025 12:28PM WOX [id number] - XR CHEST 2V FRONTAL/LAT / PROCEDURE REASON: Acute cough * * * * Physician Interpretation * * * * EXAMINATION: CHEST RADIOGRAPH (2 VIEW FRONTAL & LATERAL) CLINICAL HISTORY: Acute cough MQ: XC2_6 EXAM DATE/TIME: 01/30/2025 12:28 PM COMPARISON: 04/21/2023 RESULT: Lines, tubes, and devices: None. Lungs and pleura: No consolidation. No lung mass. No pleural effusion. No pneumothorax. Cardiomediastinal silhouette: Normal cardiomediastinal silhouette. Bones and soft tissues: Unremarkable. IMPRESSION IMPRESSION: No acute radiographic abnormality. Stock Patcher: PSCB Transcribe Date/Time: Jan 30 2025 12:30P Dictated by : JESE HAYES MD This examination was interpreted and the report reviewed and electronically signed by: JESE HAYES MD on Jan 30 2025 12:30PM EST [facility] Radiology Study observation (narrative) [facility] XR Chest PA and LateralOrder ed By: [facility] Provider on 01-30-2025 [facility] CNOVon 01-10-2025 CNOV Office Visit (FAMPWS ) LEXUS HANDY ([id number]) 1990 M Date Time Provider Department 01/10/25 2:20 PM BOBO JASMINE FAMPWS During your visit today, we recorded the following information about you: Temperature Pulse Respiration Blood pressure 97.6 degrees 71/minute 16/minute 118/74 Weight 111.2 kg Bobo Jasmine MD 01/11/2025 10:01 AM Signed Chief Complaint Patient presents with: Cough Chest Congestion Head Congestion Sore Throat: Started a week ago and is scratchy during the evenings and HS. Wheezing HPI Lexus Handy is a 34 year old male who presents here today for Above Complaints.. Evaluated in on 01/08 with complaint of URI symptoms with following HPI: Patient is a 34-year-old male who complains of congestion, sinus pressure, sore throat and cough that he has been experiencing for the past 2 days. Patient reports no fever, chills or myalgia. Patient does have a history of exercise-induced asthma and is using an inhaler, however the patient denies increased episodes of wheezing. Patient reports that his albuterol MDI is current and he does not require a refill for same. Patient has no history of tobacco use. Diagnosed with sore throat and viral illness and was started on tessalon and prednisone burst. Today, he states that he has been symptomatic since 01/06. He states that he only took 1 days worth of prednisone, but could not tolerate due to anger issues. Tessalon not helping much for his cough. Using dayquil, nyquil and mucinex PRN without much improvement. Notes that he has developed wheezing at night since EC evaluation. Needing albuterol inhaler BID. Still has dry cough, nasal congestion, rhinorrhea, post nasal drip, sinus frontal sinus pressure, sore throat at night, chest pain with cough, Denies SOB, chest congestion, nausea, vomiting,diarrhea, ear pain/fullness. Sick contact with fiance with sinus infection. Feels like symptoms are stable. Had to call off work today. Past medical history, appointments, medications, allergies reviewed. [...] on File Prior to Visit Medication Sig lisinopril (ZESTRIL) 10 mg tablet Take 1 tablet by mouth once daily. fluPHENAZine (PROLIXIN) 5 mg tablet Take 1 tablet by mouth daily at bedtime. predniSONE (DELTASONE) 20 mg tablet Take 1 tablet by mouth two times a day for 3 days. (Patient not taking: Reported on 01/10/2025) benzonatate (TESSALON PERLE) 100 mg capsule Take 1 capsule by mouth three times a day as needed for cough for up to 7 days. clonazePAM (KLONOPIN) 0.5 mg tablet Take 0.5 tablets by mouth two times a day as needed for anxiety for up to 30 days. FLUoxetine (PROZAC) 20 mg capsule Take 1 capsule by mouth once daily for 7 days, THEN 2 capsules once daily for 23 days. albuterol HFA (VENTOLIN HFA) 90 mcg/actuation inhaler Inhale 2 Puffs as instructed every 4 hours as needed for wheezing/shortness of breath. No current facility-administered medications on file prior to visit. Social History Social History Tobacco Use Smoking status: Never Smokeless tobacco: Never Vaping Use Vaping status: Never Used Substance Use Topics Alcohol use: Not Currently Drug use: Never Review of Symptoms REVIEW OF SYSTEMS See HPI EXAM: BP 118/74 Pulse 71 Temp 36.4 ?C (97.6 ?F) Resp 16 Wt 111.2 kg (245 lb 3.2 oz) SpO2 98% BMI 34.20 kg/m? General Appearance: Well appearing, alert, in no acute distress, well-hydrated, well nourished.. Skin: Skin color, texture, turgor normal, no suspicious rashes or lesions. Head: Normocephalic, no masses, lesions, tenderness or abnormalities. Eyes: Anicteric sclera. Pupils are equally round and reactive to light. Extraocular movements are intact. . Ears: External ears normal, canals clear. Nose/Sinuses: Nares normal, septum midline, mucosa normal, no drainage. Positive for maxillary sinus TTP. Oropharynx: Lips, mucosa, and tongue normal, teeth and gums normal, oropharynx normal. Neck: Supple, no adenopathy; thyroid symmetric, normal size, no bruits. Lungs: Lungs clear to auscultation. No wheezing, rhonchi, rales.. Heart: RRR without murmur, gallop, or rubs. No ectopy. Health Maintenance List Depression Screening Never done Hepatitis C (more content not included)... Normal [facility] CNOVon 01-08-2025 CNOV Office Visit (UCWSTR ) LEXUS HANDY ([id number]) 1990 M Date Time Provider Department 01/08/25 2:45 PM HEMANT BRENDAN UCWSTR During your visit today, we recorded the following information about you: Temperature Pulse Respiration Blood pressure 98.1 degrees 83/minute 16/minute 130/78 Weight 112.2 kg Brendan Marcos PA-C 01/08/2025 3:05 PM Signed This note was created using [email or web address]. Subjective Lexus Handy is a 34 year old male. Patient is a 34-year-old male who complains of congestion, sinus pressure, sore throat and cough that he has been experiencing for the past 2 days. Patient reports no fever, chills or myalgia. Patient does have a history of exercise-induced asthma and is using an inhaler, however the patient denies increased episodes of wheezing. Patient reports that his albuterol MDI is current and he does not require a refill for same. Patient has no history of tobacco use. Sore Throat Associated symptoms include congestion and coughing. Review of Systems HENT: Positive for congestion, sinus pressure and sore throat. Respiratory: Positive for cough. All other systems reviewed and are negative. Objective BP 130/78 Pulse 83 Temp 36.7 ?C (98.1 ?F) (Tympanic) Resp 16 Wt 112.2 kg (247 lb 5.7 oz) SpO2 98% BMI 34.50 kg/m? Physical Exam Vitals and nursing note reviewed. Constitutional: Appearance: Normal appearance. He is normal weight. HENT: Head: Normocephalic and atraumatic. Right Ear: Tympanic membrane, ear canal and external ear normal. Left Ear: Tympanic membrane, ear canal and external ear normal. Nose: Nose normal. Mouth/Throat: Mouth: Mucous membranes are moist. Pharynx: Oropharynx is clear. Eyes: Extraocular Movements: Extraocular movements intact. Conjunctiva/sclera: Conjunctivae normal. Pupils: Pupils are equal, round, and reactive to light. Cardiovascular: Rate and Rhythm: Normal rate and regular rhythm. Pulses: Normal pulses. Heart sounds: Normal heart sounds. Pulmonary: Effort: Pulmonary effort is normal. Breath sounds: Normal breath sounds. Musculoskeletal: Cervical back: Normal range of motion and neck supple. Skin: General: Skin is warm and dry. Capillary Refill: Capillary refill takes less than 2 seconds. Neurological: General: No focal deficit present. Mental Status: He is alert and oriented to person, place, and time. Psychiatric: Mood and Affect: Mood normal. Behavior: Behavior normal. Thought Content: Thought content normal. Judgment: Judgment normal. Assessment and Plan Physical exam findings as noted above. Rapid strep test is negative. Patient was provided with prescriptions for prednisone 20 mg and Tessalon 100 mg and supportive care instructions were discussed. Patient verbalizes excellent understanding of same. CLINICAL IMPRESSION: Viral Illness; Acute URI ASSESSMENT/PLAN: 1. Sore throat - ICD9: 462, ICD10: J02.9 (primary diagnosis) - STREP A MOLECULAR (POC) - PREDNISONE 20 MG TABLET 2. Viral illness - ICD9: 079.99, ICD10: B34.9 - BENZONATATE 100 MG CAPSULE MDM Amount and/or Complexity of Data Reviewed Clinical lab tests: ordered and reviewed Risk of Complications, Morbidity, and/or Mortality Presenting problems: low Diagnostic procedures: low Management options: bernard Marcos PA-C Allergies As of Date: 01/08/2025 Noted Allergy Reaction AMOXIL (AMOXICILLIN) 11/12/2005 2 - Rash CECLOR (CEFACLOR) 11/12/2005 4 - Hives Date Reviewed: 01/08/2025 Reviewed by: Delmy Rodriguez LPN - Fully Assessed Reason for Visit: Sore Throat [200] Cmt: ST, sinus, congestion and SILVA x 2 days Primary Visit Diagnosis:Sore throat [J02.9] Other Visit Diagnosis:Viral illness [B34.9] Order(s):STREP A MOLECULAR (POC) [[id number]] Order #: [id number]. #:[id number] predniSONE (DELTASONE) 20 mg tabletTake 1 tablet by mouth two times a day for 3 days.Disp: 6 tabletRfl: 0 benzonatate (TESSALON PERLE) 100 mg capsuleTake 1 capsule by mouth three times a day as needed for cough for up to 7 days.Disp: 21 capsuleRfl: 0 Prescriptions as of 01/08/2025 - predniSONE (DELTASONE) 20 mg tablet Take 1 tablet by mouth two times a day for 3 days. - benzonatate (TESSALON PERLE) 100 mg capsule Take 1 capsule by mouth three times a day as needed for cough for up to 7 days. - lisinopril (ZESTRIL) 10 mg tablet Take 1 tablet by mouth once daily. - clonazePAM (KLONOPIN) 0.5 mg tablet Take 0.5 tablets by mouth two times a day as needed for anxiety for up to 30 days. - FLUoxetine (PROZAC) 20 mg capsule Take 1 capsule by mouth once daily for 7 days, THEN 2 capsules once daily for 23 days. - fluPHENAZine (PROLIXIN) 5 mg tablet Take 1 tablet by mouth daily at bedtime. - albuterol HFA (VENTOLIN HFA) 90 mcg/actuation inhaler Inhale 2 Puffs as instructed every 4 hours as needed for wheezing (more content not included)... Normal [facility] STREP A MOLECULAR (POC)on Procedural Control Valid [facility] Strep A (POCT) Negative Negative [facility] CNOVon 11-16-2024 CNOV Office Visit (FAMPWS ) LEXUS HANDY ([id number]) 1990 M Date Time Provider Department 11/16/24 3:00 PM BRENDAN KANG During your visit today, we recorded the following information about you: Pulse Respiration Blood pressure Weight 80/minute 16/minute 124/90 115.3 kg Brendan Kang MD 11/16/2024 3:24 PM Signed Chief Complaint Patient presents with: Blood Pressure HPI Lexus Handy is a 34 year old male who presents here today for high blood pressure. Pt here today for an acute visit for HTN. Also notes he was seen at [facility] ED on 11/04/24. Pt hx of HTN and currently taking Lisinopril 5 mg once daily. Notes his BP was elevated when he was in the ED recently for back pain. Wondering if medications need adjusted. Back pain - Reports he injured his back weight lifting ( lifting) in 2013. When he injured it he felt like something popped in the middle of his back; was unable to lift weight for several weeks. Pt reports that he's not had time to think about it more til now. Reports daily flare ups that can last all day long. Pain worse when working hard or when working strenuously. At times he feels he can't take a deep breath. He will try to lay down but this doesn't always help. Is using NSAID's for pain but this doesn't help. Pain rated a 6/10 and described as aching, dull, pressure, pulsating and sharp. Has seen chiropractor without help Pain in bilateral lumbar paraspinal muscle area and lower lumbar spine, no radicular symptoms. States was seen in the ED a couple weeks ago and was dx with Pleurisy. Past medical history, appointments, medications, allergies reviewed. [...] on File Prior to Visit Medication Sig clonazePAM (KLONOPIN) 0.5 mg tablet Take 0.5 tablets by mouth two times a day as needed for anxiety for up to 30 days. FLUoxetine (PROZAC) 20 mg capsule Take 1 capsule by mouth once daily for 7 days, THEN 2 capsules once daily for 23 days. sertraline (ZOLOFT) 50 mg tablet TAKE 1/2 TABLET BY MOUTH ONCE DAILY FOR 4 DAYS, THEN 1 TABLET ONCE DAILY fluPHENAZine (PROLIXIN) 5 mg tablet Take 1 tablet by mouth daily at bedtime. albuterol HFA (VENTOLIN HFA) 90 mcg/actuation inhaler Inhale 2 Puffs as instructed every 4 hours as needed for wheezing/shortness of breath. lisinopril (ZESTRIL) 5 mg tablet Take 1 tablet by mouth once daily. No current facility-administered medications on file prior to visit. Social History Social History Tobacco Use Smoking status: Never Smokeless tobacco: Never Vaping Use Vaping status: Never Used Substance Use Topics Alcohol use: Not Currently Drug use: Never EXAM: BP 124/90 Pulse 80 Resp 16 Wt 115.3 kg (254 lb 3.1 oz) BMI 35.45 kg/m? General Appearance: Well appearing, alert, in no acute distress, well-hydrated, well nourished.. Back: no tenderness to palpation, pain with motion in all directions, slightly decreased ROM Health Maintenance List Depression Screening Never done Hepatitis C Screening Never done HIV Screening Never done Hepatitis B Vaccine(1 of 3 - 19+ 3-dose series) Never done Influenza Vaccine(1) due on 05/28/2024 Covid-19 Vaccine(2 - 2023- season) due on 05/28/2024 DTaP,Tdap,Td Vaccine(3 - Td or Tdap) due on 03/08/2034 Data reviewed External records from [facility] ASSESSMENT/PLAN: 1. Lumbar back pain - ICD9: 724.2, ICD10: M54.50 (primary diagnosis) Chronic, with initial traumatic incident, never had imaging done - XR LUMBAR GENERAL 3V AP/LAT/L5-S1 - CONSULT TO PHYSICAL THERAPY 2. Hypertension, essential - ICD9: 401.9, ICD10: I10 - Improving control - Increase lisinopril to 10 mg daily - Recommend home blood pressure monitoring, to bring results to next visit - Encouraged sodium restriction, DASH or Mediterranean diet - Recommend regular aerobic exercise - LISINOPRIL 10 MG TABLET Follow up prn Medical Decision Making: Problems: Low: Acute, uncomplicated illness or injury Moderate: 1+ chronic illnesses with change Data: Unique test(s) ordered: 1 Risk: Moderate: Drug management Medical Decision Making Level: 4 - Moderate Brendan Kang MD Allergies As of Date: 11/16/2024 Noted Allergy Reaction AMOXIL (AMOXICILLIN) 11/12/2005 2 - Rash CECLOR (CEFAC (more content not included)... Normal [facility] 12 Lead EKGon 11-04-2024 12 Lead EKG [facility] Cardi[facility] [address] [place] [address] 12 Lead EKG 11/04/24 2100 MR#: [id number] Acct: [id number] Name: LEXUS HANDY Rep #: [id number] : 1990 34 From: Lavon Tay MD Attending Dr: Status: DEP ER Ordering Dr: Petr Venegas MD Date: 11/04/24 Location: ED Sex: M C Admitted: Test Reason : DYSRHYTHMIA Blood Pressure : */* mmHG Vent. Rate : 94 BPM Atrial Rate : 94 BPM P-R Int : 158 ms QRS Dur : 82 ms QT Int : 344 ms P-R-T Axes : 38 49 34 degrees QTcB Int : 430 ms Normal sinus rhythm Normal ECG Confirmed by LULU VERDUGO, LAVON ([id number]), science editor ANÍBAL AGGARWAL ([id number]) on 11/06/2024 10:20:32 AM Referred By: Confirmed By: LAVON TAY MD 11/06/24 1020 Date Lavon Tay MD CC: Dr. Brendan Kang MD; Dr. Petr Venegas MD Signed Normal [facility] Emergency Department Summary on 11-04-2024 Emergency Department Summary [facility] Medical Records Department [address] [place] [id number] Emergency Department Summary 11/04/24 MR#: [id number] Acct: [id number] Name: LEXSU HANDY Rep #: [id number] : 1990 34 From: Petr Venegas MD PCP: Dr. Brendan Kang MD Status:PRE ER Location: ED ADDENDUM by Dr. Petr Venegas MD on 11/04/24 at 2124 EKG was obtained per nurse protocol. EKG is normal with a rate of 94. MI interval is 158 ms. QRS duration 82 ms. QT duration 344 ms. [place] is normal. 11/04/242123 Cosigner Signature (if applicable): cc: Dr. Brendan Kang MD * Signed HPI History of Present Illness Chief Complaint: Chest Pain Detail of Chief Complaint: Left-sided chest pain with pleuritic component Informant: patient and spouse/S.O. Onset/Context/Timing Onset: Days (Illness started 2 days ago) Context: Sudden Onset Timing: Continuous and Waxes and wanes Quality: Upper respiratory tract infectious systems with cough and congestion Location: Upper respiratory Current Severity: Mild Maximum Severity: Moderate Worsened by: Hurts to breathe Relieved by: Not breathing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 L500.2500, L100.0100 #### [facility] [address] [place], [address] Globulin (S) [Mass/Vol] 3.5 g/dL Normal 2.2-4.2 [facility] Comment on above: Performed By: #### L 501.2450, L500.3400, L500.2500, L100.0100 #### [facility] [address] [place], [address] T PROT 7.4 g/dL Normal 6.4-8.2 [facility] Comment on above: Performed By: #### L 501.2450, L500.3400, L500.2500, L100.0100 #### [facility] [address] [place], [address] Toma 05-03-2024 CNPN Telephone (FAMALBA) LEXUS HANDY ([id number]) 1990 M Date Time Provider Department 05/03/24 KIA COLLINS During your visit today, we [...] place the order. Thank you. Kia Collins APRN.Fidencio Goldman LPN 05/03/2024 8:33 AM Signed Left a [...] below given. Pt verbalizes understanding. 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 Fidencio Abraham LPN Allergies As of Date: 05/03/2024 Noted Allergy Reaction AMOXIL (AMOXICILLIN) 11/12/2005 2 - Rash CECLOR (CEFACLOR) 11/12/2005 4 - Hives Date Reviewed: 05/02/2024 Reviewed by: Stacy Moncada LPN - Fully Assessed Reason for Visit: Results [95] Cmt: Labs Orders [681] Primary Visit Diagnosis:Fatigue, unspecified type [R53.83] Order(s):HOME SLEEP APNEA TEST (HSAT) [7434389] Order #: [id number] FUTURE Prescriptions as of 05/03/2024 - lisinopril [...] Status:Closed by FIDENCIO ABRAHAM on 05/03/[address] [facility] 25(OH)D3 Keren-Kyle 2023 25-hydroxyvitamin D3 [Mass/Vol] 49.9 ng/mL Normal 31.0-80.0 [facility] Comment on above: Order Comment: Speci men Type: BLOOD SPECIMENOrdering Facility: [facility] Address: [address] [place] [address] Result Comment: Clas sification of 25 [place] Vitamin D status: Deficiency/Insufficiency: < or = 30 ng/ml. Sufficiency/Optimal Levels: 31-80 ng/mL Toxicity: > 100 ng/mL. Test performed by chemiluminescent immunoassay. Performed By: #### 1 989-3 ####[facility] LABCLIA [id number] [place] [address] [place] CBC W Auto Differential pane l (Bld)on 05-02-2024 Basophils (Bld) [#/Vol] 0.07 10*3/uL [facility] Basophils/100 WBC (Bld) 1.2 % [facility] Differential cell count method Nom (Bld) Auto [facility] Eosinophils (Bld) [#/Vol] 0.13 10*3/uL [facility] Eosinophils/100 WBC (Bld) 2.2 % [facility] Erythrocyte distribution width (RBC) [Ratio] 12.3 % 11.5 - 15.0 % [facility] Hematocrit (Bld) [Volume fraction] 45.9 % 39.0 - 51.0 % [facility] Hemoglobin (Bld) [Mass/Vol] 15.7 g/dL 13.0 - 17.0 g/dL [facility] Immature granulocytes (Bld) [#/Vol] [facility] Immature granulocytes/100 WBC (Bld) 0.2 % [facility] Lymphocytes (Bld) [#/Vol] 2.06 10*3/uL [facility] Lymphocytes/100 WBC (Bld) 35.2 % [facility] MCH (RBC) [Entitic mass] 29.1 pg 26.0 - 34.0 pg [facility] MCHC (RBC) [Mass/Vol] 34.2 g/dL 30.5 - 36.0 g/dL [facility] MCV (RBC) [Entitic vol] 85.2 fL 80.0 - 100.0 fL [facility] Monocytes (Bld) [#/Vol] 0.31 10*3/uL [facility] Monocytes/100 WBC (Bld) 5.3 % [facility] Neutrophils (Bld) [#/Vol] 3.27 10*3/uL [facility] Neutrophils/100 WBC (Bld) 55.9 % [facility] Nucleated RBC (Bld) [#/Vol] [facility] Nucleated RBC/100 WBC (Bld) [Ratio] 0.0 % /100 WBC [facility] Platelet mean volume (Bld) [Entitic vol] 11.2 fL 9.0 - 12.7 fL [facility] Platelets (Bld) [#/Vol] 206 10*3/uL [facility] RBC (Bld) [#/Vol] 5.39 10*6/uL 4.20 - 6.0 0 m/uL [facility] WBC (Bld) [#/Vol] 5.85 10*3/uL [facility] Basophils (Bld) [#/Vol] 0.07 10*3/uL Normal <0.11 [facility] Comment on above: Order Comment: Speci men Type: BLOOD SPECIMENOrdering Facility: [facility] Address: [address] [place] [address] Performed By: #### 5 7021-8 ####[facility] LABCLIA [id number] [place] [address] [place] Basophils/100 WBC (Bld) 1.2 % Normal [facility] Comment on above: Order Comment: Speci men Type: BLOOD SPECIMENOrdering Facility: [facility] Address: [address] [place] [address] Performed By: #### 5 7021-8 ####[facility] LABCLIA [id number] [place] [address] [place] Differential cell count method Nom (Bld) Auto Normal [facility] Comment on above: Order Comment: Speci men Type: BLOOD SPECIMENOrdering Facility: [facility] Address: [address] [place] [address] Performed By: #### 5 7021-8 ####[facility] LABCLIA [id number] [place] [address] [place] Eosinophils (Bld) [#/Vol] 0.13 10*3/uL Normal <0.46 [facility] Comment on above: Order Comment: Speci men Type: BLOOD SPECIMENOrdering Facility: [facility] Address: [address] [place] [address] Performed By: #### 5 7021-8 ####[facility] LABCLIA [id number] [place] [address] [place] Eosinophils/100 WBC (Bld) 2.2 % Normal [facility] Comment on above: Order Comment: Speci men Type: BLOOD SPECIMENOrdering Facility: [facility] Address: [address] [place] [address] Performed By: #### 5 7021-8 ####[facility] LABCLIA [id number] [place] [address] [place] Erythrocyte distribution width (RBC) [Ratio] 12.3 % Normal 11.5-15.0 [facility] Comment on above: Order Comment: Speci men Type: BLOOD SPECIMENOrdering Facility: [facility] Address: [address] [place] [address] Performed By: #### 5 7021-8 ####[facility] LABCLIA [id number] [place] [address] [place] Hematocrit (Bld) [Volume fraction] 45.9 % Normal 39.0-51.0 [facility] Comment on above: Order Comment: Speci men Type: BLOOD SPECIMENOrdering Facility: [facility] Address: [address] [place] [address] Performed By: #### 5 7021-8 ####[facility] LABCLIA [id number] [place] [address] [place] Hemoglobin (Bld) [Mass/Vol] 15.7 g/dL Normal 13.0-17.0 [facility] Comment on above: Order Comment: Speci men Type: BLOOD SPECIMENOrdering Facility: [facility] Address: [address] [place] [address] Performed By: #### 5 7021-8 ####[facility] LABCLIA [id number] [place] [address] [place] Immature granulocytes (Bld) [#/Vol] 10*3/uL Normal <0.10 [facility] Comment on above: Order Comment: Speci men Type: BLOOD SPECIMENOrdering Facility: [facility] Address: [address] [place] [address] Performed By: #### 5 7021-8 ####[facility] LABCLIA [id number] [place] [address] [place] Immature granulocytes/100 WBC (Bld) 0.2 % Normal [facility] Comment on above: Order Comment: Speci men Type: BLOOD SPECIMENOrdering Facility: [facility] Address: [address] [place] [address] Performed By: #### 5 7021-8 ####[facility] LABCLIA [id number] [place] [address] [place] Lymphocytes (Bld) [#/Vol] 2.06 10*3/uL Normal 1.00-4.00 [facility] Comment on above: Order Comment: Speci men Type: BLOOD SPECIMENOrdering Facility: [facility] Address: [address] [place] [address] Performed By: #### 5 7021-8 ####[facility] LABCLIA [id number] [place] [address] [place] Lymphocytes/100 WBC (Bld) 35.2 % Normal [facility] Comment on above: Order Comment: Speci men Type: BLOOD SPECIMENOrdering Facility: [facility] Address: [address] [place] [address] Performed By: #### 5 7021-8 ####[facility] LABCLIA [id number] [place] [address] [place] MCH (RBC) [Entitic mass] 29.1 pg Normal 26.0-34.0 [facility] Comment on above: Order Comment: Speci men Type: BLOOD SPECIMENOrdering Facility: [facility] Address: [address] [place] [address] Performed By: #### 5 7021-8 ####[facility] LABCLIA [id number] [place] [address] [place] MCHC (RBC) [Mass/Vol] 34.2 g/dL Normal 30.5-36.0 [facility] Comment on above: Order Comment: Speci men Type: BLOOD SPECIMENOrdering Facility: [facility] Address: [address] [place] [address] Performed By: #### 5 7021-8 ####[facility] LABIA [id number] [place] [address] [place] MCV (RBC) [Entitic vol] 85.2 fL Normal 80.0-100.0 [facility] Comment on above: Order Comment: Speci men Type: BLOOD SPECIMENOrdering Facility: [facility] Address: [address] [place] [address] Performed By: #### 5 7021-8 ####[facility] LABIA [id number] [place] [address] [place] Monocytes (Bld) [#/Vol] 0.31 10*3/uL Normal <0.87 [facility] Comment on above: Order Comment: Speci men Type: BLOOD SPECIMENOrdering Facility: [facility] Address: [address] [place] [address] Performed By: #### 5 7021-8 ####[facility] LABIA [id number] [place] [address] [place] Monocytes/100 WBC (Bld) 5.3 % Normal [facility] Comment on above: Order Comment: Speci men Type: BLOOD SPECIMENOrdering Facility: [facility] Address: [address] [place] [address] Performed By: #### 5 7021-8 ####[facility] LABIA [id number] [place] [address] [place] Neutrophils (Bld) [#/Vol] 3.27 10*3/uL Normal 1.45-7.50 [facility] Comment on above: Order Comment: Speci men Type: BLOOD SPECIMENOrdering Facility: [facility] Address: [address] [place] [address] Performed By: #### 5 7021-8 ####[facility] LABCLIA [id number] [place] [address] [place] Neutrophils/100 WBC (Bld) 55.9 % Normal [facility] Comment on above: Order Comment: Speci men Type: BLOOD SPECIMENOrdering Facility: [facility] Address: [address] [place] [address] Performed By: #### 5 7021-8 ####[facility] LABCLIA [id number] [place] [address] [place] Nucleated RBC (Bld) [#/Vol] 10*3/uL Normal <0.01 [facility] Comment on above: Order Comment: Speci men Type: BLOOD SPECIMENOrdering Facility: [facility] Address: [address] [place] [address] Performed By: #### 5 7021-8 ####[facility] LABCLIA [id number] [place] [address] [place] Nucleated RBC/100 WBC (Bld) [Ratio] 0.0 /[address] [facility] Comment on above: Order Comment: Speci men Type: BLOOD SPECIMENOrdering Facility: [facility] Address: [address] [place] [address] Performed By: #### 5 7021-8 ####[facility] LABIA [id number] [place] [address] [place] Platelet mean volume (Bld) [Entitic vol] 11.2 fL Normal 9.0-12.7 [facility] Comment on above: Order Comment: Speci men Type: BLOOD SPECIMENOrdering Facility: [facility] Address: [address] [place] [address] Performed By: #### 5 7021-8 ####[facility] LABCLIA [id number] [place] [address] [place] Platelets (Bld) [#/Vol] 206 10*3/uL Normal 150-400 [facility] Comment on above: Order Comment: Speci men Type: BLOOD SPECIMENOrdering Facility: [facility] Address: [address] [place] [address] Performed By: #### 5 7021-8 ####[facility] LABCLIA [id number] [place] [address] [place] RBC (Bld) [#/Vol] 5.39 10*6/uL Normal 4.20-6.00 [facility] Comment on above: Order Comment: Speci men Type: BLOOD SPECIMENOrdering Facility: [facility] Address: [address] [place] [address] Performed By: #### 5 7021-8 ####[facility] LABCLIA [id number] [place] [address] [place] WBC (Bld) [#/Vol] 5.85 10*3/uL Normal 3.70-11.00 [facility] Comment on above: Order Comment: Speci men Type: BLOOD SPECIMENOrdering Facility: [facility] Address: [address] [place] [address] Performed By: #### 5 7021-8 ####[facility] LABIA [id number] [place] [address] [place] CNOVon 05-02-2024 [facility] LEXUS HANDY ([id number]) 1990 M Date Time Provider Department 05/02/24 1:20 PM KIA COLLINS [facility] During your visit today, we recorded [...] History of anxiety and bipolar disorder, Lanette Fatemeha Tourette syndrome. Following with psychiatry.Stopped Seroquel about [...] pulses, Pulses (more content not included)... Normal [facility] Comprehensive metabolic 2000 panelon 05-02-2024 Albumin [Mass/Vol] 4.7 g/dL Normal 3.9-4.9 [facility] Comment on above: Order Comment: Speci men Type: BLOOD SPECIMENOrdering Facility: [facility] Address: [address] [place] [address] Performed By: #### 2 132-9, 13537-0, 3016-3, 3024-7 ####[facility] [id number] [place] [address] [place] ALP [Catalytic activity/Vol] 78 U/L Normal 38-113 [facility] Comment on above: Order Comment: Speci men Type: BLOOD SPECIMENOrdering Facility: [facility] Address: [address] [place] [address] Performed By: #### 2 132-9, 32561-3, 3016-3, 3024-7 ####[facility] LABIA [id number] [place] [address] [place] ALT [Catalytic activity/Vol] 34 U/L Normal 10-54 [facility] Comment on above: Order Comment: Speci men Type: BLOOD SPECIMENOrdering Facility: [facility] Address: [address] [place] [address] Performed By: #### 2 132-9, 04599-7, 3016-3, 3024-7 ####[facility] LABIA [id number] [place] [id number] [place] Anion gap [Moles/Vol] 14 mmol/L Normal 8-15 [facility] Comment on above: Order Comment: Speci men Type: BLOOD SPECIMENOrdering Facility: [facility] Address: [address] [place] [address] Performed By: #### 2 132-9, 61386-8, 3016-3, 3024-7 ####[facility] LABCLIA [id number] [address] [address] [place] AST [Catalytic activity/Vol] 26 U/L Normal 14-40 [facility] Comment on above: Order Comment: Speci men Type: BLOOD SPECIMENOrdering Facility: [facility] Address: [address] [place], [place] [address] Performed By: #### 2 132-9, 47769-1, 3016-3, 3024-7 ####[facility] LABCLIA [id number] [place] [id number] [place] Bilirubin [Mass/Vol] 0.4 mg/dL Normal 0.2-1.3 [facility] Comment on above: Order Comment: Speci men Type: BLOOD SPECIMENOrdering Facility: [facility] Address: [address] [place] [address] Performed By: #### 2 132-9, 47799-4, 3016-3, 3024-7 ####[facility] LABIA [id number] [place] [id number] [place] Calcium [Mass/Vol] 9.8 mg/dL Normal 8.5-10.2 [facility] Comment on above: Order Comment: Speci men Type: BLOOD SPECIMENOrdering Facility: [facility] Address: [address] [place], [place] [address] Performed By: #### 2 132-9, 89935-5, 3016-3, 3024-7 ####[facility] LABCLIA [id number] [place] [id number] [place] Chloride [Moles/Vol] 103 mmol/L Normal 98-107 [facility] Comment on above: Order Comment: Speci men Type: BLOOD SPECIMENOrdering Facility: [facility] Address: [address] [place] [address] Performed By: #### 2 132-9, 56517-2, 3016-3, 3024-7 ####[facility] LABCLIA [id number] [place] [id number] [place] CO2 [Moles/Vol] 22 mmol/L Normal 22-30 [facility] Comment on above: Order Comment: Speci men Type: BLOOD SPECIMENOrdering Facility: [facility] Address: [address] [place], [place] [address] Performed By: #### 2 132-9, 21623-9, 3016-3, 302-7 ####[facility] LABCLIA [id number] [place] [address] [place] Creatinine [Mass/Vol] 1.01 mg/dL Normal 0.73-1.22 [facility] Comment on above: Order Comment: Speci men Type: BLOOD SPECIMENOrdering Facility: [facility] Address: [address] [place] [address] Performed By: #### 2 132-9, 96256-3, 3016-3, 302-7 ####[facility] LABIA [id number] [place] [address] [place] Creatinine and Glomerular filtration rate.predicted panel (S/P/Bld) 102 mL/min/1.73m??? Normal >=60 [facility] Comment on above: Order Comment: Speci men Type: BLOOD SPECIMENOrdering Facility: [facility] Address: [address] [place], [place] [address] Result Comment: Shelley mated Glomerular Filtration Rate [...] actual GFR. Performed By: #### 2 132-9, 49133-5, 3016-3, 302-7 ####[facility] LABCLIA [id number] [place] [id number] [place] Glucose [Mass/Vol] 104 mg/dL High 74-99 [facility] Comment on above: Order Comment: Speci men Type: BLOOD SPECIMENOrdering Facility: [facility] Address: [address] [place] [address] Result Comment: The [place] Diabetes Association (ADA) provides guidance for cutoff [...] Standards of Medical Care in Diabetes 2016, [place] [employer]. Diabetes Care. 2016.39(Suppl 1). Performed By: #### 2 132-9, 25834-8, 3016-3, 3024-7 ####[facility] LABIA [id number] [place] [address] [place] Potassium [Moles/Vol] 4.4 mmol/L Normal 3.7-5.1 [facility] Comment on above: Order Comment: Speci men Type: BLOOD SPECIMENOrdering Facility: [facility] Address: [address] [place] [address] Performed By: #### 2 132-9, 92227-8, 3016-3, 3024-7 ####[facility] LABIA [id number] [place] [address] [place] Protein [Mass/Vol] 7.6 g/dL Normal 6.3-8.0 [facility] Comment on above: Order Comment: Speci men Type: BLOOD SPECIMENOrdering Facility: [facility] Address: [address] [place] [address] Performed By: #### 2 132-9, 64805-0, 3016-3, 3024-7 ####[facility] LABCLIA [id number] [place] [address] [place] Sodium [Moles/Vol] 139 mmol/L Normal 136-144 [facility] Comment on above: Order Comment: Speci men Type: BLOOD SPECIMENOrdering Facility: [facility] Address: [address] [place] [address] Performed By: #### 2 132-9, 67618-4, 3016-3, 3024-7 ####[facility] LABCLIA [id number] [place] [address] [place] Urea nitrogen [Mass/Vol] 14 mg/dL Normal 9-24 [facility] Comment on above: Order Comment: Speci men Type: BLOOD SPECIMENOrdering Facility: [facility] Address: [address] [place] [address] Performed By: #### 2 132-9, 10305-9, 3016-3, 3024-7 ####[facility] LABIA [id number] [place] [address] [place] T4 Free SerPl-mCncon 024 Free T4 [Mass/Vol] 1.2 ng/dL Normal 0.9-1.7 [facility] Comment on above: Order Comment: Speci men Type: BLOOD SPECIMENOrdering Facility: [facility] Address: [address] [place] [address] Performed By: #### 2 132-9, 65892-7, 3016-3, 3024-7 ####[facility] LABIA [id number] [place] [address] [place] TSH SerPl-aCncon 05-02-2024 TSH Qn 1.530 m[IU]/L Normal 0.270-4.200 [facility] Comment on above: Order Comment: Speci men Type: BLOOD SPECIMENOrdering Facility: [facility] Address: [address] [place], [place] [id number] Performed By: #### 2 132-9, 43615-6, 3016-3, 3024-7 ####[facility] LABCLIA [id number] [address] [address] [place] Vit B12 SerPl-mCncon 024 Cobalamin (Vitamin B12) [Mass/Vol] 648 pg/mL Normal 232-1245 [facility] Comment on above: Order Comment: Speci men Type: BLOOD SPECIMENOrdering Facility: [facility] Address: [address] [place], [place] [id number] Performed By: #### 2 132-9, 06869-1, 3016-3, 3024-7 ####[facility] LABCLIA [id number] [place] [id number] [place] CNCOon 04-28-[address] [facility] Emergency Department Summary on 01-15-2024 Emergency Department Summary [facility] Medical Records Department [address] [place] [address] Emergency Department Summary 01/15/24 MR#: [id number] Acct: [id number] Name: LEXUS HANDY Rep #: [id number] : 1990 33 From: Morris Chandler PCP: Dr. Brendan Kang MD Status:DEP ER Location: ED HPI History of Present Illness Chief Complaint: Sore Throat Informant: patient and spouse/S.O. Narrative Narrative: 4 to 5 days sore throat pain with swallowing. No fevers or cough. No sick contacts. No myalgias. Tonsillectomy and adenectomy in the past. Reports feels a lump in his neck on the right side. [facility] Medical History Bipolar disorder Tourette's Home Medications fluphenazine HCl 2.5 mg tablet 5 mg PO DAILY 05/31/20 [History Last Taken Unknown] fluoxetine 40 mg capsule 40 mg PO DAILY 01/15/24 [History Last Taken Unknown] Allergy/AdvReac Type Severity Reaction Status Date / Time amoxicillin AdvReac PT UNSURE Verified 03/27/23 20:41 OF REACTION cefaclor [From Ceclor] AdvReac PT UNSURE Verified 03/27/23 20:41 OF REACTION prednisone AdvReac Other Verified 03/27/23 20:41 Surgical History History of tonsillectomy and adenoidectomy Hx of appendectomy S/P hernia surgery Social History Smoking Status: Never smoker ROS ROS ED Constitutional Constitutional ED: Denies chills, fever(s) or sweats Eyes Eyes: Denies change in vision ENT ENT ED: Reports sore throat; Denies dysphagia Cardiovascular Cardiovascular: Denies chest pain, leg edema, palpitations or racing heartbeat Respiratory/Chest Respiratory/Chest: Denies cough, dyspnea or dyspnea on exertion Gastrointestinal Gastrointestinal: Denies abdominal pain, diarrhea, nausea or vomiting Genitourinary Genitourinary ED: Denies dysuria, hematuria or urinary frequency Musculoskeletal Musculoskeletal: Denies back pain, extremity pain or neck pain Integumentary Denies rash or wounds Neurologic Neurologic: Denies headache(s), paresthesias or weakness Hematologic/Lymphatic Hematologic/Lymphatic: Reports lymphadenopathy EXAM Physical Exam Const Vital Signs: 01/15/24 02:11 01/15/24 03:11 Temperature 98.2 F 98.0 F Temperature Source Oral Pulse Rate 85 80 Respiratory Rate 20 H 16 Blood Pressure 164/93 H 140/90 H Blood Pressure Mean 116 106 Pulse Ox 98 96 Oxygen Delivery Method Room Air Positive well nourished and well developed General Appearance ED: well developed and NAD HEENT Reports moist mucous membranes HEENT Narrative: Tonsils absent mild posterior pharyngeal erythema on the right side. No trismus. Airway patent. normocephalic and atraumatic Eyes PERRL, EOMs intact bilaterally and conjunctivae normal General Eye ED: Yes normal appearance of both eyes Neck supple Neck Narrative: Tender right anterior cervical lymphadenopathy. General: tenderness Chest Wall Chest: Negative for tenderness Resp normal respiratory effort and normal air movement Effort and Inspection: symmetric chest movement; Negative for respiratory distress Cardio regular rate, regular rhythm and no murmurs Peripheral Pulses: pulses 2+ throughout GI normal to inspection, nondistended, normoactive bowel sounds and non-tender Palpation: Negative for guarding or rebound tenderness present Back/Spine no CVA tenderness and no thoracic nor lumbar tenderness Extremity normal to inspection General Extremety ED: Negative for edema or tenderness General Extremity: Negative for edema Neuro oriented x3 and no sensory deficits noted Sensorium / Orientation: awake and alert Skin no rashes or lesions noted and no wounds MDM MDM MDM Narrative Medical decision making narrative: Interventions / MDM: Differential diagnosis: Pharyngitis, cervical lymphadenitis Diagnosis considered but do not suspect: No clinical retropharyngeal abscess. My EKG interpretation: N/A Imaging independently reviewed and interpreted by myself: N/A External documents reviewed: N/A Test considered but not ordered:N/A ED course: Pharyngitis symptoms. No clinical retropharyngeal abscess. Tonsils are absent. Rapid strep ordered. Noted allergy to prednisone causing likely psychosis. He would like to try different steroid. Order for dexamethasone p.o. Strep PCR negative. Reassured on findings. He will use Tylenol or Motrin as needed. Discussed reactive cervical adenitis. Outpatient follow-up. Re-evaluation: stable Disposition discussed with patient/family/signifi cant other: Patient and significant other Case discussed with consulting clinician: N/A This note was generated with [employer] software. It may contain incor (more content not included)... Normal [facility] M100.677on 01-15-2024 M100.677 Negative Normal [facility] Comment on above: Performed By: #### M 100.677 ####[facility] [id number] [place], [address] Streptococcus pyogenes rRNA detection in throat by DNA probeOrdered By: Morris Staples on 01-15-2024 S. pyogenes rRNA Probe Ql (Throat) [facility] XR Cervical spine AP and Lat eral and obliqueon 06-28-2023 IMPRESSION: Negative cervical spine X-ray. Stock Patcher: CHANDLER Transcribe Date/Time: Jun 28 2023 5:36P Dictated by : SARAH CROUCH MD This examination was interpreted and the report reviewed and electronically signed by: SARAH CROUCH MD on Jun 28 2023 5:37PM EST DIVISION OF RADIOLOGY * * *Final Report* [...] tissues are normal. DIVISION OF RADIOLOGY Provider, Cyn Cho [facility] - 06/28/2023 * * *Final Report* * [...] normal. IMPRESSION IMPRESSION: Negative cervical spine X-ray. Stock Patcher: CHANDLER Transcribe Date/Time: Jun 28 2023 5:36P Dictated by : SARAH CROUCH MD This examination was interpreted and the report reviewed and electronically signed by: SARAH CROUCH MD on Jun 28 2023 5:37PM EST [facility] Radiology Study observation (narrative) [facility] XR Cervical spine AP and Lat eral and obliqueOrdered By: Ccf Provider on 06-28-2023 [facility] XR Ribs - right Views and est PAon 04-21-2023 IMPRESSION: No evidence of acute right rib fracture. Stock Patcher: [facility] Transcribe Date/Time: Apr 21 2023 5:20P Dictated by : SARAH CROUCH MD This examination was interpreted and the report reviewed and electronically signed by: SARAH CROUCH MD on Apr 21 2023 5:22PM EST DIVISION OF RADIOLOGY * * *Final Report* [...] lungs appear normal. DIVISION OF RADIOLOGY Provider, [facility] - 04/21/2023 * * *Final Report* * [...] No evidence of acute right rib fracture. Stock Patcher: [facility] Transcribe Date/Time: Apr 21 2023 5:20P Dictated by : SARAH CROUCH MD This examination was interpreted and the report reviewed and electronically signed by: SARAH CROUCH MD on Apr 21 2023 5:22PM EST [facility] Radiology Study observation (narrative) [facility] XR Ribs - right Views and Ch est PAOrdered By: Ccf Provider on 04-21-2023 [facility] Vital Signs Date Time Vital Sign Value Performing Clinician Nancy goodman 03-13-2025 15:21-0400 Body mass index (BMI) [Ratio] 33.61 kg/m2 Brendan Kang MD Work Phone: [facility] 03-13-2025 15:21-0400 Body weight 109.3 kg Brendan Kang MD Work Phone: [facility] 03-13-2025 15:21-0400 Diastolic blood pressure 70 mm[Hg] Brendan Kang MD Work Phone: [facility] 03-13-2025 15:21-0400 Heart rate 77 /min Brendan Kang MD Work Phone: [facility] 03-13-2025 15:21-0400 Respiratory rate 16 /min Brendan Kang MD Work Phone: [facility] 03-13-2025 15:21-0400 SaO2% (BldA) [Mass fraction] 99 % Brendan Kang MD Work Phone: [facility] 03-13-2025 15:21-0400 Systolic blood pressure 124 mm[Hg] Brendan Kang MD Work Phone: [facility] 01-30-2025 11:56-0400 Body mass index (BMI) [Ratio] 33.79 kg/m2 Saima Dyson APRN.MIRROR MACHINE FEEDER Work Phone: [facility] 01-30-2025 11:56-0400 Body temperature 97.9 [degF] Saima Dyson EXPERIMENTAL ROCKET SLED MECHANIC.MIRROR MACHINE FEEDER Work Phone: [facility] 01-30-2025 11:56-0400 Body weight 109.9 kg Saima Dyson EXPERIMENTAL ROCKET SLED MECHANIC.MIRROR MACHINE FEEDER Work Phone: [facility] 01-30-2025 11:56-0400 Diastolic blood pressure 82 mm[Hg] Saima Dyson APRN.MIRROR MACHINE FEEDER Work Phone: [facility] 01-30-2025 11:56-0400 Heart rate 88 /min Saima Dyson APRN.MIRROR MACHINE FEEDER Work Phone: [facility] 01-30-2025 11:56-0400 Respiratory rate 16 /min Saima Dyson EXPERIMENTAL ROCKET SLED MECHANIC.MIRROR MACHINE FEEDER Work Phone: [facility] 01-30-2025 11:56-0400 SaO2% (BldA) [Mass fraction] 97 % Saima Dyson EXPERIMENTAL ROCKET SLED MECHANIC.MIRROR MACHINE FEEDER Work Phone: [facility] 01-30-2025 11:56-0400 Systolic blood pressure 118 mm[Hg] Saima Dyson EXPERIMENTAL ROCKET SLED MECHANIC.MIRROR MACHINE FEEDER Work Phone: [facility] 01-10-2025 14:07-0400 Body mass index (BMI) [Ratio] 34.2 kg/m2 Bobo Jasmine MD Work Phone: [facility] 01-10-2025 14:07-0400 Body temperature 97.59 [degF] Bobo Jasmine MD Work Phone: [facility] 01-10-2025 14:07-0400 Body weight 111.22 kg Bobo Jasmine MD Work Phone: [facility] 01-10-2025 14:07-0400 Diastolic blood pressure 74 mm[Hg] Bobo Jasmine MD Work Phone: [facility] 01-10-2025 14:07-0400 Heart rate 71 /min Bobo Jasmine MD Work Phone: [facility] 01-10-2025 14:07-0400 Respiratory rate 16 /min Bobo Jasmine MD Work Phone: [facility] 01-10-2025 14:07-0400 SaO2% (BldA) [Mass fraction] 98 % Bobo Jasmine MD Work Phone: [facility] 01-10-2025 14:07-0400 Systolic blood pressure 118 mm[Hg] Bobo Jasmine MD Work Phone: [facility] 01-08-2025 14:45-0400 Body mass index (BMI) [Ratio] 34.5 kg/m2 Brendan Marcos PA-C Work Phone: [facility] 01-08-2025 14:45-0400 Body temperature 98.1 [degF] Brendan Clutter PA-C Work Phone: [facility] 01-08-2025 14:45-0400 Body weight 112.2 kg Brendan Clutter PA-C Work Phone: [facility] 01-08-2025 14:45-0400 Diastolic blood pressure 78 mm[Hg] Brendan Clutter PA-C Work Phone: [facility] 01-08-2025 14:45-0400 Heart rate 83 /min Brendan Clutter PA-C Work Phone: [facility] 01-08-2025 14:45-0400 Respiratory rate 16 /min Brendan Clutter PA-C Work Phone: [facility] 01-08-2025 14:45-0400 SaO2% (BldA) [Mass fraction] 98 % Brendan Clutter PA-C Work Phone: [facility] 01-08-2025 14:45-0400 Systolic blood pressure 130 mm[Hg] Brendan Clutter PA-C Work Phone: [facility] 11-16-2024 14:55-0500 Diastolic blood pressure 90 mm[Hg] Berndan Kang MD Work Phone: [facility] 11-16-2024 14:55-0500 Systolic blood pressure 124 mm[Hg] Brendan Kang MD Work Phone: [facility] 11-16-2024 14:52-0500 Body mass index (BMI) [Ratio] 35.45 kg/m2 Brendan Kang MD Work Phone: [facility] 11-16-2024 14:52-0500 Body weight 115.3 kg Brendan Kang MD Work Phone: [facility] 11-16-2024 14:52-0500 Heart rate 80 /min Brendan Kang MD Work Phone: [facility] 11-16-2024 14:52-0500 Respiratory rate 16 /min Brendan Kang MD Work Phone: [facility] 09-21-2024 17:10-0500 Body mass index (BMI) [Ratio] 34.5 kg/m2 Caro Candice EXPERIMENTAL ROCKET SLED MECHANIC.MIRROR MACHINE FEEDER Work Phone: [facility] 09-21-2024 17:10-0500 Body temperature 97.39 [degF] Caro Candice EXPERIMENTAL ROCKET SLED MECHANIC.MIRROR MACHINE FEEDER Work Phone: [facility] 09-21-2024 17:10-0500 Body weight 112.2 kg Caro Candice EXPERIMENTAL ROCKET SLED MECHANIC.MIRROR MACHINE FEEDER Work Phone: [facility] 09-21-2024 17:10-0500 Diastolic blood pressure 89 mm[Hg] Caro Candice EXPERIMENTAL ROCKET SLED MECHANIC.MIRROR MACHINE FEEDER Work Phone: [facility] 09-21-2024 17:10-0500 Heart rate 89 /min Caro Candice EXPERIMENTAL ROCKET SLED MECHANIC.MIRROR MACHINE FEEDER Work Phone: [facility] 09-21-2024 17:10-0500 Respiratory rate 18 /min Caro Candice EXPERIMENTAL ROCKET SLED MECHANIC.MIRROR MACHINE FEEDER Work Phone: [facility] 09-21-2024 17:10-0500 SaO2% (BldA) [Mass fraction] 99 % Caro Candice EXPERIMENTAL ROCKET SLED MECHANIC.MIRROR MACHINE FEEDER Work Phone: [facility] 09-21-2024 17:10-0500 Systolic blood pressure 135 mm[Hg] Caro Candice EXPERIMENTAL ROCKET SLED MECHANIC.MIRROR MACHINE FEEDER Work Phone: [facility] 07-31-2024 15:11-0500 Body mass index (BMI) [Ratio] 33.82 kg/m2 Brendan Kang MD Work Phone: [facility] 07-31-2024 15:11-0500 Body weight 110 kg Brendan Kang MD Work Phone: [facility] 07-31-2024 15:11-0500 Diastolic blood pressure 86 mm[Hg] Brendan Kang MD Work Phone: [facility] 07-31-2024 15:11-0500 Heart rate 82 /min Brendan Kang MD Work Phone: [facility] 07-31-2024 15:11-0500 Respiratory rate 16 /min Brendan Kang MD Work Phone: [facility] 07-31-2024 15:11-0500 Systolic blood pressure 128 mm[Hg] Brendan Kang MD Work Phone: [facility] 07-27-2024 16:13-0400 Body mass index (BMI) [Ratio] 33.52 kg/m2 Brendan Kang MD Work Phone: [facility] 07-27-2024 16:13-0400 Body weight 109 kg Brendan Kang MD Work Phone: [facility] 07-27-2024 16:13-0400 Diastolic blood pressure 80 mm[Hg] Brendan Kang MD Work Phone: [facility] 07-27-2024 16:13-0400 Heart rate 80 /min Brendan Kang MD Work Phone: [facility] 07-27-2024 16:13-0400 Respiratory rate 16 /min Brendan Kang MD Work Phone: [facility] 07-27-2024 16:13-0400 Systolic blood pressure 126 mm[Hg] Brendan Kang MD Work Phone: [facility] 07-12-2024 11:39-0400 Body mass index (BMI) [Ratio] 33.67 kg/m2 Krislyn Aberegg PA Work Phone: [facility] 07-12-2024 11:39-0400 Body temperature 97 [degF] Krislyn Aberegg PA Work Phone: [facility] 07-12-2024 11:39-0400 Body weight 109.5 kg Krislyn Aberegg PA Work Phone: [facility] 07-12-2024 11:39-0400 Diastolic blood pressure 84 mm[Hg] Krislyn Aberegg PA Work Phone: [facility] 07-12-2024 11:39-0400 Heart rate 79 /min Krislyn Aberegg PA Work Phone: [facility] 07-12-2024 11:39-0400 Respiratory rate 16 /min Krislyn Aberegg PA Work Phone: [facility] 07-12-2024 11:39-0400 SaO2% (BldA) [Mass fraction] 98 % Krislyn Aberegg PA Work Phone: [facility] 07-12-2024 11:39-0400 Systolic blood pressure 128 mm[Hg] Krislyn Aberegg PA Work Phone: [facility] 06-26-2024 14:07-0400 Body mass index (BMI) [Ratio] 33.55 kg/m2 Krislyn Aberegg PA Work Phone: [facility] 06-26-2024 14:07-0400 Body temperature 98.1 [degF] Krislyn Aberegg PA Work Phone: [facility] 06-26-2024 14:07-0400 Body weight 109.1 kg Krislyn Aberegg PA Work Phone: [facility] 06-26-2024 14:07-0400 Diastolic blood pressure 78 mm[Hg] Krislyn Aberegg PA Work Phone: [facility] 06-26-2024 14:07-0400 Heart rate 90 /min Krislyn Aberegg PA Work Phone: [facility] 06-26-2024 14:07-0400 Respiratory rate 16 /min Krislyn Aberegg PA Work Phone: [facility] 06-26-2024 14:07-0400 SaO2% (BldA) [Mass fraction] 97 % Krislyn Aberegg PA Work Phone: [facility] 06-26-2024 14:07-0400 Systolic blood pressure 128 mm[Hg] Krislyn Aberegg PA Work Phone: [facility] 05-02-2024 13:04-0400 Body mass index (BMI) [Ratio] 32.9 kg/m2 Kia Tannhof EXPERIMENTAL ROCKET SLED MECHANIC.MIRROR MACHINE FEEDER Work Phone: [facility] 05-02-2024 13:04-0400 Body weight 107 kg Kiayaneth Salcedohof EXPERIMENTAL ROCKET SLED MECHANIC.MIRROR MACHINE FEEDER Work Phone: [facility] 05-02-2024 13:04-0400 Diastolic blood pressure 100 mm[Hg] Kia Tannhof EXPERIMENTAL ROCKET SLED MECHANIC.MIRROR MACHINE FEEDER Work Phone: [facility] 05-02-2024 13:04-0400 Heart rate 82 /min Kia Tannhof EXPERIMENTAL ROCKET SLED MECHANIC.MIRROR MACHINE FEEDER Work Phone: [facility] 05-02-2024 13:04-0400 Respiratory rate 16 /min Kia Salcedohof EXPERIMENTAL ROCKET SLED MECHANIC.MIRROR MACHINE FEEDER Work Phone: [facility] 05-02-2024 13:04-0400 SaO2% (BldA) [Mass fraction] 98 % Kiayaneth Salcedohof EXPERIMENTAL ROCKET SLED MECHANIC.MIRROR MACHINE FEEDER Work Phone: [facility] 05-02-2024 13:04-0400 Systolic blood pressure 130 mm[Hg] Kia Denissehof EXPERIMENTAL ROCKET SLED MECHANIC.MIRROR MACHINE FEEDER Work Phone: [facility] 01-28-2024 10:12-0400 Body mass index (BMI) [Ratio] 32.13 kg/m2 Brendan Kang MD Work Phone: [facility] 01-28-2024 10:12-0400 Body temperature 96.8 [degF] Brendan Kang MD Work Phone: [facility] 01-28-2024 10:12-0400 Body weight 104.51 kg Brendan Kang MD Work Phone: [facility] 01-28-2024 10:12-0400 Diastolic blood pressure 82 mm[Hg] Brendan Kang MD Work Phone: [facility] 01-28-2024 10:12-0400 Heart rate 94 /min Brendan Kang MD Work Phone: [facility] 01-28-2024 10:12-0400 Respiratory rate 16 /min Brendan Kang MD Work Phone: [facility] 01-28-2024 10:12-0400 Systolic blood pressure 130 mm[Hg] Brendan Kang MD Work Phone: [facility] 01-15-2024 03:11-0400 Body temperature 98 [degF] [facility] 01-15-2024 03:11-0400 Diastolic blood pressure 90 mm[Hg] [facility] 01-15-2024 03:11-0400 Heart rate 80 /min [facility] 01-15-2024 03:11-0400 Respiratory rate 16 /min [facility] 01-15-2024 03:11-0400 SaO2% (BldA) [Mass fraction] 96 % [facility] 01-15-2024 03:11-0400 Systolic blood pressure 140 mm[Hg] [facility] 01-15-2024 02:110400 Body height 180.34 cm [facility] 01-15-2024 02:11-0400 Body mass index (BMI) [Ratio] 32.8 kg/m2 [facility] 01-15-2024 02:110400 Body weight 106.6 kg [facility] 08-11-2023 13:00-0500 Body temperature 98.6 [degF] Krislyn Aberegg PA Work Phone: [facility] 08-11-2023 13:00-0500 Body weight 99.52 kg Krislyn Aberegg PA Work Phone: [facility] 08-11-2023 13:00-0500 Diastolic blood pressure 70 mm[Hg] Krislyn Aberegg PA Work Phone: [facility] 08-11-2023 13:00-0500 Heart rate 108 /min Krislyn Aberegg PA Work Phone: [facility] 08-11-2023 13:00-0500 Respiratory rate 16 /min Krislyn Aberegg PA Work Phone: [facility] 08-11-2023 13:00-0500 SaO2% (BldA) [Mass fraction] 98 % Jenn SANTOYO Work Phone: [facility] 08-11-2023 13:00-0500 Systolic blood pressure 122 mm[Hg] Jenn SANTOYO Work Phone: [facility] 07-19-2023 17:49-0400 Body weight 99.79 kg Brendan Kang MD Work Phone: [facility] 07-19-2023 17:49-0400 Diastolic blood pressure 74 mm[Hg] Brendan Kang MD Work Phone: [facility] 07-19-2023 17:49-0400 Heart rate 74 /min Brendan Kang MD Work Phone: [facility] 07-19-2023 17:49-0400 Respiratory rate 16 /min Brendan Kang MD Work Phone: [facility] 07-19-2023 17:49-0400 Systolic blood pressure 120 mm[Hg] Brendan Kang MD Work Phone: [facility] 03-27-2023 20:41-0400 Body height 180.34 cm [facility] 03-27-2023 20:41-0400 Body mass index (BMI) [Ratio] 29.5 kg/m2 [facility] 03-27-2023 20:41-0400 Body temperature 97.5 [degF] [facility] [facility] 03-27-2023 20:41-0400 Body weight 95.88 kg [facility] 03-27-2023 20:41-0400 Diastolic blood pressure 84 mm[Hg] [facility] 03-27-2023 20:41-0400 Heart rate 95 /min [facility] 03-27-2023 20:41-0400 Respiratory rate 18 /min [facility] 03-27-2023 20:41-0400 SaO2% (BldA) [Mass fraction] 99 % [facility] 03-27-2023 20:41-0400 Systolic blood pressure 151 mm[Hg] [facility] 11-11-2022 18:54-0500 Body temperature 99.81 [degF] Juliet Oliva EXPERIMENTAL ROCKET SLED MECHANIC.MIRROR MACHINE FEEDER Work Phone: [facility] 11-11-2022 18:54-0500 Body weight 92.08 kg Juliet Oliva EXPERIMENTAL ROCKET SLED MECHANIC.MIRROR MACHINE FEEDER Work Phone: [facility] 11-11-2022 18:54-0500 Diastolic blood pressure 80 mm[Hg] Juliet Oliva EXPERIMENTAL ROCKET SLED MECHANIC.MIRROR MACHINE FEEDER Work Phone: [facility] 11-11-2022 18:54-0500 Heart rate 83 /min Juliet Oliva EXPERIMENTAL ROCKET SLED MECHANIC.MIRROR MACHINE FEEDER Work Phone: [facility] 11-11-2022 18:54-0500 SaO2% (BldA) [Mass fraction] 99 % Juliet Oliva EXPERIMENTAL ROCKET SLED MECHANIC.MIRROR MACHINE FEEDER Work Phone: [facility] 11-11-2022 18:54-0500 Systolic blood pressure 115 mm[Hg] Juliet Oliva EXPERIMENTAL ROCKET SLED MECHANIC.MIRROR MACHINE FEEDER Work Phone: [facility] 09-02-2022 19:04-0500 Body weight 92.44 kg Brendan Kang MD Work Phone: [facility] 09-02-2022 19:04-0500 Diastolic blood pressure 88 mm[Hg] Brendan Kang MD Work Phone: [facility] 09-02-2022 19:04-0500 Heart rate 80 /min Brendan Kang MD Work Phone: [facility] 09-02-2022 19:04-0500 Respiratory rate 16 /min Brendan Kang MD Work Phone: [facility] 09-02-2022 19:04-0500 Systolic blood pressure 140 mm[Hg] Brendan Kang MD Work Phone: [facility] Encounters Encounter Date Encounter Type Care Provider Facility Start: 03-26-2025 End: 03-26-2025 ambulatory Rachel Higgins PA-C Work Phone: [facility] Comment on above: NO SHOW (Primary Dx) Start: 03-26-2025 End: 03-26-2025 Telemedicine consultation with patient Rachel Higgins ERSHMA Work Phone: [facility] Start: 03-16-2025 End: 03-20-2025 Follow-up encounter Brendan Kang MD Work Phone: [facility] [place] Start: 03-13-2025 End: 03-13-2025 Subsequent hospital visit by physician Ariana [facility] [place] Work Phone: Radiology Comment on above: Lumbar back pain [M5 4.50] Start: 03-13-2025 End: 03-13-2025 Office outpatient visit 25 minutes Brendan Kang MD Work Phone: [facility] [place] Comment on above: Lumbar back pain (Pr imary Dx); Class 1 obesity with body mass index (BMI) of 33.0 to 33.9 in adult, unspecified obesity type, unspecified whether serious comorbidity present; Generalized anxiety disorder Start: 03-13-2025 End: 03-13-2025 ambulatory BRENDAN KANG Facility:[facility] Start: 01-30-2025 End: 01-30-2025 Patient encounter procedure Saima Dyson APRN.CNP Work Phone: [facility] Comment on above: URI, acute (Primary Dx); Acute cough Start: 01-30-2025 End: 01-30-2025 Subsequent hospital visit by physician Ariana [facility] [place] Work Phone: Radiology Comment on above: Acute cough [R05.1] Start: 01-30-2025 End: 01-30-2025 ambulatory SAIMA DYSON Facility:[facility] Start: 01-29-2025 End: 01-29-2025 ambulatory BRENDAN KANG Facility:[facility] Start: 01-10-2025 End: 01-10-2025 Patient encounter procedure Bobo Jasmine MD Work Phone: [facility] [place] Comment on above: Viral URI with cough (Primary Dx) Start: 01-10-2025 End: 01-10-2025 ambulatory BRENDAN KANG Facility:[facility] Start: 01-08-2025 End: 01-08-2025 ambulatory [facility] Facility:[facility] Start: 01-08-2025 End: 01-08-2025 Office outpatient visit 25 minutes Brendan Marcos PA-C Work Phone: [facility] Comment on above: Sore throat (Primary Dx); Viral illness Start: 11-29-2024 End: 11-29-2024 ambulatory Rachel Higgins PA-C Work Phone: [facility] Comment on above: NO SHOW (Primary Dx) Start: 11-29-2024 End: 11-29-2024 Telemedicine consultation with patient Rachel Higgins PA-C Work Phone: [facility] Start: 11-16-2024 End: 11-16-2024 ambulatory BRENDAN Genao [facility] Facility:[facility] Start: 11-16-2024 End: 11-16-2024 Patient encounter procedure Brendan Kang MD Work Phone: [facility] [place] Comment on above: Lumbar back pain (Pr imary Dx); Hypertension, essential Start: 11-08-2024 End: 11-08-2024 [facility] Rachel Higgins PA-C Work Phone: [facility] Comment on above: COOPER (generalized anx iety disorder) (Primary Dx); Anxiety; Chapo de la Tourette syndrome; Recurrent major depression in partial remission (HCC) Start: 11-04-2024 End: 11-04-2024 Emergency department patient visit Petr Venegas Facility:[facility] Start: 10-16-2024 End: 10-16-2024 ambulatory [facility] Facility:[facility] Start: 10-02-2024 End: 10-02-2024 ambulatory [facility] Facility:[facility] Start: 09-24-2024 End: 09-25-2024 ambulatory [facility] Comment on above: Pills Start: 09-21-2024 End: 09-22-2024 ambulatory [facility] Start: 09-21-2024 End: 09-22-2024 Patient encounter procedure Caro Harvey APRN.CNP Work Phone: [facility] Comment on above: URI with cough and c ongestion (Primary Dx) Prescription refill Start: 09-14-2024 End: 09-14-2024 Refill Aubrey Murphy MD Work Phone: [facility] Comment on above: Refill Request Start: 09-13-2024 End: 09-13-2024 ambulatory Aubrey Murphy MD Work Phone: [facility] Comment on above: Irritability (Primar y Dx) Start: 09-13-2024 End: 09-13-2024 Telemedicine consultation with patient Aubrey Murphy MD Work Phone: [facility] Start: 07-31-2024 End: 07-31-2024 ambulatory BRENDAN Genao [facility] Facility:[facility] Start: 07-31-2024 End: 07-31-2024 Patient encounter procedure Brendan Kang MD Work Phone: [facility] Comment on above: Fungal skin infectio n (Primary Dx) Start: 07-27-2024 End: 07-27-2024 ambulatory [facility] Facility[facility] Start: 07-27-2024 End: 07-27-2024 Patient encounter procedure Brendan Kang MD Work Phone: [facility] Comment on above: Shy bladder syndrome (Primary Dx) Start: 07-24-2024 End: 07-27-2024 Telephone encounter Brendan Kang MD Work Phone: [facility] Comment on above: Letter Start: 07-18-2024 End: 07-19-2024 Emergency department patient visit Brendan Kang Facility:[facility] Start: 07-12-2024 End: 07-12-2024 ambulatory BRENDAN Genao [facility] Facility:[facility] Start: 07-12-2024 End: 07-12-2024 Patient encounter procedure Jenn SANTOYO Work Phone: [facility] Comment on above: Tinea cruris (Primar y Dx) Start: 06-26-2024 End: 06-26-2024 ambulatory BRENDAN Birgit [facility] Facility:[facility] Start: 06-26-2024 End: 06-26-2024 Patient encounter procedure Jenn SANTOYO Work Phone: [facility] Comment on above: Sinobronchitis (Prim jessica Dx) Start: 06-05-2024 End: 06-05-2024 ambulatory No Pcp EXPERIMENTAL ROCKET SLED MECHANIC Appointment Center Start: 06-05-2024 End: 06-05-2024 Patient encounter procedure No Pcp EXPERIMENTAL ROCKET SLED MECHANIC Appointment Center Start: 05-07-2024 End: 05-07-2024 Emergency department patient visit Sincere Flores Facility:[facility] Start: 05-03-2024 Telephone encounter Kia whitaker EXPERIMENTAL ROCKET SLED MECHANIC.MIRROR MACHINE FEEDER Work Phone: [facility] Comment on above: Results (Labs ); Ord ers Start: 05-02-2024 End: 05-02-2024 Patient encounter procedure Kia Collins EXPERIMENTAL ROCKET SLED MECHANIC.MIRROR MACHINE FEEDER Work Phone: [facility] Comment on above: Fatigue, unspecified type (Primary Dx); Hypertension, essential Start: 05-02-2024 End: 05-02-2024 ambulatory BRENDAN Genao [facility] Facility:[facility] Start: 04-09-2024 ambulatory [facility] Comment on above: Medication problems Start: 04-06-2024 End: 04-06-2024 ambulatory Rachel Higgins PA-C Work Phone: [facility] Comment on above: Anxiety (Primary Dx) ; Chapo de la Tourette syndrome Start: 04-06-2024 End: 04-06-2024 Patient encounter procedure Aubrey Murphy MD Work Phone: [facility] Comment on above: APPOINTMENT CANCELLE D (Primary Dx) Start: 04-06-2024 End: 04-06-2024 Telemedicine consultation with patient Rachel Higgins PA-C Work Phone: [facility] Start: 03-02-2024 ambulatory [facility] Comment on above: Medication still isn t in Start: 02-26-2024 ambulatory [facility] Comment on above: Medication question Start: 02-17-2024 End: 02-17-2024 ambulatory Aubrey Murphy MD Work Phone: [facility] Comment on above: Chapo de la Tourett e syndrome; Anxiety; Sleep difficulties Start: 02-17-2024 End: 02-17-2024 Telemedicine consultation with patient Aubrey Murphy MD Work Phone: [facility] Start: 02-14-2024 End: 02-14-2024 ambulatory Jeanette Monge PA-C Work Phone: [facility] Comment on above: Sleep difficulties ( Primary Dx); Chapo de la Tourette syndrome; Anxiety Start: 02-14-2024 End: 02-14-2024 Telemedicine consultation with patient Jeanette Monge PA-C Work Phone: [facility] Start: 02-06-2024 ambulatory Brendan ellsworth MD Work Phone: [facility] Comment on above: Upping the Prozac Start: 01-28-2024 End: 01-28-2024 Patient encounter procedure Brendan Kang MD Work Phone: [facility] Comment on above: Acute non-recurrent sinusitis, unspecified location (Primary Dx); Generalized anxiety disorder; Bipolar affective disorder, remission status unspecified (HCC); Bronchitis Start: 01-15-2024 End: 01-15-2024 Emergency department patient visit [facility] Work Phone: Start: 01-04-2024 Telephone encounter Brendan buck MD Work Phone: [facility] Comment on above: Patient Update Start: 01-03-2024 ambulatory Brendan ellsworth MD Work Phone: [facility] Comment on above: Wellbutrin problems Start: 08-11-2023 End: 08-11-2023 Patient encounter procedure Jenn SANTOYO Work Phone: [facility] Comment on above: URI, acute (Primary Dx); Acute otitis media, left Start: 07-25-2023 ambulatory Brendan ellsworth MD Work Phone: [facility] Comment on above: Effexor issues Start: 07-19-2023 End: 07-19-2023 Patient encounter procedure Brendan Kang MD Work Phone: [facility] Comment on above: Generalized anxiety disorder (Primary Dx); Bipolar affective disorder, remission status unspecified (HCC); Decreased sexual desire; ED (erectile dysfunction) of organic origin Start: 07-04-2023 ambulatory Brendan ellsworth MD Work Phone: [facility] Comment on above: Weight gain again. Start: 06-28-2023 End: 06-28-2023 Subsequent hospital visit by physician Xr [facility] Work Phone: Radiology Comment on above: Strain of neck muscl e, initial encounter [S16.1XXA] Start: 04-22-2023 Telephone encounter Carlito Jasmine MD Work Phone: [facility] Comment on above: Results Start: 04-21-2023 End: 04-21-2023 Subsequent hospital visit by physician Xr [facility] Work Phone: Radiology Comment on above: Rib pain on right si de [R07.81] Start: 03-27-2023 End: 03-27-2023 Emergency department patient visit [facility] Work Phone: Start: 02-26-2023 End: 02-26-2023 Office outpatient visit 10 minutes Lacy Woodard APRN.[facility] Work Phone: [facility] Comment on above: Chapo de la Tourett e syndrome (Primary Dx); Anxiety Start: 02-25-2023 Refill Radha felix MD Work Phone: Neurology Comment on above: Refill Request Start: 11-27-2022 ambulatory Brendan ellsworth MD Work Phone: [facility] Comment on above: Medication question Start: 11-17-2022 ambulatory Brendan ellsworth MD Work Phone: [facility] Comment on above: Prozac Start: 11-11-2022 End: 11-11-2022 Patient encounter procedure Juliet Oliva EXPERIMENTAL ROCKET SLED MECHANIC.MIRROR MACHINE FEEDER Work Phone: [facility] [place] Comment on above: Bronchitis (Primary Dx) Start: 10-06-2022 Refill Delvin LOPEZ RN.MIRROR MACHINE FEEDER Work Phone: [facility] [place] Comment on above: Refill Request Start: 09-02-2022 End: 09-02-2022 Patient encounter procedure Brendan Kang MD Work Phone: [facility] [place] Comment on above: Epigastric pain (Yas michael Dx); Generalized anxiety disorder; Bipolar affective disorder, remission status unspecified (HCC) Start: 06-29-2022 Refill Brendan ellsworth MD Work Phone: [facility] [place] Comment on above: Refill Request Start: 04-29-2022 ambulatory Brendan ellsworth MD Work Phone: [facility] Comment on above: Prozac Start: 02-20-2022 End: 02-20-2022 [facility] Radha Cole MD Work Phone: Neurology Comment on above: Chapo de la Tourett e syndrome (Primary Dx); Anxiety; Obsessive-compulsive disorder, unspecified type Start: 02-07-2022 ambulatory Brendan ellsworth MD Work Phone: [facility] Comment on above: SANDRA Start: 12-31-2021 Get Medical Advice Brendan lopez MD Work Phone: [facility] Comment on above: Medication refill Procedures Date Procedure Procedure Detail Performing Clinician Start: 01-30-2025 Radiologic exam ches t 2 views Saima Dyson EXPERIMENTAL ROCKET SLED MECHANIC.MIRROR MACHINE FEEDER Work Phone: Start: 01-08-2025 STREP A MOLECULAR (POC) Analy Miranda APRN.MIRROR MACHINE FEEDER Work Phone: Start: 01-15-2024 Streptococcus pyogen es rRNA assay Start: 06-28-2023 Radex spine cervical 4 or 5 views Bobo Jasmine MD Work Phone: Start: 04-21-2023 Radex ribs uni w/pos teroant ch minimum 3 views Bobo Jasmine MD Work Phone: Start: 03-27-2023 X-ray of chest posteroanterior view Start: 03-27-2023 CT of head without contrast Start: 02-18-2022 Adult depression scr eening assessment Radha Cole MD Work Phone: Start: 04-22-2021 Adult depression scr eening assessment Brendan Kang MD Work Phone: Plan of Treatment Date Care Activity Detail Author Start: 03-08-2034 Urine microalbumin profile DTaP,Tdap,Td Vaccine (3 - Td or Tdap) [facility] Start: 03-13-2026 Annual PCP Team Visual Aid Expert barney Disease Visit Annual PCP Team Chronic Disease Visit [facility] Start: 01-10-2026 Annual PCP Team Visual Aid Expert barney Disease Visit Annual PCP Team Chronic Disease Visit [facility] Start: 01-10-2026 BP Controlled (<130/80) BP Con trolled (<130/80) [facility] Start: 01-10-2026 Covid-19 Vaccine ( season) Covid-19 Vaccine () [facility] Comment on above: Postponed from 05/28 (Declined at this time) Start: 11-16-2025 Annual PCP Team Visual Aid Expert barney Disease Visit Annual PCP Team Chronic Disease Visit [facility] Start: 05-28-2025 Influenza vaccination [facility] Start: 04-16-2025 End: 04-16-2025 Patient encounter procedure 04/16/2025 3:20 PM EDT Office Visit [facility] [place] [address] [place] [address] Brendan Kang MD [address] [place] [address] 1 month follow up [facility] [place] Comment on above: 1 month follow up Ad ipex Start: 03-28-2025 End: 03-28-2025 ambulatory 03/28/2025 3:45 PM EDT OT/PT/Speech Visit [facility] [address] [place] [address] Analy Phillips, PT Dx: Lumbar back pain [M54.50] [facility] Comment on above: Dx: Lumbar back pain [M54.50] Start: 03-26-2025 End: 03-26-2025 Follow-up encounter 03/26/2025 2:00 PM EDT [facility] [address] [place] [address] Rachel Higgins PA-C [address] [place] [address] vv follow up per staff message [facility] Comment on above: vv follow up per sta ff message Start: 03-26-2025 Influenza vaccination Influenza Vacc ine (#1) [facility] Comment on above: Postponed from 05/28 (Declined at this time) Start: 02-14-2025 End: 02-14-2025 ambulatory 02/14/2025 3:00 PM EDT [facility] [address] [place] [address] Aubrey Murphy MD [address] [place], [place] [id number] [facility] Start: 12-04-2024 End: 12-04-2024 ambulatory 12/04/2024 2:00 PM EDT OT/PT/Speech Visit [facility] [address] [place] [address] Dany Heard, LINSEY Lumbar back pain [M54.50] [facility] Comment on above: Lumbar back pain [M5 4.50] Start: 11-29-2024 End: 11-29-2024 Follow-up encounter 11/29/2024 3:30 PM EST [facility] [address] [place] [address] Rachel Higgins PA-C [address] [place] [address] 3 week follow up [facility] Comment on above: 3 week follow up Start: 10-18-2024 End: 10-18-2024 ambulatory 10/18/2024 3:30 PM EST [facility] [address] [place] [address] Rachel Higgins PA-C [address] [place] [address] [facility] Start: 09-13-2024 End: 09-13-2024 ambulatory 09/13/2024 3:30 PM EST [facility] [address] [place] [address] Aubrey Murphy MD [address] [place] [address] med check [facility] Comment on above: med check Start: 06-02-2024 End: 06-02-2024 Patient encounter procedure 06/02/2024 1:40 PM EDT Office Visit [facility] [place] [address] [place], [place] [phone] Kia Collins APRN.MIRROR MACHINE FEEDER [address] [place] [address] 1 month BP check [facility] [place] Comment on above: 1 month BP check Start: 05-28-2024 Covid-19 Vaccine ( season) Covid-19 Vaccine ( season) [facility] Start: 05-28-2024 Covid-19 Vaccine ( season) Covid-19 Vaccine ( season) [facility] Start: 05-28-2024 Influenza vaccination [facility] Start: 05-18-2024 End: 05-18-2024 Patient encounter procedure 05/18/2024 10:00 AM EDT Office Visit Neurology [address] [place] [address] Fatigue, unspecified type [R53.83] Neurology Comment on above: Fatigue, unspecified type [R53.83] Start: 05-02-2024 End: 08-01-2024 25-hydroxyvitamin D3 [Mass/volume] in Serum or Plasma [facility] Comment on above: Expected: 05/02/2024 , Expires: 08/01/2024 Start: 05-02-2024 End: 08-01-2024 Cobalamin (Vitamin B12) [Mass/volume] in Serum or Plasma [facility] Comment on above: Expected: 05/02/2024 , Expires: 08/01/2024 Start: 05-02-2024 End: 08-01-2024 Comprehensive metabolic 2000 panel - Serum or Plasma [facility] Work Phone: Comment on above: Expected: 05/02/2024 , Expires: 08/01/2024 Start: 05-02-2024 End: 08-01-2024 Thyrotropin [Units/volume] in Serum or Plasma [facility] Comment on above: Expected: 05/02/2024 , Expires: 08/01/2024 Start: 05-02-2024 End: 08-01-2024 Thyroxine (T4) free [Mass/volume] in Serum or Plasma [facility] Comment on above: Expected: 05/02/2024 , Expires: 08/01/2024 Start: 04-28-2024 End: 04-28-2024 Patient encounter procedure 04/28/2024 4:40 PM EDT Office Visit [facility] [place] [address] [place], [place] [id number] Brendan Kang MD [address] [place], [place] [id number] 3 month follow up COOPER/Bipolar [facility] [place] Comment on above: 3 month follow up GA D/Bipolar Start: 04-06-2024 End: 04-06-2024 ambulatory 04/06/2024 10:00 AM EDT [facility] [address] [place] [address] Aubrey Murphy MD [address] [place], [place] [id number] [facility] Start: 02-17-2024 End: 02-17-2024 ambulatory 02/17/2024 11:00 AM EDT [facility] [address] [place] [address] Aubrey Murphy MD [address] [place] [address] [facility] Start: 01-15-2024 [facility] Start: 05-28-2023 Covid-19 Vaccine ( season) Covid-19 Vaccine () [facility] Start: 05-28-2023 Influenza vaccination [facility] Start: 04-21-2023 Urine microalbumin profile DTaP,Tdap,Td Vaccine (2 - Td or Tdap) [facility] Start: 02-18-2023 Adult depression screening assessment DEPRESSION SCREENING [facility] Start: 09-27-2022 [facility] Start: 05-28-2022 Influenza vaccination [facility] Start: 04-22-2022 Adult depression screening assessment DEPRESSION SCREENING [facility] Start: 03-16-2022 COVID-19 VACCINE (2 - Booster for Moderna series) COVID-19 VACCINE (2 - Booster for Moderna series) [facility] Start: 03-16-2022 COVID-19 VACCINE (2 - Moderna series) COVID-19 VACCINE (2 - Moderna series) [facility] Start: 02-16-2022 COVID-19 VACCINE (2 - Moderna series) COVID-19 VACCINE (2 - Moderna series) [facility] Start: 09-27-2021 DEPRESSION ASSESSMENT DEPRESSION ASS ESSMENT [facility] Start: 2011 Hepatitis B Vaccine (1 of 3 - 19+ 3-dose series) Hepatitis B Vaccine (1 of 3 - 19+ 3-dose series) [facility] Start: 2011 Urine microalbumin profile [facility] Start: 2010 BP Controlled (<130/80) BP Con trolled (<130/80) [facility] Start: 2010 Depression Screening Depression Scre ening [facility] Start: 2010 HEPATITIS C SCREENING HEPATITIS C SC EDITH [facility] Start: 2010 Hepatitis C screening Hepatitis C [facility] Start: 2010 HIV SCREENING HIV SCREENING [facility] Start: 2010 HIV screening HIV Screening [facility] Start: 1997 COVID-19 VACCINE (#1) COVID-19 VACCI NE (#1) [facility] Start: 1997 COVID-19 VACCINE (1) COVID-19 VACCIN E (1) [facility] Start: 1992 HEPATITIS B (1 of 3 - 3-dose series) HEPATITIS B (1 of 3 - 3-dose series) [facility] Start: 1992 Hepatitis B Vaccine (1 of 3 - 3-dose series) Hepatitis B Vaccine (1 of 3 - 3-dose series) [facility] COVID & INFLUENZA A/ B & RSV PCR, ROUTINE COVID & INFLUENZA A/B & RSV PCR, ROUTINE Microbiology Routine URI with cough and congestion Ordered: 09/21/2024 [facility] Work Phone: Comment on above: Ordered: 09/21/2024 End: 05-03-2025 HOME SLEEP APNEA TEST (HSAT) HOME SLEEP APNEA TEST (HSAT) Procedures Routine Fatigue, unspecified type 1 Occurrences starting 05/03/2024 until 05/03/2025 [facility] Work Phone: Comment on above: 1 Occurrences starti ng 05/03/2024 until 05/03/2025 Patient Education [facility] Work Phone: Patient referral [facility] Work Phone: End: 12-16-2025 XR Lumbar spine 3 Views XR LUMBAR GENERAL 3V AP/LAT/L5-S1 Radiology Routine Lumbar back pain 1 Occurrences starting 11/16/2024 until 12/16/2025 [facility] Work Phone: Comment on above: 1 Occurrences starti ng 11/16/2024 until 12/16/2025 End: 04-12-2026 XR Lumbar spine 3 Views XR LUMBAR GENERAL 3V AP/LAT/L5-S1 Radiology Routine Lumbar back pain 1 Occurrences starting 03/13/2025 until 04/12/2026 [facility] Work Phone: Comment on above: 1 Occurrences starti ng 03/13/2025 until 04/12/2026 XR Lumbar spine 3 Views XR LUMBA R GENERAL 3V AP/LAT/L5-S1 Radiology Routine Lumbar back pain 03/13/2025 4:[address] 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 FEEDER Work Phone: [facility] 05-09-2018 influenza, injectabl e, quadrivalent, preservative free Caro Candice EXPERIMENTAL ROCKET SLED MECHANIC.MIRROR MACHINE FEEDER Work Phone: [facility] 05-09-2018 influenza virus vaccine, unspecified formulation Brendan Kang MD Work Phone: [facility] 11-25-2014 influenza, seasonal, injectable, preservative free Caro Candice EXPERIMENTAL ROCKET SLED MECHANIC.MIRROR MACHINE FEEDER Work Phone: [facility] 06-21-2013 influenza, seasonal, injectable Caro Candice EXPERIMENTAL ROCKET SLED MECHANIC.MIRROR MACHINE FEEDER Work Phone: [facility] 04-21-2013 tetanus toxoid, redu eunice diphtheria toxoid, and acellular pertussis vaccine, adsorbed Caro Candice EXPERIMENTAL ROCKET SLED MECHANIC.MIRROR MACHINE FEEDER Work Phone: [facility] Payers Date Payer Category Payer Self-pay [id number] 2022 Unknown [id number] 2019 Medicaid [facility] MEDICAID [facility] [employer] MEDICAID [id number] 2019-Present [phone] [address] [place] [address] Medicaid [id number] 2019 Medicaid [id number] Unknown LALA [id number] Unknown [id number] Unknown [id number] Unknown [id number] Unknown [id number] Social History Date Type Detail Facility Start: 05-05-2011 End: 09-02-2022 Tobacco smoking status NHIS Never smoked tobacco [facility] Start: 05-05-2011 End: 09-02-2022 Tobacco use and exposure Smokeless tobacco non-user [facility] Start: 05-05-2021 End: 03-13-2025 Alcohol intake Ex-drinker (finding) [facility] Start: 07-09-2020 End: 11-11-2022 History SDOH Alcohol Frequency 2 [facility] Start: 07-09-2020 End: 11-11-2022 History SDOH Alcohol Std Drinks 1 [facility] Start: 07-09-2020 End: 11-11-2022 History SDOH Social Connections Latter-Day 3 [facility] Start: 07-09-2020 End: 11-11-2022 History SDOH Social Connections Living 7 [facility] Start: 07-09-2020 End: 11-11-2022 History SDOH Physical Activity MPS 4 [facility] Start: 07-09-2020 End: 11-11-2022 History SDOH Financial 5 [facility] Start: 07-09-2020 Education 12 [facility] Start: 1992 Sex Assigned At Not on file [facility] Start: 02-10-2022 End: 11-11-2022 History SDOH Physical Activity MPS 6 [facility] Start: 03-27-2023 End: 01-15-2024 Tobacco smoking status NHIS Unknown if ever smoked [facility] Start: 12-18-2020 None [facility] Start: 12-18-2020 With Family [facility] Start: 1990 Sex Assigned At Male W [facility] Start: 11-11-2022 End: 02-17-2024 History of Social function [facility] Start: 11-11-2022 End: 02-17-2024 Social connection and isolation panel [facility] Do you belong to any clubs or organizations such as druze groups, unions, fraternal or athletic groups, or school groups? No [facility] Are you now , , , , never or living with a partner? Never [facility] How often to you hav e a drink containing alcohol? 2-4 times a month [facility] How many standard dr inks containing alcohol do you have on a typical day? 1 or 2 [facility] How often do you hav e 6 or more drinks on 1 occasion? Never [facility] How hard is it for y ou to pay for the very basics like food, housing, medical care, and heating Not hard at all [facility] Do you feel stress - tense, restless, nervous, or anxious, or unable to sleep at night because your mind is troubled all the time - these days [OSQ] Only a little [facility] (I/We) worried wheth er (my/our) food would run out before (I/we) got money to buy more. Never true [facility] Are you now , , , , never or living with a partner? Living with partner [facility] How often to you hav e a drink containing alcohol? Monthly or less [facility] Do you feel stress - tense, restless, nervous, or anxious, or unable to sleep at night because your mind is troubled all the time - these days [OSQ] Very much [facility] How hard is it for y ou to pay for the very basics like food, housing, medical care, and heating Not very hard [facility] Functional Status Date Assessment Result Facility 01-10-2025 Total score [AUDIT-C] 0 01/11/20 25 1:42 PM EDT User, Jose [facility] 01-10-2025 Within the last year , have you been humiliated or emotionally abused in other ways by your partner or ex-partner? No 01/10/2025 1:42 PM EDT User, Taylort No [facility] 01-10-2025 Within the last year , have you been afraid of your partner or ex-partner? No 01/10/2025 1:42 PM EDT User, Taylort No [facility] 01-10-2025 Within the last year , have you been raped or forced to have any kind of sexual activity by your partner or ex-partner? No 01/10/2025 1:42 PM EDT User, Taylort No [facility] 01-10-2025 Within the last year , have you been kicked, hit, slapped, or otherwise physically hurt by your partner or ex-partner? No 01/10/2025 1:42 PM EDT User, Taylort No [facility] 01-10-2025 How often to you hav e a drink containing alcohol? Never 01/10/2025 1:42 PM EDT User, Taylort Never [facility] 01-10-2025 Functional status Patient does n ot drink 01/10/2025 1:42 PM EDT User, Jose Patient does not drink [facility] 01-10-2025 How often do you hav e 6 or more drinks on 1 occasion? Never 01/10/2025 1:42 PM EDT User, Taylort Never [facility] Clinical Notes 01-01-2022 to 03-27-2025 Patient InstructionsTelephone Encounter - Fina Casanova MA - 03/20/2025 9:20 AM EDTTelephone Encounter - Fina Casanova MA - 03/20/2025 9:20 AM EDTPatient InstructionsPatient Instructions Note Date & Type Note Facility 03-27-2025 Instructions Rachel Higgins PA-C - 03/27/2025 10:31 AM EDT Dear Lexus Handy, You were scheduled for an appointment on March 26, 2025 with [facility]. Unfortunately you have missed this appointment, please let my office assist you in rescheduling at your convenience. You can reach my schedulers directly at [phone]. Please do not hesitate to contact my office if there are any questions. Sincerely, Rachel Rodríguez PA-C [facility] documented in this encounter [facility] 03-20-2025 Telephone encounter Note Notified via [employer] ([employer]). Fina Casanova MA [facility] 03-20-2025 Miscellaneous Notes Notified via [employer] ([employer]). Fina Casanova MA I would suggest a 9 day prednisone taper as ordered to calm down his back pain. Brendan Kang MD See [employer] ([employer]) message. Fina Casanova MA documented in this encounter [facility] 03-20-2025 Telephone encounter Note I would suggest a 9 day prednisone taper as ordered to calm down his back pain. Brendan Kang MD [facility] 03-16-2025 Telephone encounter Note See [employer] message. Fina Casanova MA [facility] 03-13-2025 History of Present illness Narrative Radiology Service Progress Note PATIENT NAME: Lexus Handy DATE OF SERVICE: March 13, 2025 TIME: 3:52 PM PATIENT IDENTITY VERIFICATION COMPLETED USING TWO (2) IDENTIFIERS: Name and Date of confirmed by patient verbally. FALL SCREENING: Has the patient had 2 falls in the last year or 1 fall with injury or currently using an Ambulatory Assistive Device (Walker, Cane, Wheelchair, Crutches, etc.)? No PATIENT GENDER DATA: Assigned male at PATIENT RELEVANT IMPLANT DATA REVIEWED: Not Applicable PATIENT PRESENTS WITH AN IMPLANTABLE OR ATTACHED CHILD WELFARE CASEWORKER: No RADIOLOGY DEPARTMENT: General X-ray: Exam(s) Completed: Spine X-Ray(s): Lumbar AP / LAT / L5-S1 PERIPHERAL IV DATA: Not applicable SIGNED BY: Mercy Penny March 13, 2025 3:52 PM documented in this encounter [facility] 03-13-2025 Note HNO ID: [id number] Author: MAGALI ZULUAGA Tech Service: ? Author Type: Technologist Type: Progress Notes Filed: 03/13/2025 16:05 Note Text: Radiology Service Progress Note PATIENT NAME: Lexus Handy DATE OF SERVICE: March 13, 2025 TIME: 3:52 PM PATIENT IDENTITY VERIFICATION COMPLETED USING TWO (2) IDENTIFIERS: Name and Date of confirmed by patient verbally. FALL SCREENING: Has the patient had 2 falls in the last year or 1 fall with injury or currently using an Ambulatory Assistive Device (Walker, Cane, Wheelchair, Crutches, etc.)? No PATIENT GENDER DATA: Assigned male at PATIENT RELEVANT IMPLANT DATA REVIEWED: Not Applicable PATIENT PRESENTS WITH AN IMPLANTABLE OR ATTACHED CHILD WELFARE CASEWORKER: No RADIOLOGY DEPARTMENT: General X-ray: Exam(s) Completed: Spine X-Ray(s): Lumbar AP / LAT / L5-S1 PERIPHERAL IV DATA: Not applicable SIGNED BY: Mercy Penny March 13, 2025 3:[address] [facility] 03-13-2025 History of Present illness Narrative Chief Complaint Back pain HPI Lexus Handy is a 34 year old male who presents here today for back issue. Pt c/o chronic lower and mid back pain, burning, ache, stabbing, throbbing pain for many years but worse the past 5 years. He has tried using heat and ice, and using OTC pain relievers. He was suppose to get some xrays done in Oct on the back and do PT but stated he wasn't able to get those completed due to work schedule. Would like to get the xrays reordered. Pt was seen in Oct for this pain. Hx of back injury in 2012 lifting weights. Working as a [employer]. From 11/21 note: Back pain - Reports he injured his back weight lifting ( lifting) in 2012. When he injured it he felt like something popped in the middle of his back; was unable to lift weight for several weeks. Pt reports that he's not had time to think about it more til now. Reports daily flare ups that can last all day long. Pain worse when working hard or when working strenuously. At times he feels he can't take a deep breath. He will try to lay down but this doesn't always help. Is using NSAID's for pain but this doesn't help. Pain rated a 6/10 and described as aching, dull, pressure, pulsating and sharp. Has seen chiropractor without help Past medical history, appointments, medications, allergies reviewed. Obesity: was on adipex in the past that was helpful, had some insomnia with it. He feels if he could lose weight his back would be better. Anxiety; Stable on prozac 40 mg daily. Previous Medical History PAST MEDICAL HISTORY Diagnosis [...] Prior to Visit Medication Sig FLUoxetine (PROZAC) 10 mg capsule take 1 capsule by mouth once daily take with 2 OF THE 20 milligram capsules for 1 week UNTIL January) fluPHENAZine (PROLIXIN) 5 mg tablet Take 1 tablet by mouth daily at bedtime. FLUoxetine (PROZAC) 20 mg capsule Take 3 capsules by mouth once daily. Patient should start on February 05, 2025. fluticasone (FLONASE) 50 mcg/actuation nasal spray Use 2 sprays in each nostril once daily. Rinse mouth after use. lisinopril (ZESTRIL) 10 mg tablet Take 1 tablet by [...] use: Not Currently Drug use: Never EXAM: There were no vitals taken for this visit. General Appearance: Well appearing, alert, in no acute distress, well-hydrated, well nourished.. Back:pain in mid lower lumbar area and along paraspinal muscles to mid back. Pain with movement in all directions; limited flexion. Health Maintenance List Depression Screening Never done Hepatitis C Screening Never done HIV Screening Never done Hepatitis B Vaccine(1 of 3 - 19+ 3-dose series) Never done Covid-19 Vaccine( - season) due on 01/10/2026 Influenza Vaccine(Season Ended) due on 05/28/2025 Annual PCP Team Chronic Disease Visit due on 01/10/2026 DTaP,Tdap,Td Vaccine(3 - Td or Tdap) due on 03/08/2034 Data reviewed none ASSESSMENT/PLAN: 1. Lumbar back pain - ICD9: 724.2, ICD10: M54.50 (primary diagnosis) - XR LUMBAR GENERAL 3V AP/LAT/L5-S1 - CONSULT TO PHYSICAL THERAPY 2. Class 1 obesity with body mass index (BMI) of 33.0 to 33.9 in adult, unspecified obesity type, unspecified whether serious comorbidity present - ICD9: 278.00, V85.33, ICD10: E66.811, Z68.33 Stable - Behavioral and pharmacological intervention - PHENTERMINE 37.5 MG TABLET 3. Generalized anxiety disorder - ICD9: 300.02, ICD10: F41.1 Stable on Prozac Follow up in 1 month to check weight I agree with the Chief Complaint, ROS, and Past Histories independently gathered by the clinical sales support advisor and the remaining scribed note accurately describes my personal service to the patient. Medical Decision Making: Problems: Moderate: 2+ stable chronic illnesses Data: Unique test(s) ordered: 1 Risk: Moderate: Drug management Medical Decision Making Level: 4 - Moderate Brendan Kang MD The documentation for this note was completed by Fina Casanova MA acting as scribe for Brendan Kang MD. March 13, 2025 3:26 PM. Fina Casanova MA documented in this encounter [facility] 03-13-2025 Note HNO ID: [id number] Author: BRENDAN KANG MD Service: ? Author Type: Physician Type: Progress Notes Filed: 03/13/2025 15:49 Note Text: Chief Complaint Back pain HPI Lexus Handy is a 34 year old male who presents here today for back issue. Pt c/o chronic lower and mid back pain, burning, ache, stabbing, throbbing pain for many years but worse the past 5 years. He has tried using heat and ice, and using OTC pain relievers. He was suppose to get some xrays done in Oct on the back and do PT but stated he wasn't able to get those completed due to work schedule. Would like to get the xrays reordered. Pt was seen in Oct for this pain. Hx of back injury in 2012 lifting weights. Working as a [employer]. From 11/21 note: Back pain - Reports he injured his back weight lifting ( lifting) in 2012. When he injured it he felt like something popped in the middle of his back; was unable to lift weight for several weeks. Pt reports that he's not had time to think about it more til now. Reports daily flare ups that can last all day long. Pain worse when working hard or when working strenuously. At times he feels he can't take a deep breath. He will try to lay down but this doesn't always help. Is using NSAID's for pain but this doesn't help. Pain rated a 6/10 and described as aching, dull, pressure, pulsating and sharp. Has seen chiropractor without help Past medical history, appointments, medications, allergies reviewed. Obesity: was on adipex in the past that was helpful, had some insomnia with it. He feels if he could lose weight his back would be better. Anxiety; Stable on prozac 40 mg daily. Previous Medical History PAST MEDICAL HISTORY Diagnosis [...] Prior to Visit Medication Sig FLUoxetine (PROZAC) 10 mg capsule take 1 capsule by mouth once daily take with 2 OF THE 20 milligram capsules for 1 week UNTIL January) fluPHENAZine (PROLIXIN) 5 mg tablet Take 1 tablet by mouth daily at bedtime. FLUoxetine (PROZAC) 20 mg capsule Take 3 capsules by mouth once daily. Patient should start on February 05, 2025. fluticasone (FLONASE) 50 mcg/actuation nasal spray Use 2 sprays in each nostril once daily. Rinse mouth after use. lisinopril (ZESTRIL) 10 mg tablet Take 1 tablet by [...] use: Not Currently Drug use: Never EXAM: There were no vitals taken for this visit. General Appearance: Well appearing, alert, in no acute distress, well-hydrated, well nourished.. Back:pain in mid lower lumbar area and along paraspinal muscles to mid back. Pain with movement in all directions; limited flexion. Health Maintenance List Depression Screening Never done Hepatitis C Screening Never done HIV Screening Never done Hepatitis B Vaccine(1 of 3 - 19+ 3-dose series) Never done Covid-19 Vaccine( season) due on 01/10/2026 Influenza Vaccine(Season Ended) due on 05/28/2025 Annual PCP Team Chronic Disease Visit due on 01/10/2026 DTaP,Tdap,Td Vaccine(3 - Td or Tdap) due on 03/08/2034 Data reviewed none ASSESSMENT/PLAN: 1. Lumbar back pain - ICD9: 724.2, ICD10: M54.50 (primary diagnosis) - XR LUMBAR GENERAL 3V AP/LAT/L5-S1 - CONSULT TO PHYSICAL THERAPY 2. Class 1 obesity with body mass index (BMI) of 33.0 to 33.9 in adult, unspecified obesity type, unspecified whether serious comorbidity present - ICD9: 278.00, V85.33, ICD10: E66.811, Z68.33 Stable - Behavioral and pharmacological intervention - PHENTERMINE 37.5 MG TABLET 3. Generalized anxiety disorder - ICD9: 300.02, ICD10: F41.1 Stable on Prozac Follow up in 1 month to check weight I agree with the Chief Complaint, ROS, and Past Histories independently gathered by the clinical sales support advisor and the remaining scribed note accurately describes my personal service to the patient. Medical Decision Making: Problems: Moderate: 2+ stable chronic illnesses Data: Unique test(s) ordered: 1 Risk: Moderate: Drug management Medical Decision Making Level: 4 - Moder (more content not included)... [facility] 01-30-2025 Instructions Saima Dyson APRN.CNP - 01/30/2025 4:27 PM EDT {ASSESSMENT/PLAN: 1. URI, acute - ICD9: 465.9, ICD10: J06.9 (primary diagnosis) - Discussed viral etiology and rationale for treatment. - Symptomatic treatment with prn analgesia - Supportive care with fluids and rest - Follow up in 3-5 days if symptoms persist or sooner if worsening of symptoms -If you experience chest pain/shortness of breath go to ER documented in this encounter [facility] 01-30-2025 History of Present illness Narrative Radiology Service Progress Note PATIENT NAME: Lexus Handy DATE OF SERVICE: January 30, 2025 TIME: 12:10 PM PATIENT IDENTITY VERIFICATION COMPLETED USING TWO (2) IDENTIFIERS: Name and Date of confirmed by patient verbally. FALL SCREENING: Has the patient had 2 falls in the last year or 1 fall with injury or currently using an Ambulatory Assistive Device (Walker, Cane, Wheelchair, Crutches, etc.)? No PATIENT GENDER DATA: Assigned male at PATIENT RELEVANT IMPLANT DATA REVIEWED: Not Applicable PATIENT PRESENTS WITH AN IMPLANTABLE OR ATTACHED CHILD WELFARE CASEWORKER: No RADIOLOGY DEPARTMENT: General X-ray: Exam(s) Completed: Chest X-Ray PERIPHERAL IV DATA: Not applicable SIGNED BY: Mercy Penny January 30, 2025 12:10 PM documented in this encounter [facility] 01-30-2025 Note HNO ID: [id number] Author: MAGALI ZULUAGA Tech Service: ? Author Type: Technologist Type: Progress Notes Filed: 01/30/2025 12:28 Note Text: Radiology Service Progress Note PATIENT NAME: Lexus Handy DATE OF SERVICE: January 30, 2025 TIME: 12:10 PM PATIENT IDENTITY VERIFICATION COMPLETED USING TWO (2) IDENTIFIERS: Name and Date of confirmed by patient verbally. FALL SCREENING: Has the patient had 2 falls in the last year or 1 fall with injury or currently using an Ambulatory Assistive Device (Walker, Cane, Wheelchair, Crutches, etc.)? No PATIENT GENDER DATA: Assigned male at PATIENT RELEVANT IMPLANT DATA REVIEWED: Not Applicable PATIENT PRESENTS WITH AN IMPLANTABLE OR ATTACHED CHILD WELFARE CASEWORKER: No RADIOLOGY DEPARTMENT: General X-ray: Exam(s) Completed: Chest X-Ray PERIPHERAL IV DATA: Not applicable SIGNED BY: Mercy Penny January 30, 2025 12:[address] [facility] 01-30-2025 Note HNO ID: [id number] Author: SAIMA DYSON APRN.VAHID Service: ? Author Type: Nurse Practitioner Type: Progress Notes Filed: 01/30/2025 16:27 Note Text: [facility] Subjective HPI HPI Lexus Handy is a 34 year old male who presents today for CC of cough, fever, wheezing. This started 3 days ago. Has tried otc medication for relief. Symptoms are worsened by nothing. Risk factors sick exposures. nonmsmoker. PAST MEDICAL HISTORY Diagnosis Date Bipolar disorder (HCC) Current moderate episode of major depressive disorder without prior episode (HCC) Generalized anxiety disorder Tourette syndrome PAST SURGICAL HISTORY Procedure Laterality Date APPENDECTOMY REPAIR ING HERNIA,5+Y/O,REDUCIBL TONSILLECTOMY AND ADENOIDECTOMY ALLERGIES Amoxil [Amoxicillin] and Ceclor [Cefaclor] MEDICATIONS fluPHENAZine (PROLIXIN) 5 mg tablet Take 1 tablet by mouth daily at bedtime. [START ON 02/05/2025] FLUoxetine (PROZAC) 20 mg capsule Take 3 capsules by mouth once daily. Patient should start on February 05, 2025. FLUoxetine (PROZAC) 10 mg capsule Take 1 capsule by mouth once daily. Take with two of the 20mg capsules for one week (until February 05) lisinopril (ZESTRIL) 10 mg tablet Take 1 tablet by mouth once daily. albuterol HFA (VENTOLIN HFA) 90 mcg/actuation inhaler Inhale 2 Puffs as instructed every 4 hours as needed for wheezing/shortness of breath. fluticasone (FLONASE) 50 mcg/actuation nasal spray Use 2 sprays in each nostril once daily. Rinse mouth after use. FAMILY HISTORY Problem Relation Age of Onset Tourette syndrome Brother Social History Tobacco Use Smoking status: Never Smokeless tobacco: Never Vaping Use Vaping status: Never Used Substance Use Topics Alcohol use: Not Currently Drug use: Never Review of Systems Constitutional: Positive for fever. Negative for chills and fatigue. HENT: Positive for rhinorrhea and sore throat. Negative for ear discharge, ear pain, sinus pressure and sinus pain. Eyes: Negative for discharge and redness. Respiratory: Positive for cough, shortness of breath and wheezing. Cardiovascular: Negative for chest pain. Skin: Negative for rash. Objective BP 118/82 Pulse 88 Temp 36.6 ?C (97.9 ?F) (Tympanic) Resp 16 Wt 109.9 kg (242 lb 4.6 oz) SpO2 97% BMI 33.79 kg/m? Physical Exam Constitutional: General: He is not in acute distress. Appearance: He is not ill-appearing, toxic-appearing or diaphoretic. HENT: Head: Normocephalic and atraumatic. Right Ear: Hearing, tympanic membrane, ear canal and external ear normal. Left Ear: Hearing, tympanic membrane, ear canal and external ear normal. Nose: Nose normal. Mouth/Throat: Pharynx: Uvula midline. Eyes: General: Lids are normal. No scleral icterus. Right eye: No discharge. Left eye: No discharge. Conjunctiva/sclera: Conjunctivae normal. Pupils: Pupils are equal, round, and reactive to light. Neck: Trachea: Trachea normal. Cardiovascular: Rate and Rhythm: Normal rate and regular rhythm. Heart sounds: Normal heart sounds. Pulmonary: Effort: Pulmonary effort is normal. Breath sounds: Normal breath sounds. Musculoskeletal: Cervical back: Normal range of motion and neck supple. Lymphadenopathy: Cervical: No cervical adenopathy. Skin: Findings: No rash. Neurological: Mental Status: He is alert and oriented to person, place, and time. {ASSESSMENT/PLAN: 1. URI, acute - ICD9: 465.9, ICD10: J06.9 (primary diagnosis) - Discussed viral etiology and rationale for treatment. - Symptomatic treatment with prn analgesia - Supportive care with fluids and rest - Follow up in 3-5 days if symptoms persist or sooner if worsening of symptoms -If you experience chest pain/shortness of breath go to ER 2. Acute cough - ICD9: 786.2, ICD10: R05.1 - XR CHEST 2V FRONTAL/LAT IMPRESSION: No acute radiographic abnormality. Dictated by : MD Saima RAUSCH APRN.[employer] History and Record Review External record(s) reviewed: prior outpatient record. Systemic symptoms present included: fever Disposition The patient was discharged. OTC Medications were advised: Procedures [facility] 01-30-2025 History of Present illness Narrative [facility] Subjective HPI HPI Lexus Handy is a 34 year old male who presents today for CC of cough, fever, wheezing. This started 3 days ago. Has tried otc medication for relief. Symptoms are worsened by nothing. Risk factors sick exposures. nonmsmoker. PAST MEDICAL HISTORY Diagnosis Date Bipolar disorder (HCC) Current moderate episode of major depressive disorder without prior episode (HCC) Generalized anxiety disorder Tourette syndrome PAST SURGICAL HISTORY Procedure Laterality Date APPENDECTOMY REPAIR ING HERNIA,5+Y/O,REDUCIBL TONSILLECTOMY & ADENOIDECTOMY <AGE 12 ALLERGIES Amoxil [Amoxicillin] and Ceclor [Cefaclor] MEDICATIONS fluPHENAZine (PROLIXIN) 5 mg tablet Take 1 tablet by mouth daily at bedtime. [START ON 02/05/2025] FLUoxetine (PROZAC) 20 mg capsule Take 3 capsules by mouth once daily. Patient should start on February 05, 2025. FLUoxetine (PROZAC) 10 mg capsule Take 1 capsule by mouth once daily. Take with two of the 20mg capsules for one week (until February 05) lisinopril (ZESTRIL) 10 mg tablet Take 1 tablet by mouth once daily. albuterol HFA (VENTOLIN HFA) 90 mcg/actuation inhaler Inhale 2 Puffs as instructed every 4 hours as needed for wheezing/shortness of breath. fluticasone (FLONASE) 50 mcg/actuation nasal spray Use 2 sprays in each nostril once daily. Rinse mouth after use. FAMILY HISTORY Problem Relation Age of Onset Tourette syndrome Brother Social History Tobacco Use Smoking status: Never Smokeless tobacco: Never Vaping Use Vaping status: Never Used Substance Use Topics Alcohol use: Not Currently Drug use: Never Review of Systems Constitutional: Positive for fever. Negative for chills and fatigue. HENT: Positive for rhinorrhea and sore throat. Negative for ear discharge, ear pain, sinus pressure and sinus pain. Eyes: Negative for discharge and redness. Respiratory: Positive for cough, shortness of breath and wheezing. Cardiovascular: Negative for chest pain. Skin: Negative for rash. Objective BP 118/82 Pulse 88 Temp 36.6 C (97.9 F) (Tympanic) Resp 16 Wt 109.9 kg (242 lb 4.6 oz) SpO2 97% BMI 33.79 kg/m Physical Exam Constitutional: General: He is not in acute distress. Appearance: He is not ill-appearing, toxic-appearing or diaphoretic. HENT: Head: Normocephalic and atraumatic. Right Ear: Hearing, tympanic membrane, ear canal and external ear normal. Left Ear: Hearing, tympanic membrane, ear canal and external ear normal. Nose: Nose normal. Mouth/Throat: Pharynx: Uvula midline. Eyes: General: Lids are normal. No scleral icterus. Right eye: No discharge. Left eye: No discharge. Conjunctiva/sclera: Conjunctivae normal. Pupils: Pupils are equal, round, and reactive to light. Neck: Trachea: Trachea normal. Cardiovascular: Rate and Rhythm: Normal rate and regular rhythm. Heart sounds: Normal heart sounds. Pulmonary: Effort: Pulmonary effort is normal. Breath sounds: Normal breath sounds. Musculoskeletal: Cervical back: Normal range of motion and neck supple. Lymphadenopathy: Cervical: No cervical adenopathy. Skin: Findings: No rash. Neurological: Mental Status: He is alert and oriented to person, place, and time. {ASSESSMENT/PLAN: 1. URI, acute - ICD9: 465.9, ICD10: J06.9 (primary diagnosis) - Discussed viral etiology and rationale for treatment. - Symptomatic treatment with prn analgesia - Supportive care with fluids and rest - Follow up in 3-5 days if symptoms persist or sooner if worsening of symptoms -If you experience chest pain/shortness of breath go to ER 2. Acute cough - ICD9: 786.2, ICD10: R05.1 - XR CHEST 2V FRONTAL/LAT IMPRESSION: No acute radiographic abnormality. Dictated by : MD Saima RAUSCH APRN.VAHID History and Record Review External record(s) reviewed: prior outpatient record. Systemic symptoms present included: fever Disposition The patient was discharged. OTC Medications were advised: Procedures documented in this encounter [facility] 01-29-2025 Note HNO ID: [id number] Author: AUBREY MURPHY MD Service: ? Author Type: Physician Type: Progress Notes Filed: 02/01/2025 08:16 Note Text: FOLLOW UP - PSYCHIATRIC PROGRESS [...] visit. Either the patient or their legal jewelry sales representative has been informed of the risks and benefits of -- and alternatives to -- treatment through a remote evaluation and consents to proceed with the evaluation remotely. Reason for Visit: Outpatient follow-up and safety monitoring of previously prescribed psychiatric medication, psychotherapy or other treatment CC: Follow up HPI: Last seen 10/16/24: 34M (single, unemployed, lives w/ fiancee) with Tourette (severe, had to be homeschooled), OCD, bipolar do, and chronic COOPER presenting with anxiety sx. Mood is well controlled on current med regimen. Today, endorsing significant irritability and anxiety, pacing around a lot, [facility]. Triggers include being jobless. No SI/HI/safety concern. Increased sleep up to 12-13h nightly. Some initial insomnia (~1hr to fall asleep). No new substance use. 1. Start VPA DR 125mg QHS for one week then increase to 250mg at bedtime daily. Cont Prozac 60mg QHS. Cont Prolixin 5mg QHS. VPA made irritability worse. Stopped it. Increased Prolixin dose from 5mg QHS to 2.5mg BID plus 5mg QHS. No improvement over one week. OCD is worse. Anxiety is ongoing. Irritability/agitation continues. Continues to sleep excessively. No evidence of jasmeet at this time. No SI/HI. Previous med trials: All tried while a child: risperidone, clonidine (decreased BP), Adderall (increased tics), Seroquel, Orap, Abilify (developed SI on it in March 2024), Geodon (behavior changes) Duloxetine, Effexor, Zoloft, Fluovoxamine, Wellbutrin (made anxiety/agitation worse) 1. Start a short-term course of Klonopin 0.5mg BID to curb irritability --> significant improved but caused drowsiness --> rec'd decrease dose 2. Go back to original Prolixin dose of 5mg QHS. 3. Increase Prozac from 60mg to 80mg daily. Risks and benefits of the medication, including any black box warnings, were discussed with the patient. Interval Progress: Same PATIENT DATA: Generalized Anxiety Disorder Scale (COOPER-7) 11/28/2024 01/10/2025 01/27/2025 COOPER - 7 SCORES Score 13 10 13 (0-4) minimal anxiety, (5-9) mild anxiety, (10-14) moderate anxiety, (15-21) severe anxiety Patient Health Questionnaire (PHQ-9) 11/28/2024 01/10/2025 01/27/2025 PHQ-9 Score 17 7 6 (0-4) minimal depression, (5-9) mild depression, (10-14) moderate depression, (15-19) moderately severe depression, (20-27) severe depression PROMIS Global Health 04/05/2024 07/27/2024 11/07/2024 PROMIS Global Health - (T-Scores - the mean of general population = 50. Five points is a clinically meaningful difference.) Physical T-Score 39.8 37.4 37.4 Mental T-Score 28.4 38.8 31.3 PAST MEDICAL HISTORY Diagnosis Date Bipolar disorder (HCC) Current moderate episode of major depressive disorder without prior episode (HCC) Generalized anxiety disorder Tourette syndrome PAST SURGICAL HISTORY Procedure Laterality Date APPENDECTOMY REPAIR ING HERNIA,5+Y/O,REDUCIBL TONSILLECTOMY AND ADENOIDECTOMY Current Outpatient Medications Medication Sig Dispense Refill fluticasone (FLONASE) 50 mcg/actuation nasal spray Use 2 sprays in each nostril once daily. Rinse mouth after use. 1 each 1 lisinopril (ZESTRIL) 10 mg tablet Take 1 tablet by mouth once daily. 30 tablet 5 clonazePAM (KLONOPIN) 0.5 mg tablet Take 0.5 tablets by mouth two times a day as needed for anxiety for up to 30 days. 15 tablet 1 FLUoxetine (PROZAC) 20 mg capsule Take 1 capsule by mouth once daily for 7 days, THEN 2 capsules once daily for 23 days. 53 capsule 1 fluPHENAZine (PROLIXIN) 5 mg tablet Take 1 tablet by mouth daily at bedtime. 60 tablet 1 albuterol HFA (VENTOLIN HFA) 90 mcg/actuation inhaler Inhale 2 Puffs as instructed every 4 hours as needed for wheezing/shortness of breath. 18 g 0 No current facility-administered medications for this [...] dysuria, frequency and incontinence. MUSCULOSKELETAL: Negative for akua (more content not included)... [facility] 01-10-2025 Note HNO ID: [id number] Author: BOBO JASMINE MD Service: ? Author Type: Physician Type: Progress Notes Filed: 01/11/2025 10:01 Note Text: Chief Complaint Patient presents with: Cough Chest Congestion Head Congestion Sore Throat: Started a week ago and is scratchy during the evenings and HS. Wheezing HPI Lexus Handy is a 34 year old male who presents here today for Above Complaints.. Evaluated in EC on 01/08 with complaint of URI symptoms with following HPI: Patient is a 34-year-old male who complains of congestion, sinus pressure, sore throat and cough that he has been experiencing for the past 2 days. Patient reports no fever, chills or myalgia. Patient does have a history of exercise-induced asthma and is using an inhaler, however the patient denies increased episodes of wheezing. Patient reports that his albuterol MDI is current and he does not require a refill for same. Patient has no history of tobacco use. Diagnosed with sore throat and viral illness and was started on tessalon and prednisone burst. Today, he states that he has been symptomatic since 01/06. He states that he only took 1 days worth of prednisone, but could not tolerate due to anger issues. Tessalon not helping much for his cough. Using dayquil, nyquil and mucinex PRN without much improvement. Notes that he has developed wheezing at night since EC evaluation. Needing albuterol inhaler BID. Still has dry cough, nasal congestion, rhinorrhea, post nasal drip, sinus frontal sinus pressure, sore throat at night, chest pain with cough, Denies SOB, chest congestion, nausea, vomiting,diarrhea, ear pain/fullness. Sick contact with fiance with sinus infection. Feels like symptoms are stable. Had to call off work today. Past medical history, appointments, medications, allergies reviewed. [...] on File Prior to Visit Medication Sig lisinopril (ZESTRIL) 10 mg tablet Take 1 tablet by mouth once daily. fluPHENAZine (PROLIXIN) 5 mg tablet Take 1 tablet by mouth daily at bedtime. predniSONE (DELTASONE) 20 mg tablet Take 1 tablet by mouth two times a day for 3 days. (Patient not taking: Reported on 01/10/2025) benzonatate (TESSALON PERLE) 100 mg capsule Take 1 capsule by mouth three times a day as needed for cough for up to 7 days. clonazePAM (KLONOPIN) 0.5 mg tablet Take 0.5 tablets by mouth two times a day as needed for anxiety for up to 30 days. FLUoxetine (PROZAC) 20 mg capsule Take 1 capsule by mouth once daily for 7 days, THEN 2 capsules once daily for 23 days. albuterol HFA (VENTOLIN HFA) 90 mcg/actuation inhaler Inhale 2 Puffs as instructed every 4 hours as needed for wheezing/shortness of breath. No current facility-administered medications on file prior to visit. Social History Social History Tobacco Use Smoking status: Never Smokeless tobacco: Never Vaping Use Vaping status: Never Used Substance Use Topics Alcohol use: Not Currently Drug use: Never Review of Symptoms REVIEW OF SYSTEMS See HPI EXAM: BP 118/74 Pulse 71 Temp 36.4 ?C (97.6 ?F) Resp 16 Wt 111.2 kg (245 lb 3.2 oz) SpO2 98% BMI 34.20 kg/m? General Appearance: Well appearing, alert, in no acute distress, well-hydrated, well nourished.. Skin: Skin color, texture, turgor normal, no suspicious rashes or lesions. Head: Normocephalic, no masses, lesions, tenderness or abnormalities. Eyes: Anicteric sclera. Pupils are equally round and reactive to light. Extraocular movements are intact. . Ears: External ears normal, canals clear. Nose/Sinuses: Nares normal, septum midline, mucosa normal, no drainage. Positive for maxillary sinus TTP. Oropharynx: Lips, mucosa, and tongue normal, teeth and gums normal, oropharynx normal. Neck: Supple, no adenopathy; thyroid symmetric, normal size, no bruits. Lungs: Lungs clear to auscultation. No wheezing, rhonchi, rales.. Heart: RRR without murmur, gallop, or rubs. No ectopy. Health Maintenance List Depression Screening Never done Hepatitis C Screening Never done HIV Screening Never done BP Controlled (<130/80) Never done Hepatitis B Vaccine(1 of 3 - 19+ 3-dose series) Never done Influenza Vaccine(1) due on 05/28/2024 Covid-19 Vaccine(2 - 2023- season) due on 05/28/2024 Annual PCP Team Chronic Disease Visit due on 11/16/2025 DTaP, (more content not included)... [facility] 01-10-2025 History of Present illness Narrative Chief Complaint Patient presents with: Cough Chest Congestion Head Congestion Sore Throat: Started a week ago and is scratchy during the evenings and HS. Wheezing HPI Lexus Handy is a 34 year old male who presents here today for Above Complaints.. Evaluated in EC on 01/08 with complaint of URI symptoms with following HPI: Patient is a 34-year-old male who complains of congestion, sinus pressure, sore throat and cough that he has been experiencing for the past 2 days. Patient reports no fever, chills or myalgia. Patient does have a history of exercise-induced asthma and is using an inhaler, however the patient denies increased episodes of wheezing. Patient reports that his albuterol MDI is current and he does not require a refill for same. Patient has no history of tobacco use. Diagnosed with sore throat and viral illness and was started on tessalon and prednisone burst. Today, he states that he has been symptomatic since 01/06. He states that he only took 1 days worth of prednisone, but could not tolerate due to anger issues. Tessalon not helping much for his cough. Using dayquil, nyquil and mucinex PRN without much improvement. Notes that he has developed wheezing at night since EC evaluation. Needing albuterol inhaler BID. Still has dry cough, nasal congestion, rhinorrhea, post nasal drip, sinus frontal sinus pressure, sore throat at night, chest pain with cough, Denies SOB, chest congestion, nausea, vomiting,diarrhea, ear pain/fullness. Sick contact with fiance with sinus infection. Feels like symptoms are stable. Had to call off work today. Past medical history, appointments, medications, allergies reviewed. [...] on File Prior to Visit Medication Sig lisinopril (ZESTRIL) 10 mg tablet Take 1 tablet by mouth once daily. fluPHENAZine (PROLIXIN) 5 mg tablet Take 1 tablet by mouth daily at bedtime. predniSONE (DELTASONE) 20 mg tablet Take 1 tablet by mouth two times a day for 3 days. (Patient not taking: Reported on 01/10/2025) benzonatate (TESSALON PERLE) 100 mg capsule Take 1 capsule by mouth three times a day as needed for cough for up to 7 days. clonazePAM (KLONOPIN) 0.5 mg tablet Take 0.5 tablets by mouth two times a day as needed for anxiety for up to 30 days. FLUoxetine (PROZAC) 20 mg capsule Take 1 capsule by mouth once daily for 7 days, THEN 2 capsules once daily for 23 days. albuterol HFA (VENTOLIN HFA) 90 mcg/actuation inhaler Inhale 2 Puffs as instructed every 4 hours as needed for wheezing/shortness of breath. No current facility-administered medications on file prior to visit. Social History Social History Tobacco Use Smoking status: Never Smokeless tobacco: Never Vaping Use Vaping status: Never Used Substance Use Topics Alcohol use: Not Currently Drug use: Never Review of Symptoms REVIEW OF SYSTEMS See HPI EXAM: BP 118/74 Pulse 71 Temp 36.4 C (97.6 F) Resp 16 Wt 111.2 kg (245 lb 3.2 oz) SpO2 98% BMI 34.20 kg/m General Appearance: Well appearing, alert, in no acute distress, well-hydrated, well nourished.. Skin: Skin color, texture, turgor normal, no suspicious rashes or lesions. Head: Normocephalic, no masses, lesions, tenderness or abnormalities. Eyes: Anicteric sclera. Pupils are equally round and reactive to light. Extraocular movements are intact. . Ears: External ears normal, canals clear. Nose/Sinuses: Nares normal, septum midline, mucosa normal, no drainage. Positive for maxillary sinus TTP. Oropharynx: Lips, mucosa, and tongue normal, teeth and gums normal, oropharynx normal. Neck: Supple, no adenopathy; thyroid symmetric, normal size, no bruits. Lungs: Lungs clear to auscultation. No wheezing, rhonchi, rales.. Heart: RRR without murmur, gallop, or rubs. No ectopy. Health Maintenance List Depression Screening Never done Hepatitis C Screening Never done HIV Screening Never done BP Controlled (<130/80) Never done Hepatitis B Vaccine(1 of 3 - 19+ 3-dose series) Never done Influenza Vaccine(1) due on 05/28/2024 Covid-19 Vaccine(2 - 2023- season) due on 05/28/2024 Annual PCP Team Chronic Disease Visit due on 11/16/2025 DTaP,Tdap,Td Vaccine(3 - Td or Tdap) due on 03/08/2034 ASSESSMENT/PLAN: 1. Viral URI with cough - ICD9: 465.9, ICD10: J06.9 - Discussed viral etiology and rationale for treatment. - Symptomatic treatment with prn analgesia - Supportive care with fluids and rest - The patient may also use OTC cough and cold meds as needed, warm salt water gargles, throat lozenges and/or OTC throat spray as needed, and nasal saline gtts and suction prn. Bobo Jasmine MD documented in this encounter [facility] 01-08-2025 Note HNO ID: [id number] Author: BRENDAN MARCOS PA-C Service: ? Author Type: Physician Hospice Fellow Type: Progress Notes Filed: 01/08/2025 15:05 Note Text: This note was created using [employer]ob[employer]. Subjective Lexus Handy is a 34 year old male. Patient is a 34-year-old male who complains of congestion, sinus pressure, sore throat and cough that he has been experiencing for the past 2 days. Patient reports no fever, chills or myalgia. Patient does have a history of exercise-induced asthma and is using an inhaler, however the patient denies increased episodes of wheezing. Patient reports that his albuterol MDI is current and he does not require a refill for same. Patient has no history of tobacco use. Sore Throat Associated symptoms include congestion and coughing. Review of Systems HENT: Positive for congestion, sinus pressure and sore throat. Respiratory: Positive for cough. All other systems reviewed and are negative. Objective BP 130/78 Pulse 83 Temp 36.7 ?C (98.1 ?F) (Tympanic) Resp 16 Wt 112.2 kg (247 lb 5.7 oz) SpO2 98% BMI 34.50 kg/m? Physical Exam Vitals and nursing note reviewed. Constitutional: Appearance: Normal appearance. He is normal weight. HENT: Head: Normocephalic and atraumatic. Right Ear: Tympanic membrane, ear canal and external ear normal. Left Ear: Tympanic membrane, ear canal and external ear normal. Nose: Nose normal. Mouth/Throat: Mouth: Mucous membranes are moist. Pharynx: Oropharynx is clear. Eyes: Extraocular Movements: Extraocular movements intact. Conjunctiva/sclera: Conjunctivae normal. Pupils: Pupils are equal, round, and reactive to light. Cardiovascular: Rate and Rhythm: Normal rate and regular rhythm. Pulses: Normal pulses. Heart sounds: Normal heart sounds. Pulmonary: Effort: Pulmonary effort is normal. Breath sounds: Normal breath sounds. Musculoskeletal: Cervical back: Normal range of motion and neck supple. Skin: General: Skin is warm and dry. Capillary Refill: Capillary refill takes less than 2 seconds. Neurological: General: No focal deficit present. Mental Status: He is alert and oriented to person, place, and time. Psychiatric: Mood and Affect: Mood normal. Behavior: Behavior normal. Thought Content: Thought content normal. Judgment: Judgment normal. Assessment and Plan Physical exam findings as noted above. Rapid strep test is negative. Patient was provided with prescriptions for prednisone 20 mg and Tessalon 100 mg and supportive care instructions were discussed. Patient verbalizes excellent understanding of same. CLINICAL IMPRESSION: Viral Illness; Acute URI ASSESSMENT/PLAN: 1. Sore throat - ICD9: 462, ICD10: J02.9 (primary diagnosis) - STREP A MOLECULAR (POC) - PREDNISONE 20 MG TABLET 2. Viral illness - ICD9: 079.99, ICD10: B34.9 - BENZONATATE 100 MG CAPSULE MDM Amount and/or Complexity of Data Reviewed Clinical lab tests: ordered and reviewed Risk of Complications, Morbidity, and/or Mortality Presenting problems: low Diagnostic procedures: low Management options: bernard Marcos PA-C [facility] 01-08-2025 History of Present illness Narrative This note was created using [email or web address]. Subjective Lexus Handy is a 34 year old male. Patient is a 34-year-old male who complains of congestion, sinus pressure, sore throat and cough that he has been experiencing for the past 2 days. Patient reports no fever, chills or myalgia. Patient does have a history of exercise-induced asthma and is using an inhaler, however the patient denies increased episodes of wheezing. Patient reports that his albuterol MDI is current and he does not require a refill for same. Patient has no history of tobacco use. Sore Throat Associated symptoms include congestion and coughing. Review of Systems HENT: Positive for congestion, sinus pressure and sore throat. Respiratory: Positive for cough. All other systems reviewed and are negative. Objective BP 130/78 Pulse 83 Temp 36.7 C (98.1 F) (Tympanic) Resp 16 Wt 112.2 kg (247 lb 5.7 oz) SpO2 98% BMI 34.50 kg/m Physical Exam Vitals and nursing note reviewed. Constitutional: Appearance: Normal appearance. He is normal weight. HENT: Head: Normocephalic and atraumatic. Right Ear: Tympanic membrane, ear canal and external ear normal. Left Ear: Tympanic membrane, ear canal and external ear normal. Nose: Nose normal. Mouth/Throat: Mouth: Mucous membranes are moist. Pharynx: Oropharynx is clear. Eyes: Extraocular Movements: Extraocular movements intact. Conjunctiva/sclera: Conjunctivae normal. Pupils: Pupils are equal, round, and reactive to light. Cardiovascular: Rate and Rhythm: Normal rate and regular rhythm. Pulses: Normal pulses. Heart sounds: Normal heart sounds. Pulmonary: Effort: Pulmonary effort is normal. Breath sounds: Normal breath sounds. Musculoskeletal: Cervical back: Normal range of motion and neck supple. Skin: General: Skin is warm and dry. Capillary Refill: Capillary refill takes less than 2 seconds. Neurological: General: No focal deficit present. Mental Status: He is alert and oriented to person, place, and time. Psychiatric: Mood and Affect: Mood normal. Behavior: Behavior normal. Thought Content: Thought content normal. Judgment: Judgment normal. Assessment and Plan Physical exam findings as noted above. Rapid strep test is negative. Patient was provided with prescriptions for prednisone 20 mg and Tessalon 100 mg and supportive care instructions were discussed. Patient verbalizes excellent understanding of same. CLINICAL IMPRESSION: Viral Illness; Acute URI ASSESSMENT/PLAN: 1. Sore throat - ICD9: 462, ICD10: J02.9 (primary diagnosis) - STREP A MOLECULAR (POC) - PREDNISONE 20 MG TABLET 2. Viral illness - ICD9: 079.99, ICD10: B34.9 - BENZONATATE 100 MG CAPSULE MDM Amount and/or Complexity of Data Reviewed Clinical lab tests: ordered and reviewed Risk of Complications, Morbidity, and/or Mortality Presenting problems: low Diagnostic procedures: low Management options: low Brendan Marcos PA-C documented in this encounter [facility] 11-16-2024 History of Present illness Narrative Chief Complaint Patient presents with: Blood Pressure HPI Lexus Handy is a 34 year old male who presents here today for high blood pressure. Pt here today for an acute visit for HTN. Also notes he was seen at [facility] ED on 11/04/24. Pt hx of HTN and currently taking Lisinopril 5 mg once daily. Notes his BP was elevated when he was in the ED recently for back pain. Wondering if medications need adjusted. Back pain - Reports he injured his back weight lifting ( lifting) in 2012. When he injured it he felt like something popped in the middle of his back; was unable to lift weight for several weeks. Pt reports that he's not had time to think about it more til now. Reports daily flare ups that can last all day long. Pain worse when working hard or when working strenuously. At times he feels he can't take a deep breath. He will try to lay down but this doesn't always help. Is using NSAID's for pain but this doesn't help. Pain rated a 6/10 and described as aching, dull, pressure, pulsating and sharp. Has seen chiropractor without help Pain in bilateral lumbar paraspinal muscle area and lower lumbar spine, no radicular symptoms. States was seen in the ED a couple weeks ago and was dx with Pleurisy. Past medical history, appointments, medications, allergies reviewed. [...] on File Prior to Visit Medication Sig clonazePAM (KLONOPIN) 0.5 mg tablet Take 0.5 tablets by mouth two times a day as needed for anxiety for up to 30 days. FLUoxetine (PROZAC) 20 mg capsule Take 1 capsule by mouth once daily for 7 days, THEN 2 capsules once daily for 23 days. sertraline (ZOLOFT) 50 mg tablet TAKE 1/2 TABLET BY MOUTH ONCE DAILY FOR 4 DAYS, THEN 1 TABLET ONCE DAILY fluPHENAZine (PROLIXIN) 5 mg tablet Take 1 tablet by mouth daily at bedtime. albuterol HFA (VENTOLIN HFA) 90 mcg/actuation inhaler Inhale 2 Puffs as instructed every 4 hours as needed for wheezing/shortness of breath. lisinopril (ZESTRIL) 5 mg tablet Take 1 tablet by mouth once daily. No current facility-administered medications on file prior to visit. Social History Social History Tobacco Use Smoking status: Never Smokeless tobacco: Never Vaping Use Vaping status: Never Used Substance Use Topics Alcohol use: Not Currently Drug use: Never EXAM: BP 124/90 Pulse 80 Resp 16 Wt 115.3 kg (254 lb 3.1 oz) BMI 35.45 kg/m General Appearance: Well appearing, alert, in no acute distress, well-hydrated, well nourished.. Back: no tenderness to palpation, pain with motion in all directions, slightly decreased ROM Health Maintenance List Depression Screening Never done Hepatitis C Screening Never done HIV Screening Never done Hepatitis B Vaccine(1 of 3 - 19+ 3-dose series) Never done Influenza Vaccine(1) due on 05/28/2024 Covid-19 Vaccine( - 2023- season) due on 05/28/2024 DTaP,Tdap,Td Vaccine(3 - Td or Tdap) due on 03/08/2034 Data reviewed External records from [facility] ASSESSMENT/PLAN: 1. Lumbar back pain - ICD9: 724.2, ICD10: M54.50 (primary diagnosis) Chronic, with initial traumatic incident, never had imaging done - XR LUMBAR GENERAL 3V AP/LAT/L5-S1 - CONSULT TO PHYSICAL THERAPY 2. Hypertension, essential - ICD9: 401.9, ICD10: I10 - Improving control - Increase lisinopril to 10 mg daily - Recommend home blood pressure monitoring, to bring results to next visit - Encouraged sodium restriction, DASH or Mediterranean diet - Recommend regular aerobic exercise - LISINOPRIL 10 MG TABLET Follow up prn Medical Decision Making: Problems: Low: Acute, uncomplicated illness or injury Moderate: 1+ chronic illnesses with change Data: Unique test(s) ordered: 1 Risk: Moderate: Drug management Medical Decision Making Level: 4 - Moderate Brendan Kang MD documented in this encounter [facility] 11-16-2024 Note HNO ID: [id number] Author: BRENDAN KANG MD Service: ? Author Type: Physician Type: Progress Notes Filed: 11/16/2024 15:24 Note Text: Chief Complaint Patient presents with: Blood Pressure HPI Lexus Handy is a 34 year old male who presents here today for high blood pressure. Pt here today for an acute visit for HTN. Also notes he was seen at [facility] ED on 11/04/24. Pt hx of HTN and currently taking Lisinopril 5 mg once daily. Notes his BP was elevated when he was in the ED recently for back pain. Wondering if medications need adjusted. Back pain - Reports he injured his back weight lifting ( lifting) in 2013. When he injured it he felt like something popped in the middle of his back; was unable to lift weight for several weeks. Pt reports that he's not had time to think about it more til now. Reports daily flare ups that can last all day long. Pain worse when working hard or when working strenuously. At times he feels he can't take a deep breath. He will try to lay down but this doesn't always help. Is using NSAID's for pain but this doesn't help. Pain rated a 6/10 and described as aching, dull, pressure, pulsating and sharp. Has seen chiropractor without help Pain in bilateral lumbar paraspinal muscle area and lower lumbar spine, no radicular symptoms. States was seen in the ED a couple weeks ago and was dx with Pleurisy. Past medical history, appointments, medications, allergies reviewed. [...] on File Prior to Visit Medication Sig clonazePAM (KLONOPIN) 0.5 mg tablet Take 0.5 tablets by mouth two times a day as needed for anxiety for up to 30 days. FLUoxetine (PROZAC) 20 mg capsule Take 1 capsule by mouth once daily for 7 days, THEN 2 capsules once daily for 23 days. sertraline (ZOLOFT) 50 mg tablet TAKE 1/2 TABLET BY MOUTH ONCE DAILY FOR 4 DAYS, THEN 1 TABLET ONCE DAILY fluPHENAZine (PROLIXIN) 5 mg tablet Take 1 tablet by mouth daily at bedtime. albuterol HFA (VENTOLIN HFA) 90 mcg/actuation inhaler Inhale 2 Puffs as instructed every 4 hours as needed for wheezing/shortness of breath. lisinopril (ZESTRIL) 5 mg tablet Take 1 tablet by mouth once daily. No current facility-administered medications on file prior to visit. Social History Social History Tobacco Use Smoking status: Never Smokeless tobacco: Never Vaping Use Vaping status: Never Used Substance Use Topics Alcohol use: Not Currently Drug use: Never EXAM: BP 124/90 Pulse 80 Resp 16 Wt 115.3 kg (254 lb 3.1 oz) BMI 35.45 kg/m? General Appearance: Well appearing, alert, in no acute distress, well-hydrated, well nourished.. Back: no tenderness to palpation, pain with motion in all directions, slightly decreased ROM Health Maintenance List Depression Screening Never done Hepatitis C Screening Never done HIV Screening Never done Hepatitis B Vaccine(1 of 3 - 19+ 3-dose series) Never done Influenza Vaccine(1) due on 05/28/2024 Covid-19 Vaccine( - 2023- season) due on 05/28/2024 DTaP,Tdap,Td Vaccine(3 - Td or Tdap) due on 03/08/2034 Data reviewed External records from [facility] ASSESSMENT/PLAN: 1. Lumbar back pain - ICD9: 724.2, ICD10: M54.50 (primary diagnosis) Chronic, with initial traumatic incident, never had imaging done - XR LUMBAR GENERAL 3V AP/LAT/L5-S1 - CONSULT TO PHYSICAL THERAPY 2. Hypertension, essential - ICD9: 401.9, ICD10: I10 - Improving control - Increase lisinopril to 10 mg daily - Recommend home blood pressure monitoring, to bring results to next visit - Encouraged sodium restriction, DASH or Mediterranean diet - Recommend regular aerobic exercise - LISINOPRIL 10 MG TABLET Follow up prn Medical Decision Making: Problems: Low: Acute, uncomplicated illness or injury Moderate: 1+ chronic illnesses with change Data: Unique test(s) ordered: 1 Risk: Moderate: Drug management Medical Decision Making Level: 4 - Moderate Brendan Kang MD [facility] 11-08-2024 Instructions Rachel Higgins PA-C - 11/08/2024 4:13 PM EST 1. Decrease Zoloft back to 25mg and begin retaking Prozac as follows: Week 1: Zoloft 25mg + Prozac 20mg Week 2: Zoloft 25mg + Prozac 40mg 2. Please schedule a follow up visit with me in roughly 3 weeks to assess how the two medications are working together - [phone] 3. Follow up with Dr. Murphy in January documented in this encounter [facility] 11-08-2024 History of Present illness Narrative FOLLOW UP [...] visit. Either the patient or their legal jewelry sales representative has been informed of the risks and benefits of -- and alternatives to -- treatment through a remote evaluation and consents to proceed with the evaluation remotely. Reason for Visit: Outpatient follow-up and safety monitoring of previously prescribed psychiatric medication, psychotherapy or other treatment CC: Follow up HPI: Last seen by Dr. Aubrey Murphy on 10/16/2024 at which time Prozac was downtapered and Zoloft 50mg was started. Lexus presents today, virtually, unaccompanied. He reports he is feeling pretty bad. Zoloft has not been working for him. Agitation, irritability through the roof. This is hard to deal with as I do not want to snap at her. He notes that the Prozac 80mg seemed to be much better for him for the mood and irritability. He even felt better on the 40mg of the Prozac and 25 mg of Zoloft he was the happiest he had ever. Denied any side effects or symptoms of serotonin syndrome while on both medications. Notes his fiance even stated that week he was generally happier and smiling more. Otherwise, patient reports still oversleeping, feels tired majority of day. This predates the initiation of Zoloft. Discussed safety precautions of anger/irritability, patient agreeable to head to ED should he feel he may hurt himself or others. Denies SI, HI at this time. Risks and benefits of the medication, including any black box warnings, were discussed with the patient. Interval Progress: Worse PATIENT DATA: Generalized Anxiety Disorder Scale (COOPER-7) 09/30/2024 10/15/2024 11/07/2024 COOPER - 7 SCORES Score 18 11 11 21 (0-4) minimal anxiety, (5-9) mild anxiety, (10-14) moderate anxiety, (15-21) severe anxiety Patient Health Questionnaire (PHQ-9) 09/06/2024 09/30/2024 11/07/2024 PHQ-9 Score 22 24 25 (0-4) minimal depression, (5-9) mild depression, (10-14) moderate depression, (15-19) moderately severe depression, (20-27) severe depression PROMIS Global Health 04/05/2024 07/27/2024 11/07/2024 PROMIS Global Health - (T-Scores - the mean of general population = 50. Five points is a clinically meaningful difference.) Physical T-Score 39.8 37.4 37.4 Mental T-Score 28.4 38.8 31.3 PAST MEDICAL HISTORY Diagnosis Date Bipolar disorder (HCC) Current moderate episode of major depressive disorder without prior episode (HCC) Generalized anxiety disorder Tourette syndrome PAST SURGICAL HISTORY Procedure Laterality Date APPENDECTOMY REPAIR ING HERNIA,5+Y/O,REDUCIBL TONSILLECTOMY & ADENOIDECTOMY <AGE 12 Current Outpatient Medications Medication Sig Dispense Refill sertraline (ZOLOFT) 50 mg tablet TAKE 1/2 TABLET BY MOUTH ONCE DAILY FOR 4 DAYS, THEN 1 TABLET ONCE DAILY 32 tablet 0 clonazePAM (KLONOPIN) 0.5 mg tablet Take 0.5 tablets by mouth two times a day as needed for anxiety for up to 30 days. 15 tablet 1 fluPHENAZine (PROLIXIN) 5 mg tablet Take 1 tablet by mouth daily at bedtime. 60 tablet 1 albuterol HFA (VENTOLIN HFA) 90 mcg/actuation inhaler Inhale 2 Puffs as instructed every 4 hours as needed for wheezing/shortness of breath. 18 g 0 benzonatate (TESSALON PERLE) 100 mg capsule Take 2 capsules by mouth three times a day as needed. 30 capsule 0 lisinopril (ZESTRIL) 5 mg tablet Take 1 tablet by mouth once daily. 30 tablet 5 No current facility-administered medications for this visit. ROS: GENERAL: Negative for malaise, significant weight loss and fever. RESPIRATORY: Negative for cough, wheezing and shortness of breath. CARDIOVASCULAR: Negative for chest pain, leg swelling and palpitations. PFSH: unchanged. VITAL SIGNS: There were no vitals filed for this visit. MENTAL STATUS EXAM: CONSTITUTIONAL: Well groomed, Casually dressed ORIENTATION: Person, Place, Time and Situation MEMORY: Recent intact, Remote intact CONCENTRATION: Normal MOOD: anxious AFFECT: Full and appropriate to topic SPEECH : Clear & distinct LANGUAGE : Normal ASSOCIATIONS: Intact THOUGHT PROCESS : Logical, Coherent, and Rational PROGRESSION : There was no evidence of disturbance in thought perception or progression. FUND OF KNOWLEDGE : Appropriate and Adequate SUICIDE: None HOMICIDE: None, quick to anger DATA REVIEWED: Psychiatric scales and Electronic medical record IMPRESSION: 34M (single, unemployed, lives w/ fiancee) with Tourette (severe, had to be homeschooled), OCD, bipolar do, and chronic COOPER presenting with anxiety sx. Mood is well controlled on current med regimen. Today, endorsing significant irritability and anxiety, pacing around a lot, lashing out at fiancee. Triggers include being jobless. No SI/HI/safety concern. Increased sleep up to 12-13h nightly. Some initial insomnia (~1hr to fall asleep). No new substance use. VPA made irritability worse. Stopped it. Increased Prolixin dose from 5mg QHS to 2.5mg BID plus 5mg QHS. No improvement over one week. OCD is worse. Anxiety is ongoing. Irritability/agitation continues. Continues to sleep excessively. No evidence of jasmeet at this time. No SI/HI. Previous med trials: All tried while a child: risperidone, clonidine (decreased BP), Adderall (increased tics), Seroquel, Orap, Abilify (developed SI on it in March 2024), Geodon (behavior changes) Duloxetine, Effexor, Zoloft, Fluovoxamine, Wellbutrin (made anxiety/agitation worse) Today 11/08/2024 - patient back to having irritability and increased agitation on Zoloft 50mg. States that the week of Prozac 40mg + Zoloft 25mg was the best he has ever felt. Discussed serotonin syndrome and warning signs with patient, will proceed with a trial of this plan. DIAGNOSIS: PRIMARY: Anxiety Disorder Obsessive-Compulsive Disorder and Generalized Anxiety Disorder Secondary : Tic Disorder Tourette's Disorder Other : Bipolar disorder GAF: 50-41 Serious symptoms or any serious impairment in social, occupational or school functioning. TREATMENT PLAN: 1. Decrease Zoloft back to 25mg and begin retaking Prozac as follows: Week 1: Zoloft 25mg + Prozac 20mg Week 2: Zoloft 25mg + Prozac 40mg 2. Please schedule a follow up visit with me in roughly 3 weeks to assess how the two medications are working together - [phone] 3. Follow up with Dr. Murphy in January MEDICATION CHANGES: Prescriptions given Follow Up: 3 weeks I spent a total of 30 minutes on the date of the service which included preparing to see the patient, [id number] patient care, completing clinical documentation, obtaining and/or reviewing separately obtained history, performing a medically appropriate examination, counseling and educating the patient/family/caregiver, and ordering medications, tests, or procedures. ADD ON PSYCHOTHERAPY CODE : No SIGNATURE: Rachel Higgins PA-C PATIENT NAME: Lexus Handy DATE: November 08, 2024 TIME: 2:30 PM documented in this encounter [facility] 11-08-2024 Note HNO ID: [id number] Author: RACHEL HIGGINS PA-C Service: ? Author Type: Physician Hospice Fellow Type: Progress Notes Filed: 11/08/2024 16:14 Note Text: FOLLOW UP - PSYCHIATRIC PROGRESS [...] visit. Either the patient or their legal jewelry sales representative has been informed of the risks and benefits of -- and alternatives to -- treatment through a remote evaluation and consents to proceed with the evaluation remotely. Reason for Visit: Outpatient follow-up and safety monitoring of previously prescribed psychiatric medication, psychotherapy or other treatment CC: Follow up HPI: Last seen by Dr. Aubrey Murphy on 10/16/2024 at which time Prozac was downtapered and Zoloft 50mg was started. Lexus presents today, virtually, unaccompanied. He reports he is feeling pretty bad. Zoloft has not been working for him. Agitation, irritability through the roof. This is hard to deal with as I do not want to snap at her. He notes that the Prozac 80mg seemed to be much better for him for the mood and irritability. He even felt better on the 40mg of the Prozac and 25 mg of Zoloft he was the happiest he had ever. Denied any side effects or symptoms of serotonin syndrome while on both medications. Notes his fiance even stated that week he was generally happier and smiling more. Otherwise, patient reports stilloversleeping, feels tired majority of day. This predates the initiation of Zoloft. Discussed safety precautions of anger/irritability, patient agreeable to head to ED should he feel he may hurt himself or others. Denies SI, HI at this time. Risks and benefits of the medication, including any black box warnings, were discussed with the patient. Interval Progress: Worse PATIENT DATA: Generalized Anxiety Disorder Scale (COOPER-7) 09/30/2024 10/15/2024 11/07/2024 COOPER - 7 SCORES Score 18 11 11 21 (0-4) minimal anxiety, (5-9) mild anxiety, (10-14) moderate anxiety, (15-21) severe anxiety Patient Health Questionnaire (PHQ-9) 09/06/2024 09/30/2024 11/07/2024 PHQ-9 Score 22 24 25 (0-4) minimal depression, (5-9) mild depression, (10-14) moderate depression, (15-19) moderately severe depression, (20-27) severe depression PROMIS Global Health 04/05/2024 07/27/2024 11/07/2024 PROMIS Global Health - (T-Scores - the mean of general population = 50. Five points is a clinically meaningful difference.) Physical T-Score 39.8 37.4 37.4 Mental T-Score 28.4 38.8 31.3 PAST MEDICAL HISTORY Diagnosis Date Bipolar disorder (HCC) Current moderate episode of major depressive disorder without prior episode (HCC) Generalized anxiety disorder Tourette syndrome PAST SURGICAL HISTORY Procedure Laterality Date APPENDECTOMY REPAIR ING HERNIA,5+Y/O,REDUCIBL TONSILLECTOMY AND ADENOIDECTOMY Current Outpatient Medications Medication Sig Dispense Refill sertraline (ZOLOFT) 50 mg tablet TAKE 1/2 TABLET BY MOUTH ONCE DAILY FOR 4 DAYS, THEN 1 TABLET ONCE DAILY 32 tablet 0 clonazePAM (KLONOPIN) 0.5 mg tablet Take 0.5 tablets by mouth two times a day as needed for anxiety for up to 30 days. 15 tablet 1 fluPHENAZine (PROLIXIN) 5 mg tablet Take 1 tablet by mouth daily at bedtime. 60 tablet 1 albuterol HFA (VENTOLIN HFA) 90 mcg/actuation inhaler Inhale 2 Puffs as instructed every 4 hours as needed for wheezing/shortness of breath. 18 g 0 benzonatate (TESSALON PERLE) 100 mg capsule Take 2 capsules by mouth three times a day as needed. 30 capsule 0 lisinopril (ZESTRIL) 5 mg tablet Take 1 tablet by mouth once daily. 30 tablet 5 No current facility-administered medications for this visit. ROS: GENERAL: Negative for malaise, significant weight loss and fever. RESPIRATORY: Negative for cough, wheezing and shortness of breath. CARDIOVASCULAR: Negative for chest pain, leg swelling and palpitations. PFSH: unchanged. VITAL SIGNS: There were no vitals filed for this visit. MENTAL STATUS EXAM: CONSTITUTIONAL: Well groomed, Casually dressed ORIENTATION: Person, Place, Time and Situation MEMORY: Recent intact, Remote intact CONCENTRATION: Normal MOOD: anxious AFFECT: Full and appropriate to topic SPEECH : Clear AND distinct LANGUAGE : Normal ASSOCIATIONS: Intact THOUGHT PROCESS : Logical, Coherent, and Rational PROGRESSION : There was no evidence of disturbance in thought perception or progression. FUND OF KNOWLEDGE : Appropriate and Adequate SUICIDE: None HOMICIDE: None, quick to anger DATA REVIEWED: Psychiatric scales and Electronic medical record I (more content not included)... [facility] 10-16-2024 Note HNO ID: [id number] Author: AUBREY MURPHY MD Service: ? Author Type: Physician Type: Progress Notes Filed: 10/16/2024 15:01 Note Text: FOLLOW UP - PSYCHIATRIC PROGRESS [...] visit. Either the patient or their legal jewelry sales representative has been informed of the risks and benefits of -- and alternatives to -- treatment through a remote evaluation and consents to proceed with the evaluation remotely. Reason for Visit: Outpatient follow-up and safety monitoring of previously prescribed psychiatric medication, psychotherapy or other treatment CC: Follow up HPI: Last seen 10/02/24: 34M (single, unemployed, lives w/ fiancee) with Tourette (severe, had to be homeschooled), OCD, bipolar do, and chronic COOPER presenting with anxiety sx. Mood is well controlled on current med regimen. Today, endorsing significant irritability and anxiety, pacing around a lot, lashing out at fiancee. Triggers include being jobless. No SI/HI/safety concern. Increased sleep up to 12-13h nightly. Some initial insomnia (~1hr to fall asleep). No new substance use. 1. Start VPA DR 125mg QHS for one week then increase to 250mg at bedtime daily. Cont Prozac 60mg QHS. Cont Prolixin 5mg QHS. VPA made irritability worse. Stopped it. Increased Prolixin dose from 5mg QHS to 2.5mg BID plus 5mg QHS. No improvement over one week. OCD is worse. Anxiety is ongoing. Irritability/agitation continues. Continues to sleep excessively. No evidence of jasmeet at this time. No SI/HI. Previous med trials: All tried while a child: risperidone, clonidine (decreased BP), Adderall (increased tics), Seroquel, Orap, Abilify (developed SI on it in March 2024), Geodon (behavior changes) Duloxetine, Zoloft, Fluovoxamine, Wellbutrin (made anxiety/agitation worse) 1. Start a short-term course of Klonopin 0.5mg BID to curb irritability --> significant improved but caused drowsiness --> rec'd decrease dose 2. Go back to original Prolixin dose of 5mg QHS. 3. Increase Prozac from 60mg to 80mg daily. 4. RTC 2 weeks On evaluation today: - reports things have been good since last seen - anger has significantly improved. Frustration episodes last ~ 2 mins. - anxiety continues to be present. Was worried all week long about upcoming dog's vet appt today. It went well. Somatic sx with restlessness and palpitations. - Currently taking Klonopin 0.25mg BID. Sleeping is still at 12-13h but wakes up not drowsy, drowsiness has improved. - Mood is reported as very good, stable. Risks and benefits of the medication, including any black box warnings, were discussed with the patient. Interval Progress: Improved PATIENT DATA: Generalized Anxiety Disorder Scale (COOPER-7) 04/05/2024 09/06/2024 09/30/2024 COOPER - 7 SCORES Score 21 21 18 (0-4) minimal anxiety, (5-9) mild anxiety, (10-14) moderate anxiety, (15-21) severe anxiety Patient Health Questionnaire (PHQ-9) 04/05/2024 09/06/2024 09/30/2024 PHQ-9 Score 23 22 24 (0-4) minimal depression, (5-9) mild depression, (10-14) moderate depression, (15-19) moderately severe depression, (20-27) severe depression PROMIS Global Health 12/06/2023 04/05/2024 07/27/2024 PROMIS Global Health - (T-Scores - the mean of general population = 50. Five points is a clinically meaningful difference.) Physical T-Score 37.4 39.8 37.4 Mental T-Score 36.3 28.4 38.8 PAST MEDICAL HISTORY Diagnosis Date Bipolar disorder (HCC) Current moderate episode of major depressive disorder without prior episode (HCC) Generalized anxiety disorder Tourette syndrome PAST SURGICAL HISTORY Procedure Laterality Date APPENDECTOMY REPAIR ING HERNIA,5+Y/O,REDUCIBL TONSILLECTOMY AND ADENOIDECTOMY Current Outpatient Medications Medication Sig Dispense Refill FLUoxetine (PROZAC) 40 mg capsule Take 2 capsules by mouth once daily. 180 capsule 3 fluPHENAZine (PROLIXIN) 5 mg tablet Take 1 tablet by mouth daily at bedtime. 60 tablet 1 clonazePAM (KLONOPIN) 0.5 mg tablet Take 1 tablet by mouth two times a day for 14 days. 28 tablet 0 albuterol HFA (VENTOLIN HFA) 90 mcg/actuation inhaler Inhale 2 Puffs as instructed every 4 hours as needed for wheezing/shortness of breath. 18 g 0 benzonatate (TESSALON PERLE) 100 mg capsule Take 2 capsules by mouth three times a day as needed. 30 capsule 0 lisinopril (ZESTRIL) 5 mg tablet Take 1 tablet by mouth once daily. 30 tablet 5 No current facility-administered medications for this visit. ROS: GENERAL: Negative for malaise, significant weight loss and f (more content not included)... [facility] 10-02-2024 Note HNO ID: [id number] Author: AUBREY MURPHY MD Service: ? Author Type: Physician Type: Progress Notes Filed: 10/02/2024 15:00 Note Text: FOLLOW UP - PSYCHIATRIC PROGRESS [...] visit. Either the patient or their legal jewelry sales representative has been informed of the risks and benefits of -- and alternatives to -- treatment through a remote evaluation and consents to proceed with the evaluation remotely. Reason for Visit: Outpatient follow-up and safety monitoring of previously prescribed psychiatric medication, psychotherapy or other treatment CC: Follow up HPI: Last seen 09/13/24: 34M (single, unemployed, lives w/ fiancee) with Tourette (severe, had to be homeschooled), bipolar do, and chronic COOPER presenting with anxiety sx. Mood is well controlled on current med regimen. Today, endorsing significant irritability and anxiety, pacing around a lot, lashing out at fiancee. Triggers include being jobless. No SI/HI/safety concern. Increased sleep up to 12-13h nightly. Some initial insomnia (~1hr to fall asleep). No new substance use. 1. Start VPA DR 125mg QHS for one week then increase to 250mg at bedtime daily. Cont Prozac 60mg QHS. Cont Prolixin 5mg QHS. INTERIM hx: messaged me on 09/24, feelings like a monster with severe irritability. Sleeping excessively with significant drowsiness on VPA. Plan: - Stop the Depakote altogether - Prolixin 5mg (fluphenazine): Take half tab in the morning, half tab at ~ 2PM, one tab at bedtime - Continue Prozac same dose Previous med trials: All tried while a child: risperidone, clonidine (decreased BP), Adderall (increased tics), Seroquel, Orap, Abilify (developed SI on it in March 2024), Geodon (behavior changes) Duloxetine, Zoloft, Fluovoxamine, Wellbutrin (made anxiety/agitation worse) On evaluation today: - short fuse, arguing with fiance, blowing up on everybody - since VPA discontinuation and increasing Prolixin, he feels his anxiety is going away, but the mood swings continue. - continues to sleep excessively at 14 hours nightly. Sleep helps him escape worries. - report he used to be this way all his life until he started the Prozac. I used to be a very mean person but then mellowed. - he was diagnosed with OCD at age 8 years. Feels he's obsessing over his worries now. This is likely a combination of OCD and COOPER. - regarding his tics, he feels they're at baseline now. - no physical aggression/violence. Risks and benefits of the medication, including any black box warnings, were discussed with the patient. Interval Progress: Worse PATIENT DATA: Generalized Anxiety Disorder Scale (COOPER-7) 04/05/2024 09/06/2024 09/30/2024 COOPER - 7 SCORES Score 21 21 18 (0-4) minimal anxiety, (5-9) mild anxiety, (10-14) moderate anxiety, (15-21) severe anxiety Patient Health Questionnaire (PHQ-9) 04/05/2024 09/06/2024 09/30/2024 PHQ-9 Score 23 22 24 (0-4) minimal depression, (5-9) mild depression, (10-14) moderate depression, (15-19) moderately severe depression, (20-27) severe depression PROMIS Global Health 12/06/2023 04/05/2024 07/27/2024 PROMIS Global Health - (T-Scores - the mean of general population = 50. Five points is a clinically meaningful difference.) Physical T-Score 37.4 39.8 37.4 Mental T-Score 36.3 28.4 38.8 PAST MEDICAL HISTORY Diagnosis Date Bipolar disorder (HCC) Current moderate episode of major depressive disorder without prior episode (HCC) Generalized anxiety disorder Tourette syndrome PAST SURGICAL HISTORY Procedure Laterality Date APPENDECTOMY REPAIR ING HERNIA,5+Y/O,REDUCIBL TONSILLECTOMY AND ADENOIDECTOMY Current Outpatient Medications Medication Sig Dispense Refill fluPHENAZine (PROLIXIN) 5 mg tablet Take 0.5 tablets by mouth every morning AND 0.5 tablets every afternoon AND 1 tablet daily at bedtime. 60 tablet 1 albuterol HFA (VENTOLIN HFA) 90 mcg/actuation inhaler Inhale 2 Puffs as instructed every 4 hours as needed for wheezing/shortness of breath. 18 g 0 benzonatate (TESSALON PERLE) 100 mg capsule Take 2 capsules by mouth three times a day as needed. 30 capsule 0 lisinopril (ZESTRIL) 5 mg tablet Take 1 tablet by mouth once daily. 30 tablet 5 FLUoxetine (PROZAC) 40 mg capsule Take 1 capsule by mouth once daily. 90 capsule 3 FLUoxetine (PROZAC) 20 mg capsule Take 1 capsule by mouth once daily. Take along with 40 mg capsule 30 capsule 11 No current facility-administered medications for this visit. ROS: GENERAL: Negative for malaise, signifi (more content not included)... [facility] 09-25-2024 Telephone encounter Note Armani Henry, Tried calling you to discuss your symptoms but I was unable to reach you. I'm sorry it's been a rough patch while we try to optimize your meds. Here's what I would recommend: - Stop the Depakote altogether - Prolixin 5mg (fluphenazine): Take half tab in the morning, half tab at ~ 2PM, one tab at bedtime - Continue Prozac same dose If at any point you feel your anger gets out of control, or if you develop any thoughts of hurting yourself or someone else, PLEASE go to the closest Emergency Department or call 911. R/O emergent jasmeet, will monitor closely. Added to schedule next week. [facility] 09-25-2024 Miscellaneous Notes Armani Lexus, Tried calling you to discuss your symptoms but I was unable to reach you. I'm sorry it's been a rough patch while we try to optimize your meds. Here's what I would recommend: - Stop the Depakote altogether - Prolixin 5mg (fluphenazine): Take half tab in the morning, half tab at ~ 2PM, one tab at bedtime - Continue Prozac same dose If at any point you feel your anger gets out of control, or if you develop any thoughts of hurting yourself or someone else, PLEASE go to the closest Emergency Department or call 911. R/O emergent jasmeet, will monitor closely. Added to schedule next week. documented in this encounter [facility] 09-21-2024 Instructions Caro Harvey APRN.[employer] - 09/21/2024 5:17 PM EST covid and influenza test ordered You will be notified in 12-24 hours, results available on [facility] Rest, increase water intake Motrin or Tylenol as needed for fever or pain. Salt water gargles, chloraseptic spray or lozenges as needed for sore throat. Warm beverages, honey. Nasal saline spray as needed Cool mist humidifier at night Tylenol (generic acetaminophen) 500 mg-2 tabs every 8 hrs. as needed for fever and aches Ibuprofen 600 mg (3-200mg tablets) every 6 hours -Sudafed (generic is fine), behind the counter, 2x30 mg tabs twice daily as needed for congestion -Mucinex (generic is fine) Guaifenesin 1200 mg twice daily to help with cough and to thin out mucus * Seek medical care immediately, call 911, go to ER if you have chest pain, difficulty breathing, shortness of breath, inability to swallow. documented in this encounter [facility] 09-21-2024 Note HNO ID: [id number] Author: CARO HARVEY APRN.VAHID Service: ? Author Type: Nurse Practitioner Type: Progress Notes Filed: 09/21/2024 17:25 Note Text: Subjective The history is provided by the patient. No foreign languages department chair was used. SAMINA Handy is a 34 year old male who presents today for CC of sore throat, fever, chest congestion and rhinorrhea body aches. He had vomiting x 1 day. BP 135/89 Pulse 89 Temp 36.3 ?C (97.4 ?F) Resp 18 Wt 112.2 kg (247 lb 5.7 oz) SpO2 99% BMI 34.50 kg/m? Social History Tobacco Use Smoking status: Never Smokeless tobacco: Never Vaping Use Vaping status: Never Used Substance Use Topics Alcohol use: Not Currently Drug use: Never PAST MEDICAL HISTORY Diagnosis Date Bipolar disorder (HCC) Current moderate episode of major depressive disorder without prior episode (HCC) Generalized anxiety disorder Tourette syndrome I have confirmed and edited as necessary, the [facility] Review of Systems Constitutional: Positive for chills, fever and malaise/fatigue. HENT: Positive for congestion and sinus pain. Negative for ear pain and sore throat. Respiratory: Positive for cough. Negative for sputum production, shortness of breath and wheezing. Cardiovascular: Negative for chest pain. Gastrointestinal: Negative for abdominal pain, diarrhea, nausea and vomiting. Musculoskeletal: Positive for myalgias. Neurological: Negative for headaches. Objective Physical Exam Vitals and nursing note reviewed. Constitutional: Appearance: He is not toxic-appearing. HENT: Head: Normocephalic and atraumatic. Right Ear: Tympanic membrane, ear canal and external ear normal. Left Ear: Tympanic membrane, ear canal and external ear normal. Nose: Mucosal edema, congestion and rhinorrhea present. Right Sinus: No maxillary sinus tenderness or frontal sinus tenderness. Left Sinus: No maxillary sinus tenderness or frontal sinus tenderness. Mouth/Throat: Pharynx: Uvula midline. Posterior oropharyngeal erythema and postnasal drip present. No oropharyngeal exudate. Tonsils: No tonsillar abscesses. Cardiovascular: Rate and Rhythm: Normal rate and regular rhythm. Heart sounds: Normal heart sounds. Pulmonary: Effort: Pulmonary effort is normal. Breath sounds: Normal breath sounds. No decreased breath sounds, wheezing, rhonchi or rales. Lymphadenopathy: Head: Right side of head: No submental, submandibular, tonsillar or preauricular adenopathy. Left side of head: No submental, submandibular, tonsillar or preauricular adenopathy. Cervical: No cervical adenopathy. Right cervical: No superficial cervical adenopathy. Left cervical: No superficial cervical adenopathy. Skin: General: Skin is warm and dry. Neurological: Mental Status: He is alert and oriented to person, place, and time. Psychiatric: Mood and Affect: Affect normal. ASSESSMENT/PLAN: 1. URI with cough and congestion - ICD9: 465.9, ICD10: J06.9 - Discussed viral etiology and rationale for treatment. - Symptomatic treatment with prn analgesia - Supportive care with fluids and rest - Flu like symptoms Albuterol inhaler - renewed per request Leoncio Painter Follow up with pcp prn - ALBUTEROL SULFATE HFA 90 MCG/ACTUATION AEROSOL INHALER - COVID AND INFLUENZA A/B AND RSV PCR, ROUTINE - BENZONATATE 100 MG CAPSULE Diagnosis and treatment plan were discussed and questions were answered to the patient's satisfaction. Pt acknowledged understanding of concepts and follow up plan. Specific signs and symptoms that would indicate the need for higher level of care were discussed in detail warranting prompt ER evaluation. Caro Harvey APRN.[facility] 09-21-2024 History of Present illness Narrative Subjective The history is provided by the patient. No foreign languages department chair was used. HPI Lexus Handy is a 34 year old male who presents today for CC of sore throat, fever, chest congestion and rhinorrhea body aches. He had vomiting x 1 day. BP 135/89 Pulse 89 Temp 36.3 C (97.4 F) Resp 18 Wt 112.2 kg (247 lb 5.7 oz) SpO2 99% BMI 34.50 kg/m Social History Tobacco Use Smoking status: Never Smokeless tobacco: Never Vaping Use Vaping status: Never Used Substance Use Topics Alcohol use: Not Currently Drug use: Never PAST MEDICAL HISTORY Diagnosis Date Bipolar disorder (HCC) Current moderate episode of major depressive disorder without prior episode (HCC) Generalized anxiety disorder Tourette syndrome I have confirmed and edited as necessary, the [facility] Review of Systems Constitutional: Positive for chills, fever and malaise/fatigue. HENT: Positive for congestion and sinus pain. Negative for ear pain and sore throat. Respiratory: Positive for cough. Negative for sputum production, shortness of breath and wheezing. Cardiovascular: Negative for chest pain. Gastrointestinal: Negative for abdominal pain, diarrhea, nausea and vomiting. Musculoskeletal: Positive for myalgias. Neurological: Negative for headaches. Objective Physical Exam Vitals and nursing note reviewed. Constitutional: Appearance: He is not toxic-appearing. HENT: Head: Normocephalic and atraumatic. Right Ear: Tympanic membrane, ear canal and external ear normal. Left Ear: Tympanic membrane, ear canal and external ear normal. Nose: Mucosal edema, congestion and rhinorrhea present. Right Sinus: No maxillary sinus tenderness or frontal sinus tenderness. Left Sinus: No maxillary sinus tenderness or frontal sinus tenderness. Mouth/Throat: Pharynx: Uvula midline. Posterior oropharyngeal erythema and postnasal drip present. No oropharyngeal exudate. Tonsils: No tonsillar abscesses. Cardiovascular: Rate and Rhythm: Normal rate and regular rhythm. Heart sounds: Normal heart sounds. Pulmonary: Effort: Pulmonary effort is normal. Breath sounds: Normal breath sounds. No decreased breath sounds, wheezing, rhonchi or rales. Lymphadenopathy: Head: Right side of head: No submental, submandibular, tonsillar or preauricular adenopathy. Left side of head: No submental, submandibular, tonsillar or preauricular adenopathy. Cervical: No cervical adenopathy. Right cervical: No superficial cervical adenopathy. Left cervical: No superficial cervical adenopathy. Skin: General: Skin is warm and dry. Neurological: Mental Status: He is alert and oriented to person, place, and time. Psychiatric: Mood and Affect: Affect normal. ASSESSMENT/PLAN: 1. URI with cough and congestion - ICD9: 465.9, ICD10: J06.9 - Discussed viral etiology and rationale for treatment. - Symptomatic treatment with prn analgesia - Supportive care with fluids and rest - Flu like symptoms Albuterol inhaler - renewed per request Leoncio Painter Follow up with pcp prn - ALBUTEROL SULFATE HFA 90 MCG/ACTUATION AEROSOL INHALER - COVID & INFLUENZA A/B & RSV PCR, ROUTINE - BENZONATATE 100 MG CAPSULE Diagnosis and treatment plan were discussed and questions were answered to the patient's satisfaction. Pt acknowledged understanding of concepts and follow up plan. Specific signs and symptoms that would indicate the need for higher level of care were discussed in detail warranting prompt ER evaluation. Caro Harvey APRN.VAHID documented in this encounter [facility] 09-13-2024 History of Present illness Narrative FOLLOW UP [...] visit. Either the patient or their legal jewelry sales representative has been informed of the risks and benefits of -- and alternatives to -- treatment through a remote evaluation and consents to proceed with the evaluation remotely. Reason for Visit: Outpatient follow-up and safety monitoring of previously prescribed psychiatric medication, psychotherapy or other treatment CC: Follow up HPI: 02/16/24: 33M (single, unemployed, lives w/ fiancee) with Tourette (severe, had to be homeschooled), bipolar do, and chronic COOPER presenting with anxiety sx. Mood is well controlled on current med regimen. 1. Buspar as recommended by Maksim Monge 2. If no response in 10 days, consider Vistaril or Seroquel. --> switched to Vistaril --> poorly tolerated Previous med trials: All tried while a child: risperidone, clonidine (decreased BP), Adderall (increased tics), Seroquel, Orap, Abilify, Geodon (behavior changes) Duloxetine, Zoloft, Fluovoxamine, Wellbutrin (made anxiety/agitation worse) 04/06/24: Saw Rachel Rodríguez. Started Abilify 1mg BID for irritability On evaluation today: - things have not been good at all - has been manic some days. Depressed, angry, irritable. Can't sit still, feels he's pacing everywhere. Blowing up at fiancee. Anxious. Does not have a job and is struggling financially. Feels this might have triggered his anxiety. Feels he cannot keep a job because of his anxiety. - sleeping way too much: 12-13h nightly continuous. Midnight to noon. Tosses and turns for an hour before falling asleep. - took the Abilify but became suicidal on it --> PCP stopped it. - denies current passive wishes or suicidal ideation. - tics have been worse with ongoing anxiety. Feels his Prozac is not helping with anxiety. - gained 50lb on Prozac - denies substance use Risks and benefits of the medication, including any black box warnings, were discussed with the patient. Interval Progress: Worse PATIENT DATA: Generalized Anxiety Disorder Scale (COOPER-7) 04/05/2024 04/05/2024 09/06/2024 COOPER - 7 SCORES Score 21 21 21 (0-4) minimal anxiety, (5-9) mild anxiety, (10-14) moderate anxiety, (15-21) severe anxiety Patient Health Questionnaire (PHQ-9) 04/05/2024 04/05/2024 09/06/2024 PHQ-9 Score 20 23 22 (0-4) minimal depression, (5-9) mild depression, (10-14) moderate depression, (15-19) moderately severe depression, (20-27) severe depression PROMIS Global Health 12/06/2023 04/05/2024 07/27/2024 PROMIS Global Health - (T-Scores - the mean of general population = 50. Five points is a clinically meaningful difference.) Physical T-Score 37.4 39.8 37.4 Mental T-Score 36.3 28.4 38.8 PAST MEDICAL HISTORY Diagnosis Date Bipolar disorder (HCC) Current moderate episode of major depressive disorder without prior episode (HCC) Generalized anxiety disorder Tourette syndrome PAST SURGICAL HISTORY Procedure Laterality Date APPENDECTOMY REPAIR ING HERNIA,5+Y/O,REDUCIBL TONSILLECTOMY & ADENOIDECTOMY <AGE 12 Current Outpatient Medications Medication Sig Dispense Refill terbinafine HCl (LAMISIL) 250 mg tablet Take 1 tablet by mouth once daily. 14 tablet 0 lisinopril (ZESTRIL) 5 mg tablet Take 1 tablet by mouth once daily. 30 tablet 5 FLUoxetine (PROZAC) 40 mg capsule Take 1 capsule by mouth once daily. 90 capsule 3 fluPHENAZine (PROLIXIN) 5 mg tablet Take 1 tablet by mouth once daily. 90 tablet 3 FLUoxetine (PROZAC) 20 mg capsule Take 1 capsule by mouth once daily. Take along with 40 mg capsule 30 capsule 11 albuterol HFA (VENTOLIN HFA) 90 mcg/actuation inhaler [...] for headaches, syncope, seizures and paralysis. PFSH: unchanged VITAL SIGNS: There were no vitals filed for this visit. MENTAL STATUS EXAM: CONSTITUTIONAL: Well groomed, Appropriately dressed ORIENTATION: Person, Place, Time and Situation MEMORY: Recent intact, Remote intact CONCENTRATION: Normal MOOD: irritable, anxious AFFECT: Full and appropriate to topic SPEECH : Clear & distinct LANGUAGE : Normal ASSOCIATIONS: Intact THOUGHT PROCESS : Logical, Coherent, and Rational PROGRESSION : There was no evidence of disturbance in thought perception or progression. FUND OF KNOWLEDGE : Appropriate and Adequate SUICIDE: None HOMICIDE: None DATA REVIEWED: None IMPRESSION: 34M (single, unemployed, lives w/ fiancee) with Tourette (severe, had to be homeschooled), bipolar do, and chronic COOPER presenting with anxiety sx. Mood is well controlled on current med regimen. 1. Buspar as recommended by Maksim Monge 2. If no response in 10 days, consider Vistaril or Seroquel. --> switched to Vistaril --> poorly tolerated Previous med trials: All tried while a child: risperidone, clonidine (decreased BP), Adderall (increased tics), Seroquel, Orap, Abilify, Geodon (behavior changes) Duloxetine, Zoloft, Fluovoxamine, Wellbutrin (made anxiety/agitation worse) 04/06/24: Saw Rachel Rodríguez. Started Abilify 1mg BID for irritability --> SI on Abilify --> dc'ed by PCP Today, endorsing significant irritability and anxiety, pacing around a lot, lashing out at fiancee. Triggers include being jobless. No SI/HI/safety concern. Increased sleep up to 12-13h nightly. Some initial insomnia (~1hr to fall asleep). No new substance use. DIAGNOSIS: PRIMARY: Mood Disorder Bipolar II Disorder Secondary : Tic Disorder Tourette's Disorder Other : Generalized Anxiety Disorder GAF: 50-41 Serious symptoms or any serious impairment in social, occupational or school functioning. TREATMENT PLAN: 1. Start VPA DR 125mg QHS for one week then increase to 250mg at bedtime daily. Cont Prozac 60mg QHS. Cont Prolixin 5mg QHS. 2. Status update in two weeks. Manage meds according to response. 3. RTC 1 mo (Rachel Higgins). RTC January 2025 (Manuel) MEDICATION CHANGES: Prescriptions given Follow Up: 1 months I spent a total of 30 minutes on the date of the service which included preparing to see the patient, [id number] patient care, completing clinical documentation, obtaining and/or reviewing separately obtained history, performing a medically appropriate examination, counseling and educating the patient/family/caregiver, and ordering medications, tests, or procedures. ADD ON PSYCHOTHERAPY CODE : No SIGNATURE: Aubrey Murphy MD PATIENT NAME: Lexus Handy DATE: September 12, 2024 TIME: 4:58 PM documented in this encounter [facility] 09-13-2024 Note HNO ID: [id number] Author: AUBREY MURPHY MD Service: ? Author Type: Physician Type: Progress Notes Filed: 09/13/2024 16:03 Note Text: FOLLOW UP - PSYCHIATRIC PROGRESS [...] visit. Either the patient or their legal jewelry sales representative has been informed of the risks and benefits of -- and alternatives to -- treatment through a remote evaluation and consents to proceed with the evaluation remotely. Reason for Visit: Outpatient follow-up and safety monitoring of previously prescribed psychiatric medication, psychotherapy or other treatment CC: Follow up HPI: 02/16/24: 33M (single, unemployed, lives w/ fiancee) with Tourette (severe, had to be homeschooled), bipolar do, and chronic COOPER presenting with anxiety sx. Mood is well controlled on current med regimen. 1. Buspar as recommended by Maksim Monge 2. If no response in 10 days, consider Vistaril or Seroquel. --> switched to Vistaril --> poorly tolerated Previous med trials: All tried while a child: risperidone, clonidine (decreased BP), Adderall (increased tics), Seroquel, Orap, Abilify, Geodon (behavior changes) Duloxetine, Zoloft, Fluovoxamine, Wellbutrin (made anxiety/agitation worse) 04/06/24: Saw Rachel Rodríguez. Started Abilify 1mg BID for irritability On evaluation today: - things have not been good at all - has been manic some days. Depressed, angry, irritable. Can't sit still, feels he's pacing everywhere. Blowing up at fiancee. Anxious. Does not have a job and is struggling financially. Feels this might have triggered his anxiety. Feels he cannot keep a job because of his anxiety. - sleeping way too much: 12-13h nightly continuous. Midnight to noon. Tosses and turns for an hour before falling asleep. - took the Abilify but became suicidal on it --> PCP stopped it. - denies current passive wishes or suicidal ideation. - tics have been worse with ongoing anxiety. Feels his Prozac is not helping with anxiety. - gained 50lb on Prozac - denies substance use Risks and benefits of the medication, including any black box warnings, were discussed with the patient. Interval Progress: Worse PATIENT DATA: Generalized Anxiety Disorder Scale (COOPER-7) 04/05/2024 04/05/2024 09/06/2024 COOPER - 7 SCORES Score 21 21 21 (0-4) minimal anxiety, (5-9) mild anxiety, (10-14) moderate anxiety, (15-21) severe anxiety Patient Health Questionnaire (PHQ-9) 04/05/2024 04/05/2024 09/06/2024 PHQ-9 Score 20 23 22 (0-4) minimal depression, (5-9) mild depression, (10-14) moderate depression, (15-19) moderately severe depression, (20-27) severe depression PROMIS [facility] 12/06/2023 04/05/2024 07/27/2024 PROMIS Global [facility] - (T-Scores - the mean of general population = 50. Five points is a clinically meaningful difference.) Physical T-Score 37.4 39.8 37.4 Mental T-Score 36.3 28.4 38.8 PAST MEDICAL HISTORY Diagnosis Date Bipolar disorder (HCC) Current moderate episode of major depressive disorder without prior episode (HCC) Generalized anxiety disorder Tourette syndrome PAST SURGICAL HISTORY Procedure Laterality Date APPENDECTOMY REPAIR ING HERNIA,5+Y/O,REDUCIBL TONSILLECTOMY AND ADENOIDECTOMY Current Outpatient Medications Medication Sig Dispense Refill terbinafine HCl (LAMISIL) 250 mg tablet Take 1 tablet by mouth once daily. 14 tablet 0 lisinopril (ZESTRIL) 5 mg tablet Take 1 tablet by mouth once daily. 30 tablet 5 FLUoxetine (PROZAC) 40 mg capsule Take 1 capsule by mouth once daily. 90 capsule 3 fluPHENAZine (PROLIXIN) 5 mg tablet Take 1 tablet by mouth once daily. 90 tablet 3 FLUoxetine (PROZAC) 20 mg capsule Take 1 capsule by mouth once daily. Take along with 40 mg capsule 30 capsule 11 albuterol HFA (VENTOLIN HFA) 90 mcg/actuation inhaler [...] SKIN: Negative for lesions, rash, and itching. HEMATOLOGY/ (more content not included)... [facility] 07-31-2024 History of Present illness Narrative Chief Complaint Patient presents with: Rash HPI Lexus Handy is a 33 year old male who presents here today for rash. Pt c/o rash that is spreading. He forgot to discuss this at his last visit. Was seen in for this issue on 07/12/24 with two weeks of a rash that started on his inner thigh and into his groin area prior. They told him he had jock itch or fungal type rash due to sweating and advised him to use Clotrimazole 1% cream on the area. Pt states he's used the cream with some improvement, but not fully resolving. The rash is now spreading to his lower stomach, groin and around his side. Pt reports the area is really itchy and when he scratches it, it paredes. Was able to complete his drug testing. Past medical history, appointments, medications, allergies reviewed. [...] on File Prior to Visit Medication Sig lisinopril (ZESTRIL) 5 mg tablet Take 1 tablet by mouth once daily. FLUoxetine (PROZAC) 40 mg capsule Take 1 capsule by mouth once daily. fluPHENAZine (PROLIXIN) 5 mg tablet Take 1 tablet by mouth once daily. FLUoxetine (PROZAC) 20 mg capsule Take 1 capsule by mouth once daily. Take along with 40 mg capsule albuterol HFA (VENTOLIN HFA) 90 mcg/actuation inhaler Inhale 2 Puffs as instructed every 4 hours as needed for wheezing/shortness of breath. No current facility-administered medications on file prior to visit. Social History Social History Tobacco Use Smoking status: Never Smokeless tobacco: Never Vaping Use Vaping status: Never Used Substance Use Topics Alcohol use: Not Currently Drug use: Never EXAM: BP 128/86 (BP Site: Left Arm, BP Position: Sitting, BP Cuff Size: Large Adult) Pulse 82 Resp 16 Wt 110 kg (242 lb 8.1 oz) BMI 33.82 kg/m General Appearance: Well appearing, alert, in no acute distress, well-hydrated, well nourished. and Obese. Skin: Fungal skin rash, red and irritated. Health Maintenance List Depression Screening Never done Hepatitis C Screening Never done HIV Screening Never done Hepatitis B Vaccine(1 of 3 - 19+ 3-dose series) Never done Influenza Vaccine(1) due on 05/28/2024 Covid-19 Vaccine(2 - 2023-25 season) due on 05/28/2024 DTaP,Tdap,Td Vaccine(3 - Td or Tdap) due on 03/08/2034 HPV Vaccine Aged Out Data reviewed None ASSESSMENT/PLAN: 1. Fungal skin infection - ICD9: 111.9, ICD10: B36.9 - Treat with 14 days of Lamisil 250 mg once daily. - Denied refill of cream today. Update office if not improved I agree with the Chief Complaint, ROS, and Past Histories independently gathered by the clinical sales support advisor and the remaining scribed note accurately describes my personal service to the patient. Medical Decision Making: Problems: Low: Acute, uncomplicated illness or injury Risk: Moderate: Drug management Medical Decision Making Level: 3 - Low Brendan Kang MD The documentation for this note was completed by Val Mobley MA acting as scribe for Brendan Kang MD. July 31, 2024 3:27 PM. Val Mobley MA documented in this encounter [facility] 07-31-2024 Note HNO ID: [id number] Author: BRENDAN KANG MD Service: ? Author Type: Physician Type: Progress Notes Filed: 07/31/2024 15:42 Note Text: Chief Complaint Patient presents with: Rash HPI Lexus Handy is a 33 year old male who presents here today for rash. Pt c/o rash that is spreading. He forgot to discuss this at his last visit. Was seen in for this issue on 07/12/24 with two weeks of a rash that started on his inner thigh and into his groin area prior. They told him he had jock itch or fungal type rash due to sweating and advised him to use Clotrimazole 1% cream on the area. Pt states he's used the cream with some improvement, but not fully resolving. The rash is now spreading to his lower stomach, groin and around his side. Pt reports the area is really itchy and when he scratches it, it paredes. Was able to complete his drug testing. Past medical history, appointments, medications, allergies reviewed. [...] on File Prior to Visit Medication Sig lisinopril (ZESTRIL) 5 mg tablet Take 1 tablet by mouth once daily. FLUoxetine (PROZAC) 40 mg capsule Take 1 capsule by mouth once daily. fluPHENAZine (PROLIXIN) 5 mg tablet Take 1 tablet by mouth once daily. FLUoxetine (PROZAC) 20 mg capsule Take 1 capsule by mouth once daily. Take along with 40 mg capsule albuterol HFA (VENTOLIN HFA) 90 mcg/actuation inhaler Inhale 2 Puffs as instructed every 4 hours as needed for wheezing/shortness of breath. No current facility-administered medications on file prior to visit. Social History Social History Tobacco Use Smoking status: Never Smokeless tobacco: Never Vaping Use Vaping status: Never Used Substance Use Topics Alcohol use: Not Currently Drug use: Never EXAM: BP 128/86 (BP Site: Left Arm, BP Position: Sitting, BP Cuff Size: Large Adult) Pulse 82 Resp 16 Wt 110 kg (242 lb 8.1 oz) BMI 33.82 kg/m? General Appearance: Well appearing, alert, in no acute distress, well-hydrated, well nourished. and Obese. Skin: Fungal skin rash, red and irritated. Health Maintenance List Depression Screening Never done Hepatitis C Screening Never done HIV Screening Never done Hepatitis B Vaccine(1 of 3 - 19+ 3-dose series) Never done Influenza Vaccine(1) due on 05/28/2024 Covid-19 Vaccine( - 2023- season) due on 05/28/2024 DTaP,Tdap,Td Vaccine(3 - Td or Tdap) due on 03/08/2034 HPV Vaccine Aged Out Data reviewed None ASSESSMENT/PLAN: 1. Fungal skin infection - ICD9: 111.9, ICD10: B36.9 - Treat with 14 days of Lamisil 250 mg once daily. - Denied refill of cream today. Update office if not improved I agree with the Chief Complaint, ROS, and Past Histories independently gathered by the clinical sales support advisor and the remaining scribed note accurately describes my personal service to the patient. Medical Decision Making: Problems: Low: Acute, uncomplicated illness or injury Risk: Moderate: Drug management Medical Decision Making Level: 3 - Low Brendan Kang MD The documentation for this note was completed by Val Mobley MA acting as scribe for Brendan Kang MD. July 31, 2024 3:27 PM. Val Mobley MA [facility] 07-27-2024 Nurse Note Letter faxed to Sheela quintana [facility] at F#: [phone] Val Mobley MA [facility] 07-27-2024 Nurse Note Letter faxed to Sheela quintana [facility] at F#: [phone] Val Mobley MA documented in this encounter [facility] 07-27-2024 History of Present illness Narrative Chief Complaint Patient presents with: Follow Up HPI Lexus Handy is a 33 year old male who presents here today for letter. Pt called into the office asking for a note to give to [facility] Flare Code stating he was unable to urinate. 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 Does note that he urinated prior to doing Drug Testing. He stated he drank six 8 oz bottles of water, tried to urinate 3 times over two hours. Due to the [place] [facility] closing, he had to go back to [facility] and tell them he was unable to urinate. When speaking with the Furniture Associate, he was advised it was a refusal. Pt wanted to re-do the test, but was advised he needs a letter from his PCP. He feels that with a repeat test he should be able to urinate for the test. Overall feels he's doing well on his medications. Denies feeling medication caused the issue. [facility] Fax number for letter - [phone] ATTN: Sheela. Past medical history, appointments, medications, allergies reviewed. [...] Prior to Visit Medication Sig benzonatate (TESSALON PERLE) 100 mg capsule Take 1 capsule by mouth three times a day as needed. (Patient not taking: Reported on 07/12/2024) lisinopril (ZESTRIL) 5 mg tablet Take 1 tablet by mouth once daily. hydrOXYzine pamoate (VISTARIL) 25 mg capsule Take 1 capsule by mouth three times a day as needed for anxiety. FLUoxetine (PROZAC) 40 mg capsule Take 1 capsule by mouth once daily. fluPHENAZine (PROLIXIN) 5 mg tablet Take 1 tablet by mouth once daily. FLUoxetine (PROZAC) 20 mg capsule Take 1 capsule by mouth once daily. Take along with 40 mg capsule albuterol HFA (VENTOLIN HFA) 90 mcg/actuation inhaler Inhale 2 Puffs as instructed every 4 hours as needed for wheezing/shortness of breath. No current facility-administered medications on file prior to visit. Social History Social History Tobacco Use Smoking status: Never Smokeless tobacco: Never Vaping Use Vaping status: Never Used Substance Use Topics Alcohol use: Not Currently Drug use: Never EXAM: BP 126/80 (BP Site: Left Arm, BP Position: Sitting, BP Cuff Size: Regular Adult) Pulse 80 Resp 16 Wt 109 kg (240 lb 4.8 oz) BMI 33.52 kg/m General Appearance: Well appearing, alert, in no acute distress, well-hydrated, well nourished.. Lungs: Lungs clear to auscultation. No wheezing, rhonchi, rales.. Heart: RRR without murmur, gallop, or rubs. No ectopy. Health Maintenance List Depression Screening Never done Hepatitis C Screening Never done HIV Screening Never done Hepatitis B Vaccine(1 of 3 - 19+ 3-dose series) Never done Influenza Vaccine(1) due on 05/28/2024 Covid-19 Vaccine(2 - 2023-25 season) due on 05/28/2024 DTaP,Tdap,Td Vaccine(3 - Td or Tdap) due on 03/08/2034 HPV Vaccine Aged Out Data reviewed None ASSESSMENT/PLAN: 1. 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 Follow up prn. I agree with the Chief Complaint, ROS, and Past Histories independently gathered by the clinical sales support advisor and the remaining scribed note accurately describes my personal service to the patient. Medical Decision Making: Problems: Low: Acute, uncomplicated illness or injury Risk: Low: Low risk from testing/treatment Medical Decision Making Level: 3 - Low Brendan Kang MD The documentation for this note was completed by Val Mobley MA acting as scribe for Brendan Kang MD. July 27, 2024 4:41 PM. Val Mobley MA documented in this encounter [facility] 07-27-2024 Note HNO ID: [id number] Author: BRENDAN KANG MD Service: ? Author Type: Physician Type: Progress Notes Filed: 07/27/2024 16:47 Note Text: Chief Complaint Patient presents with: Follow Up HPI Lexus Handy is a 33 year old male who presents here today for letter. Pt called into the office asking for a note to give to [facility] Flare Code stating he was unable to urinate. 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 Does note that he urinated prior to doing Drug Testing. He stated he drank six 8 oz bottles of water, tried to urinate 3 times over two hours. Due to the [place] [facility] closing, he had to go back to [facility] and tell them he was unable to urinate. When speaking with the Furniture Associate, he was advised it was a refusal. Pt wanted to re-do the test, but was advised he needs a letter from his PCP. He feels that with a repeat test he should be able to urinate for the test. Overall feels he's doing well on his medications. Denies feeling medication caused the issue. [facility] Fax number for letter - [phone] ATTN: Sheela. Past medical history, appointments, medications, allergies reviewed. [...] Prior to Visit Medication Sig benzonatate (TESSALON PERLE) 100 mg capsule Take 1 capsule by mouth three times a day as needed. (Patient not taking: Reported on 07/12/2024) lisinopril (ZESTRIL) 5 mg tablet Take 1 tablet by mouth once daily. hydrOXYzine pamoate (VISTARIL) 25 mg capsule Take 1 capsule by mouth three times a day as needed for anxiety. FLUoxetine (PROZAC) 40 mg capsule Take 1 capsule by mouth once daily. fluPHENAZine (PROLIXIN) 5 mg tablet Take 1 tablet by mouth once daily. FLUoxetine (PROZAC) 20 mg capsule Take 1 capsule by mouth once daily. Take along with 40 mg capsule albuterol HFA (VENTOLIN HFA) 90 mcg/actuation inhaler Inhale 2 Puffs as instructed every 4 hours as needed for wheezing/shortness of breath. No current facility-administered medications on file prior to visit. Social History Social History Tobacco Use Smoking status: Never Smokeless tobacco: Never Vaping Use Vaping status: Never Used Substance Use Topics Alcohol use: Not Currently Drug use: Never EXAM: BP 126/80 (BP Site: Left Arm, BP Position: Sitting, BP Cuff Size: Regular Adult) Pulse 80 Resp 16 Wt 109 kg (240 lb 4.8 oz) BMI 33.52 kg/m? General Appearance: Well appearing, alert, in no acute distress, well-hydrated, well nourished.. Lungs: Lungs clear to auscultation. No wheezing, rhonchi, rales.. Heart: RRR without murmur, gallop, or rubs. No ectopy. Health Maintenance List Depression Screening Never done Hepatitis C Screening Never done HIV Screening Never done Hepatitis B Vaccine(1 of 3 - 19+ 3-dose series) Never done Influenza Vaccine(1) due on 05/28/2024 Covid-19 Vaccine(2 - 2023-25 season) due on 05/28/2024 DTaP,Tdap,Td Vaccine(3 - Td or Tdap) due on 03/08/2034 HPV Vaccine Aged Out Data reviewed None ASSESSMENT/PLAN: 1. 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 Follow up prn. I agree with the Chief Complaint, ROS, and Past Histories independently gathered by the clinical sales support advisor and the remaining scribed note accurately describes my personal service to the patient. Medical Decision Making: Problems: Low: Acute, uncomplicated illness or injury Risk: Low: Low risk from testing/treatment Medical Decision Making Level: 3 - Low Brendan Kang MD The documentation for this note was completed by Val Mobley MA acting as scribe for Brendan Kang MD. July 27, 2024 4:41 PM. Val Mobley MA [facility] 07-25-2024 Miscellaneous Notes Please review message below and advise. Pt is scheduled for an appt on with PCP to obtain a letter. Are you willing to write a letter for pt to not have drug testing? Please update so we can notify pt prior to appt if PCP will give a letter excusing him due to shy bladder. Val Mobley MA Patient calling to request a letter to his employer [employer] stating he was unable to void for drug test due to shy bladder. He went for a pre employment drug test and he was unable to urinate. He drank six 8 ounce bottles of water and did not void for more than two hours while waiting to take urine drug test. He did say he had urinated prior to this. He has no urinary symptoms. Scheduled appointment with PCP on 07/27/24 if he needs to be seen. Advised patient office will contact him if letter can be written without appointment. He will call back with [employer] fax #. Pedro Castelan RN documented in this encounter [facility] 07-25-2024 Telephone encounter Note Please review message below and advise. Pt is scheduled for an appt on with PCP to obtain a letter. Are you willing to write a letter for pt to not have drug testing? Please update so we can notify pt prior to appt if PCP will give a letter excusing him due to shy bladder. Val Mobley MA [facility] 07-24-2024 Telephone encounter Note Patient calling to request a letter to his employer [employer] stating he was unable to void for drug test due to shy bladder. He went for a pre employment drug test and he was unable to urinate. He drank six 8 ounce bottles of water and did not void for more than two hours while waiting to take urine drug test. He did say he had urinated prior to this. He has no urinary symptoms. Scheduled appointment with PCP on 07/27/24 if he needs to be seen. Advised patient office will contact him if letter can be written without appointment. He will call back with [employer] fax #. Pedro Castelan RN [facility] 07-12-2024 Note HNO ID: [id number] Author: JENN REED PA Service: ? Author Type: Physician Hospice Fellow Type: Progress Notes Filed: 07/12/2024 11:49 Note Text: This note was created using [email or web address]. Subjective Lexus Handy is a 33 year old male. HPI 32-year-old male presents for rash on upper leg. Rash started about 2 weeks ago. Patient states that this happens every year with the weather change. The rash is very itchy. It is not painful. No drainage. No new lotions, detergents, body washes, medications. He has not put anything on it [id number]. No fevers. No other complaint. PAST MEDICAL [...] detail warranting prompt ER evaluation. NATANAEL Cross [facility] 07-12-2024 History of Present illness Narrative Images from the original note were not included. This note was created using Triloqter. Subjective Lexus Handy is a 33 year old male. HPI 32-year-old male presents for rash on upper leg. Rash started about 2 weeks ago. Patient states that this happens every year with the weather change. The rash is very itchy. It is not painful. No drainage. No new lotions, detergents, body washes, medications. He has not put anything on it [id number]. No fevers. No other complaint. PAST MEDICAL [...] evaluation. NATANAEL Cross documented in this encounter [facility] 06-26-2024 Note HNO ID: [id number] Author: JENN REED PA Service: ? Author Type: Physician Hospice Fellow Type: Progress Notes Filed: 06/26/2024 14:14 Note Text: This note was created using Yobbleriter. Subjective Lexus Handy is a 33 year [...] in detail warranting prompt ER evaluation. NATANAEL Corss [facility] 06-26-2024 History of Present illness Narrative This note was created using [email or web address]. Subjective Lexus Handy is a 33 year [...] evaluation. NATANAEL Cross documented in this encounter [facility] 06-05-2024 Note HNO ID: [id number] Author: ?, ?, ? Service: ? Author [...] reach patient: Left message Navigation Signature: Marie Nj June 05, 2024 3:[address] [facility] 06-05-2024 History of Present illness Narrative POPULATION [...] reach patient: Left message Navigation Signature: Marie Nj June 05, 2024 3:05 PM documented in this encounter [facility] 06-05-2024 Note Patient Outreach (AC CC) LEXUS HANDY ([id number]) 1990 M Date Time Provider Department 06/05/24 [...] patient: Left message Navigation Signature: Marie Piedra Pss June 05, 2024 3:05 PM Allergies As [...] Bipolar disorder (HCC) [F31.9] Encounter Status:Closed by VIJAY NJ, MARIE EDWARDS on 06/05/24 [facility] 05-03-2024 Telephone encounter Note Spoke with pt and information listed below given. Pt verbalizes understanding. 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 Fidencio Abraham LPN [facility] 05-03-2024 Miscellaneous Notes Spoke with pt and information listed below given. Pt verbalizes understanding. 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 Fidencio Abraham LPN Order has been placed [...] place the order. Thank you. Kia Collins APRN.VAHID documented in this encounter [facility] 05-03-2024 Telephone encounter Note Order has been placed for at home sleep study. He can call in to have device mailed to him. Office will be in touch with him once I review test results. Thank you. Kia Collins APRN.CNP [facility] 05-03-2024 Telephone encounter Note Patient notified and is agreeable to the sleep study. Please call patient to schedule once order is placed. [facility] 05-03-2024 Telephone encounter Note Left a message for pt to call the office and ask to speak to a nurse. Fidencio Abraham LPN [facility] 05-03-2024 Telephone encounter Note Can you please call the patient and let him know that his labs were all normal. I would recommend considering a sleep study to further evaluate causes of his fatigue. If he is agreeable please let me know and I will place the order. Thank you. Kia Collins APRN.MIRROR MACHINE FEEDER [facility] 05-02-2024 History of Present illness Narrative [...] discussed and patient voices understanding. Kia Collins APRN.VAHID This note was partially generated using Pixta voice recognition system. Note was reviewed for accuracy. There may be minor misspellings or grammar miscues with Pixta voice recognition. documented in this encounter [facility] 05-02-2024 Note HNO ID: [id number] Author: KIA COLLINS APRN.MIRROR MACHINE FEEDER Service: ? Author Type: Nurse Practitioner Type: [...] - Start lisinopril (more content not included)... [facility] 05-02-2024 Instructions Kia Collins APRN.VAHID - 05/02/2024 1:16 PM EDT Get labs completed Start Lisinopril 5 mg daily Monitor blood pressure at home, goal 130/80 or less Watch processed foods and salt in the diet. Get some form of exercise. Follow up in 1 month or sooner pending test results documented in this encounter [facility] 04-11-2024 Telephone encounter Note Patient did not tolerate Abilify. Spoke with Dr. Murphy, agreed to trial Seroquel 12.5mg BID. Requested Prescriptions Pending Prescriptions Disp Refills QUEtiapine (SEROQUEL) 25 mg tablet 30 tablet 0 Sig: Take 0.5 tablets by mouth two times a day. Rachel Rodríguez PA-C [place] [facility] Psych[facility] 04-11-2024 Miscellaneous Notes Patient did not tolerate Abilify. Spoke with Dr. Murphy, agreed to trial Seroquel 12.5mg BID. Requested Prescriptions Pending Prescriptions Disp Refills QUEtiapine (SEROQUEL) 25 mg tablet 30 tablet 0 Sig: Take 0.5 tablets by mouth two times a day. Rachel Rodríguez PA-C [place] [facility] documented in this encounter [facility] 04-06-2024 History of Present illness Narrative FOLLOW [...] visit. Either the patient or their legal jewelry sales representative has been informed of the risks [...] DATA: Generalized Anxiety Disorder Scale (COOPER-7) 02/16/2024 04/05/202404/0504/05/2024 COOPER - 7 SCORES Score 18 21 [...] issues doing so on MyChart, please call [phone]. 3. Continue seeing counselor, suggest increase in visits during this difficult time. MEDICATION CHANGES: Will send MyChart message after discussion with Dr. Murphy Follow Up: 1-2 months I spent a total of 45 minutes on the date of the service which included preparing to see the patient, [id number] patient care, completing clinical documentation, obtaining and/or reviewing separately obtained history, and ordering medications, tests, or procedures. ADD ON PSYCHOTHERAPY CODE : No SIGNATURE: Rachel Higgins PA-C PATIENT NAME: Lexus Handy DATE: April 06, 2024 TIME: 8:25 AM documented in this encounter [facility] 04-06-2024 Note HNO ID: [id number] Author: RACHEL HIGGINS PA-C Service: ? Author Type: Physician Hospice Fellow Type: Progress Notes Filed: 04/18/2024 16:16 Note [...] visit. Either the patient or their legal jewelry sales representative has been informed of the risks [...] and paralysis. PFSH: (more content not included)... [facility] 02-17-2024 History of Present illness Narrative Images from the original note were not included. PSYC NEW - PSYCHIATRIC ASSESSMENT Patient was seen for an initial evaluation. I have communicated my name and active licensure. The patient's identity and physical location were verified at the time of this visit. Either the patient or their legal jewelry sales representative has been informed of the risks [...] Single (never ) OCCUPATION: Unemployed REFERRAL SOURCE: [facility] Physician - Maksim Monge CHIEF COMPLAINT: Anxiety [...] this is affecting his relationship with his fiancee. Meds were being managed by PCP. Has [...] cannot recall Therapist: No prior therapist Current Coach Driver: no Last Hospitalization: Denies hospitalization. ECT: no [...] history of use or dependence SPIRITUALITY: NA [facility]: Lexus Handy is the has twin brother and oldest sister. The patient was born and raised in [place]. He completed High school. He described his childhood as wnl. The patient lives with [facility] [place]. Service: None Legal: Pt. denied any past [...] which included preparing to see the patient, smrw-[id number] patient care, completing clinical documentation, performing a medically appropriate examination, counseling and educating the patient/family/caregiver, and ordering medications, tests, or procedures. ADD ON PSYCHOTHERAPY CODE : No SIGNATURE: Aubrey Murphy MD PATIENT NAME: Lexus Handy DATE: February 16, 2024 TIME: 11:10 AM PAGER : directory documented in this encounter [facility] 02-14-2024 History of Present illness Narrative [facility] - FOLLOW UP EVALUATION - VIRTUAL VISIT Brendan Kang MD [address] [facility] [id number] Dear Brendan Kang MD: I had the pleasure of seeing Mr. Handy for follow-up today. As you know he is a 33 year old male with a history of Tourette syndrome since 1997. We had a visit using: ChartCube I have communicated my name and active licensure. The patient's identity and physical location were verified at the time of this visit. Either the patient or their legal jewelry sales representative has been informed of the risks [...] has remained stable over the past year. [facility] PCP recently increased Prozac to 60 mg/day [...] with recent Prozac dose increase per Dr. Elderbrock - Bipolar/depression symptoms have improved but he is now more anxious/agitated. Could consider dose reduction in Prozac but general mood is improved. Plan: Will script Buspar in attempt to improve his anxiety levels a bit. He is awaiting call from local psychiatry office to establish care but states he has not yet received a call. Will place consult for Dr. Murphy in [facility] psychiatry to establish care (UPDATE: Found appt [...] 1 fluoxetine 40 mg Level of service: 68062 (30-39 min). Time spent 30 min on the day of service, which included tclu-kd-ulzj patient care, completing clinical documentation, obtaining and/or [...] any questions. Sincerely, Jeanette Monge PA-C Physician Hospice Fellow [facility] documented in this encounter [facility] 02-07-2024 Telephone encounter Note See jose message. Fina Casanova MA [facility] 02-07-2024 Miscellaneous Notes See jose catalan. Fina Casanova MA documented in this encounter [facility] 01-28-2024 History of Present illness Narrative Chief [...] Past Histories independently gathered by the clinical sales support advisor and the remaining scribed note accurately describes my personal service to the patient. Medical Decision Making: Problems: Low: Acute, uncomplicated illness or injury and Stable chronic illness Risk: Moderate: Drug management Medical Decision Making Level: 3 - Low Brendan Kang MD The documentation for this note was completed by Fina Casanova MA acting as scribe for Brendan Kang MD. January 28, 2024 10:07 AM. Fina Casanova MA documented in this encounter [facility] 01-04-2024 Miscellaneous Notes Done in MyChart message Brendan Kang MD Patient calls and states that he would like to go back on Prozac. Patient reports that he has been on Wellbutrin and it is causing him to rage and be suicidal. Please review and advise, Yolanda Jhaveri RN documented in this encounter [facility] 01-04-2024 Miscellaneous Notes See pt message. Pt wrote two messages. Val Mobley MA documented in this encounter [facility] 08-11-2023 History of Present illness Narrative This note was created using Triloqter. Subjective Lexus Handy is a 32 year [...] evaluation. NATANAEL Cross documented in this encounter [facility] 07-26-2023 Miscellaneous Notes The following approved medication requests have been transmitted electronically. Requested Prescriptions Signed Prescriptions Disp Refills FLUoxetine (PROZAC) 40 mg capsule 90 capsule 3 Sig: Take 1 capsule by mouth once daily. Delvin Hickman APRN.VAHID See pt message and advise. Pt just seen in office on 07/19/23. Update pt via [employer]hart. PCP out of office until 07/29/23. Val Mobley Ma documented in this encounter [facility] 07-19-2023 History of Present illness Narrative Chief [...] Vaccine(2 - 2022- season) due on 05/28/2023 HPV Vaccine Aged [...] Past Histories independently gathered by the clinical sales support advisor and the remaining scribed note accurately describes my personal service to the patient. Medical Decision Making: Problems: Moderate: 1+ chronic illnesses with change Risk: Moderate: Drug management Medical Decision Making Level: 4 - Moderate Brendan Kang MD The documentation for this note was completed by Fina Casanova Ma acting as scribe for Brendan Kang MD. July 19, 2023 5:39 PM. Fina Casanova Ma documented in this encounter [facility] 07-05-2023 Miscellaneous Notes Notified pt that appt time could not longer be held. Made aware he would have to make an appt to discuss. Val Mobley Ma Offered pt appt at 3:40 pm for weight loss. Wait pt response. Spot held. Wait pt response. Val Mobley Ma documented in this encounter [facility] 06-28-2023 History of Present illness Narrative Radiology [...] 2023 4:29 PM documented in this encounter [facility] 04-22-2023 Miscellaneous Notes [employer] message sent to pt notifying him of results and recommendation below from Provider. Val Mobley Ma ----- Message from Bobo Jasmine MD sent at 04/22/2023 8:00 AM EDT ----- Rib xray negative for fractures or dislocation. No punctured lung. Continue treatment as discussed in office. documented in this encounter [facility] 02-26-2023 History of Present illness Narrative [facility] - FOLLOW UP EVALUATION - VIRTUAL VISIT Brendan Kang MD [address] [facility] [address] Dear Brendan Kang MD: I had the pleasure of seeing Mr. Handy for follow-up today. As you know he is a 32 year old male with a history of Tourette syndrome since 1997. He is seen alone. We had a visit using: [employer] ChartCube I have communicated my name and active licensure. The patient's identity and physical location were verified at the time of this visit. Either the patient or their legal jewelry sales representative has been informed of the risks [...] [facility] from 02/26/2023 in [facility] Office Visit from 11/11/2022 in Family Medicine [...] call with any questions. Sincerely, Lacy Woodard APRN.MIRROR MACHINE FEEDER documented in this encounter [facility] 02-25-2023 Miscellaneous Notes The following approved medication requests have been transmitted electronically. Requested Prescriptions Signed Prescriptions Disp Refills fluPHENAZine (PROLIXIN) 5 mg tablet 30 tablet 0 Sig: Take 1 tablet by mouth once daily. Authorizing Provider: RADHA COLE MD Last FUV January 2022 with [facility]. No FUV scheduled - pt informed this will be needed for further refills. 30-day pending with no refills. documented in this encounter [facility] 11-27-2022 Miscellaneous Notes Patient calls to make [...] Mirian Renee RN documented in this encounter [facility] 11-11-2022 History of Present illness Narrative Chief [...] agreeable to treatment plan. Juliet John APRN.VAHID [address] [place] [address] documented in this encounter [facility] 10-07-2022 Miscellaneous Notes The following approved medication [...] Stacy Moncada LPN documented in this encounter [facility] 09-02-2022 History of Present illness Narrative Chief [...] Past Histories independently gathered by the clinical sales support advisor and the remaining scribed note accurately describes my personal service to the patient. Medical Decision Making: Problems: Moderate: New problem with uncertain prognosis and 1+ chronic illnesses with change Risk: Moderate: Drug management Medical Decision Making Level: 4 - Moderate Brendan Kang MD The documentation for this note was completed by Fina Casanova Ma acting as scribe for Brendan Kang MD. September 02, 2022 7:06 PM. Fina Casanova Ma documented in this encounter [facility] 06-30-2022 Miscellaneous Notes The following approved medication requests have been transmitted electronically. Requested Prescriptions Pending Prescriptions Disp Refills FLUoxetine (PROZAC) 40 mg capsule 30 capsule 2 Sig: Take 1 capsule by mouth once daily. Delvin Hickman APRN.CNP Last office visit: 09/15/21 F/u scheduled: none Fina Casanova Ma documented in this encounter [facility] 05-01-2022 Miscellaneous Notes Med adjustment made, pt to schedule 1-2 month follow up. Val Mobley Ma Pt has appt tomorrow. Ok to wait till appt to discuss med change? Fina Casanova Ma documented in this encounter [facility] 02-20-2022 History of Present illness Narrative [facility] - FOLLOW UP EVALUATION Brendna Kang MD [address] [facility] [address] I had the pleasure of seeing Mr. Handy for follow up today. He is a 31 year old male with a history of Tourette syndrome since 1997. He is seen alone. We had a visit using: ChartCube I received consent from the patient to [...] PROMIS scale: PROMIS-10 Appointment from 02/11/2022 in [facility] Office Visit from 04/25/2021 in [facility] Global Physical Health T Score 42.3 [...] Take 1 capsule by mouth once daily. Wrrdqrifgytunmn-Keazqwnwl-IQ (BROMFED DM) 2-30-10 mg/5 mL syrup Take [...] to call with any questions. Sincerely, Radha Cole MD documented in this encounter [facility] 02-09-2022 Miscellaneous Notes Pt notified in other [employer]hart message that an appt should be setup to discuss. This is message part 2. Val Mobley Ma documented in this encounter [facility] 01-01-2022 Miscellaneous Notes Pt advised to contact Dr. Cole's office for refill. Fina Casanova Ma documented in this encounter [facility] Evaluation note Diagnosis [place] Tourette syndrome- Primary Tourette's disorder Anxiety Anxiety state, unspecified Obsessive-compulsive disorder, unspecified type [facility]* Diagnosis Epigastric pain- Primary Abdominal pain, epigastric Generalized anxiety disorder Bipolar affective disorder, remission status unspecified (HCC) [facility] [place] [facility]* Diagnosis Bronchitis- Primary Bronchitis, not specified as acute or chronic documented [facility] [place] [facility]* Diagnosis [place] Tourette syndrome- Primary Tourette's disorder Anxiety Anxiety state, unspecified documented [facility] [place] noteNo assessment information availableWAultman Alliance [facility] Work Phone: Evaluation note* Diagnosis Generalized anxiety disorder- Primary Bipolar affective disorder, remission status unspecified (HCC) Decreased sexual desire Decreased libido ED (erectile dysfunction) of organic origin Impotence of organic origin [facility] [place] [facility]* Diagnosis [place] Tourette syndrome Tourette's disorder Anxiety Anxiety state, unspecified [facility] [place] [facility]* Diagnosis URI, acute- Primary Acute upper respiratory infections of unspecified site Acute otitis media, left Unspecified otitis media [facility] [place] [facility]* Diagnosis [place] Tourette syndrome Tourette's disorder Anxiety Anxiety state, unspecified [facility] [place] [facility]* Diagnosis Acute non-recurrent sinusitis, unspecified location- Primary Generalized anxiety disorder Bipolar affective disorder, remission status unspecified (HCC) Bronchitis Bronchitis, not specified as acute or chronic [facility]* Diagnosis Generalized anxiety disorder- Primary [facility]* Diagnosis Sleep difficulties- Primary Sleep disturbance, unspecified [place] Tourette syndrome Tourette's disorder Anxiety Anxiety state, unspecified [facility] [place] [facility]* Diagnosis [place] Tourette syndrome Tourette's disorder Anxiety Anxiety state, unspecified Sleep difficulties Sleep disturbance, unspecified [facility] this [facility] [place] [facility]* Diagnosis Anxiety- Primary Anxiety state, unspecified [place] Tourette syndrome Tourette's disorder [facility] Diagnosis APPOINTMENT CANCELLED- Primary documented [facility] this encounter [facility] [place] [facility]* Diagnosis Fatigue, unspecified type- Primary Hypertension, essential Unspecified essential hypertension [facility] [place] [facility]* Diagnosis Fatigue, unspecified type- Primary documented [facility] this [facility] [place] [facility]* Diagnosis Strain of neck muscle, initial encounter Upper back pain documented [facility] this [facility] [place] [facility]* Diagnosis Rib pain on right side Chest pain, unspecified Contusion of rib on right side, subsequent encounter documented [facility] this encounter [facility] [place] [facility]* Diagnosis Sinobronchitis- Primary Unspecified sinusitis (chronic) [facility] [place] [facility]* Diagnosis Tinea cruris- Primary Dermatophytosis of groin and perianal area documented [facility] this encounter [facility] [place] [facility]* Diagnosis Shy bladder syndrome- Primary Other functional disorder of bladder documented [facility] this encounter [facility] [place] [facility]* Diagnosis Fungal skin infection- Primary Dermatophytosis of the body documented [facility] this encounter [facility] [place] [facility]* Diagnosis Irritability- Primary documented [facility] this encounter [facility] [place] [facility]* Diagnosis URI with cough and congestion- Primary documented [facility] this encounter [facility] [place] [facility]* Diagnosis [place] Tourette syndrome Tourette's disorder documented [facility] this [facility] [place] [facility]* Diagnosis COOPER (generalized anxiety disorder)- Primary Generalized anxiety disorder Anxiety Anxiety state, unspecified [place] Tourette syndrome Tourette's disorder Recurrent major depression in partial remission (HCC) Major depressive disorder, recurrent episode, in partial or unspecified remission [facility] [place]* Diagnosis Lumbar back pain- Primary Lumbago Hypertension, essential Unspecified essential hypertension [facility] this [facility] [place] [facility]* Diagnosis NO SHOW- Primary documented in this [facility] [place] [facility]* Diagnosis Sore throat- Primary Acute pharyngitis Viral illness Unspecified viral infection, in conditions classified elsewhere and of unspecified site documented [facility] this encounter [facility] [place] [facility]* Diagnosis Viral URI with cough- Primary Acute upper respiratory infections of unspecified site documented [facility] this encounter [facility] [place] [facility]* Diagnosis URI, acute- Primary Acute upper respiratory infections of unspecified site Acute cough documented [facility] [place] [facility]* Diagnosis Lumbar back pain- Primary Lumbago Class 1 obesity with body mass index (BMI) of 33.0 to 33.9 in adult, unspecified obesity type, unspecified whether serious comorbidity present Generalized anxiety disorder documented in this encounter [facility] note* Diagnosis Lumbar back pain Lumbago documented in this encounter [facility] note* Diagnosis Lumbar back pain- Primary Lumbago documented in this encounter [facility] note* Diagnosis NO SHOW- Primary documented in this encounter [facility] Discharge instructions Additional Instructions Strep PCR negative. Reactive cervical lymphadenitis due to likely viral pharyngitis. Continue oral fluids Tylenol Motrin as needed. Status post dexamethasone. Follow-up with your doctor.[facility] Work Phone: Reason for referral (narrative)* Diagnostic Procedure Only (Routine) - Authorized Specialty Diagnoses / Procedures Referred By Cady campuzano Referred To Contact [facility] Diagnoses Fatigue, unspecified type Procedures HOME SLEEP APNEA TEST (HSAT) SLEEP STD AIRFLOW HRT RATE&O2 SAT EFFORT UNATT Kia Collins APRN.CNP [address] [place] [address] [facility] [address] [place] [address] Referral ID Status Reason Start Date Expiration Date Visits Requested Visits Authorized [id number] Authorized Auto-Generat ed Referral 05/03/2024 05/03/2025 1 1 [facility] for referral (narrative)* Diagnostic Procedure Only (Routine) - Closed Specialty Diagnoses / Procedures Referred By Cady campuzano Referred To Contact XR IMAGING Diagnoses Strain of neck muscle, initial encounter Upper back pain Procedures XR CERV OTHER 4V AP/LAT/OBL RADEX SPINE CERVICAL 4 OR 5 VIEWS Bobo Jasmine MD [address] [place] [address] Xr Imaging [facility] Referral ID Status Reason Start Date Expiration Date V isits Requested Visits Authorized [id number] Closed Auto-Generate d Referral 06/28/2023 07/27/2024 1 1 [facility] for referral (narrative)* Diagnostic Procedure Only (Routine) - Closed Specialty Diagnoses / Procedures Referred By Cady t Referred To Contact XR IMAGING Diagnoses Rib pain on right side Contusion of rib on right side, subsequent encounter Procedures XR RIBS/CHEST 3V AP RIB/OBLS/CXR RIGHT RADEX RIBS UNI W/POSTEROANT CH MINIMUM 3 VIEWS Bobo Jasmine MD [address] [place] [address] [place] [address] Referral ID Status Reason Start Date Expiration Date V isits Requested Visits Authorized [id number] Closed Auto-Generate d Referral 04/21/2023 05/20/2024 1 1 [facility] for visit Narrative* Diagnostic Procedure Only (Routine) - Closed Specialty Diagnoses / Procedures Referred By Cady t Referred To Contact XR IMAGING Diagnoses Strain of neck muscle, initial encounter Upper back pain Procedures XR CERV OTHER 4V AP/LAT/OBL RADEX SPINE CERVICAL 4 OR 5 VIEWS Bobo Jasmine MD [address] [place] [address] [place] [address] Referral ID Status Reason Start Date Expiration Date V isits Requested Visits Authorized [id number] Closed Auto-Generate d Referral 06/28/2023 07/27/2024 1 1 [facility] for visit Narrative* Diagnostic Procedure Only (Routine) - Closed Specialty Diagnoses / Procedures Referred By Cady campuzano Referred To Contact XR IMAGING Diagnoses Rib pain on right side Contusion of rib on right side, subsequent encounter Procedures XR RIBS/CHEST 3V AP RIB/OBLS/CXR RIGHT RADEX RIBS UNI W/POSTEROANT CH MINIMUM 3 VIEWS Bobo Jasmine MD [address] [place] [address] [place] [address] Referral ID Status Reason Start Date Expiration Date V isits Requested Visits Authorized [id number] Closed Auto-Generate d Referral 04/21/2023 05/20/2024 [facility] Procedure Only (Routine) - Closed Specialty Diagnoses / Procedures Referred By Contac t Referred To Contact XR IMAGING Diagnoses Lumbar back pain Procedures XR LUMBAR GENERAL 3V AP/LAT/L5-S1 RADEX SPINE LUMBOSACRAL 2/3 VIEWS Brendan Kang MD [address] [place] [address] Phone: tel: fax: [facility] [place] [address] Referral ID Status Reason Start Date Expiration Date V isits Requested Visits Authorized [id number] Closed Auto-Generate d Referral 03/13/2025 04/12/2026 1 1 [facility] Reason for Referral Specialty Diagnoses / Procedures Referred By Contac t Referred To Contact Diagnoses [place] Tourette syndrome Procedures PROVIDER ORDERED FOLLOW UP OFFICE/OUTPATIENT [facility] 60-74 MINUTES Radha Cole MD [address] [address] Referral ID Status Reason Start Date Expiration Date Visits Requested Visits Authorized [id number] Authorized PCP Requested Referral 02/20/2022 05/21/2022 1 1 Specialty Diagnoses / Procedures Referred By Contac t Referred To Contact Diagnoses [place] Tourette syndrome Anxiety Obsessive-compulsive disorder, unspecified type Procedures CONSULT TO PSYCHIATRY OFFICE/OUTPATIENT [facility] 60-74 MINUTES Radha Cole MD [address] [address] Referral ID Status Reason Start Date Expiration Date Visits Requested Visits Authorized [id number] Pending Review PCP Requested Referral 02/20/2022 02/20/2023 1 1 Specialty Diagnoses / Procedures Referred By Contac t Referred To Contact NEUROLOGICAL LATTER-DAY Diagnoses [place] Tourette syndrome Anxiety Sleep difficulties Procedures CONSULT TO PSYCHIATRY OFFICE/OUTPATIENT [facility] MDM 60 MINUTES Jeanette Monge PA-C [address] [place] [address] [address] [place] [id number] Referral ID Status Reason Start Date Expiration Date Visits Requested Visits Authorized [id number] Authorized PCP Requested Referral Patient Cleared - INN Insurance Found 02/14/2024 02/13/2025 1 1 Specialty Diagnoses / Procedures Referred By Contac t Referred To Contact Diagnoses Anxiety Procedures PROVIDER ORDERED FOLLOW UP OFFICE/OUTPATIENT NEW HIGH MDM 60 MINUTES Aubrey Murphy MD [address] [place] [address] Referral ID Status Reason Start Date Expiration Date Visits Requested Visits Authorized [id number] Authorized PCP Requested Referral 05/19/2024 02/16/2025 1 1 Specialty Diagnoses / Procedures Referred By Contac t Referred To Contact Diagnoses Anxiety [place] Tourette syndrome Procedures PROVIDER ORDERED FOLLOW UP Rachel Higgins PA-C [address] [place] [address] Aburey Murphy MD [address] [place] [phone] Referral ID Status Reason Start Date Expiration Date Visits Requested Visits Authorized [id number] Ref Not Required PCP Requested Referral 05/07/2024 04/06/2025 1 1 Specialty Diagnoses / Procedures Referred By Contac t Referred To Contact Diagnoses Irritability Procedures PROVIDER ORDERED FOLLOW UP OFFICE/OUTPATIENT NEW HIGH [facility] 60 MINUTES Aubrey Murphy MD [address] [place] [phone] Referral ID Status Reason Start Date Expiration Date Visits Requested Visits Authorized [id number] Authorized PCP Requested Referral 12/12/2024 09/13/2025 1 1 Referral ID Status Reason Start Date Expiration Date Visits Requested Visits Authorized [id number] Authorized PCP Requested Referral 10/14/2024 09/13/2025 1 1 Specialty Diagnoses / Procedures Referred By Contac t Referred To Contact Diagnoses [place] Tourette syndrome Procedures PROVIDER ORDERED FOLLOW UP OFFICE/OUTPATIENT [facility] 60 MINUTES Aubrey Murphy MD [address] [place] [address] Referral ID Status Reason Start Date Expiration Date Visits Requested Visits Authorized [id number] Authorized PCP Requested Referral 10/02/2024 09/25/2025 1 1 Chief Complaint and Reason for Visit Chief Complaint PHYSICAL ALTERCATION Chief Complaint sore throat Advance Directives Advance Directive Response Recorded Date/ Time Living Will No March 27, 2023 9 :12pm Power of Supplier Quality Engineer No March 27, 2023 9:12pm Advance Directive Response Recorded Date/ Time Living Will No January 15, 2024 2:15am Power of Supplier Quality Engineer No January 14 2:15am Summary Purpose Family History No Family History Records FoundNo Family History Records Found Additional Source Comments Source Comments (unrecognize d section and content) In the event this informatio n is protected by the Federal Confidentiality of Alcohol and Drug Abuse Patient Records regulations: The Federal rules restrict any use of the information to criminally investigate or prosecute any alcohol or drug abuse patient.[facility] CenterIn the event this information is protected by the Federal Confidentiality of Alcohol and Drug Abuse Patient Records regulations: The Federal rules restrict any use of the information to criminally investigate or prosecute any alcohol or drug abuse patient.[facility] CenterIn the event this information is protected by the Federal Confidentiality of Alcohol and Drug Abuse Patient Records regulations: The Federal rules restrict any use of the information to criminally investigate or prosecute any alcohol or drug abuse patient.[facility] CenterIn the event this information is protected by the Federal Confidentiality of Alcohol and Drug Abuse Patient Records regulations: The Federal rules restrict any use of the information to criminally investigate or prosecute any alcohol or drug abuse patient.[facility] CenterIn the event this information is protected by the Federal Confidentiality of Alcohol and Drug Abuse Patient Records regulations: The Federal rules restrict any use of the information to criminally investigate or prosecute any alcohol or drug abuse patient.[facility] CenterIn the event this information is protected by the Federal Confidentiality of Alcohol and Drug Abuse Patient Records regulations: The Federal rules restrict any use of the information to criminally investigate or prosecute any alcohol or drug abuse patient.[facility] CenterIn the event this information is protected by the Federal Confidentiality of Alcohol and Drug Abuse Patient Records regulations: The Federal rules restrict any use of the information to criminally investigate or prosecute any alcohol or drug abuse patient.[facility] CenterIn the event this information is protected by the Federal Confidentiality of Alcohol and Drug Abuse Patient Records regulations: The Federal rules restrict any use of the information to criminally investigate or prosecute any alcohol or drug abuse patient.[facility] CenterIn the event this information is protected by the Federal Confidentiality of Alcohol and Drug Abuse Patient Records regulations: The Federal rules restrict any use of the information to criminally investigate or prosecute any alcohol or drug abuse patient.[facility] CenterIn the event this information is protected by the Federal Confidentiality of Alcohol and Drug Abuse Patient Records regulations: The Federal rules restrict any use of the information to criminally investigate or prosecute any alcohol or drug abuse patient.[facility] CenterIn the event this information is protected by the Federal Confidentiality of Alcohol and Drug Abuse Patient Records regulations: The Federal rules restrict any use of the information to criminally investigate or prosecute any alcohol or drug abuse patient.[facility] CenterIn the event this information is protected by the Federal Confidentiality of Alcohol and Drug Abuse Patient Records regulations: The Federal rules restrict any use of the information to criminally investigate or prosecute any alcohol or drug abuse patient.[facility] CenterIn the event this information is protected by the Federal Confidentiality of Alcohol and Drug Abuse Patient Records regulations: The Federal rules restrict any use of the information to criminally investigate or prosecute any alcohol or drug abuse patient.[facility] CenterIn the event this information is protected by the Federal Confidentiality of Alcohol and Drug Abuse Patient Records regulations: The Federal rules restrict any use of the information to criminally investigate or prosecute any alcohol or drug abuse patient.[facility] CenterIn the event this information is protected by the Federal Confidentiality of Alcohol and Drug Abuse Patient Records regulations: The Federal rules restrict any use of the information to criminally investigate or prosecute any alcohol or drug abuse patient.[facility] CenterIn the event this information is protected by the Federal Confidentiality of Alcohol and Drug Abuse Patient Records regulations: The Federal rules restrict any use of the information to criminally investigate or prosecute any alcohol or drug abuse patient.[facility] CenterIn the event this information is protected by the Federal Confidentiality of Alcohol and Drug Abuse Patient Records regulations: The Federal rules restrict any use of the information to criminally investigate or prosecute any alcohol or drug abuse patient.[facility] CenterIn the event this information is protected by the Federal Confidentiality of Alcohol and Drug Abuse Patient Records regulations: The Federal rules restrict any use of the information to criminally investigate or prosecute any alcohol or drug abuse patient.[facility] CenterIn the event this information is protected by the Federal Confidentiality of Alcohol and Drug Abuse Patient Records regulations: The Federal rules restrict any use of the information to criminally investigate or prosecute any alcohol or drug abuse patient.[facility] CenterIn the event this information is protected by the Federal Confidentiality of Alcohol and Drug Abuse Patient Records regulations: The Federal rules restrict any use of the information to criminally investigate or prosecute any alcohol or drug abuse patient.[facility] CenterIn the event this information is protected by the Federal Confidentiality of Alcohol and Drug Abuse Patient Records regulations: The Federal rules restrict any use of the information to criminally investigate or prosecute any alcohol or drug abuse patient.[facility] CenterIn the event this information is protected by the Federal Confidentiality of Alcohol and Drug Abuse Patient Records regulations: The Federal rules restrict any use of the information to criminally investigate or prosecute any alcohol or drug abuse patient.[facility] CenterIn the event this information is protected by the Federal Confidentiality of Alcohol and Drug Abuse Patient Records regulations: The Federal rules restrict any use of the information to criminally investigate or prosecute any alcohol or drug abuse patient.[facility] CenterIn the event this information is protected by the Federal Confidentiality of Alcohol and Drug Abuse Patient Records regulations: The Federal rules restrict any use of the information to criminally investigate or prosecute any alcohol or drug abuse patient.[facility] CenterIn the event this information is protected by the Federal Confidentiality of Alcohol and Drug Abuse Patient Records regulations: The Federal rules restrict any use of the information to criminally investigate or prosecute any alcohol or drug abuse patient.[facility] CenterIn the event this information is protected by the Federal Confidentiality of Alcohol and Drug Abuse Patient Records regulations: The Federal rules restrict any use of the information to criminally investigate or prosecute any alcohol or drug abuse patient.[facility]In the event this information is protected by the Federal Confidentiality of Alcohol and Drug Abuse Patient Records regulations: The Federal rules restrict any use of the information to criminally investigate or prosecute any alcohol or drug abuse patient.[facility] CenterIn the event this information is protected by the Federal Confidentiality of Alcohol and Drug Abuse Patient Records regulations: The Federal rules restrict any use of the information to criminally investigate or prosecute any alcohol or drug abuse patient.[facility] CenterIn the event this information is protected by the Federal Confidentiality of Alcohol and Drug Abuse Patient Records regulations: The Federal rules restrict any use of the information to criminally investigate or prosecute any alcohol or drug abuse patient.[facility] CenterIn the event this information is protected by the Federal Confidentiality of Alcohol and Drug Abuse Patient Records regulations: The Federal rules restrict any use of the information to criminally investigate or prosecute any alcohol or drug abuse patient.[facility] CenterIn the event this information is protected by the Federal Confidentiality of Alcohol and Drug Abuse Patient Records regulations: The Federal rules restrict any use of the information to criminally investigate or prosecute any alcohol or drug abuse patient.[facility] CenterIn the event this information is protected by the Federal Confidentiality of Alcohol and Drug Abuse Patient Records regulations: The Federal rules restrict any use of the information to criminally investigate or prosecute any alcohol or drug abuse patient.[facility] CenterIn the event this information is protected by the Federal Confidentiality of Alcohol and Drug Abuse Patient Records regulations: The Federal rules restrict any use of the information to criminally investigate or prosecute any alcohol or drug abuse patient.[facility] CenterIn the event this information is protected by the Federal Confidentiality of Alcohol and Drug Abuse Patient Records regulations: The Federal rules restrict any use of the information to criminally investigate or prosecute any alcohol or drug abuse patient.[facility] CenterIn the event this information is protected by the Federal Confidentiality of Alcohol and Drug Abuse Patient Records regulations: The Federal rules restrict any use of the information to criminally investigate or prosecute any alcohol or drug abuse patient.[facility] CenterIn the event this information is protected by the Federal Confidentiality of Alcohol and Drug Abuse Patient Records regulations: The Federal rules restrict any use of the information to criminally investigate or prosecute any alcohol or drug abuse patient.[facility] CenterIn the event this information is protected by the Federal Confidentiality of Alcohol and Drug Abuse Patient Records regulations: The Federal rules restrict any use of the information to criminally investigate or prosecute any alcohol or drug abuse patient.[facility] CenterIn the event this information is protected by the Federal Confidentiality of Alcohol and Drug Abuse Patient Records regulations: The Federal rules restrict any use of the information to criminally investigate or prosecute any alcohol or drug abuse patient.[facility] CenterIn the event this information is protected by the Federal Confidentiality of Alcohol and Drug Abuse Patient Records regulations: The Federal rules restrict any use of the information to criminally investigate or prosecute any alcohol or drug abuse patient.[facility] CenterIn the event this information is protected by the Federal Confidentiality of Alcohol and Drug Abuse Patient Records regulations: The Federal rules restrict any use of the information to criminally investigate or prosecute any alcohol or drug abuse patient.[facility] CenterIn the event this information is protected by the Federal Confidentiality of Alcohol and Drug Abuse Patient Records regulations: The Federal rules restrict any use of the information to criminally investigate or prosecute any alcohol or drug abuse patient.[facility] CenterIn the event this information is protected by the Federal Confidentiality of Alcohol and Drug Abuse Patient Records regulations: The Federal rules restrict any use of the information to criminally investigate or prosecute any alcohol or drug abuse patient.[facility] CenterIn the event this information is protected by the Federal Confidentiality of Alcohol and Drug Abuse Patient Records regulations: The Federal rules restrict any use of the information to criminally investigate or prosecute any alcohol or drug abuse patient.[facility] CenterIn the event this information is protected by the Federal Confidentiality of Alcohol and Drug Abuse Patient Records regulations: The Federal rules restrict any use of the information to criminally investigate or prosecute any alcohol or drug abuse patient.[facility] CenterIn the event this information is protected by the Federal Confidentiality of Alcohol and Drug Abuse Patient Records regulations: The Federal rules restrict any use of the information to criminally investigate or prosecute any alcohol or drug abuse patient.[facility] CenterIn the event this information is protected by the Federal Confidentiality of Alcohol and Drug Abuse Patient Records regulations: The Federal rules restrict any use of the information to criminally investigate or prosecute any alcohol or drug abuse patient.[facility] CenterIn the event this information is protected by the Federal Confidentiality of Alcohol and Drug Abuse Patient Records regulations: The Federal rules restrict any use of the information to criminally investigate or prosecute any alcohol or drug abuse patient.[facility] CenterIn the event this information is protected by the Federal Confidentiality of Alcohol and Drug Abuse Patient Records regulations: The Federal rules restrict any use of the information to criminally investigate or prosecute any alcohol or drug abuse patient.[facility] CenterIn the event this information is protected by the Federal Confidentiality of Alcohol and Drug Abuse Patient Records regulations: The Federal rules restrict any use of the information to criminally investigate or prosecute any alcohol or drug abuse patient.[facility] CenterIn the event this information is protected by the Federal Confidentiality of Alcohol and Drug Abuse Patient Records regulations: The Federal rules restrict any use of the information to criminally investigate or prosecute any alcohol or drug abuse patient.[facility] CenterIn the event this information is protected by the Federal Confidentiality of Alcohol and Drug Abuse Patient Records regulations: The Federal rules restrict any use of the information to criminally investigate or prosecute any alcohol or drug abuse patient.[facility] CenterIn the event this information is protected by the Federal Confidentiality of Alcohol and Drug Abuse Patient Records regulations: The Federal rules restrict any use of the information to criminally investigate or prosecute any alcohol or drug abuse patient.[facility] CenterIn the event this information is protected by the Federal Confidentiality of Alcohol and Drug Abuse Patient Records regulations: The Federal rules restrict any use of the information to criminally investigate or prosecute any alcohol or drug abuse patient.[facility] CenterIn the event this information is protected by the Federal Confidentiality of Alcohol and Drug Abuse Patient Records regulations: The Federal rules restrict any use of the information to criminally investigate or prosecute any alcohol or drug abuse patient.[facility] Care Teams (unrecognized sec tion and content) Caddy Master Relationship Specialty Start Date End Date Brendan Kang MD [address] [place] [address] PCP - General Family Practice 11/12/20 Caddy Master Relationship Specialty Start Date End Date Brendan Kang MD [address] [place] [address] PCP - General Family Practice 11/12/20 Caddy Master Relationship Specialty Start Date End Date Brendan Kang MD [address] [place] [address] PCP - General Family Practice 11/12/20 Caddy Master Relationship Specialty Start Date End Date Brendan Kang MD [address] [place] [address] PCP - General Family Medicine 11/12/20 Caddy Master Relationship Specialty Start Date End Date Brendan Kagn MD [address] [place] [address] PCP - General Family Medicine 11/12/20 Caddy Master Relationship Specialty Start Date End Date Brendan Kang MD [address] [place] [address] PCP - General Family Medicine 11/12/20 Caddy Master Relationship Specialty Start Date End Date Brendan Kang MD [address] [place] [address] PCP - General Family Medicine 11/12/20 Caddy Master Relationship Specialty Start Date End Date Brendan Kang MD [address] [place] [place] [address] PCP - General Family Medicine 11/12/20 Caddy Master Relationship Specialty Start Date End Date Brendan Kang MD [address] [place] [place] [address] PCP - General Family Medicine 11/12/20 Caddy Master Relationship Specialty Start Date End Date Brendan Kang MD [address] [place] [place] [address] PCP - General Family Medicine 11/12/20 Team Status: Active Member Role Status Dates Dr. Brendan Kang MD Primary Care Provider Active Team Status: Inactive Member Role Status Dates Dr. Brendan Kang MD Primary Care Provider Active Dr. Reba Payan MD Emergency Provider Active Caddy Master Relationship Specialty Start Date End Date Brendan Kang MD [address] [place] [place] [address] PCP - General Family Medicine 11/12/20 Caddy Master Relationship Specialty Start Date End Date Brendan Kang MD [address] [place] [place] [address] PCP - General Family Medicine 11/12/20 Caddy Master Relationship Specialty Start Date End Date Brendan Kang MD [address] [place] [place] [address] PCP - General Family Medicine 11/12/20 Caddy Master Relationship Specialty Start Date End Date Brendan Kang MD [address] [place] [address] PCP - General Family Medicine 11/12/20 Caddy Master Relationship Specialty Start Date End Date Brendan Kang MD [address] [place] [address] PCP - General Family Medicine 11/12/20 Team Status: Inactive Member Role Status Dates Dr. Brendan Knag MD Primary Care Provider Active Dr. Morris Staples DO Emergency Provider Active Caddy Master Relationship Specialty Start Date End Date Brendan Kang MD [address] [place] [address] PCP - General Family Medicine 11/12/20 Caddy Master Relationship Specialty Start Date End Date Brendan Kang MD [address] [place] [address] PCP - General Family Medicine 11/12/20 Caddy Master Relationship Specialty Start Date End Date Brendan Kang MD [address] [place] [address] PCP - General Family Medicine 11/12/20 Caddy Master Relationship Specialty Start Date End Date Brendan Kang MD [address] [place] [address] PCP - General Family Medicine 11/12/20 Caddy Master Relationship Specialty Start Date End Date Brendan Kang MD [address] [place] [address] PCP - General Family Medicine 11/12/20 Caddy Master Relationship Specialty Start Date End Date Brendan Kang MD [address] [place] [address] PCP - General Family Medicine 11/12/20 Caddy Master Relationship Specialty Start Date End Date Brendan Kang MD [address] [place] [address] PCP - General Family Medicine 11/12/20 Caddy Master Relationship Specialty Start Date End Date Brendan Kang MD [address] [place] [address] PCP - General Family Medicine 11/12/20 Caddy Master Relationship Specialty Start Date End Date Brendan Kang MD [address] [place] [address] PCP - General Family Medicine 11/12/20 Caddy Master Relationship Specialty Start Date End Date Brendan Kang MD [address] [place] [address] PCP - General Family Medicine 11/12/20 Caddy Master Relationship Specialty Start Date End Date Brendan Kang MD [address] [place] [address] PCP - General Family Medicine 11/12/20 Caddy Master Relationship Specialty Start Date End Date Brendan Kang MD [address] [place] [address] PCP - General Family Medicine 11/12/20 Kia Collins, KATHERINE.MIRROR MACHINE FEEDER [address] [place] [place] [address] Railroad Operating Engineer Family Medicine 09/03/24 Delvin Hickman APRN.MIRROR MACHINE FEEDER [address] [facility] [place] [address] Railroad Operating Engineer Family Medicine 09/12/24 Caddy Master Relationship Specialty Start Date End Date Brendan Kang MD [address] [facility] [place] [address] PCP - General Family Medicine 11/12/20 Kia Collins APRN.MIRROR MACHINE FEEDER [address] [place] [address] Railroad Operating Engineer Family Medicine 09/03/24 Delvin Hickman APRN.MIRROR MACHINE FEEDER [address] [place] [address] [facility] 09/12/24 Caddy Master Relationship Specialty Start Date End Date Brendan Kang MD [address] [place] [address] PCP - General Family Medicine 11/12/20 Kia Collins APRN.MIRROR MACHINE FEEDER [address] [place] [address] Railroad Operating Engineer Family Medicine 09/03/24 Delvin Hickman APRN.MIRROR MACHINE FEEDER [address] [place] [address] Railroad Operating Engineer Family Medicine 09/12/24 Caddy Master Relationship Specialty Start Date End Date Brendan Kang MD [address] [place] [address] PCP - General Family Medicine 11/12/20 Kia Collins APRN.MIRROR MACHINE FEEDER [address] [place] [address] Railroad Operating Engineer Family Medicine 09/03/24 Delvin Hickman APRN.MIRROR MACHINE FEEDER [address] [place] [address] [facility] Caddy Master Relationship Specialty Start Date End Date Brendan Kang MD [address] [place] [address] PCP - General Family Medicine 11/12/20 Kia Collins APRN.MIRROR MACHINE FEEDER [address] [place] [address] [facility] 09/03/24 Delvin Hickman APRN.MIRROR MACHINE FEEDER [address] [place] [address] [facility] 09/12/24 Caddy Master Relationship Specialty Start Date End Date Brendan Kang MD [address] [place] [address] PCP - General Family Medicine 11/12/20 Kia Collins APRN.MIRROR MACHINE FEEDER [address] [place] [address] Railroad Operating Engineer Family Medicine 09/03/24 Delvin Hickman APRN.MIRROR MACHINE FEEDER [address] [place] [address] [facility] Medicine 09/12/24 Caddy Master Relationship Specialty Start Date End Date Brendan Kang MD [address] [place] [address] PCP - General Family Medicine 11/12/20 Kia Collins APRN.MIRROR MACHINE FEEDER [address] [place] [address] Railroad Operating Engineer Family Medicine 09/03/24 Delvin Hickman APRN.MIRROR MACHINE FEEDER [address] [place] [address] Railroad Operating Engineer Family Medicine 09/12/24 Caddy Master Relationship Specialty Start Date End Date Brendan Kang MD [address] [place] [address] PCP - General Family Medicine 11/12/20 Kia Collins APRN.MIRROR MACHINE FEEDER [address] [place] [place] [address] Railroad Operating Engineer Family Medicine 09/03/24 Delvin Hickman APRN.MIRROR MACHINE FEEDER [address] [place] [address] Railroad Operating Engineer Family Medicine 09/12/24 Caddy Master Relationship Specialty Start Date End Date Brendan Kang MD [address] [place] [place] [address] PCP - General Family Medicine 11/12/20 Kia Collins APRN.MIRROR MACHINE FEEDER [address] [place] [place] [address] Railroad Operating Engineer Family Medicine 09/03/24 Delvin Hickman APRN.MIRROR MACHINE FEEDER [address] [place] [address] Railroad Operating Engineer Family Medicine 09/12/24 Caddy Master Relationship Specialty Start Date End Date Brendan Kang MD [address] [place] [place] [address] PCP - General Family Medicine 11/12/20 Kia Collins APRN.MIRROR MACHINE FEEDER [address] [place] [place] [address] Railroad Operating Engineer Family Medicine 09/03/24 Delvin Hickman APRN.MIRROR MACHINE FEEDER [address] [facility] [place] [address] Railroad Operating Engineer Family Medicine 09/12/24 Caddy Master Relationship Specialty Start Date End Date Brendan Kang MD [address] [place] [address] PCP - General Family Medicine 11/12/20 Kia Collins APRN.MIRROR MACHINE FEEDER [address] [facility] [place] [address] Railroad Operating Engineer Family Medicine 09/03/24 Delvin Hickman EXPERIMENTAL ROCKET SLED MECHANIC.MIRROR MACHINE FEEDER [address] [facility] [place] [address] Railroad Operating Engineer Family Medicine 09/12/24 Caddy Master Relationship Specialty Start Date End Date Brendan Kang MD [address] [facility] [place] [address] PCP - General Family Medicine 11/12/20 Kia Collins EXPERIMENTAL ROCKET SLED MECHANIC.MIRROR MACHINE FEEDER [address] [facility] [place] [address] Railroad Operating Engineer Family Medicine 09/03/24 Delvin Hickman EXPERIMENTAL ROCKET SLED MECHANIC.MIRROR MACHINE FEEDER [address] [facility] [place] [address] Railroad Operating Engineer Family Medicine 09/12/24 Caddy Master Relationship Specialty Start Date End Date Brendan Kang MD [address] [place] [address] PCP - General Family Medicine 11/12/20 Delvin Hickman APRN.MIRROR MACHINE FEEDER [address] [place] [address] Railroad Operating Engineer [facility] 09/12/24 Caddy Master Relationship Specialty Start Date End Date Brendan Kang MD [address] [place] [address] PCP - General Family Medicine 11/12/20 Delvin Hickman APRN.MIRROR MACHINE FEEDER [address] [place] [address] [facility] 09/12/24 Caddy Master Relationship Specialty Start Date End Date Brendan Kang MD [address] [place] [address] PCP - General Family Medicine 11/12/20 Delvin Hickman APRN.MIRROR MACHINE FEEDER [address] [place] [address] [facility] 09/12/24 Caddy Master Relationship Specialty Start Date End Date Brendan Kang MD [address] [place] [address] PCP - General Family Medicine 11/12/20 Delvin Hickman APRN.MIRROR MACHINE FEEDER [address] [place] [address] [facility] 09/12/24 Reason for Visit (unrecogniz ed section and content) Reason Comments No Show Specialty Diagnoses / Procedures Referred By Contmyriam t Referred To Contact Psychiatry / ADULT PSYCHIATRY Diagnoses vv follow up per staff message Procedures VIDEO PSYC/PSYL EST [facility] [address] [place] [address] Phone: tel: Rachel Higgins PA-C [address] [phone] Phone: tel: fax: Referral ID Status Reason Start Date Expiration Date V isits Requested Visits Authorized [id number] New Request 03/26/2025 09/26/2025 1 1 Reason Comments Telemedicine Follow Up Reason Onset Date Comments Refill Request 06/29/2022 Reason Comments Abdominal Pain Off and on Reason Onset Date Comments Refill Request 10/06/2022 Reason Comments Cough For past 3 and a wilebrto f weeks. Had runny nose first two [...] Anxiety Specialty Diagnoses / Procedures Referred By Contac t Referred To Contact NEUROLOGICAL LATTER-DAY Diagnoses [place] Tourette syndrome Anxiety Sleep difficulties Procedures CONSULT TO PSYCHIATRY OFFICE/OUTPATIENT NEW HIGH MDM 60 MINUTES Jeanette Monge PA-C [address] [phone] [phone] Referral ID Status Reason Start Date Expiration Date V isits Requested Visits Authorized [id number] Closed PCP Requested Referral Patient Cleared - INN Insurance Found 02/14/2024 02/13/2025 1 1 Reason Comments Anxiety Follow Up Reason Comments Appointment Rescheduled Specialty Diagnoses / Procedures Referred By Contac t Referred To Contact Diagnoses Anxiety Procedures PROVIDER ORDERED FOLLOW UP OFFICE/OUTPATIENT NEW HIGH MDM 60 MINUTES Aubrey Murphy MD [address] [phone] Referral ID Status Reason Start Date Expiration Date Visits Requested Visits Authorized [id number] Authorized PCP Requested Referral 05/19/2024 02/16/2025 1 1 Reason Comments Acute Visit fatigues x 1 month Reason Comments Results Labs Orders Reason Comments Cough Cough, congestion an d sinus x 1.5 weeks Reason Comments Rash Rash on upper right leg and stomach x 2 weeks Reason Comments Letter Reason Comments Rash Reason Comments Anxiety Specialty Diagnoses / Procedures Referred By Contac t Referred To Contact Diagnoses Anxiety Procedures PROVIDER ORDERED FOLLOW UP OFFICE/OUTPATIENT NEW HIGH MDM 60 MINUTES Aubrey Murphy MD [address] [place] [address] Referral ID Status Reason Start Date Expiration Date V isits Requested Visits Authorized [id number] Closed PCP Requested Referral 05/19/2024 02/16/2025 1 1 Reason Comments Refill Request Reason Comments Flu Like Symptoms Vomiting, bodyaches, fatigue, wheezing, ST x1 week Reason Comments Follow Up Specialty Diagnoses / Procedures Referred By Contac t Referred To Contact [facility] Diagnoses COOPER (generalized anxiety disorder) Procedures PROVIDER ORDERED FOLLOW UP OFFICE/OUTPATIENT NEW HIGH MDM 60 MINUTES Aubrey Murphy MD [address] [place] [address] Phone: tel: fax: Neurology [address] [place] [address] Phone: tel: Referral ID Status Reason Start Date Expiration Date V isits Requested Visits Authorized [id number] Closed PCP Requested Referral 11/06/2024 10/16/2025 1 1 Reason Comments Blood Pressure Reason Comments No Show Specialty Diagnoses / Procedures Referred By Contac t Referred To Contact Diagnoses COOPER (generalized anxiety disorder) Procedures PROVIDER ORDERED FOLLOW UP OFFICE/OUTPATIENT NEW HIGH MDM 60 MINUTES Rachel Higgins PA-C [address] [place] [address] Phone: tel: fax: Referral ID Status Reason Start Date Expiration Date Visits Requested Visits Authorized [id number] Authorized PCP Requested Referral 11/29/2024 11/08/2025 1 1 Reason Comments Sore Throat ST, sinus, congestio n and SILVA x 2 days Reason Comments Cough Chest Congestion Head Congestion Sore Throat Started a week ago a nd is scratchy during the evenings and HS. Wheezing Reason Comments Cough Cough, fever, wheezi ng and chest tightness x 3 days Reason Comments Back Pain Lower and mid back Specialty Diagnoses / Procedures Referred By Cady campuzano Referred To Contact Psychiatry / ADULT PSYCHIATRY Diagnoses vv follow up per staff message Procedures VIDEO PSYC/PSYL EST [facility] [address] [place] [address] Phone: tel: Rachel Higgins PA-C [address] [place] [address] Phone: tel: fax: Referral ID Status Reason Start Date Expiration Date V isits Requested Visits Authorized [id number] New Request 03/26/2025 09/26/2025 1 1 Goals (unrecognized section and content) Goals may be documented in a n alternate sectionGoals may be documented in an alternate section (unrecognized sect ion and content) No Status Records FoundNo Status Records Found INFORMATION SOURCE (unrecogn ized section and content) DATE CREATED AUTHOR 11/23/2024 [facility] DATE CREATED AUTHOR AUTHOR'S JAMESIZ ATION 03/19/2025 [facility] FOR RECORDS PERTAINING TO PATIENTS WHO ARE [...] BE BASED ON THE PRIMARY CLINICAL RECORDS. [employer] provides no warranty or guarantee of the accuracy or completeness of information in this document.
[2025-05-28 02:17] LABS: Hematocrit 41.0 % (40-54); Hemoglobin 14.3 g/dL (13.0-16.5); Immature Granulocytes Count 0.010 X10^3/uL (0.0-0.0); Mean Corp Hgb Conc 34.9 g/dL (32-36); Mean Corpuscular Volume 82.7 fL (80-94); Mean Platelet Vol. 11.0 fl (6.2-12.0); NRBC Flagged by Analyzer 0 % (0-5); Platelet Count 202 K/mm3 (150-450); RBC Distribution Width CV 12.7 % (11.6-14.6); RBC Distribution Width SD 37.7 fl (35.1-43.9); Red Blood Count 4.96 M/mm3 (4.6-6.2); White Blood Count 8.1 K/mm3 (4.4-11.0)
[2025-05-28 02:41] LABS: AST(SGOT) 22 U/L (<=37); Alanine Aminotransfer ALT/SGPT 20 U/L (<=46); Albumin, Serum 4.2 g/dL (3.5-5.0); Alkaline Phosphatase 81 U/L (40-129); Anion Gap 11 (5-15); BUN 20 mg/dL (4-19); BUN/Creat Ratio 20.5 RATIO (10-20); Calcium,Total 9.0 mg/dL (7.6-11.0); Carbon Dioxide 21.3 mmol/L (21.0-32.0); Chloride 105 mmol/L (98-108); Estimated Creatinine Clearance 137.48 ml/min (50-250); Globulin 2.4 g/dL (2.2-4.2); Glucose 96 mg/dL (70-99); Potassium 3.9 mmol/L (3.3-5.1)
[2025-05-28 03:59] LABS: CRP 1.87 mg/L (0.0-3.0)
[2025-05-28 04:33] VITALS: BP 134/79; PULSE 81; RESP 16; TEMP 36.6; O2SAT 100
[2025-05-30 14:08] LABS: Lyme Scn Total Ab w/Rflx Negative (Negative)
== END 2025-05-28 04:34 | disposition home or self-care (01) ==
PROVIDERS: Emergency Provider Emergency Medicine; PCP Family Medicine; Visit Provider Emergency Medicine
DX: L30.9 Dermatitis, unspecified (principal); F31.9 Bipolar disorder, unspecified; F41.9 Anxiety disorder, unspecified; I10 Essential (primary) hypertension; F95.2 Tourette's disorder; Z79.899 Other long term (current) drug therapy
CPT/HCPCS: 36415; 80053; 85025; 86140; 86618; 99282

== ENCOUNTER 2025-07-18 22:36 | Emergency (ER) | payer MEDICAID, SELFPAY ==
[2025-07-18 22:36] VITALS: BP 185/108; PULSE 90; RESP 16; TEMP 36.8; O2SAT 98; BMI 34.4
[2025-07-18 23:15] LABS: Hematocrit 44.4 % (40-54); Hemoglobin 15.5 g/dL (13.0-16.5); Immature Granulocytes Count 0.020 X10^3/uL (0.0-0.0); Mean Corp Hgb Conc 34.9 g/dL (32-36); Mean Corpuscular Volume 82.4 fL (80-94); Mean Platelet Vol. 11.0 fl (6.2-12.0); NRBC Flagged by Analyzer 0 % (0-5); Platelet Count 241 K/mm3 (150-450); RBC Distribution Width CV 12.3 % (11.6-14.6); RBC Distribution Width SD 36.9 fl (35.1-43.9); Red Blood Count 5.39 M/mm3 (4.6-6.2); White Blood Count 7.8 K/mm3 (4.4-11.0)
[2025-07-18] MEDS: 0.9% Normal Saline (1000mL) 1,000 ML 999 ML IV (23:17)
[2025-07-18 23:36] VITALS: BP 126/81; PULSE 67; RESP 18; O2SAT 98
[2025-07-18 23:41] LABS: Anion Gap 12 (5-15); BUN 12 mg/dL (4-19); BUN/Creat Ratio 10.7 RATIO (10-20); Calcium,Total 9.6 mg/dL (7.6-11.0); Carbon Dioxide 26.2 mmol/L (21.0-32.0); Chloride 101 mmol/L (98-108); Estimated Creatinine Clearance 126.24 ml/min (50-250); Glucose 99 mg/dL (70-99); Magnesium 2.0 mg/dL (1.5-2.2); Potassium 3.7 mmol/L (3.3-5.1)
[2025-07-19] VITALS: BP 128/80; PULSE 70; RESP 16; O2SAT 98
[2025-07-19 00:37] VITALS: BP 126/81; PULSE 70; RESP 20; TEMP 36.5; O2SAT 97
== END 2025-07-19 00:45 | disposition home or self-care (01) ==
PROVIDERS: Emergency Provider Emergency Medicine; PCP Family Medicine; Visit Provider Emergency Medicine
DX: R00.2 Palpitations (principal); F31.9 Bipolar disorder, unspecified; F41.9 Anxiety disorder, unspecified; R42 Dizziness and giddiness
CPT/HCPCS: 80048; 82962; 83735; 84443; 85025; 93005; 96360; 99283; A4216